=== PATIENT | female | born 1955 | race Caucasian/White ===

== ENCOUNTER 2017-06-24 13:54 | Observation (INO) ==
[2017-06-24] MEDS ORDERED: Ipratropium/Albuterol Neb 3 ML IH ONE (13:57)
[2017-06-24] MEDS ORDERED: methylPREDNISolone 125 MG/2 ML VIAL IVP ONE (13:57)
--- NOTE | 2017-06-24 13:57 | Emergency Department Note ---
Disposition Clinical Impression: Acute exacerbation of chronic obstructive airways disease Disposition: Admitted As Inpatient Referrals: Greg Lemos, PAC [Primary Care Provider] - Forms: ED Satisfaction Letter General Adult HPI - General Chief complaint: ED Shortness of Breath/Dyspnea Stated complaint: ELÍAS Time Seen by Provider: 06/24/17 13:56 - Related Data Allergies Allergy/AdvReac Type Severity Reaction Status Date / Time No Known Allergies Allergy Verified 09/12/16 16:07 Past Medical History - Past Medical History Medical history: Reports: COPD Psychiatric history: Reports: bipolar, depression - Social History Smoking Status: Current every day smoker Smokeless Tobacco Status: No Alcohol use: Reports: none Drug use: Reports: none Course Vital Signs Temperature 101.3 F H 06/24/17 13:56 Pulse Rate 112 06/24/17 13:56 Respiratory Rate 2 06/24/17 13:56 Blood Pressure 125/98 06/24/17 13:56 O2 Sat by Pulse Oximetry 91 06/24/17 13:56 Temperature 101.3 F H 06/24/17 13:56 Pulse Rate 108 06/24/17 14:02 Respiratory Rate 16 06/24/17 14:05 Blood Pressure 109/90 06/24/17 14:02 O2 Sat by Pulse Oximetry 93 06/24/17 14:05 Oxygen Delivery Oxygen Delivery Nasal Cannula Medical Decision Making - Lab Data Result diagrams: 06/24/17 14:05 06/24/17 14:05 Lab Results 06/24/17 06/24/17 06/24/17 Range/Units 14:05 14:05 14:05 WBC 5.7 (4.3-11.1) K/mcL RBC 5.68 H (3.82-4.97) M/mcL Hgb 16.7 H (11.5-15.4) g/dL Hct 50.6 H (35.3-44.9) % MCV 89.1 (83.0-100.0) fL MCH 29.4 (28.0-33.3) pg MCHC 33.0 (31.6-35.5) g/dL RDW 12.6 (11.5-14.5) % Plt Count 178 (140-400) K/mcL MPV 10.0 (9.4-12.4) fL Immature Gran % 0.2 (0-4) % Seg Neutrophils % 66.6 % Lymphocytes % 22.8 % Monocytes % 10.2 % Eosinophils % 0.0 % Basophils % 0.2 % Neutrophils # 3.8 (1.6-8.9) K/mcL Lymphocytes # 1.3 (0.6-4.6) K/mcL Monocytes # 0.6 (0.0-1.3) K/mcL Eosinophils # 0.0 (0.0-0.6) K/mcL Basophils # 0.0 (0.0-0.2) K/mcL Sodium 134 L (136-145) mEq/L Potassium 3.9 (3.5-5.1) mEq/L Chloride 97 L (98-107) mEq/L Carbon Dioxide 33 H (23-29) mEq/L BUN 11 (8-23) mg/dL Creatinine 0.77 (0.60-1.20) mg/dL Est GFR ( Amer) > 60 (> 60) Est GFR (Non-Af Amer) > 60 (> 60) BUN/Creatinine Ratio 14 (6-26) Glucose 134 H (70-105) mg/dL Calculated Osmolality 279 L (280-300) Lactic Acid 0.7 (0.5-2.2) mmol/L Calcium 8.8 (8.6-10.3) mg/dL Troponin I (< 0.04) ng/mL B-Natriuretic Peptide (Less than 100) pg/mL 06/24/17 06/24/17 Range/Units 14:05 14:05 WBC (4.3-11.1) K/mcL RBC (3.82-4.97) M/mcL Hgb (11.5-15.4) g/dL Hct (35.3-44.9) % MCV (83.0-100.0) fL MCH (28.0-33.3) pg MCHC (31.6-35.5) g/dL RDW (11.5-14.5) % Plt Count (140-400) K/mcL MPV (9.4-12.4) fL Immature Gran % (0-4) % Seg Neutrophils % % Lymphocytes % % Monocytes % % Eosinophils % % Basophils % % Neutrophils # (1.6-8.9) K/mcL Lymphocytes # (0.6-4.6) K/mcL Monocytes # (0.0-1.3) K/mcL Eosinophils # (0.0-0.6) K/mcL Basophils # (0.0-0.2) K/mcL Sodium (136-145) mEq/L Potassium (3.5-5.1) mEq/L Chloride (98-107) mEq/L Carbon Dioxide (23-29) mEq/L BUN (8-23) mg/dL Creatinine (0.60-1.20) mg/dL Est GFR ( Amer) (> 60) Est GFR (Non-Af Amer) (> 60) BUN/Creatinine Ratio (6-26) Glucose (70-105) mg/dL Calculated Osmolality (280-300) Lactic Acid (0.5-2.2) mmol/L Calcium (8.6-10.3) mg/dL Troponin I < 0.03 (< 0.04) ng/mL B-Natriuretic Peptide 16 (Less than 100) pg/mL Attestation Statement - Attestation Attestation: I examined this patient and my medical decision-making was reviewed with the Resident Physician. I agree with the documented findings, disposition and treatment plan as described except to the extent set forth below. Yfol-ke-[id number] time provided Patient arrives by EMS complaining of cough, wheezing, dyspnea. Known history of COPD. Increased work of breathing on exam with nonproductive cough. Patient seen in conjunction with the resident physician Dr. Hernandez 14:46: The patient is tachycardic and febrile meeting SIRS criteria but does not have radiographic pneumonia. She does not meet sepsis criteria.
--- NOTE | 2017-06-24 13:58 | Emergency Department Note ---
Disposition Clinical Impression: Acute exacerbation of chronic obstructive airways disease, Hypoxia, SIRS ( systemic inflammatory response syndrome) Disposition: Admitted As Inpatient Condition: Good Referrals: Greg Lemos, PAC [Primary Care Provider] - Forms: ED Satisfaction Letter Time of Disposition: 14:57 SOB HPI - General Chief Complaint: ED Shortness of Breath/Dyspnea Stated Complaint: ELÍAS Time Seen by Provider: 06/24/17 13:56 Source: patient, EMS Mode of arrival: EMS Limitations: no limitations Nursing Notes Reviewed: Yes Vital Signs Reviewed: Yes - History of Present Illness 62-year-old female history of COPD on 2 L home oxygen supplementation presents to the ED via EMS for difficulty breathing. She reports nonproductive cough with progressive worsening difficulty breathing over the last 8 days. Worse over the past 3 days as she is been out of her pro-air inhaler. She states every time she uses her inhaler it seems to improve. She continues to smoke but has stopped the last day or 2. She denies any chest pain. She denies any fever. No changes to sputum production. Reports history of hospitalization for pneumonia as well COPD exacerbation. Denies any recent antibiotic or steroid use. At this time it appears she is COPD exacerbation and percent. She has wheezing bilaterally with diminished breath sounds. DuoNeb treatment and steroids. She will likely require admission. She is febrile with tachycardia 113, septic workup initiated. Will reassess. He is not hypotensive to require aggressive fluid resuscitation at this time. No recent hospitalization. History of ectomy several years ago. Denies history of blood clot, malignancy, recent long-distance travel. Pt Subjective Complaint: shortness of breath, cough - Related Data Home Medications Medication Instructions Recorded Confirmed Albuterol Sulfate [Albuterol 2 puff IH Q4H PRN 06/24/17 06/24/17 Inhaler] Aspirin Enteric Coated [Aspirin EC] 81 mg PO DAILY 06/24/17 06/24/17 Fluticasone/Vilanterol [Breo 1 each IH DAILY 06/24/17 06/24/17 Ellipta 100-25 Mcg INH] Ipratropium/Albuterol Neb [Duoneb] 3 ml IH BID 06/24/17 06/24/17 LORazepam [Lorazepam] 2 mg PO TID PRN 06/24/17 06/24/17 Levothyroxine Sodium 100 mcg PO QAM 06/24/17 06/24/17 Nortriptyline HCl 75 mg PO HS 06/24/17 06/24/17 Trazodone HCl 200 mg PO HS 06/24/17 06/24/17 Allergies Allergy/AdvReac Type Severity Reaction Status Date / Time No Known Allergies Allergy Verified 09/12/16 16:07 All systems ED: reviewed and negative except as stated. Review of Systems: As Per HPI Constitutional: Denies: fever, chills ENT ED: Reports: congestion. Denies: dysphagia Cardiovascular: Reports: dyspnea on exertion. Denies: chest pain Respiratory: Reports: cough, dyspnea, wheezes. Denies: hemoptysis Gastrointestinal: Denies: abdominal pain, nausea, vomiting Genitourinary: Denies: urgency, dysuria Musculoskeletal: Denies: back pain, neck pain Integumentary: Denies: rash, abrasion, lesions Neurological: Denies: headache, weakness Past Medical History - Past Medical History Attestation: Yes The following information was validated with the patient. Source: patient Medical history: Reports: COPD Psychiatric history: Reports: bipolar, depression - Social History Smoking Status: Current every day smoker Smokeless Tobacco Status: No Alcohol use: Reports: none Drug use: Reports: none Physical Exam - General Limitations: no limitations General appearance: alert, in distress (Mild respiratory), other ( Conversational dyspnea) - Head Head exam: atraumatic, normocephalic, normal inspection - Eye Eye exam: Present: normal appearance, PERRL, EOMI - ENT ENT exam: normal exam, normal oropharynx, mucous membranes moist - Neck Neck exam: Present: normal inspection, full ROM, trachea midline - Chest Chest inspection: Present: normal inspection, symmetric chest wall rise - Respiratory Respiratory exam: Present: respiratory distress, wheezes - Cardiovascular Cardiovascular exam: Present: regular rate, normal rhythm, normal heart sounds - Abdominal Exam Abdominal exam: Present: soft, Non-Tender, normal bowel sounds. Absent: tenderness, distention, guarding, rebound, rigidity - Extremities Exam Extremities exam: Present: full ROM, normal capillary refill, other (Abrasion to lower extremity from recent fall). Absent: tenderness, pedal edema, calf tenderness - Back Exam Back exam: Present: normal inspection, full ROM. Absent: tenderness, CVA tenderness (R), CVA tenderness (L), vertebral tenderness - Neurological Exam Neurological exam: Present: alert, oriented X3 - Psychiatric Psychiatric exam: Present: normal affect, normal mood - Skin Skin exam: Present: warm, dry, intact, normal color Course - Reevaluation(s) Reevaluation #1: Breathing has improved after doing and steroids. She continues a half course breath sounds with scatter wheezing. Chest x-ray does not reveal acute pulmonary process. Review of labs reveal findings consistent with long- standing chronic hypoxia and hyper [place] with elevated hemoglobin 16 is at baseline as well as bicarb 33. Troponin unremarkable. BNP 19. EKG does not reveal any acute ischemic changes. This is likely COPD exacerbation. She will likely need admission. She is in agreement with this plan. She does meet 2 of 4 SIRS criteria with fever and tachycardia. CXR is unremarkable for infection. She denies any urinary complaints. Lactate 0.7. She does not meet sepsis criteria as there is no source. Will treat her with Levaquin for her COPD exacerbation. Patient has been accepted by Dr. Lopez hospitalist. She is currently requiring oxymask 10 L. No further questions at this time. Impression is hypoxia and COPD exacerbation. Time: 14:59 - Consultations Consultation #1: Spoke with on-call hospitalist naya Posey to admit for COPD exacerbation and hypoxia. No further orders at this time Time: 15:01 Vital Signs Temperature 101.3 F H 06/24/17 13:56 Pulse Rate 112 06/24/17 13:56 Respiratory Rate 2 06/24/17 13:56 Blood Pressure 125/98 06/24/17 13:56 O2 Sat by Pulse Oximetry 91 06/24/17 13:56 Temperature 101.3 F H 06/24/17 13:56 Pulse Rate 108 06/24/17 14:02 Respiratory Rate 16 06/24/17 14:05 Blood Pressure 109/90 06/24/17 14:02 O2 Sat by Pulse Oximetry 93 06/24/17 14:05 Oxygen Delivery Oxygen Delivery Nasal Cannula Shortness of Breath/Dyspnea - MDM Narrative Medical decision making narrative: Patient was discussed with my attending physician who agrees with ED management and final disposition. They independently evaluated the patient. Please refer to their attestation to this encounter for additional information. This note was generated by [employer] voice recognition software and as a result grammatical or spelling errors may occur using this program. - Differential Diagnosis Likely: acute exacerbation of chronic obstructive airways disease - Medical Records Medical records reviewed: Yes I reviewed the patient's medical records. - Lab Data Lab results reviewed: Yes I reviewed the patient's lab results. Result diagrams: 06/24/17 14:05 06/24/17 14:05 Lab Results 06/24/17 06/24/17 06/24/17 Range/Units 14:05 14:05 14:05 WBC 5.7 (4.3-11.1) K/mcL RBC 5.68 H (3.82-4.97) M/mcL Hgb 16.7 H (11.5-15.4) g/dL Hct 50.6 H (35.3-44.9) % MCV 89.1 (83.0-100.0) fL MCH 29.4 (28.0-33.3) pg MCHC 33.0 (31.6-35.5) g/dL RDW 12.6 (11.5-14.5) % Plt Count 178 (140-400) K/mcL MPV 10.0 (9.4-12.4) fL Immature Gran % 0.2 (0-4) % Seg Neutrophils % 66.6 % Lymphocytes % 22.8 % Monocytes % 10.2 % Eosinophils % 0.0 % Basophils % 0.2 % Neutrophils # 3.8 (1.6-8.9) K/mcL Lymphocytes # 1.3 (0.6-4.6) K/mcL Monocytes # 0.6 (0.0-1.3) K/mcL Eosinophils # 0.0 (0.0-0.6) K/mcL Basophils # 0.0 (0.0-0.2) K/mcL Sodium 134 L (136-145) mEq/L Potassium 3.9 (3.5-5.1) mEq/L Chloride 97 L (98-107) mEq/L Carbon Dioxide 33 H (23-29) mEq/L BUN 11 (8-23) mg/dL Creatinine 0.77 (0.60-1.20) mg/dL Est GFR ( Amer) > 60 (> 60) Est GFR (Non-Af Amer) > 60 (> 60) BUN/Creatinine Ratio 14 (6-26) Glucose 134 H (70-105) mg/dL Calculated Osmolality 279 L (280-300) Lactic Acid 0.7 (0.5-2.2) mmol/L Calcium 8.8 (8.6-10.3) mg/dL Troponin I (< 0.04) ng/mL B-Natriuretic Peptide (Less than 100) pg/mL 06/24/17 06/24/17 Range/Units 14:05 14:05 WBC (4.3-11.1) K/mcL RBC (3.82-4.97) M/mcL Hgb (11.5-15.4) g/dL Hct (35.3-44.9) % MCV (83.0-100.0) fL MCH (28.0-33.3) pg MCHC (31.6-35.5) g/dL RDW (11.5-14.5) % Plt Count (140-400) K/mcL MPV (9.4-12.4) fL Immature Gran % (0-4) % Seg Neutrophils % % Lymphocytes % % Monocytes % % Eosinophils % % Basophils % % Neutrophils # (1.6-8.9) K/mcL Lymphocytes # (0.6-4.6) K/mcL Monocytes # (0.0-1.3) K/mcL Eosinophils # (0.0-0.6) K/mcL Basophils # (0.0-0.2) K/mcL Sodium (136-145) mEq/L Potassium (3.5-5.1) mEq/L Chloride (98-107) mEq/L Carbon Dioxide (23-29) mEq/L BUN (8-23) mg/dL Creatinine (0.60-1.20) mg/dL Est GFR ( Amer) (> 60) Est GFR (Non-Af Amer) (> 60) BUN/Creatinine Ratio (6-26) Glucose (70-105) mg/dL Calculated Osmolality (280-300) Lactic Acid (0.5-2.2) mmol/L Calcium (8.6-10.3) mg/dL Troponin I < 0.03 (< 0.04) ng/mL B-Natriuretic Peptide 16 (Less than 100) pg/mL - Radiology Data Radiology results reviewed: Yes I reviewed the patient's radiology results. Chest X-Ray 06/24/17 13:57 IMPRESSION: No acute process. D/ / Ben Frank MD / Ben Frank MD Interpreting Provider: Ben Frank MD - EKG Data EKG attestation: Yes I reviewed and interpreted this EKG. EKG results narrative: EKG performed 1358 sinus tachycardia 1 11 bpm, normal axis, some baseline artifact, no ST elevation or depression, no T wave inversion, good R wave progression, intervals are within normal limits. There is no old EKG available for comparison. No acute ischemic changes.
[2017-06-24 14:18] LABS: Basophils % 0.2 %; Hematocrit 50.6 % (35.3-44.9); Hemoglobin 16.7 g/dL (11.5-15.4); Immature Granulocytes % 0.2 % (0-4); Lymphocytes # 1.3 K/mcL (0.6-4.6); Lymphocytes % 22.8 %; Mean Corpuscular Hemoglobin 29.4 pg (28.0-33.3); Mean Corpuscular Volume 89.1 fL (83.0-100.0); Monocytes # 0.6 K/mcL (0.0-1.3); Monocytes % 10.2 %; Neutrophils # 3.8 K/mcL (1.6-8.9); Platelet Count 178 K/mcL (140-400); Red Blood Count 5.68 M/mcL (3.82-4.97); Red Cell Distribution Width 12.6 % (11.5-14.5); Segmented Neutrophils % 66.6 %
[2017-06-24 14:27] LABS: BUN/Creatinine Ratio 14 (6-26); Blood Urea Nitrogen 11 mg/dL (8-23); Calcium 8.8 mg/dL (8.6-10.3); Carbon Dioxide 33 mEq/L (23-29); Chloride 97 mEq/L (98-107); Glucose 134 mg/dL (70-105); Osmolality,Calculated 279 (280-300); Potassium 3.9 mEq/L (3.5-5.1); Sodium 134 mEq/L (136-145); eGFR For African Americans > 60 (> 60); eGFR For Non-African Americans > 60 (> 60)
[2017-06-24] MEDS ORDERED: *HR* HYDROcodone/Acet 10/325 mg TABLET PO ONE (14:44)
[2017-06-24] MEDS ORDERED: Levofloxacin 500 MG/100 ML 500 MG/100 ML BAG IVPB ONE (14:45)
[2017-06-24] MEDS ORDERED: Ondansetron 4 MG/2 ML VIAL IVP PRN (16:59)
[2017-06-24] MEDS ORDERED: Naloxone 0.4 MG/ML INJ IVP PRN (16:59)
[2017-06-24] MEDS ORDERED: Acetaminophen 325 MG TABLET PO PRN (16:59)
[2017-06-24] MEDS ORDERED: Albuterol 2.5 MG/3 ML NEBULIZER IH PRN (17:56)
[2017-06-24] MEDS ORDERED: Levofloxacin 500 MG/100 ML 500 MG/100 ML BAG IVPB SCH (18:00)
[2017-06-24] MEDS ORDERED: *HR* LORazepam 1 MG TABLET PO PRN (18:01)
--- NOTE | 2017-06-24 18:09 | Internal Med History&Physical ---
<Lynda Resendez - Last Filed: 06/24/17 19:12> Date of Encounter: 06/24/17 Time of Encounter: 18:03 Assessment and Plan (1) Acute exacerbation of chronic obstructive airways disease Current visit: Yes Status: Acute Patient has been experiencing increasing shortness of breath unable to perform ADLs requiring increasing oxygen demand. Presented with wheezes temperature and tachycardia. We will continue with bronchodilators Oxygen titrated to maintain SPO2 greater than 90% Continue with steroid taper Continue Levaquin We will consult rn social services patient having difficulty obtaining bronchodilators as well as she may require home health assistance (2) Hypothyroid Current visit: No Status: Chronic Continue with Synthroid Qualifiers: Hypothyroidism type: unspecified Qualified Code(s): E03.9 - Hypothyroidism , unspecified (3) DVT prophylaxis Current visit: Yes Status: Acute Lovenox subcutaneous Internal Medicine - H&P: HPI Chief complaint: SOB Admitted From: Emergency Dept Plans for Post Hospital Care: Home History of present illness: Ms. Mccann is a 62 year old female past medical history of COPD oxygen dependent 2 L nasal cannula hypothyroid current smoker. According to the patient for the past 8 days she has been experiencing increase in shortness of breath. Over the past 3 days she has required an increase in oxygen 3 L. She is unable to complete ADLs due to dyspnea. She states that shortness of breath has improved with inhaler use and with rest. She has a current smoker however she has been unable to even smoke due to her shortness of breath. She denies any chest pain no change in cough or sputum production. She denies any chest pain fevers chills nausea vomiting diarrhea or abdominal pain. She presented to the ER with the above complaints laboratories obtained was unremarkable She did have a temperature of 101.3 and she was tachycardic on presentation. Chest x-ray with no acute process. She was given breathing treatments as well as steroids which did improve her respiratory state she has been admitted for further workup and evaluation of COPD exacerbation. Presently patient does not appear to be in respiratory distress she denies any chest pain. She is hemodynamically stable at this time. Past Med Surg Social Fam HX - Past Medical History Medical history: COPD, thyroid disease Psychiatric history: bipolar, depression - Past Surgical History Surgical History: cholecystectomy - Social History Smoking Status: Current every day smoker Packs per day: 1 Smokeless Tobacco Status: No Alcohol use: none Drug use: none - Family History Mother Living Status: Still Living Hx Family Cardiac Disorders: Yes Hx Family Endocrine Disorder: Yes Internal Medicine - H&P: Meds Albuterol Sulfate [Albuterol Inhaler] 2 puff IH Q4H PRN 06/24/17 [History] Ipratropium/Albuterol Neb [Duoneb] 3 ml IH BID 06/24/17 [History] LORazepam [Lorazepam] 2 mg PO TID PRN 06/24/17 [History] Levothyroxine Sodium 100 mcg PO QAM 06/24/17 [History] Nortriptyline HCl 75 mg PO HS 06/24/17 [History] Trazodone HCl 200 mg PO HS 06/24/17 [History] 3 Allergy/AdvReac Type Severity Reaction Status Date / Time No Known Allergies Allergy Verified 09/12/16 16:07 All Systems PM: A 10-system review of systems was performed and is negative for pertinent findings except as documented above in the HPI. - Constitutional Constitutional: anorexia, weakness - EENT Eyes: no change in vision, no discharge, no pain, no photophobia Nose, mouth and throat: no dysphagia, no nasal discharge, no neck pain, no sore throat - Cardiovascular Cardiovascular ROS IM: no chest pain, no diaphoresis, no dyspnea, no lightheadedness, no palpitations, no syncope - Respiratory Respiratory: cough, dyspnea, dyspnea on exertion, no wheezing, no excessive phlegm production - Gastrointestinal Gastrointestinal: no abdominal pain, no diarrhea, no hematemesis, no hematochezia, no melena, no nausea, no vomiting - Genitourinary Genitourinary: no change in urinary stream, no dysuria, no flank pain, no hematuria - Musculoskeletal Musculoskeletal ROS IM: no numbness, no tingling - Integumentary Integumentary IM: no rash, no unusual bruising - Neurological Neurological ROS: no confusion, no convulsions, no focal weakness, no numbness, no tingling, no tremor(s) - Hematologic/Lymphatic Hematologic/Lymphatic: no easy bruising - Constitutional Vitals: Temp Pulse Resp BP Pulse Ox 98.6 F 100 16 113/59 94 06/24/17 16:31 06/24/17 16:31 06/24/17 16:31 06/24/17 16:31 06/24/17 16:39 General appearance: Present: A&O X 3 - Head Head exam: Present: atraumatic, normocephalic - Eye Eye exam: Present: PERRL, conjuntiva pink, sclera anicteric Pupils: Present: PERRL - Neck Neck exam general surgery: Present: supple, trachea midline. Absent: lymphadenopathy - Respiratory Respiratory exam: Present: wheezes. Absent: accessory muscle use, rales, rhonchi - Cardiovascular Cardiovascular exam: Present: RRR, +S1, +S2. Absent: diastolic murmur, gallop, rubs, systolic murmur - GI/Abdominal GI/Abdominal exam: Present: normal bowel sounds, soft, no peritoneal signs. Absent: distended, tenderness - Extremities Exam Extremities exam: Present: warm, radial pulses palpable and symmetrical. Absent : calf tenderness, cyanotic, pedal edema - Neurological Exam Neurological exam: Present: CN II-XII intact, oriented X3, no focal deficits. Absent: pronater drift, facial droop, speech deficit Internal Med - H&P Results - Labs CBC & Chem 7: 06/24/17 14:05 06/24/17 14:05 - EKG Data EKG shows normal: sinus rhythm Rate: tachycardia - Diagnostic Studies Other Images Additional comments: Chest X-Ray 06/24/17 13:57 IMPRESSION: No acute process. D/ / Ben Frank MD / Ben Frank MD Interpreting Provider: Ben Frank MD <Jason Lopez P - Last Filed: 06/25/17 08:07> Date of Encounter: 06/25/17 Internal Medicine - H&P: HPI History of present illness: Ms. Mccann is a 62 year old female All Systems PM: A 10-system review of systems was performed and is negative for pertinent findings except as documented above in the HPI. - Constitutional Vitals: Temp Pulse Resp BP Pulse Ox 97.7 F 84 15 122/85 97 06/25/17 07:29 06/25/17 07:29 06/25/17 07:39 06/25/17 07:29 06/25/17 07:39 Internal Med - H&P Results - Labs CBC & Chem 7: 06/25/17 04:22 06/25/17 04:22 Labs: Short CBC 06/25/17 Range/Units 04:22 WBC 1.3 L D (4.3-11.1) K/mcL Hgb 15.0 D (11.5-15.4) g/dL Hct 44.4 (35.3-44.9) % Plt Count 160 (140-400) K/mcL Neutrophils # 0.7 L (1.6-8.9) K/mcL BMP 06/25/17 04:22 Sodium 132 L Potassium 4.5 Chloride 96 L Carbon Dioxide 34 H BUN 13 Creatinine 0.68 Glucose 250 H Calcium 8.7 - Attending Attestation I examined this patient and my medical decision-making was reviewed with the Resident Physician. I agree with the documented findings, disposition and treatment plan as described except to the extent set forth below. 62/female Admitted with COPD examination. Still actively smoking. Plan: Antibiotics/steroids/bronchodilators. Smoking cessation counseling done at length.
[2017-06-24] MEDS: MethylPREDNISolone 40 MG/ML VIAL IVP SCH (18:34)
--- NOTE | 2017-06-24 18:41 | Electrocardiograph Report ---
[place] [id number] Test Date: 2017-06-24 Pat Name: Georgiana Mccann Department: 104 Room: 3B Gender: F Poising Inspector: DORINA : 1955 Requested By: Hua Hernandez Order Number: [id number] Reading MD: Angel Meléndez DO Measurements Intervals [place] Rate: 111 P: 74 RI: 140 QRS: 93 QRSD: 91 T: 87 QT: 312 QTc: 378 Interpretive Statements SINUS TACHYCARDIA Electronically Signed On 06-24-2017 18:39:59 EST by Angel Meléndez DO
[2017-06-24] MEDS: Ipratropium/Albuterol Neb 3 ML IH SCH ×2 (19:44→23:06)
[2017-06-24] MEDS ORDERED: traZODone 50 MG TABLET PO SCH (21:00)
[2017-06-25] MEDS: MethylPREDNISolone 40 MG/ML VIAL IVP SCH ×2 (00:16→06:03)
[2017-06-25] MEDS: Ipratropium/Albuterol Neb 3 ML IH SCH ×2 (03:30→07:38)
[2017-06-25 05:38] LABS: BUN/Creatinine Ratio 19 (6-26); Blood Urea Nitrogen 13 mg/dL (8-23); Calcium 8.7 mg/dL (8.6-10.3); Carbon Dioxide 34 mEq/L (23-29); Chloride 96 mEq/L (98-107); Glucose 250 mg/dL (70-105); Magnesium 2.1 mg/dL (1.6-2.6); Osmolality,Calculated 283 (280-300); Potassium 4.5 mEq/L (3.5-5.1); Sodium 132 mEq/L (136-145); eGFR For African Americans > 60 (> 60); eGFR For Non-African Americans > 60 (> 60)
[2017-06-25 06:10] LABS: Hematocrit 44.4 % (35.3-44.9); Lymphocytes # 0.4 K/mcL (0.6-4.6); Lymphocytes % 33.8 %; Mean Corpuscular HGB Conc 33.8 g/dL (31.6-35.5); Mean Corpuscular Hemoglobin 30.1 pg (28.0-33.3); Mean Platelet Volume 10.3 fL (9.4-12.4); Monocytes # 0.1 K/mcL (0.0-1.3); Neutrophils # 0.7 K/mcL (1.6-8.9); Platelet Count 160 K/mcL (140-400); Red Blood Count 4.99 M/mcL (3.82-4.97); Red Cell Distribution Width 12.5 % (11.5-14.5); Segmented Neutrophils % 56.2 %
[2017-06-25] MEDS ORDERED: *HR* Enoxaparin 40 MG/0.4 ML SYRINGE SQ SCH (07:00)
[2017-06-25 07:02] LABS: Platelet Estimate Normal (Normal); Reactive Lymphocytes Present (Not Present)
[2017-06-25 07:32] VITALS: BP 122/85
--- NOTE | 2017-06-25 08:15 | Discharge Summary ---
Date of Encounter: 06/28/17 Time of Encounter: 08:07 - Discharge Diagnosis (1) Acute exacerbation of chronic obstructive airways disease Priority: Primary Status: Acute (2) SIRS (systemic inflammatory response syndrome) Priority: Primary Status: Acute (3) Hypothyroid Priority: Secondary Status: Chronic Qualifiers: Hypothyroidism type: unspecified Qualified Code(s): E03.9 - Hypothyroidism , unspecified (4) DVT prophylaxis Priority: Secondary Status: Acute - Discharge Medications Prescriptions: Albuterol Sulfate [Albuterol Inhaler] 2 puff IH Q4HR #1 hfa.aer.ad Levofloxacin [Levaquin] 500 mg PO DAILY #4 tablet PredniSONE [Deltasone] 40 mg PO DAILY #8 tablet Home Medications: Albuterol Sulfate [Albuterol Inhaler] 2 puff IH Q4H PRN 06/24/17 [History] Ipratropium/Albuterol Neb [Duoneb] 3 ml IH BID 06/24/17 [History] LORazepam [Lorazepam] 2 mg PO TID PRN 06/24/17 [History] Levothyroxine Sodium 100 mcg PO QAM 06/24/17 [History] Nortriptyline HCl 75 mg PO HS 06/24/17 [History] Trazodone HCl 200 mg PO HS 06/24/17 [History] Albuterol Neb [Proventil Neb] 2.5 mg IH Q2H PRN inhsol 06/25/17 [Rx] Albuterol Sulfate [Albuterol Inhaler] 2 puff IH Q4HR #1 hfa.aer.ad 06/25/17 [Rx] Levofloxacin [Levaquin] 500 mg PO DAILY #4 tablet 06/25/17 [Rx] PredniSONE [Deltasone] 40 mg PO DAILY #8 tablet 06/25/17 [Rx] Allergies/Adverse Reactions: 3 Allergy/AdvReac Type Severity Reaction Status Date / Time No Known Allergies Allergy Verified 09/12/16 16:07 Date of admission: 06/24/17 15:29 Primary care physician: Greg Lemos Consults: 06/24/17 18:00 Consult to Aquaculture Worker [CONS] Routine Reason for SW Consult: discharge planning- patient may need home health, having problems getting medications Discharging clinician: Jason Lopez - Patient Status Disposition: Home, Self-Care Condition: Good Functional capacity at discharge: independent ambulation Overall status at discharge: patient is progressing back to baseline - Discharge Instructions Instructions: Albuterol (By mouth), Prednisone (By mouth), Levofloxacin (By mouth) Follow Up With: Greg Lemos PAC [Primary Care Provider] - - Diet and Activity Activity: increase activity as tolerated Diet: low fat, low cholesterol Interval History: Ms. Mccann is a 62 year old female past medical history of COPD oxygen dependent 2 L nasal cannula hypothyroid current smoker. According to the patient for the past 8 days she has been experiencing increase in shortness of breath. Over the past 3 days she has required an increase in oxygen 3 L. She is unable to complete ADLs due to dyspnea. She states that shortness of breath has improved with inhaler use and with rest. She has a current smoker however she has been unable to even smoke due to her shortness of breath. She denies any chest pain no change in cough or sputum production. She denies any chest pain fevers chills nausea vomiting diarrhea or abdominal pain. She presented to the ER with the above complaints laboratories obtained was unremarkable She did have a temperature of 101.3 and she was tachycardic on presentation. Chest x-ray with no acute process. She was given breathing treatments as well as steroids which did improve her respiratory state she has been admitted for further workup and evaluation of COPD exacerbation. Presently patient does not appear to be in respiratory distress she denies any chest pain. She is hemodynamically stable at this time. Hospital course: Patient was evaluated this morning. Patient is comfortably lying in the bed. Even the patient was admitted last night for COPD exacerbation, patient insisting to go home. Clinically patient looks better. Labs reviewed. Patient is keen to go home because patient has a elderly mother and disabled sister to take care of. Patient is a still active smoker. Discussed with the patient at length for more than 10 minutes regarding smoking cessation. Patient said that she will talk to her primary care provider and will work on the smoking cessation. Along with me during the conversation with the patient WILLIE Martinez was present. Plan: Levofloxacin 500 mg once a day for 4 days. Prednisone 40 mg once a day for 4 days. Inhaled bronchodilators twice a day. Smoking cessation as per primary care provider. Different options discussed with the patient Patient verbalized understanding. At the time of discharge patient does not have any questions, concerns, update our recommendations. I discussed with the patient at she should be staying here for 1 more day to evaluate/observe closely. Patient refused to stay for 1 more day and preferred to go home. - Time Spent with Patient Total time spent providing and/or coordinating discharge services: - Constitutional Vitals: Temp Pulse Resp BP Pulse Ox 97.7 F 84 15 122/85 97 06/25/17 07:29 06/25/17 07:29 06/25/17 07:39 06/25/17 07:29 06/25/17 07:39 General appearance: Present: A&O X 3, pleasant, no acute distress, answers questions appropriately - Head Head exam: Present: atraumatic, normocephalic - Eye Eye exam: Present: PERRL, conjuntiva pink, sclera anicteric Pupils: Present: PERRL - Neck Neck exam general surgery: Present: supple, trachea midline. Absent: lymphadenopathy - Respiratory Respiratory exam: Present: CTAB. Absent: accessory muscle use, rales, rhonchi, wheezes - Cardiovascular Cardiovascular exam: Present: RRR, +S1, +S2. Absent: diastolic murmur, gallop, rubs, systolic murmur - GI/Abdominal GI/Abdominal exam: Present: normal bowel sounds, soft, no peritoneal signs. Absent: distended, tenderness - Extremities Exam Extremities exam: Present: warm, radial pulses palpable and symmetrical. Absent : calf tenderness, cyanotic, pedal edema - Neurological Exam Neurological exam: Present: CN II-XII intact, oriented X3, no focal deficits. Absent: pronater drift, facial droop, speech deficit - Skin Skin exam: Present: dry, intact
[2017-06-25] MEDS ORDERED: Levofloxacin 500 MG/100 ML 500 MG/100 ML BAG IVPB SCH (15:00)
== END 2017-06-25 11:15 | disposition home or self-care (01) ==
LOC: EMEROO 13:54 → 3BNU 13:54
PROVIDERS: ADMIT Internal Medicine; ATTEND Registered Nurse

== ENCOUNTER 2018-01-07 11:14 | Inpatient (IN) ==
[2018-01-07] MEDS ORDERED: Aspirin 81 MG TAB.CHEW PO ONE (11:23)
--- NOTE | 2018-01-07 11:27 | Emergency Department Note ---
Disposition Clinical Impression: NSTEMI (non-ST elevated myocardial infarction), Elevated troponin Chest pain Qualifiers: Chest pain type: unspecified Qualified Code(s): R07.9 - Chest pain, unspecified Disposition: Admitted As Inpatient Condition: Fair Time of Disposition: 13:48 General Adult HPI - General Chief complaint: ED Chest Pain Stated complaint: CHEST PAIN Time Seen by Provider: 01/07/18 11:23 Source: patient, EMS Mode of arrival: EMS Limitations: no limitations Nursing Notes Reviewed: Yes Vital Signs Reviewed: Yes - History of Present Illness HPI Narrative: Patient is a 62-year-old female that presents the emergency department for chest pain. She states that this started approximately 2-3 hours ago while she was sitting at home watching TV. She states that the pain is located in the center of her chest and both arms are hurting. Patient states that she has had some increase in shortness of breath, has felt nauseated but had no diaphoresis. Patient states that she has never had a heart attack or cardiac catheterization. Patient states that she does wear oxygen at home. States that she is been wearing about 2.5 L of oxygen. Patient states that she has also recently had a cough. Patient rates her pain as a 9 out of 10. Patient denies any radiation of the pain but just states that her arms hurt. Pain Scale: 9 - Related Data Home Medications Medication Instructions Recorded Confirmed Albuterol Sulfate [Albuterol 2 puff IH Q4H PRN 06/24/17 01/07/18 Inhaler] Ipratropium/Albuterol Neb [Duoneb] 3 ml IH BID 06/24/17 01/07/18 LORazepam [Lorazepam] 2 mg PO TID PRN 06/24/17 01/07/18 Levothyroxine Sodium 100 mcg PO QAM 06/24/17 01/07/18 Nortriptyline HCl 75 mg PO HS 06/24/17 01/07/18 Trazodone HCl 200 mg PO HS 06/24/17 01/07/18 Atorvastatin [Lipitor] 40 mg PO DAILY 01/07/18 01/07/18 Fluticasone/Vilanterol [Breo 1 puff IH DAILY 01/07/18 01/07/18 Ellipta 100-25 Mcg INH] Allergies Allergy/AdvReac Type Severity Reaction Status Date / Time No Known Allergies Allergy Verified 01/07/18 12:55 All systems ED: reviewed and negative except as stated. Cardiovascular: Reports: chest pain Respiratory: Reports: cough, dyspnea Past Medical History - Past Medical History Medical history: Reports: COPD, hypertension, thyroid disease Surgical history: Reports: cholecystectomy Psychiatric history: Reports: bipolar, depression - Social History Smoking Status: Current every day smoker Smokeless Tobacco Status: No Alcohol use: Reports: none Drug use: Reports: none Physical Exam - General Limitations: no limitations General appearance: alert, in no apparent distress - Head Head exam: atraumatic, normocephalic - Eye Eye exam: Present: normal appearance, EOMI - Neck Neck exam: Present: normal inspection, full ROM, trachea midline - Respiratory Respiratory exam: Present: other (Decreased breath sounds ). Absent: respiratory distress, wheezes - Cardiovascular Cardiovascular exam: Present: regular rate, normal rhythm, normal heart sounds, +S1, +S2 - Abdominal Exam Abdominal exam: Present: soft, Non-Tender, normal bowel sounds - Neurological Exam Neurological exam: Present: alert, oriented X3 - Psychiatric Psychiatric exam: Present: normal affect, normal mood - Skin Skin exam: Present: warm, dry, intact Course - Consultations Consultation #1: Called and spoke with Dr. Nichole the on-call inspector floor and he is aware the patient will be admitted to the hospital. States that they will see the patient in consult. A consult will be placed in [facility] at this time. Time: 13:59 Vital Signs Temperature 98.0 F 01/07/18 11:16 Pulse Rate 89 01/07/18 11:16 Respiratory Rate 26 01/07/18 11:16 Blood Pressure 136/84 01/07/18 11:16 O2 Sat by Pulse Oximetry 95 01/07/18 11:16 Temperature 98.0 F 01/07/18 11:16 Pulse Rate 85 01/07/18 12:24 Respiratory Rate 22 01/07/18 12:24 Blood Pressure 114/67 01/07/18 12:24 O2 Sat by Pulse Oximetry 94 01/07/18 12:24 Oxygen Delivery Oxygen Delivery Nasal Cannula Medical Decision Making - MDM Narrative Medical decision making narrative: Due to the patient presenting to the emergency Department with chest pain and increased shortness of breath there is concern for possible cardiac involvement. We will obtain a CBC, BMP, troponin chest x-ray and EKG. Patient will be given aspirin and nitroglycerin here in the emergency department. Chest x-ray does not show any acute cardiopulmonary process per radiology read. Patient's chest pain did improve with the sublingual nitroglycerin. Patient' s troponin was 0.21. Patient's EKG did show some depressions in V3 through V6. Patient was started on heparin and nitroglycerin. The patient will need to be admitted to the hospital for further evaluation and management. I called and spoke with the admitting hospitals negative except the patient to their service. They request that we contact cardiology. This will be done. - Medical Records Medical records reviewed: Yes I reviewed the patient's medical records. - Lab Data Lab results reviewed: Yes I reviewed the patient's lab results. Result diagrams: 01/07/18 11:34 01/07/18 11:34 Lab Results 01/07/18 01/07/18 01/07/18 Range/Units 11:24 11:34 11:34 WBC 10.6 (4.3-11.1) K/mcL RBC 5.46 H (3.82-4.97) M/mcL Hgb 16.6 H (11.5-15.4) g/dL Hct 49.4 H (35.3-44.9) % MCV 90.5 (83.0-100.0) fL MCH 30.4 (28.0-33.3) pg MCHC 33.6 (31.6-35.5) g/dL RDW 13.2 (11.5-14.5) % Plt Count 210 (140-400) K/mcL MPV 9.4 (9.4-12.4) fL Immature Gran % 0.3 (0-4) % Seg Neutrophils % 68.8 % Lymphocytes % 23.4 % Monocytes % 6.2 % Eosinophils % 1.1 % Basophils % 0.2 % Neutrophils # 7.3 (1.6-8.9) K/mcL Lymphocytes # 2.5 (0.6-4.6) K/mcL Monocytes # 0.7 (0.0-1.3) K/mcL Eosinophils # 0.1 (0.0-0.6) K/mcL Basophils # 0.0 (0.0-0.2) K/mcL PT 11.3 (9.4-12.1) Seconds INR 1.0 APTT 33.2 (26.0-36.0) Seconds Sodium 139 (136-145) mEq/L Potassium 3.8 (3.5-5.1) mEq/L Chloride 102 (98-107) mEq/L Carbon Dioxide 30 H (23-29) mEq/L BUN 6 L (8-23) mg/dL Creatinine 0.65 (0.60-1.20) mg/dL Est GFR ( Amer) > 60 (> 60) Est GFR (Non-Af Amer) > 60 (> 60) BUN/Creatinine Ratio 9 (6-26) Glucose 103 (70-105) mg/dL Calculated Osmolality 286 (280-300) Calcium 9.2 (8.6-10.3) mg/dL Troponin I 0.21 H* (< 0.04) ng/mL - Radiology Data Radiology results reviewed: Yes I reviewed the patient's radiology results. Chest X-Ray 01/07/18 11:24 IMPRESSION: No acute process. D/ / 01/07/2018 11:45:41 Bay Witt MD / [facility] Interpreting Provider: Bay Witt MD - EKG Data EKG #1 EKG attestation: Yes I reviewed and interpreted this EKG. EKG results narrative: EKG shows a sinus rhythm at a rate of 86 bpm, MS interval of 161, QRS duration of 94, QTc of 392 with a normal axis. There are ST depressions in V3, V4, V5 and V6 these are new in comparison to previous EKG on 06/24/17 which showed a sinus tachycardia.
[2018-01-07] MEDS: Nitroglycerin 0.4 MG TAB.SUBL SL ONE ×3 (11:31→11:42)
[2018-01-07 11:58] LABS: Basophils % 0.2 %; Eosinophils # 0.1 K/mcL (0.0-0.6); Eosinophils % 1.1 %; Hematocrit 49.4 % (35.3-44.9); Hemoglobin 16.6 g/dL (11.5-15.4); Immature Granulocytes % 0.3 % (0-4); Lymphocytes # 2.5 K/mcL (0.6-4.6); Lymphocytes % 23.4 %; Mean Corpuscular HGB Conc 33.6 g/dL (31.6-35.5); Mean Corpuscular Hemoglobin 30.4 pg (28.0-33.3); Mean Corpuscular Volume 90.5 fL (83.0-100.0); Mean Platelet Volume 9.4 fL (9.4-12.4); Monocytes # 0.7 K/mcL (0.0-1.3); Monocytes % 6.2 %; Neutrophils # 7.3 K/mcL (1.6-8.9); Platelet Count 210 K/mcL (140-400); Red Blood Count 5.46 M/mcL (3.82-4.97); Red Cell Distribution Width 13.2 % (11.5-14.5); Segmented Neutrophils % 68.8 %
[2018-01-07 12:07] LABS: Prothrombin Time 11.3 Seconds (9.4-12.1)
[2018-01-07 12:10] LABS: Activated Partial Thrombo Time 33.2 Seconds (26.0-36.0)
[2018-01-07 12:30] LABS: BUN/Creatinine Ratio 9 (6-26); Blood Urea Nitrogen 6 mg/dL (8-23); Calcium 9.2 mg/dL (8.6-10.3); Carbon Dioxide 30 mEq/L (23-29); Chloride 102 mEq/L (98-107); Glucose 103 mg/dL (70-105); Osmolality,Calculated 286 (280-300); Potassium 3.8 mEq/L (3.5-5.1); Sodium 139 mEq/L (136-145); eGFR For African Americans > 60 (> 60); eGFR For Non-African Americans > 60 (> 60)
--- NOTE | 2018-01-07 12:53 | Emergency Department Note ---
Disposition Clinical Impression: Chest pain Qualifiers: Chest pain type: unspecified Qualified Code(s): R07.9 - Chest pain, unspecified Disposition: Admitted As Inpatient Forms: ED Satisfaction Letter General Adult HPI - General Chief complaint: ED Chest Pain Stated complaint: CHEST PAIN Time Seen by Provider: 01/07/18 11:23 Source: patient, EMS Mode of arrival: EMS Limitations: no limitations - History of Present Illness Pain Scale: 3 - Related Data Home Medications Medication Instructions Recorded Confirmed Albuterol Sulfate [Albuterol 2 puff IH Q4H PRN 06/24/17 06/24/17 Inhaler] Ipratropium/Albuterol Neb [Duoneb] 3 ml IH BID 06/24/17 06/24/17 LORazepam [Lorazepam] 2 mg PO TID PRN 06/24/17 06/24/17 Levothyroxine Sodium 100 mcg PO QAM 06/24/17 06/24/17 Nortriptyline HCl 75 mg PO HS 06/24/17 06/24/17 Trazodone HCl 200 mg PO HS 06/24/17 06/24/17 Previous Rx's Medication Instructions Recorded Albuterol Neb [Proventil Neb] 2.5 mg IH Q2H PRN inhsol 06/25/17 Albuterol Sulfate [Albuterol 2 puff IH Q4HR #1 hfa.aer.ad 06/25/17 Inhaler] Levofloxacin [Levaquin] 500 mg PO DAILY #4 tablet 06/25/17 PredniSONE [Deltasone] 40 mg PO DAILY #8 tablet 06/25/17 Azithromycin [Zithromax] 250 - 500 mg PO DAILY #6 tablet 11/10/17 Promethazine/Dextromethorphan 5 ml PO Q4-6H PRN #120 ml 11/10/17 [Promethazine-Dm Solution] predniSONE [PredniSONE] 40 mg PO DAILY #10 tablet 11/10/17 Allergies Allergy/AdvReac Type Severity Reaction Status Date / Time No Known Allergies Allergy Verified 09/12/16 16:07 Cardiovascular: Reports: chest pain Respiratory: Reports: cough, dyspnea Past Medical History - Past Medical History Medical history: Reports: COPD, hypertension, thyroid disease Surgical history: Reports: cholecystectomy Psychiatric history: Reports: bipolar, depression - Social History Smoking Status: Current every day smoker Smokeless Tobacco Status: No Alcohol use: Reports: none Drug use: Reports: none Physical Exam - General Limitations: no limitations General appearance: alert, in no apparent distress Course Vital Signs Temperature 98.0 F 01/07/18 11:16 Pulse Rate 89 01/07/18 11:16 Respiratory Rate 26 01/07/18 11:16 Blood Pressure 136/84 01/07/18 11:16 O2 Sat by Pulse Oximetry 95 01/07/18 11:16 Temperature 98.0 F 01/07/18 11:16 Pulse Rate 85 01/07/18 12:24 Respiratory Rate 22 01/07/18 12:24 Blood Pressure 114/67 01/07/18 12:24 O2 Sat by Pulse Oximetry 94 01/07/18 12:24 Oxygen Delivery Oxygen Delivery Nasal Cannula Medical Decision Making - Lab Data Result diagrams: 01/07/18 11:34 01/07/18 11:34 Lab Results 01/07/18 01/07/18 01/07/18 Range/Units 11:24 11:34 11:34 WBC 10.6 (4.3-11.1) K/mcL RBC 5.46 H (3.82-4.97) M/mcL Hgb 16.6 H (11.5-15.4) g/dL Hct 49.4 H (35.3-44.9) % MCV 90.5 (83.0-100.0) fL MCH 30.4 (28.0-33.3) pg MCHC 33.6 (31.6-35.5) g/dL RDW 13.2 (11.5-14.5) % Plt Count 210 (140-400) K/mcL MPV 9.4 (9.4-12.4) fL Immature Gran % 0.3 (0-4) % Seg Neutrophils % 68.8 % Lymphocytes % 23.4 % Monocytes % 6.2 % Eosinophils % 1.1 % Basophils % 0.2 % Neutrophils # 7.3 (1.6-8.9) K/mcL Lymphocytes # 2.5 (0.6-4.6) K/mcL Monocytes # 0.7 (0.0-1.3) K/mcL Eosinophils # 0.1 (0.0-0.6) K/mcL Basophils # 0.0 (0.0-0.2) K/mcL PT 11.3 (9.4-12.1) Seconds INR 1.0 APTT 33.2 (26.0-36.0) Seconds Sodium 139 (136-145) mEq/L Potassium 3.8 (3.5-5.1) mEq/L Chloride 102 (98-107) mEq/L Carbon Dioxide 30 H (23-29) mEq/L BUN 6 L (8-23) mg/dL Creatinine 0.65 (0.60-1.20) mg/dL Est GFR ( Amer) > 60 (> 60) Est GFR (Non-Af Amer) > 60 (> 60) BUN/Creatinine Ratio 9 (6-26) Glucose 103 (70-105) mg/dL Calculated Osmolality 286 (280-300) Calcium 9.2 (8.6-10.3) mg/dL Attestation Statement - Attestation Attestation: I examined this patient and my medical decision-making was reviewed with the Resident Physician. I agree with the documented findings, disposition and treatment plan as described except to the extent set forth below. 62 year old female presntes to the ED with complaints of chest pain and is a longstanding smoker with numerous risk factors for ACS. Suma is currnetly having midsternal chest pain and appears uncomfortable. Suma states that nitro has helped her pain and she has poor followup. There are new St depressions located inthe pre cordial leads without reciporcal elevations. WE willl do ACS wrkup and admit to medicine with ASA and nitro therapy
[2018-01-07 13:42] LABS: Troponin I 0.21 ng/mL (< 0.04)
[2018-01-07] MEDS ORDERED: *HR* Heparin 5,000 UNIT/ML VIAL IVP ONE (13:43)
[2018-01-07] MEDS ORDERED: *HR* Heparin 5,000 UNIT/ML VIAL IVP PRN ×2 (13:43)
[2018-01-07] MEDS ORDERED: Heparin 25,000 UNIT/500 ML D5W 25,000 UNIT/500 ML BAG IVC SCH (13:45)
[2018-01-07] MEDS: Nitroglycerin 25 MG/250 ML INFUS..BTL IVC SCH (14:04)
--- NOTE | 2018-01-07 14:25 | Cardiology Consult Note ---
<Radha Hughes - Last Filed: 01/07/18 14:31> Date of Encounter: 01/07/18 Time of Encounter: 14:00 Assessment and Plan (1) NSTEMI (non-ST elevated myocardial infarction) Current Visit: Yes Status: Acute Patient presents with onset of chest pain this morning; initial troponin 0.21. Ischemic ECG changes noted. Currently pain free upon exam. Agree with IV heparin gtt, NTG gtt to keep pain free. Recommend asa, statin. No BB due to severe COPD. Recommend LHC with possible PCI, alternatives, risks, and benefits discussed, she is agreeable to proceed. Check Echocardiogram. Cardiac rehab. Further recommendations to follow. (2) Chest pain Current Visit: Yes Status: Acute Plan as above. Qualifiers: Chest pain type: chest pain due to myocardial ischemia Ischemic chest pain type: unstable angina pectoris Qualified Code(s): I20.0 - Unstable angina (3) COPD (chronic obstructive pulmonary disease) Current Visit: Yes Status: Acute Oxygen dependent, mgmt per primary service. Patient reports is prescribed continuous oxygen therapy however she is unable to carry portable tank. Recommend social work consult. Qualifiers: COPD type: unspecified COPD Qualified Code(s): J44.9 - Chronic obstructive pulmonary disease, unspecified Discussion w patient/family: The assessment and plan as outlined above was discussed with the patient and/or family members who expressed understanding and agreement. All questions were answered. Thank you for involving us in the care of your patient. Please call with any questions. The patient will be discussed and reviewed with Dr. Nichole; changes to be made accordingly. History of Present Illness Consult date: 01/07/18 Requesting physician: [place] Consult reason: NSTEMI Chief complaint: Chest pain History of present illness: Ms. Mccann is a 62 year old female with PMHx significant for HTN, HLD, tobacco dependence, COPD on continuous oxygen therapy, and DMII (diet controlled) who presented to the ED with complaints of chest pain. Reports symptom onset this morning, was constant for nearly 2-3 hours. Pain radiated down bilateral arms. Reports took an ASA without symptoms improvement which prompted ED evaluation. Associated symptoms include 1 week history of fatigue and worsening shortness of breath with minimal exertion. Reports "light" chest pain episodes over the past 2-3 days. Risk factors for CAD include: DMII, HTN, HLD, tobacco dependency, and positive family history--premature CAD mother--x2 CABG, first MT in 30's. Prior CV testing: TTE 2013: Normal left ventricular size and systolic function. LVEF 65% Normal right ventricular size and function.No significant valvular dysfunction.There is no pulmonary hypertension. All wall segments showed normal motion. Past Med Surg Social Fam HX - Past Medical History Attestation: Yes The following information was validated with the patient. Source: patient Medical history: COPD, diabetes, hyperlipidemia, hypertension, thyroid disease Psychiatric history: bipolar, depression - Past Surgical History Surgical History: appendectomy - Social History Smoking Status: Current every day smoker Packs per day: 1-2 ppd Smokeless Tobacco Status: No Alcohol use: none Drug use: none - Family History Mother Living Status: Still Living Hx Family Cardiac Disorders: Yes Hx Family Endocrine Disorder: Yes Medications and Allergies Albuterol Sulfate [Albuterol Inhaler] 2 puff IH Q4H PRN 06/24/17 [History] Ipratropium/Albuterol Neb [Duoneb] 3 ml IH BID 06/24/17 [History] LORazepam [Lorazepam] 2 mg PO TID PRN 06/24/17 [History] Levothyroxine Sodium 100 mcg PO QAM 06/24/17 [History] Nortriptyline HCl 75 mg PO HS 06/24/17 [History] Trazodone HCl 200 mg PO HS 06/24/17 [History] Atorvastatin [Lipitor] 40 mg PO DAILY 01/07/18 [History] Fluticasone/Vilanterol [Breo Ellipta 100-25 Mcg INH] 1 puff IH DAILY 01/07/18 [ History] 3 Allergy/AdvReac Type Severity Reaction Status Date / Time No Known Allergies Allergy Verified 01/07/18 12:55 All Systems Review: The remainder of the systems were reviewed and are negative - Cardiovascular Cardiovascular: as per HPI Physical Examination Vital Signs, Last 4 Hours Pulse Resp BP Pulse Ox 01/07/18 14:00 95 20 130/74 94 01/07/18 13:58 87 117/82 General: Conversant HEENT: Atraumatic, Normocephaly Cardiac: Reg Rate and Rhythm, Normal S1 and S2 Lungs: Other (expiratory wheezes) Neuro: Alert and responsive Abdomen: Soft Skin: No rashes noted on visualized skin Musculoskeletal: No Chest Wall Tenderness Extremities: No Edema, Normal Pulses Results 01/07/18 11:34 01/07/18 11:34 - Imaging and Cardiology Echo: report reviewed - EKG Interpretation EKG results cardiology: personally reviewed Consult Discharge Plan - Plan Referrals: Greg Lemos, PAC [Primary Care Provider] - <Chinedu Nichole - Last Filed: 01/08/18 23:06> Date of Encounter: 01/07/18 Time of Encounter: 14:20 - Attending Attestation I have personally performed a face to face evaluation on this patient. I have reviewed and agree with the care plan. History and Exam by me shows: CC: Chest pain HPI: PT complains of sudden onset mid sternal chest pain, approximately three hours before presentation, 8/10 at most severe, has waxed and waned since onset , improved with sublingual ntg in ER. Pain is now 3/10. She has had five day history of increased shortness of breath, fatigue and light chest pain, which she describes as 4/10, provoked by exercise and relieved by rest. PMH: reviewed ROS Reviewed PE: pt seen and examined, agree with findings as documented. IMP/Plan: 1. NSTEMI; ongoing chest pain, ischemic EKG changes, recommend emergent LHC/ possible, risks and benefits discussed, pt agrees to proceed. Assessment and Plan Discussion w patient/family: The assessment and plan as outlined above was discussed with the patient and/or family members who expressed understanding and agreement. All questions were answered. Thank you for involving us in the care of your patient. Please call with any questions. History of Present Illness History of present illness: Ms. Mccann is a 62 year old female All Systems Review: The remainder of the systems were reviewed and are negative Physical Examination Vital Signs, Last 4 Hours Temp Pulse Resp BP Pulse Ox 01/08/18 19:57 98.2 F 92 16 120/67 95 Results 01/08/18 03:02 01/08/18 03:02 Lab Results 01/07/18 01/08/18 01/08/18 22:09 03:02 03:02 WBC 9.8 Hgb 14.1 D Hct 41.8 Plt Count 186 Sodium 139 Potassium 3.9 Chloride 106 Carbon Dioxide 28 BUN 6 L Creatinine 0.47 L Glucose 102 Calcium 8.5 L Magnesium 1.7 Total Bilirubin 0.5 AST 18 ALT 12 Alkaline Phosphatase 70 Troponin I 5.94 H* 4.30 H*
[2018-01-07] MEDS ORDERED: 0.9 % Sodium Chloride 1,000 ML IVC ONE (14:33)
[2018-01-07] MEDS ORDERED: ISOVUE-370 200 ML INFUS..BTL IV ONE ×2 (15:22→17:03)
[2018-01-07] MEDS ORDERED: *HR* Heparin 10,000 UNIT/10 ML VIAL ONE (15:22)
[2018-01-07] MEDS ORDERED: 0.9 % Sodium Chloride 1,000 ML ONE ×2 (15:22→15:36)
[2018-01-07] MEDS ORDERED: Heparin 1,000 UNITS/500 mL 500 ML ONE (15:22)
[2018-01-07] MEDS ORDERED: Nitroglycerin 1,000 MCG/10 ML VIAL IV ONE (15:22)
[2018-01-07] MEDS ORDERED: *HR* FentaNYL (PF) 100 MCG/2 ML VIAL ONE (16:14)
[2018-01-07] MEDS ORDERED: *HR* Midazolam HCl 2 MG/2 ML VIAL ONE ×2 (16:14→16:29)
--- NOTE | 2018-01-07 16:38 | Internal Med History&Physical ---
Date of Encounter: 01/07/18 Time of Encounter: 02:20 Internal Medicine - H&P: HPI Chief complaint: CP History of present illness: Ms. Mccann is a 62 year old female presents the emergency department for 9/10 midsternal chest pain that started approximately 2-3 hours ago while she was sitting at home watching TV associated with some increase in shortness of breath and nausea and no diaphoresis. She was given aspirin and nitroglycerin here in the emergency department. Chest x-ray does not show any acute cardiopulmonary process per radiology read. Patient's chest pain did improve with the sublingual nitroglycerin. Patient's troponin was 0.21. EKG did show some depressions in V3 through V6. Patient was started on heparin and nitroglycerin and cardiology was consulted. Past Med Surg Social Fam HX - Past Medical History Medical history: COPD, diabetes, hyperlipidemia, hypertension, thyroid disease Psychiatric history: bipolar, depression - Past Surgical History Surgical History: appendectomy - Social History Smoking Status: Current every day smoker Packs per day: 1-2 ppd Smokeless Tobacco Status: No Alcohol use: none Drug use: none - Family History Mother Living Status: Still Living Hx Family Cardiac Disorders: Yes Hx Family Endocrine Disorder: Yes Internal Medicine - H&P: Meds Albuterol Sulfate [Albuterol Inhaler] 2 puff IH Q4H PRN 06/24/17 [History] Ipratropium/Albuterol Neb [Duoneb] 3 ml IH BID 06/24/17 [History] LORazepam [Lorazepam] 2 mg PO TID PRN 06/24/17 [History] Levothyroxine Sodium 100 mcg PO QAM 06/24/17 [History] Nortriptyline HCl 75 mg PO HS 06/24/17 [History] Trazodone HCl 200 mg PO HS 06/24/17 [History] Atorvastatin [Lipitor] 40 mg PO DAILY 01/07/18 [History] Fluticasone/Vilanterol [Breo Ellipta 100-25 Mcg INH] 1 puff IH DAILY 01/07/18 [ History] 3 Allergy/AdvReac Type Severity Reaction Status Date / Time No Known Allergies Allergy Verified 01/07/18 12:55 All Systems PM: A 10-system review of systems was performed and is negative for pertinent findings except as documented above in the HPI. - Constitutional Constitutional: no chills, no fever(s), no night sweats - Cardiovascular Cardiovascular ROS IM: chest pain, dyspnea, no diaphoresis, no lightheadedness, no palpitations, no syncope - Respiratory Respiratory: dyspnea, no cough, no wheezing, no excessive phlegm production - Gastrointestinal Gastrointestinal: no abdominal pain, no diarrhea, no hematemesis, no hematochezia, no melena, no nausea, no vomiting - Neurological Neurological ROS: no confusion, no convulsions, no focal weakness, no numbness, no tingling, no tremor(s) - Constitutional Vitals: Temp Pulse Resp BP Pulse Ox 98 F 84 16 104/69 93 01/07/18 15:40 01/07/18 15:40 01/07/18 15:40 01/07/18 15:40 01/07/18 15:40 General appearance: Present: A&O X 3 - Head Head exam: Present: atraumatic, normocephalic - Respiratory Respiratory exam: Present: CTAB. Absent: accessory muscle use, rales, rhonchi, wheezes - Cardiovascular Cardiovascular exam: Present: RRR, +S1, +S2. Absent: diastolic murmur, gallop, rubs, systolic murmur - GI/Abdominal GI/Abdominal exam: Present: normal bowel sounds, soft, no peritoneal signs. Absent: distended, tenderness - Extremities Exam Extremities exam: Present: warm, radial pulses palpable and symmetrical. Absent : calf tenderness, cyanotic, pedal edema Internal Med - H&P Results - Labs CBC & Chem 7: 01/08/18 03:02 01/08/18 03:02 - Assessment and plan (1) NSTEMI (non-ST elevated myocardial infarction) Current Visit: Yes Status: Acute Assessment and plan: Patient presents with onset of chest pain with initial troponin 0.21 and Ischemic ECG changes - cardiac enzymes x 2 q 8 hr - EKG now and in AM - ASA - O2 by NC to keep SpO2 greater than 92% - UA - CBCD, BMP in AM - Fasting lipids - Morphine 2 mg IV q 2-4 hr PRN chest pain - Tylenol 650 mg PO q 4-6 hr PRN headache - Home meds (check list) - 2D Echo - Cont. IV heparin gtt, NTG gtt,asa, statin. For LHC with possible PCI, (2) COPD (chronic obstructive pulmonary disease) Current Visit: Yes Status: Acute Qualifiers: COPD type: unspecified COPD Qualified Code(s): J44.9 - Chronic obstructive pulmonary disease, unspecified (3) Hypothyroid Current Visit: No Status: Chronic Qualifiers: Hypothyroidism type: unspecified Qualified Code(s): E03.9 - Hypothyroidism , unspecified (4) DVT prophylaxis Current Visit: No Status: Acute - Time Spent With Patient Total time spent is greater than 50% in coordination of care (as documented) at patient's floor/unit and/or counseling patient:
[2018-01-07] MEDS ORDERED: Tirofiban 12.5 MG/250ML 12.5 MG/250 ML BAG ONE (16:56)
--- NOTE | 2018-01-07 17:17 | Pre-Sedation Evaluation ---
Pre-sedation evaluation - Pre-sedation checklist Date of procedure: 01/07/18 Procedure: [facility] Recent Vitals: Last Vital Signs Temp 98 F 01/07/18 15:40 Pulse 84 01/07/18 15:40 Resp 16 01/07/18 15:40 BP 104/69 01/07/18 15:40 Pulse Ox 93 01/07/18 15:40 H&P (including ROS) documented in medical record: Yes Previous reaction to sedatives/anesthetics: No Dietary Status: No solid food in preceding 4 hrs and no liquid in preceding 2 hrs Airway Assessment: Patient can open mouth completely, TMJ function normal Dentition: No loose teeth or bridges ASA Classification *see protocol: CLASS II-Mild systemic disease Plan of Care: Pt appropriate candidate for procedure/moderate/conscious sedation , Risks/benefits of procedure/sedation discussed w/ patient/family Cardiac Registry (Cardio Only) - Functional Capacity Functional Capacity: < 4 METS - Clincal Frailty Scale Clinical Frailty Scale: Managing Well
[2018-01-07] MEDS ORDERED: Tirofiban 12.5 MG/250ML 12.5 MG/250 ML BAG IVC SCH (17:30)
[2018-01-07] MEDS ORDERED: Naloxone 0.4 MG/ML INJ IVP PRN (21:01)
[2018-01-07] MEDS ORDERED: *HR* Atropine Sulfate 1 MG/10 ML SYRINGE ONE (21:26)
[2018-01-07 22:37] LABS: INR 1.1; Prothrombin Time 12.2 Seconds (9.4-12.1)
[2018-01-07 22:39] LABS: Activated Partial Thrombo Time 34.2 Seconds (26.0-36.0)
[2018-01-07] MEDS ORDERED: SUMAtriptan succinate 25 MG TABLET PO ONE (23:02)
[2018-01-07] MEDS: *HR* LORazepam 1 MG TABLET PO PRN (23:23)
[2018-01-08 03:23] LABS: Basophils % 0.1 %; Eosinophils # 0.1 K/mcL (0.0-0.6); Eosinophils % 1.2 %; Hematocrit 41.8 % (35.3-44.9); Immature Granulocytes % 0.4 % (0-4); Lymphocytes % 20.6 %; Mean Corpuscular HGB Conc 33.7 g/dL (31.6-35.5); Mean Corpuscular Hemoglobin 30.5 pg (28.0-33.3); Mean Corpuscular Volume 90.5 fL (83.0-100.0); Mean Platelet Volume 9.3 fL (9.4-12.4); Monocytes # 0.7 K/mcL (0.0-1.3); Monocytes % 6.6 %; Platelet Count 186 K/mcL (140-400); Red Blood Count 4.62 M/mcL (3.82-4.97); Red Cell Distribution Width 13.2 % (11.5-14.5); Segmented Neutrophils % 71.1 %
[2018-01-08 03:26] LABS: Hemoglobin 14.1 g/dL (11.5-15.4)
[2018-01-08 03:42] LABS: Alanine Aminotransferase 12 Units/L (7-52); Albumin 3.2 g/dL (3.5-5.7); Albumin/Globulin Ratio 1.5 (1.1-2.2); Alkaline Phosphatase 70 Units/L (34-104); Aspartate Amino Transferase 18 Units/L (13-39); BUN/Creatinine Ratio 13 (6-26); Bilirubin,Total 0.5 mg/dL (0.3-1.0); Blood Urea Nitrogen 6 mg/dL (8-23); Calcium 8.5 mg/dL (8.6-10.3); Carbon Dioxide 28 mEq/L (23-29); Chloride 106 mEq/L (98-107); Chol/HDL Ratio 5.2 (0-4.9); Cholesterol 197 mg/dL (< 200); Globulin 2.1 g/dL (2.4-3.5); Glucose 102 mg/dL (70-105); HDL Cholesterol 38 mg/dL (40-59); LDL Cholesterol,Calculated 124 mg/dL (0-99); Magnesium 1.7 mg/dL (1.6-2.6); Osmolality,Calculated 286 (280-300); Potassium 3.9 mEq/L (3.5-5.1); Sodium 139 mEq/L (136-145); Total Protein 5.3 g/dL (6.4-8.9); Triglycerides 174 mg/dL (< 150); eGFR For African Americans > 60 (> 60); eGFR For Non-African Americans > 60 (> 60)
[2018-01-08] MEDS: Aspirin Enteric Coated 81 MG Tablet PO SCH (08:23)
[2018-01-08] MEDS: *HR* LORazepam 1 MG TABLET PO PRN ×2 (08:27→20:02)
--- NOTE | 2018-01-08 09:23 | Internal Med Progress Note ---
Date of Encounter: 01/08/18 Time of Encounter: 11:00 - Assessment and plan (1) NSTEMI (non-ST elevated myocardial infarction) Current Visit: Yes Status: Acute Assessment and plan: Status post left heart catheterization on 01/07/18 with LUIS placed to mid circumflex and RPDA Patient developed left thigh hematoma at entry site so will monitor overnight (2) COPD (chronic obstructive pulmonary disease) Current Visit: Yes Status: Acute Assessment and plan: Continue home medications Qualifiers: COPD type: unspecified COPD Qualified Code(s): J44.9 - Chronic obstructive pulmonary disease, unspecified (3) Hypothyroid Current Visit: No Status: Chronic Assessment and plan: Continue home medications Qualifiers: Hypothyroidism type: unspecified Qualified Code(s): E03.9 - Hypothyroidism , unspecified (4) DVT prophylaxis Current Visit: No Status: Acute Assessment and plan: Continue heparin drip - Time Spent With Patient Total time spent is greater than 50% in coordination of care (as documented) at patient's floor/unit and/or counseling patient: - Subjective Interval history: Patient status post left heart catheterization on 01/07/18 with LUIS placed to mid circumflex and RPDA. Patient however develop right thigh hematoma at entry site of C; will monitor overnight - Constitutional Vitals: Temp Pulse Resp BP Pulse Ox 99.6 F 87 18 110/78 96 01/08/18 08:25 01/08/18 08:25 01/08/18 08:25 01/08/18 08:25 01/08/18 08:25 General appearance: Present: A&O X 3 - Respiratory Respiratory exam: Present: CTAB. Absent: accessory muscle use, rales, rhonchi, wheezes - Cardiovascular Cardiovascular exam: Present: RRR, +S1, +S2. Absent: diastolic murmur, gallop, rubs, systolic murmur Internal Medicine: Result - Labs CBC & Chem 7: 01/08/18 03:02 01/08/18 03:02 Labs: Short CBC 01/08/18 Range/Units 03:02 WBC 9.8 (4.3-11.1) K/mcL Hgb 14.1 D (11.5-15.4) g/dL Hct 41.8 (35.3-44.9) % Plt Count 186 (140-400) K/mcL Neutrophils # 7.0 (1.6-8.9) K/mcL BMP 01/08/18 03:02 Sodium 139 Potassium 3.9 Chloride 106 Carbon Dioxide 28 BUN 6 L Creatinine 0.47 L Glucose 102 Calcium 8.5 L Cardiac Enzymes 01/07/18 01/08/18 Range/Units 22:09 03:02 Troponin I 5.94 H* 4.30 H* (< 0.04) ng/mL Liver Function 01/08/18 Range/Units 03:02 Total Bilirubin 0.5 (0.3-1.0) mg/dL AST 18 (13-39) Units/L ALT 12 (7-52) Units/L Alkaline Phosphatase 70 (34-104) Units/L Albumin 3.2 L (3.5-5.7) g/dL - ABG Interpretation ABG results: PT/INR, D-dimer PT 12.2 Seconds (9.4-12.1) H 01/07/18 22:09 Consult Discharge Plan - Plan Referrals: Greg Lemos, PAC [Primary Care Provider] -
--- NOTE | 2018-01-08 10:02 | Electrocardiograph Report ---
[place] [facility] Test Date: 2018-01-07 Pat Name: Georgiana Mccann Department: 104 Room: 2N10 Gender: F [employer]: : 1955 Requested By: Hector Adams Order Number: [id number] Reading MD: Tory Fuentes Measurements Intervals [place] Rate: 86 P: 78 HI: 161 QRS: 85 QRSD: 94 T: 78 QT: 348 QTc: 392 Interpretive Statements SINUS RHYTHM SEPTAL MYOCARDIAL INFARCTION, PROBABLY OLD Electronically Signed On 01-08-2018 10:01:12 EDT by Tory Fuentes
[2018-01-08] MEDS: Ipratropium/Albuterol Neb 3 ML IH SCH ×2 (10:18→22:44)
[2018-01-08] MEDS: (Breo Ellipta 100-25 Mcg Inh) IH SCH (10:18)
[2018-01-08] MEDS: Acetaminophen 325 MG TABLET PO PRN (10:28)
--- NOTE | 2018-01-08 14:07 | Cardiology Progress Note ---
Date of Encounter: 01/08/18 Time of Encounter: 09:15 Assessment and Plan (1) NSTEMI (non-ST elevated myocardial infarction) Current Visit: Yes Status: Acute Per cardiology: -S/p LHC yesterday with LUIS placed to mid circumflex and RPDA. Has remaining mild CAD. -Chest chest pain, however states has some achiness, different from yesterday. -TTE with LVEF preserved, no segmental wall motion abnormalities noted. -On asa, plavix, statin. -Of note, has large area of ecchymosis, small hematoma. -Will start BB. -Will add ranexa for achiness. Discussed and reviewed with , will start and will check ECG in am (on trazadone, possible QTc prolongation). -Right groin arterial duplex to rule out pseudoaneurysm. -Will continue to monitor. (2) Chest pain Current Visit: Yes Status: Acute Per cardiology: -See plan as above. -Starting ranexa. -Will continue to monitor. Qualifiers: Chest pain type: chest pain due to myocardial ischemia Ischemic chest pain type: unstable angina pectoris Qualified Code(s): I20.0 - Unstable angina Discussion w patient/family: The assessment and plan as outlined above was discussed with the patient who expressed understanding and agreement. All questions were answered. Thank you for involving us in the care of your patient. Please call with any questions. Discussed and reviewed with . Subjective Principal diagnosis: NSTEMI Interval history: Reports some chest achiness today, states different pain from yesterday. Reports right groin pain. Objective Vital Signs, Last 4 Hours Temp Pulse Resp BP Pulse Ox 01/08/18 11:40 98.5 F 98 18 111/72 94 01/08/18 11:32 98.5 F 98 18 111/72 94 01/08/18 10:23 18 97 General: Conversant, No Apparent Distress HEENT: Atraumatic, Normocephaly, Mucus Membranes Moist Neck: No JVD, Normal carotid pulses Cardiac: Reg Rate and Rhythm, Normal S1 and S2, No Murmur Lungs: Normal Breath Sounds, No Wheeze, Rales, Rhonchi Neuro: Alert and responsive, No focal deficits noted Abdomen: Soft, Non-Tender Skin: No rashes noted on visualized skin, Other (Right groin access site with large ecchymosis, small hematoma. ) Musculoskeletal: No Chest Wall Tenderness Extremities: No Clubbing, No Cyanosis, No Edema, Normal Pulses Results 01/08/18 03:02 01/08/18 03:02 Lab Results Impressions Echocardiogram 01/07/18 14:32 Impressions: LVEF 60%. Mild left ventricular diastolic dysfunction. Normal right ventricular structure and function. No significant valvular dysfunction. No pulmonary hypertension. Findings: Study Quality * Technically adequate exam. ECG Findings * Normal sinus rhythm. Left Ventricle * LVEF 60%. * Normal LV chamber size, wall thickness and function. * Mild left ventricular diastolic dysfunction. Right Ventricle * Normal right ventricular structure and function. Left Atrium * Normal left atrial size. Right Atrium * Normal right atrial size. Mitral Valve * No mitral stenosis. * Mitral valve not well visualized in all views. * Trace mitral regurgitation. Aortic Valve * No aortic regurgitation. * Aortic valve not well visualized. * No aortic stenosis. Tricuspid Valve * Trace tricuspid regurgitation. * Estimated RA pressure is 3 mmHg. * Normal tricuspid valve structure. Pulmonic Valve * Pulmonic valve is not well visualized. * No pulmonic stenosis. * No pulmonic regurgitation. Pulmonary Artery * Pulmonary artery not well visualized. Aorta * Normally sized aortic root. * Ascending aorta not well visualized. Pericardium * There is no pericardial effusion present. Interatrial Septum * No evidence of PFO by color Doppler. IVC * Normal IVC dimensions and inspiratory collapse. Active Medications Acetaminophen (Tylenol) 650 mg PO Q6HR PRN PRN Reason: Pain Stop: 07/10/18 10:11 Last Admin: 01/08/18 10:28 Dose: 650 mg Albuterol Sulfate (Albuterol Inhaler) 2 puff IH Q4H PRN PRN Reason: Shortness Of Breath Stop: 07/09/18 22:21 Albuterol/Ipratropium (Duoneb) 3 ml IH BIDR [facility] Stop: 07/10/18 10:01 Last Admin: 01/08/18 10:18 Dose: 3 ml Aspirin (Aspirin Ec) 81 mg PO DAILY [facility] Stop: 07/10/18 09:01 Last Admin: 01/08/18 08:23 Dose: 81 mg Atorvastatin Calcium (Lipitor) 40 mg PO HS [facility] Stop: 07/09/18 21:01 Last Admin: 01/07/18 22:09 Dose: 40 mg Clopidogrel Bisulfate (Plavix) 75 mg PO DAILY [facility] Stop: 07/10/18 09:01 Last Admin: 01/08/18 08:23 Dose: 75 mg Heparin Sodium (Porcine) (Heparin) 3,200 unit 60 unit/kg (3200 unit) IVP Q6HR PRN PRN Reason: SEE COMMENTS Stop: 07/09/18 13:44 Heparin Sodium (Porcine) (Heparin) 1,600 unit 30 unit/kg (1600 unit) IVP Q6H PRN PRN Reason: SEE COMMENTS Stop: 07/09/18 13:44 Nitroglycerin (Nitroglycerin Premix 25 Mg/250 Ml) 25 mg in 250 mls @ 3 mls/hr IVC .Q24H YAA; 5 MCG/MIN PRN Reason: Protocol Stop: 07/09/18 13:46 Last Titration: 01/07/18 19:00 Dose: Infused Levothyroxine Sodium (Synthroid) 100 mcg PO DAILY@0630 [facility] Stop: 07/10/18 06:31 Last Admin: 01/08/18 08:23 Dose: 100 mcg Lorazepam (Ativan) 2 mg PO TID PRN PRN Reason: Anxiety Last Admin: 01/08/18 08:27 Dose: 2 mg Naloxone HCl (Narcan) 0.4 mg IVP Q2MIN PRN PRN Reason: SEE COMMENTS Stop: 07/09/18 21:02 (Breo Ellipta 100-25 (Mcg Inh)) 1 puff IH DAILYR [facility] Stop: 07/10/18 10:01 Last Admin: 01/08/18 10:18 Dose: Not Given Nortriptyline HCl (Pamelor) 75 mg PO HS [facility] Stop: 07/10/18 21:01 Ranolazine (Ranexa) 500 mg PO BID [facility] Stop: 07/10/18 21:01 Trazodone HCl (Trazodone) 200 mg PO HS [facility] Stop: 07/10/18 21:01 Laboratory Tests 01/07/18 01/07/18 01/07/18 11:34 11:34 22:09 Hgb 16.6 H Creatinine Troponin I 0.21 H* 5.94 H* 01/08/18 01/08/18 03:02 03:02 Hgb 14.1 D Creatinine 0.47 L Troponin I 4.30 H* - Imaging and Cardiology Chest Xray: report reviewed Echo: report reviewed Cardiac cath: report reviewed - EKG Interpretation EKG results cardiology: other (Telemetry reviewed with average HR previous 12 hours noted to be 88, SR. PVCs and PACs noted.) Consult Discharge Plan - Plan Referrals: Greg Lemos, PAC [Primary Care Provider] -
[2018-01-08] MEDS: Nitroglycerin 25 MG/250 ML INFUS..BTL IVC SCH (14:15)
[2018-01-08] MEDS ORDERED: Ketorolac 30 MG/ML VIAL IVP ONE (14:23)
[2018-01-08] MEDS: Metoprolol XL (24 HR) Succ 25 MG TAB.ER.24H PO SCH (14:25)
[2018-01-08] MEDS: Ranolazine 500 MG TAB.ER.12H PO SCH (20:02)
[2018-01-08] MEDS: traZODone 50 MG TABLET PO SCH (20:02)
[2018-01-09] MEDS: Acetaminophen 325 MG TABLET PO PRN ×2 (03:42→20:14)
[2018-01-09 05:36] LABS: Basophils % 0.1 %; Eosinophils # 0.2 K/mcL (0.0-0.6); Eosinophils % 1.7 %; Hematocrit 39.6 % (35.3-44.9); Hemoglobin 13.5 g/dL (11.5-15.4); Immature Granulocytes % 0.5 % (0-4); Lymphocytes # 2.6 K/mcL (0.6-4.6); Lymphocytes % 29.8 %; Mean Corpuscular HGB Conc 34.1 g/dL (31.6-35.5); Mean Corpuscular Hemoglobin 30.8 pg (28.0-33.3); Mean Corpuscular Volume 90.2 fL (83.0-100.0); Mean Platelet Volume 9.2 fL (9.4-12.4); Monocytes # 0.7 K/mcL (0.0-1.3); Monocytes % 7.7 %; Neutrophils # 5.2 K/mcL (1.6-8.9); Platelet Count 178 K/mcL (140-400); Red Blood Count 4.39 M/mcL (3.82-4.97); Segmented Neutrophils % 60.2 %
[2018-01-09] MEDS: Metoprolol XL (24 HR) Succ 25 MG TAB.ER.24H PO SCH (07:33)
[2018-01-09] MEDS: Ranolazine 500 MG TAB.ER.12H PO SCH ×2 (07:33→20:14)
[2018-01-09] MEDS: Aspirin Enteric Coated 81 MG Tablet PO SCH (07:33)
[2018-01-09] MEDS: Nitroglycerin 25 MG/250 ML INFUS..BTL IVC SCH (08:09)
[2018-01-09] MEDS: Ipratropium/Albuterol Neb 3 ML IH SCH ×2 (09:29→21:53)
[2018-01-09] MEDS: (Breo Ellipta 100-25 Mcg Inh) IH SCH (09:32)
--- NOTE | 2018-01-09 14:12 | Cardiology Progress Note ---
Date of Encounter: 01/09/18 Time of Encounter: 10:30 Assessment and Plan (1) NSTEMI (non-ST elevated myocardial infarction) Current Visit: Yes Status: Acute Per cardiology: -S/p LHC yesterday with LUIS placed to mid circumflex and RPDA. Has remaining mild CAD. -Chest chest pain, however states has some achiness, different from yesterday. -TTE with LVEF preserved, no segmental wall motion abnormalities noted. -On asa, plavix, statin, BB. -Of note, has large area of ecchymosis, arterial US negative for pseudoaneurysm. Of note, hemoglobin 16.6 admission to 13.5 today. -Will add ranexa for achiness. Discussed and reviewed with , will start and will check ECG in am (on trazadone, possible QTc prolongation). ECG pending. -Discussed and reviewed with Dionisio Velez, recommend patient remain inpateint to evaluate hemoglobin and clinical status. Recommend patient ambulate. -Will continue to monitor. (2) Chest pain Current Visit: Yes Status: Acute Per cardiology: -See plan as above. -Starting ranexa. -Will continue to monitor. Qualifiers: Chest pain type: chest pain due to myocardial ischemia Ischemic chest pain type: unstable angina pectoris Qualified Code(s): I20.0 - Unstable angina Discussion w patient/family: The assessment and plan as outlined above was discussed with the patient who expressed understanding and agreement. All questions were answered. Thank you for involving us in the care of your patient. Please call with any questions. Discussed and reviewed with . Subjective Principal diagnosis: NSTEMI Interval history: Reports some chest achiness today, states different pain from yesterday. Reports right groin pain. Patient states she really wants to go home today. Objective Vital Signs Temperature 98.0 F 01/07/18 11:16 Pulse Rate 89 01/07/18 11:16 Respiratory Rate 26 01/07/18 11:16 Blood Pressure 136/84 01/07/18 11:16 O2 Sat by Pulse Oximetry 95 01/07/18 11:16 Temperature 99.2 F 01/09/18 03:36 Pulse Rate 88 01/09/18 07:40 Respiratory Rate 18 01/09/18 09:29 Blood Pressure 92/64 01/09/18 09:29 O2 Sat by Pulse Oximetry 96 07/08/18 09:29 Oxygen Delivery Oxygen Delivery Nasal Cannula General: Conversant, No Apparent Distress HEENT: Atraumatic, Normocephaly, Mucus Membranes Moist Neck: No JVD, Normal carotid pulses Cardiac: Reg Rate and Rhythm, Normal S1 and S2, No Murmur Lungs: Normal Breath Sounds, No Wheeze, Rales, Rhonchi Neuro: Alert and responsive, No focal deficits noted Abdomen: Soft, Non-Tender Skin: Other (Large area of ecchymosis noted to right groin access site, extending into thigh, hip. ) Musculoskeletal: No Chest Wall Tenderness Extremities: No Clubbing, No Cyanosis, No Edema, Normal Pulses Results 01/09/18 05:18 01/08/18 03:02 Lab Results Impressions Chest X-Ray 01/07/18 11:24 IMPRESSION: No acute process. D/ / 01/07/2018 11:45:41 Bay Witt MD / earnold Interpreting Provider: Bay Witt MD Active Medications Acetaminophen (Tylenol) 650 mg PO Q6HR PRN PRN Reason: Pain Stop: 07/10/18 10:11 Last Admin: 01/09/18 03:42 Dose: 650 mg Albuterol Sulfate (Albuterol Inhaler) 2 puff IH Q4H PRN PRN Reason: Shortness Of Breath Stop: 07/09/18 22:21 Albuterol/Ipratropium (Duoneb) 3 ml IH BIDR [facility] Stop: 07/10/18 10:01 Last Admin: 01/09/18 09:29 Dose: 3 ml Aspirin (Aspirin Ec) 81 mg PO DAILY [facility] Stop: 07/10/18 09:01 Last Admin: 01/09/18 07:33 Dose: 81 mg Atorvastatin Calcium (Lipitor) 40 mg PO HS [facility] Stop: 07/09/18 21:01 Last Admin: 01/08/18 20:03 Dose: 40 mg Clopidogrel Bisulfate (Plavix) 75 mg PO DAILY [facility] Stop: 07/10/18 09:01 Last Admin: 01/09/18 07:33 Dose: 75 mg Heparin Sodium (Porcine) (Heparin) 3,200 unit 60 unit/kg (3200 unit) IVP Q6HR PRN PRN Reason: SEE COMMENTS Stop: 07/09/18 13:44 Heparin Sodium (Porcine) (Heparin) 1,600 unit 30 unit/kg (1600 unit) IVP Q6H PRN PRN Reason: SEE COMMENTS Stop: 07/09/18 13:44 Nitroglycerin (Nitroglycerin Premix 25 Mg/250 Ml) 25 mg in 250 mls @ 3 mls/hr IVC .Q24H YAA; 5 MCG/MIN PRN Reason: Protocol Stop: 07/09/18 13:46 Last Admin: 01/09/18 08:09 Dose: Not Given Levothyroxine Sodium (Synthroid) 100 mcg PO DAILY@0630 [facility] Stop: 07/10/18 06:31 Last Admin: 01/09/18 05:45 Dose: 100 mcg Lorazepam (Ativan) 2 mg PO TID PRN PRN Reason: Anxiety Last Admin: 01/08/18 20:02 Dose: 2 mg Metoprolol Succinate (Toprol Xl) 12.5 mg PO DAILY [facility] Stop: 07/10/18 14:16 Last Admin: 01/09/18 07:33 Dose: Not Given Naloxone HCl (Narcan) 0.4 mg IVP Q2MIN PRN PRN Reason: SEE COMMENTS Stop: 07/09/18 21:02 (Breo Ellipta 100-25 (Mcg Inh)) 1 puff IH DAILYR [facility] Stop: 07/10/18 10:01 Last Admin: 01/09/18 09:32 Dose: Not Given Nortriptyline HCl (Pamelor) 75 mg PO HS [facility] Stop: 07/10/18 21:01 Last Admin: 01/08/18 20:02 Dose: 75 mg Ranolazine (Ranexa) 500 mg PO BID [facility] Stop: 07/10/18 21:01 Last Admin: 01/09/18 07:33 Dose: Not Given Trazodone HCl (Trazodone) 200 mg PO HS [facility] Stop: 07/10/18 21:01 Last Admin: 01/08/18 20:02 Dose: 200 mg Laboratory Tests 01/07/18 01/08/18 01/09/18 11:34 03:02 05:18 Hgb 16.6 H 14.1 D 13.5 - Imaging and Cardiology Chest Xray: report reviewed Echo: report reviewed Cardiac cath: report reviewed - EKG Interpretation EKG results cardiology: other (Telemetry reviewed with average HR previous 12 hours noted to be 83, SR. PVCs and PACs noted.) Consult Discharge Plan - Plan Referrals: Greg Lemos, PAC [Primary Care Provider] -
--- NOTE | 2018-01-09 17:54 | Internal Med Progress Note ---
Date of Encounter: 01/09/18 Time of Encounter: 11:00 - Assessment and plan (1) NSTEMI (non-ST elevated myocardial infarction) Current Visit: Yes Status: Acute Assessment and plan: Status post left heart catheterization on 01/07/18 with LUIS placed to mid circumflex and RPDA Patient developed left thigh hematoma at entry site so will monitor overnight Right lower extremity ultrasound did not show any pseudoaneurysm Patient's hemoglobin did drop from 16.6 on admission to 13.5 this morning so we will monitor overnight per cardiology recommendations (2) COPD (chronic obstructive pulmonary disease) Current Visit: Yes Status: Acute Assessment and plan: Continue home medications Qualifiers: COPD type: unspecified COPD Qualified Code(s): J44.9 - Chronic obstructive pulmonary disease, unspecified (3) Hypothyroid Current Visit: No Status: Chronic Assessment and plan: Continue home medications Qualifiers: Hypothyroidism type: unspecified Qualified Code(s): E03.9 - Hypothyroidism , unspecified (4) DVT prophylaxis Current Visit: No Status: Acute Assessment and plan: Continue heparin drip - Time Spent With Patient Total time spent is greater than 50% in coordination of care (as documented) at patient's floor/unit and/or counseling patient: - Subjective Interval history: Patient status post left heart catheterization on 01/07/18 with LUIS placed to mid circumflex and RPDA. Patient however develop right thigh hematoma at entry site of [facility]; will monitor overnight - Constitutional Vitals: Temp Pulse Resp BP Pulse Ox 99.2 F 89 18 104/74 95 01/09/18 15:51 01/09/18 15:51 01/09/18 15:51 01/09/18 15:51 01/09/18 15:51 General appearance: Present: A&O X 3 - Respiratory Respiratory exam: Present: CTAB. Absent: accessory muscle use, rales, rhonchi, wheezes - Cardiovascular Cardiovascular exam: Present: RRR, +S1, +S2. Absent: diastolic murmur, gallop, rubs, systolic murmur Internal Medicine: Result - Labs CBC & Chem 7: 01/09/18 05:18 01/08/18 03:02 Labs: Short CBC 01/09/18 Range/Units 05:18 WBC 8.6 (4.3-11.1) K/mcL Hgb 13.5 (11.5-15.4) g/dL Hct 39.6 (35.3-44.9) % Plt Count 178 (140-400) K/mcL Neutrophils # 5.2 (1.6-8.9) K/mcL - ABG Interpretation ABG results: PT/INR, D-dimer PT 12.2 Seconds (9.4-12.1) H 01/07/18 22:09 Consult Discharge Plan - Plan Referrals: Greg Lemos, PAC [Primary Care Provider] -
[2018-01-09] MEDS: traZODone 50 MG TABLET PO SCH (20:13)
[2018-01-09] MEDS: *HR* LORazepam 1 MG TABLET PO PRN (20:13)
[2018-01-09] MEDS: GuaiFENesin/Dextromethorphan TABLET PO PRN (20:14)
[2018-01-10] MEDS: Aspirin Enteric Coated 81 MG Tablet PO SCH (07:51)
[2018-01-10] MEDS: Metoprolol XL (24 HR) Succ 25 MG TAB.ER.24H PO SCH (07:51)
[2018-01-10] MEDS: Ranolazine 500 MG TAB.ER.12H PO SCH (07:51)
[2018-01-10] MEDS: GuaiFENesin/Dextromethorphan TABLET PO PRN (08:08)
[2018-01-10 09:53] LABS: Hematocrit 37.1 % (35.3-44.9); Hemoglobin 12.8 g/dL (11.5-15.4); Mean Corpuscular HGB Conc 34.5 g/dL (31.6-35.5); Mean Corpuscular Hemoglobin 30.9 pg (28.0-33.3); Mean Corpuscular Volume 89.6 fL (83.0-100.0); Mean Platelet Volume 9.4 fL (9.4-12.4); Platelet Count 197 K/mcL (140-400); Red Blood Count 4.14 M/mcL (3.82-4.97)
[2018-01-10 10:11] LABS: BUN/Creatinine Ratio 16 (6-26); Blood Urea Nitrogen 9 mg/dL (8-23); Calcium 8.9 mg/dL (8.6-10.3); Carbon Dioxide 31 mEq/L (23-29); Chloride 103 mEq/L (98-107); Glucose 161 mg/dL (70-105); Osmolality,Calculated 286 (280-300); Potassium 3.7 mEq/L (3.5-5.1); Sodium 137 mEq/L (136-145); eGFR For African Americans > 60 (> 60); eGFR For Non-African Americans > 60 (> 60)
[2018-01-10] MEDS: Ipratropium/Albuterol Neb 3 ML IH SCH (10:27)
[2018-01-10] MEDS: (Breo Ellipta 100-25 Mcg Inh) IH SCH (10:28)
--- NOTE | 2018-01-10 12:44 | Cardiology Progress Note ---
Date of Encounter: 01/10/18 Time of Encounter: 10:30 Assessment and Plan (1) NSTEMI (non-ST elevated myocardial infarction) Current Visit: Yes Status: Acute Per cardiology: -S/p [facility] Wednesday with LUIS placed to mid circumflex and RPDA. Has remaining mild CAD. -Denies chest pain. -TTE with LVEF preserved, no segmental wall motion abnormalities noted. -On asa, plavix, statin, BB, ranexa. Educated on importance of dual anti- platelet therapy uninterrupted for at least one year. States understanding. -Of note, has large area of ecchymosis, arterial US negative for pseudoaneurysm. Of note, hemoglobin 16.6 admission to 12.8 today. Of note, nurses reported that patient ambulated against advice too soon after sheath was pulled. -Discussed and reviewed with who states to have patient ambulate and to repeat Hemoglobin at 1500. If hemoglobin stable, cardiology will sign off. (2) Chest pain Current Visit: Yes Status: Acute Per cardiology: -See plan as above. -Denies chest pain. Qualifiers: Chest pain type: chest pain due to myocardial ischemia Ischemic chest pain type: unstable angina pectoris Qualified Code(s): I20.0 - Unstable angina (3) Tobacco abuse Current Visit: Yes Status: Chronic Per cardiology: -Known chronic tobacco abuse. -States she hasnt smoked in the 4 days that she has been here and states she is not going to smoke at discharge. -Smoking cessation education reviewed with patient. Discussion w patient/family: The assessment and plan as outlined above was discussed with the patient who expressed understanding and agreement. All questions were answered. Thank you for involving us in the care of your patient. Please call with any questions. Discussed and reviewed with . Subjective Principal diagnosis: NSTEMI Interval history: Reports denies chest pain. Denies issues walking. Reports some soreness at access site. Objective Vital Signs, Last 4 Hours Temp Pulse Resp BP Pulse Ox 01/10/18 11:35 87 01/10/18 11:21 97.9 F 81 19 120/85 95 01/10/18 10:28 18 99 General: Conversant, No Apparent Distress HEENT: Atraumatic, Normocephaly, Mucus Membranes Moist Neck: No JVD, Normal carotid pulses Cardiac: Reg Rate and Rhythm, Normal S1 and S2, No Murmur Lungs: Normal Breath Sounds, No Wheeze, Rales, Rhonchi Neuro: Alert and responsive, No focal deficits noted Abdomen: Soft, Non-Tender Skin: Other (Right groin access site with large area of ecchymosis. ) Musculoskeletal: No Chest Wall Tenderness Extremities: No Clubbing, No Cyanosis, No Edema, Normal Pulses Results 01/10/18 09:12 01/10/18 09:12 Lab Results Active Medications Acetaminophen (Tylenol) 650 mg PO Q6HR PRN PRN Reason: Pain Stop: 07/10/18 10:11 Last Admin: 01/09/18 20:14 Dose: 650 mg Albuterol Sulfate (Albuterol Inhaler) 2 puff IH Q4H PRN PRN Reason: Shortness Of Breath Stop: 07/09/18 22:21 Albuterol/Ipratropium (Duoneb) 3 ml IH BIDR YAA Stop: 07/10/18 10:01 Last Admin: 01/10/18 10:27 Dose: 3 ml Aspirin (Aspirin Ec) 81 mg PO DAILY YAA Stop: 07/10/18 09:01 Last Admin: 01/10/18 07:51 Dose: 81 mg Atorvastatin Calcium (Lipitor) 40 mg PO HS YAA Stop: 07/09/18 21:01 Last Admin: 01/09/18 20:14 Dose: 40 mg Clopidogrel Bisulfate (Plavix) 75 mg PO DAILY YAA Stop: 07/10/18 09:01 Last Admin: 01/10/18 07:51 Dose: 75 mg Guaifenesin (Mucinex Dm) 1 each PO BID PRN PRN Reason: Cough Stop: 07/11/18 19:24 Last Admin: 01/10/18 08:08 Dose: 1 each Heparin Sodium (Porcine) (Heparin) 3,200 unit 60 unit/kg (3200 unit) IVP Q6HR PRN PRN Reason: SEE COMMENTS Stop: 07/09/18 13:44 Heparin Sodium (Porcine) (Heparin) 1,600 unit 30 unit/kg (1600 unit) IVP Q6H PRN PRN Reason: SEE COMMENTS Stop: 07/09/18 13:44 Nitroglycerin (Nitroglycerin Premix 25 Mg/250 Ml) 25 mg in 250 mls @ 3 mls/hr IVC .Q24H YAA; 5 MCG/MIN PRN Reason: Protocol Stop: 07/09/18 13:46 Last Admin: 01/09/18 08:09 Dose: Not Given Levothyroxine Sodium (Synthroid) 100 mcg PO DAILY@0630 PENDING S[facility] TO [facility] Stop: 07/10/18 06:31 Last Admin: 01/10/18 06:31 Dose: 100 mcg Lorazepam (Ativan) 2 mg PO TID PRN PRN Reason: Anxiety Last Admin: 01/09/18 20:13 Dose: 2 mg Metoprolol Succinate (Toprol Xl) 12.5 mg PO DAILY [facility] Stop: 07/10/18 14:16 Last Admin: 01/10/18 07:51 Dose: 12.5 mg Naloxone HCl (Narcan) 0.4 mg IVP Q2MIN PRN PRN Reason: SEE COMMENTS Stop: 07/09/18 21:02 (Breo Ellipta 100-25 (Mcg Inh)) 1 puff IH DAILYR [facility] Stop: 07/10/18 10:01 Last Admin: 01/10/18 10:28 Dose: Not Given Nortriptyline HCl (Pamelor) 75 mg PO HS [facility] Stop: 07/10/18 21:01 Last Admin: 01/09/18 20:13 Dose: 75 mg Ranolazine (Ranexa) 500 mg PO BID [facility] Stop: 07/10/18 21:01 Last Admin: 01/10/18 07:51 Dose: 500 mg Trazodone HCl (Trazodone) 200 mg PO [facility] Stop: 07/10/18 21:01 Last Admin: 01/09/18 20:13 Dose: 200 mg Laboratory Tests 01/07/18 01/08/18 01/09/18 11:34 03:02 05:18 Hgb 16.6 H 14.1 D 13.5 Creatinine 01/10/18 01/10/18 09:12 09:12 Hgb 12.8 Creatinine 0.56 L - Imaging and Cardiology Chest Xray: report reviewed Echo: report reviewed Cardiac cath: report reviewed - EKG Interpretation EKG results cardiology: other (Telemetry reviewed with average HR previous 12 hours noted to be 83, SR. PVCs and PAcs noted.) Consult Discharge Plan - Plan Referrals: Madonna Quiroga, [employer] [Advanced Practice Nurse] - (office will call patient at home with follow up appointment) Greg Lemos, PAC [Primary Care Provider] - (left voice mail for office to call back with follow up appointment)
[2018-01-10 15:10] LABS: Hematocrit 38.2 % (35.3-44.9); Mean Corpuscular Hemoglobin 30.5 pg (28.0-33.3); Mean Corpuscular Volume 89.7 fL (83.0-100.0); Mean Platelet Volume 9.5 fL (9.4-12.4); Platelet Count 216 K/mcL (140-400); Red Blood Count 4.26 M/mcL (3.82-4.97); Red Cell Distribution Width 12.9 % (11.5-14.5)
[2018-01-10] MEDS: Nitroglycerin 25 MG/250 ML INFUS..BTL IVC SCH (15:37)
--- NOTE | 2018-01-10 15:47 | Event Note ---
Date of Encounter: 01/10/18 Time of Encounter: 15:46 - Cardiology Event Note Repeat hemoglobin 13. Vital signs stable. Discussed and reviewed with , who states patient is ok for discharge. Recommend repeat CBC in 2 days as outpatient. Cardiology will sign off and will follow in outpatient setting. Follow up set.
[2018-01-10 16:23] VITALS: BP 106/69
--- NOTE | 2018-01-10 16:35 | Discharge Summary ---
Orders not resulted at time of discharge: Pending orders 01/07/18 21:01 Urinalysis reflex Microscopic [URIN] Routine Date of Encounter: 01/10/18 Time of Encounter: 11:00 - Discharge Diagnosis (1) NSTEMI (non-ST elevated myocardial infarction) Priority: Primary Status: Acute (2) COPD (chronic obstructive pulmonary disease) Priority: Secondary Status: Acute Qualifiers: COPD type: unspecified COPD Qualified Code(s): J44.9 - Chronic obstructive pulmonary disease, unspecified (3) Hypothyroid Priority: Secondary Status: Chronic Qualifiers: Hypothyroidism type: unspecified Qualified Code(s): E03.9 - Hypothyroidism , unspecified Hospital course: Patient is a 62-year-old female with past medical history significant for COPD, diabetes, hyperlipidemia, hypertension and hypothyroid who presented to the ER on 01/07/18 due to chest pain. Patient reported of having substernal chest pain with a severity of 9 out of 10 while watching TV associated with shortness of breath and nausea but denies any diaphoresis. Patient was concerned so decided to come to the ER for evaluation. In the ER, patients troponin was 0.21 and EKG did show some depressions in V3 through V6. Patient was started on heparin and nitroglycerin and cardiology was consulted. During patients hospital stay cardiology with recommendations for left heart catheterization with LUIS placed to mid circumflex and RPDA. Patient did have a large area of ecchymosis at the entry site but ultrasound negative for pseudoaneurysm. Patients hemoglobin remained stable and will be discharged to follow up with cardiology as an outpatient. - Time Spent with Patient Total time spent providing and/or coordinating discharge services: Less than 30 minutes - Discharge Medications Home Medications: Albuterol Sulfate [Albuterol Inhaler] 2 puff IH Q4H PRN 06/24/17 [History] Ipratropium/Albuterol Neb [Duoneb] 3 ml IH BID 06/24/17 [History] LORazepam [Lorazepam] 2 mg PO TID PRN 06/24/17 [History] Levothyroxine Sodium 100 mcg PO QAM 06/24/17 [History] Nortriptyline HCl 75 mg PO HS 06/24/17 [History] Trazodone HCl 200 mg PO HS 06/24/17 [History] Atorvastatin [Lipitor] 40 mg PO DAILY 01/07/18 [History] Fluticasone/Vilanterol [Breo Ellipta 100-25 Mcg INH] 1 puff IH DAILY 01/07/18 [ History] Allergies/Adverse Reactions: 3 Allergy/AdvReac Type Severity Reaction Status Date / Time No Known Allergies Allergy Verified 01/07/18 12:55 Date of admission: 01/07/18 13:57 Primary care physician: Greg Lemos Consults: 01/07/18 13:59 Consult to Cardiology [CONS] Routine Comment: Consulting Provider: Cardiology Roxi Reason for Consult: NSTEMI Time Notified: 13:59 Call Completed: Yes 01/07/18 14:33 Consult to Cardiac Rehabilitation-Phase1 [CONS] Routine Comment: Reason for Consult: NSTEMI Call Completed: No - Constitutional Vitals: Temp Pulse Resp BP Pulse Ox 98.3 F 87 19 106/69 95 01/10/18 16:20 01/10/18 16:20 01/10/18 16:20 01/10/18 16:20 01/10/18 16:20 General appearance: Present: A&O X 3, no acute distress - Cardiovascular Cardiovascular exam: Present: RRR, +S1, +S2. Absent: diastolic murmur, gallop, rubs, systolic murmur - Patient Status Disposition: Home, Self-Care Condition: Fair - Discharge Instructions Instructions: Myocardial Infarction (DC), Left Heart Catheterization (DC), Coronary Intravascular Stent Placement (DC) Follow Up With: Magnolia Patricia [Advanced Practice Nurse] - 01/18/18 11:00 am (Please make sure you show up for this appointment otherwise it will be in February before you get in per the office. Thanks) Madonna Quiroga, MARIELLA [Advanced Practice Nurse] - (office will call patient at home with follow up appointment)
[2018-01-10] MEDS ORDERED: *HR* Heparin 5,000 UNIT/ML VIAL SQ SCH (18:00)
--- NOTE | 2018-01-10 18:54 | Electrocardiograph Report ---
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
--- NOTE | 2018-01-10 19:16 | Electrocardiograph Report ---
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
== END 2018-01-10 19:15 | disposition home or self-care (01) | DRG 247 ==
LOC: EMEROO 11:14 → 2ANU 13:57 → SUATTDRO 13:57 → 2ANU 14:28 → 2NNU 16:51
PROVIDERS: ADMIT Student in an Organized Health Care Education/Training Program; ATTEND Hospitalist

== ENCOUNTER 2019-02-15 07:53 | Inpatient (IN) ==
[2019-02-15] MEDS ORDERED: methylPREDNISolone 125 MG/2 ML VIAL IVP ONE (08:11)
[2019-02-15] MEDS ORDERED: Ipratropium/Albuterol Neb 3 ML IH ONE ×2 (08:11→09:33)
--- NOTE | 2019-02-15 08:15 | Emergency Department Note ---
Disposition Clinical Impression: COPD exacerbation, Acute respiratory failure with hypercapnia Disposition: Admitted As Inpatient Time of Disposition: 09:59 SOB HPI - General Chief Complaint: ED Shortness of Breath/Dyspnea Stated Complaint: SOB Time Seen by Provider: 02/15/19 08:02 Source: patient, EMS Limitations: no limitations - History of Present Illness Patient is 63-year-old female that presents to the emergency room complaints of shortness of breath. The patient states is an ongoing for the last 3 or 4 days. The patient does have a history of COPD, she is chronically on 3 L nasal cannula oxygen at home. Patient denies any high fevers or chills at home. The patient states that she does have a cough that is productive of white sputum. She has been using her inhalers, she is not using her nebulizer secondary to her medication has . Patient does complain of some chest discomfort, that is worse when she coughs. She complains of a worse headache. Headache is generalized, she rates the pain a level VIII discomfort. She denies any neck pain or stiffness. Patient states the headache as well as a chest pain is worse when she coughs. Patient has not taken anything else for her symptoms today. The patient denies any focal weakness or numbness. She denies any leg pain or swelling. She does have a history of coronary artery disease. Patient denies any other urinary complaints except for history of incontinence. The patient denies any diarrhea or constipation. Patient states that her headache is an aching discomfort. - Related Data Home Medications Medication Instructions Recorded Confirmed Albuterol Sulfate [Proventil 1 puff IH Q6H PRN 06/24/17 01/13/19 Inhaler] LORazepam [Lorazepam] 2 mg PO TID 06/24/17 01/13/19 Levothyroxine Sodium 100 mcg PO QAM 06/24/17 01/13/19 Atorvastatin [Lipitor] 40 mg PO QAM 01/07/18 01/13/19 Fluticasone/Vilanterol [Breo 1 puff IH QAM 01/07/18 01/13/19 Ellipta 100-25 Mcg INH] Aspirin [Adult Aspirin Regimen] 81 mg PO DAILY 01/13/19 01/13/19 Clopidogrel [Plavix] 75 mg PO QAM 01/13/19 01/13/19 Cyanocobalamin (B-12) [Vitamin B12] 1,000 mcg IM QMONTH 01/13/19 Ibuprofen [Advil] 400 mg PO DAILY PRN 01/13/19 01/13/19 Nortriptyline [Pamelor] 75 mg PO HS 01/13/19 01/13/19 Trazodone HCl 200 mg PO HS 01/13/19 01/13/19 Previous Rx's Medication Instructions Recorded Metoprolol XL (24 HR) Succ [Toprol 12.5 mg PO DAILY #30 tab.er.24h 01/10/18 Xl] Allergies Allergy/AdvReac Type Severity Reaction Status Date / Time No Known Allergies Allergy Verified 01/13/19 12:56 Review of Systems: As mentioned per history of present illness and as follows. Constitutional: Negative for chills or fever HENT: Negative for sore throat. Eyes: Negative for visual disturbance Respiratory: Positive for shortness of breath. Cardiovascular: Negative for palpitations. Gastrointestinal: Negative for abdominal pain Genitourinary: Negative for dysuria Musculoskeletal: Negative for back pain. Skin: Negative for rash. Neurological: Negative for focal weakness Psychiatric/Behavioral: Negative for depression Past Medical History - Past Medical History Medical history: Reports: COPD, hyperlipidemia, hypertension, myocardial infarction, thyroid disease Surgical history: Reports: appendectomy Psychiatric history: Reports: bipolar, depression - Social History Smoking Status: Current every day smoker Smokeless Tobacco Status: No Alcohol use: Reports: none Drug use: Reports: none Physical Exam PHYSICAL EXAM Constitutional: Well developed, well respiratory distress, Non-toxic appearance. HENT: Normocephalic, Atraumatic, Bilateral external ears normal, Oropharynx moist, No oral exudates, Nose normal. Neck- Normal range of motion, No tenderness, Supple. Eyes: PERRL, EOMI, Conjunctiva normal,. Cardiovascular: Tachycardic rate and regular rhythm without clicks, rubs, gallops or murmurs. Respiratory: Diminished breath sounds bilaterally, no respiratory distress noted, minimal extra wheezes noted, no rhonchi or crackles GI: Soft, nontender, no evidence of guarding or peritoneal signs. Bowel sounds are active. Musculoskeletal: Good range of motion in all major joints. No tenderness to palpation or major deformities noted. +5/5 strength noted to all extremities. Integument: Warm, Dry, No erythema, No rash. No edema. Neurologic: Alert & oriented x 3, Normal sensory function, No focal deficits noted. CN II-XII grossly intact. - General Limitations: no limitations General appearance: anxious Course Vital Signs Temperature 98.2 F 02/15/19 08:00 Pulse Rate 119 02/15/19 08:00 Respiratory Rate 18 02/15/19 08:00 Blood Pressure 140/103 02/15/19 08:00 O2 Sat by Pulse Oximetry 99 02/15/19 08:00 Temperature 98.2 F 02/15/19 08:00 Pulse Rate 119 02/15/19 08:00 Respiratory Rate 18 02/15/19 08:00 Blood Pressure 140/103 02/15/19 08:00 O2 Sat by Pulse Oximetry 99 02/15/19 08:00 Oxygen Delivery Oxygen Delivery Nasal Cannula Shortness of Breath/Dyspnea - MDM Narrative Medical decision making narrative: EKG performed shows sinus tachycardia 112 beats a minute, patient has no evidence of ST segment elevation, possible minimal depression seen laterally of the ST segments. FL and QT intervals within normal limits. Interpreted by myself. He should have this time was given multiple breathing treatments here in the emergency room. The patient was given IV steroids, magnesium, started on azithromycin. The patient at this time does show evidence of CO2 retention. The patient is on 4 L oxygen. The patient at this time is going to be admitted. The patient does not have any other mental status change. Patient will be admitted to the floor. Case was discussed in full detail with Dr. Buenrostro. Patient will be admitted in stable condition to the floor. I do not believe the patient has any evidence of PE. No evidence of cardiac ischemia. I do believe this is more of a COPD exacerbation. It was no evidence of CHF as well. CRITICAL CARE TIME OF 35 MINUTES PERFORMING THIS INDIVIDUAL OUTSIDE OF SEPARATELY BILLABLE PROCEDURES. THIS INCLUDES BEDSIDE EVALUATION, INTERPRETATION OF EKG AND LAB TESTS AND CONSULTATIONS. Final impression 1. COPD exacerbation 2. Acute on chronic respiratory failure with hypercarbia Critical Care Time Total Critical Care Time: 35 Attestation: Please see note
[2019-02-15 08:48] LABS: Basophils % 0.2 %; Eosinophils # 0.1 K/mcL (0.0-0.6); Hematocrit 43.7 % (35.3-44.9); Hemoglobin 14.3 g/dL (11.5-15.4); Immature Granulocytes % 0.6 % (0-4); Lymphocytes # 1.2 K/mcL (0.6-4.6); Lymphocytes % 11.6 %; Mean Corpuscular HGB Conc 32.7 g/dL (31.6-35.5); Mean Corpuscular Hemoglobin 29.4 pg (28.0-33.3); Mean Corpuscular Volume 89.9 fL (83.0-100.0); Mean Platelet Volume 9.4 fL (9.4-12.4); Monocytes # 0.5 K/mcL (0.0-1.3); Monocytes % 4.8 %; Neutrophils # 8.6 K/mcL (1.6-8.9); Platelet Count 224 K/mcL (140-400); Red Blood Count 4.86 M/mcL (3.82-4.97); Red Cell Distribution Width 12.1 % (11.5-14.5); Segmented Neutrophils % 81.8 %; White Blood Count 10.6 K/mcL (4.3-11.1)
[2019-02-15 09:10] LABS: BUN/Creatinine Ratio 9 (6-26); Blood Urea Nitrogen 6 mg/dL (8-23); Calcium 9.1 mg/dL (8.6-10.3); Carbon Dioxide 34 mEq/L (23-29); Chloride 98 mEq/L (98-107); Glucose 159 mg/dL (70-105); Osmolality,Calculated 291 (280-300); Potassium 4.1 mEq/L (3.5-5.1); Sodium 140 mEq/L (136-145); Troponin I < 0.03 ng/mL (< 0.04); eGFR For African Americans > 60 (> 60); eGFR For Non-African Americans > 60 (> 60)
[2019-02-15 09:15] LABS: VBG HCO3 33 mEq/L (21-27); VBG PCO2 70 mmHg (41-51); VBG PH 7.29 pH Units (7.32-7.42); VBG PO2 77 mmHg (25-50)
[2019-02-15] MEDS ORDERED: Ibuprofen 600 MG TABLET PO ONE (09:33)
[2019-02-15] MEDS ORDERED: Azithromycin 500 MG in D5% in Water 250 ML IVPB ONE (09:56)
[2019-02-15] MEDS ORDERED: Acetaminophen 325 MG TABLET PO PRN (11:09)
[2019-02-15] MEDS ORDERED: Ondansetron 4 MG/2 ML VIAL IVP PRN (11:09)
[2019-02-15] MEDS ORDERED: Naloxone 0.4 MG/ML INJ IVP PRN (11:09)
[2019-02-15] MEDS ORDERED: Albuterol 2.5 MG/3 ML NEBULIZER IH PRN (11:10)
--- NOTE | 2019-02-15 11:12 | Internal Med History&Physical ---
<Gwyn Sultana - Last Filed: 02/15/19 11:25> Date of Encounter: 02/15/19 Time of Encounter: 11:26 Internal Medicine - H&P: HPI Chief complaint: SOB Admitted From: Emergency Dept Plans for Post Hospital Care: Home History of present illness: Ms. Mccann is a 63 year old female with past medical history of COPD, hyperlipidemia, anxiety, hypertension, CAD presents emergency department with complaint of shortness of breath 3 days. Patient is home option dependent on 3 L continuously. Patient states that friends breath at present at baseline and is exacerbated with exertion. She is able to walk from one and the other before she becomes short of breath. She has had this multiple times in the past with frequent admissions proximally to 3 times per year for COPD exacerbation/pneumonia. She does admit to a productive cough with thick white sputum which is not consistent with her smoker's cough. She also admits to some pleuritic chest pain which is worse when she coughs. She denies any symptoms of fevers, chills, vomiting, urinary symptoms, changes in bowel movements. She does admit to PND and orthopnea which she attributes to her cough. She also admits to some nausea. She has been using in her inhalers as prescribed with frequent use of her rescue inhalers which she states originally did help her symptoms somewhat but have not been resolving her symptoms. In the emergency room, vital signs were significant for Afebrile, heart rate 119, respiratory rate 18, blood pressure 140/103 and she was tolerating 4 L of oxygen via nasal cannula 99%. Laboratory results show no evidence of leukocytosis, VBG shows a chronically compensated respiratory acidosis. Bicarbonate was elevated 34, venous pH of 7.29 with CO2 of 70. Troponin was within normal limits and BNP was 14. Lactic acid within normal limits at 1.0. She was given 2 doses of duo nebs, Solu-Medrol, magnesium 2 g. At time of my interview, patient states that her breathing has improved. She is still coughing but states this is better from when she presented. She is speaking in full sentences. Past medical history: As above Past surgical history: 2 stent, tubal ligation Social history: Currently smoking 5 cigarettes daily, denies alcohol or illicit drug use Family history: CHF and diabetes in mother; sister with Parkinson's disease Past Med Surg Social Fam HX - Past Medical History Medical history: COPD, hyperlipidemia, hypertension, myocardial infarction, thyroid disease Psychiatric history: bipolar, depression - Past Surgical History Surgical History: appendectomy - Social History Smoking Status: Current every day smoker Smokeless Tobacco Status: No Alcohol use: none Drug use: none - Family History Mother Living Status: Still Living Hx Family Cardiac Disorders: Yes Hx Family Endocrine Disorder: Yes Internal Medicine - H&P: Meds Albuterol Sulfate [Proventil Inhaler] 1 puff IH Q6H PRN 06/24/17 [History] LORazepam [Lorazepam] 2 mg PO TID 06/24/17 [History] Levothyroxine Sodium 100 mcg PO QAM 06/24/17 [History] Atorvastatin [Lipitor] 40 mg PO QAM 01/07/18 [History] Fluticasone/Vilanterol [Breo Ellipta 100-25 Mcg INH] 1 puff IH QAM 01/07/18 [History] Metoprolol XL (24 HR) Succ [Toprol Xl] 12.5 mg PO DAILY #30 tab.er.24h 01/10/18 [Rx] Aspirin [Adult Aspirin Regimen] 81 mg PO DAILY 01/13/19 [History] Clopidogrel [Plavix] 75 mg PO QAM 01/13/19 [History] Cyanocobalamin (B-12) [Vitamin B12] 1,000 mcg IM QMONTH 01/13/19 [History] Ibuprofen [Advil] 400 mg PO DAILY PRN 01/13/19 [History] Nortriptyline [Pamelor] 75 mg PO HS 01/13/19 [History] Trazodone HCl 200 mg PO HS 01/13/19 [History] Allergy/AdvReac Type Severity Reaction Status Date / Time No Known Allergies Allergy Verified 01/13/19 12:56 All Systems PM: A 10-system review of systems was performed and is negative for pertinent findings except as documented above in the HPI. Review of systems: - Constitutional: Denies fevers, chills, weight loss, generalized fatigue - EENT: Admits to sinus congestion. Denies vision changes/blurriness, sore throat, odynaphagia - CVS: Admits to PND, orthopnea. Denies chest pain, palpitations, edema, - Pulm: Admits to shortness of breath, cough, sputum Denies hematemesis - GI: Admits to nausea Denies abdominal pain, anorexia,vomiting, diarrhea, constipation, melena - : Denies dysuria, increased frequency, urgency, hematuria, - Heme: Denies ease of bleeding or bruising - MSK: Denies joint pain, limited ROM - Skin: Denies rashes, ulcers, color changes, - Neuro: Denies LINDER, paresthesias, focal deficits, ataxia, - Constitutional Vitals: Temp Pulse Resp BP Pulse Ox 98.2 F 108 18 120/65 97 02/15/19 08:00 02/15/19 10:23 02/15/19 10:23 02/15/19 10:23 02/15/19 10:23 Exam: Gen.: Vitals noted. No acute distress. AAOx3, resting comfortably in bed. HEENT: PERRL/EOMI, oropharynx clear, Normocephalic, atraumatic, MMM Cardiac: Mildly tachycardic, regular rhythm, no murmur, +S1/S2, No BLE edema. Reproducible substernal chest pain Pulmonary: Decreased breath sounds in bases, expiratory wheezes in apices, coarse rhonchi anteriorly. equal chest expansion, unlabored breathing, speaking in full sentences on 4 L Abdomen: soft, nontender, BS noted, no guarding, no palpable HSM Skin: warm and dry, no visible lesions. MSK: ROM intact, no joint swelling noted, gait no assessed while in bed. Non tender calf or clubbing Neuro: A&Ox3, moves all extremities, no focal deficits, sensation intact, Psych: Appropriate mood and behavior, AOx3 Internal Med - H&P Results - Labs CBC & Chem 7: 02/15/19 08:29 02/15/19 08:29 Labs: Short CBC 02/15/19 Range/Units 08:29 WBC 10.6 (4.3-11.1) K/mcL Hgb 14.3 (11.5-15.4) g/dL Hct 43.7 (35.3-44.9) % Plt Count 224 (140-400) K/mcL Neutrophils # 8.6 (1.6-8.9) K/mcL BMP 02/15/19 08:29 Sodium 140 Potassium 4.1 Chloride 98 Carbon Dioxide 34 H BUN 6 L Creatinine 0.66 Glucose 159 H Calcium 9.1 Cardiac Enzymes 08/14/19 Range/Units 08:29 Troponin I < 0.03 (< 0.04) ng/mL - ABG Interpretation ABG results: 02/15/19 08:52 VBG pH 7.29 L VBG pCO2 70 H* VBG pO2 77 H VBG HCO3 33 H - Impressions ITS Impressions Chest X-Ray 02/15/19 08:11 IMPRESSION: No acute cardiopulmonary disease. D/ / 02/15/2019 09:13:08 Abisai Enriquez MD / edu Interpreting Provider: Abisai Enriquez MD - Assessment and Plan (1) Acute and chronic respiratory failure Current Visit: Yes Status: Acute Assessment and plan: - Evidence of acute on chronic respiratory failure - Patient is home option dependent on 3 L continuously, currently requiring 4 L - VBG shows evidence of hypercapnia with venous PCO2 of 70 which appears to be chronically compensated - Suspected etiology of COPD exacerbation. Less likely CHF involvement versus viral illness versus low suspicion of pneumonia - Laboratory results show no evidence of leukocytosis, chest x-ray shows no acute process - Patient does admit to clinical symptoms of orthopnea and PND however she does attribute this to her cough - She has had multiple admissions for her COPD exacerbations - She does unfortunately continue to smoke - Given Solu-Medrol, duo nebs in emergency department with improvement of symptoms Plan - We will start azithromycin, 500 mg daily, day #1 - Solu-Medrol 40 mg every 6 hours scheduled - Scheduled DuoNeb's with when necessary albuterol breakthrough - Advised smoking cessation - Continue supplemental oxygen Qualifiers: Respiratory failure complication: hypoxia and hypercapnia Qualified Code(s): J96.21 - Acute and chronic respiratory failure with hypoxia; J96.22 - Acute and chronic respiratory failure with hypercapnia (2) Acute exacerbation of chronic obstructive airways disease Current Visit: Yes Status: Acute Assessment and plan: as above (3) CAD (coronary artery disease) Current Visit: Yes Status: Chronic Assessment and plan: - Patient reports a history of CAD with cardiac stent placement approximately 2 years ago - Patient does admit to chest pain however suspect that this is more likely related to costochondritis - Patient admits to pleuritic nature and it is reproducible on physical exam - Troponins in the emergency department within normal limits - EKG obtained emergency department shows sinus tachycardia with a rate of 112, possible minimal depression in the lateral ST segments, otherwise within normal limits. Plan - We will continue home aspirin, beta asher Qualifiers: Coronary Disease-Associated Artery/Lesion type: [place] artery [place] vs. transplanted heart: [place] heart Associated angina: without angina Qualified Code(s): I25.10 - Atherosclerotic heart disease of [place] coronary artery without angina pectoris (4) Diabetes Current Visit: Yes Status: Suspected Assessment and plan: Patient reports a history of previous medication controlled type 2 diabetes She reports that she was taken off her metformin in the past due to improvement of her blood sugars Blood sugar on presentation of 159 We will continue to monitor with administration of steroids and start sliding- scale insulin as needed Qualifiers: Diabetes mellitus type: type 2 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 Diabetes mellitus complication status: without complication Qualified Code(s): E11.9 - Type 2 diabetes mellitus without complications (5) Hypothyroid Current Visit: Yes Status: Chronic Assessment and plan: Chronic per history Patient denies any symptoms Continue home Synthroid Qualifiers: Hypothyroidism type: unspecified Qualified Code(s): E03.9 - Hypothyroidism, unspecified (6) Tobacco abuse Current Visit: Yes Status: Chronic Assessment and plan: patient reports attempt to quit in recent months down to 5 cigarettes daily Patient endorses a 45 year pack history She would like a nicotine patch while admitted Patient was congratulated on her progress and advised full cessation (7) SIRS (systemic inflammatory response syndrome) Current Visit: Yes Status: Acute Assessment and plan: Meets 2/4 with Tachycardia and tachpnea - No suspected source of infection, suspect more likely COPD - Will give azithromycin as above, will not give further antibiotics or fluids - Blood cultures obtained, lactate wnl (8) Depression Current Visit: Yes Status: Chronic Assessment and plan: - Continue home meds Qualifiers: Depression Type: unspecified Qualified Code(s): F32.9 - Major depressive disorder, single episode, unspecified (9) DVT prophylaxis Current Visit: Yes Status: Acute Assessment and plan: subcutaneous heparin - Time Spent With Patient Total time spent is greater than 50% in coordination of care (as documented) at patient's floor/unit and/or counseling patient: <Matt Buenrostro - Last Filed: 02/15/19 19:59> Date of Encounter: 02/15/19 Internal Medicine - H&P: HPI History of present illness: Ms. Mccann is a 63 year old female All Systems PM: A 10-system review of systems was performed and is negative for pertinent findings except as documented above in the HPI. - Constitutional Vitals: Temp Pulse Resp BP Pulse Ox 98.4 F 107 16 131/79 95 02/15/19 18:52 02/15/19 18:52 02/15/19 18:52 02/15/19 18:52 02/15/19 18:52 Internal Med - H&P Results - Labs CBC & Chem 7: 02/15/19 08:29 02/15/19 08:29 Labs: Short CBC 02/15/19 Range/Units 08:29 WBC 10.6 (4.3-11.1) K/mcL Hgb 14.3 (11.5-15.4) g/dL Hct 43.7 (35.3-44.9) % Plt Count 224 (140-400) K/mcL Neutrophils # 8.6 (1.6-8.9) K/mcL BMP 02/15/19 08:29 Sodium 140 Potassium 4.1 Chloride 98 Carbon Dioxide 34 H BUN 6 L Creatinine 0.66 Glucose 159 H Calcium 9.1 Cardiac Enzymes 02/15/19 Range/Units 08:29 Troponin I < 0.03 (< 0.04) ng/mL - ABG Interpretation ABG results: 02/15/19 08:52 VBG pH 7.29 L VBG pCO2 70 H* VBG pO2 77 H VBG HCO3 33 H - Impressions ITS Impressions Chest X-Ray 02/15/19 08:11 IMPRESSION: No acute cardiopulmonary disease. D/ / 02/15/2019 09:13:08 Abisai Enriquez MD / edu Interpreting Provider: Abisai Enriquez MD - Assessment and Plan (1) Acute and chronic respiratory failure Current Visit: Yes Status: Acute Qualifiers: Respiratory failure complication: hypoxia and hypercapnia Qualified Code(s): J96.21 - Acute and chronic respiratory failure with hypoxia; J96.22 - Acute and chronic respiratory failure with hypercapnia (2) Acute exacerbation of chronic obstructive airways disease Current Visit: Yes Status: Acute (3) CAD (coronary artery disease) Current Visit: Yes Status: Chronic Qualifiers: Coronary Disease-Associated Artery/Lesion type: [place] artery [place] vs. transplanted heart: [place] heart Associated angina: without angina Qualified Code(s): I25.10 - Atherosclerotic heart disease of [place] coronary artery without angina pectoris (4) Hypothyroid Current Visit: Yes Status: Chronic Qualifiers: Hypothyroidism type: acquired Qualified Code(s): E03.9 - Hypothyroidism, unspecified (5) Tobacco abuse Current Visit: Yes Status: Chronic - Time Spent With Patient Total time spent is greater than 50% in coordination of care (as documented) at patient's floor/unit and/or counseling patient: - Attending Attestation I examined this patient and my medical decision-making was reviewed with the Resident Physician on 02/15/19. I agree with the documented findings, disposition and treatment plan as described except to the extent set forth below. Ms Mccann is 63 y/o female with hx COPD on oxygen presented to ED with worsening dyspnea. She was evaluated and found to have acute exac and admitted. Currently she is beginning to feel better "I can breathe." Exam: NC. Alert and oriented. Comfortable. Mucus membranes dry. Neck supple. Heart reg and distant. Not tachy. Diffuse end exp wheeze noted. Abd soft. No edema. Moves all extremities. Pulses palpable. No rash. Plan: Admit. Oxygen. IV steroids. Abx. Supportive care.
[2019-02-15] MEDS: Nicotine 21 MG PATCH.TD24 TD SCH (12:50)
[2019-02-15] MEDS: MethylPREDNISolone 40 MG/ML VIAL IVP SCH ×3 (12:50→23:26)
[2019-02-15] MEDS: *HR* LORazepam 1 MG TABLET PO SCH ×2 (14:31→21:58)
[2019-02-15] MEDS: Ipratropium/Albuterol Neb 3 ML IH SCH ×4 (16:07→23:20)
[2019-02-15] MEDS: *HR* Heparin 5,000 UNIT/ML VIAL SQ SCH (18:15)
[2019-02-15] MEDS: Benzonatate 100 MG CAPSULE PO PRN ×2 (18:15→21:51)
[2019-02-15] MEDS: Budesonide/Formoterol 160/4.5 1 PUFF INH IH SCH (19:58)
[2019-02-15] MEDS: traZODone 50 MG TABLET PO SCH (22:42)
[2019-02-15] MEDS ORDERED: traZODone 50 MG TABLET PO ONE (22:45)
[2019-02-16] MEDS: Ipratropium/Albuterol Neb 3 ML IH SCH ×6 (03:31→23:46)
[2019-02-16 03:50] LABS: Basophils % 0.1 %; Hematocrit 40.1 % (35.3-44.9); Hemoglobin 13.1 g/dL (11.5-15.4); Immature Granulocytes % 0.5 % (0-4); Lymphocytes # 0.5 K/mcL (0.6-4.6); Lymphocytes % 5.4 %; Mean Corpuscular HGB Conc 32.7 g/dL (31.6-35.5); Mean Corpuscular Hemoglobin 29.1 pg (28.0-33.3); Mean Corpuscular Volume 89.1 fL (83.0-100.0); Mean Platelet Volume 9.4 fL (9.4-12.4); Monocytes # 0.2 K/mcL (0.0-1.3); Monocytes % 1.9 %; Neutrophils # 8.9 K/mcL (1.6-8.9); Platelet Count 226 K/mcL (140-400); Red Cell Distribution Width 12.1 % (11.5-14.5); Segmented Neutrophils % 92.1 %; White Blood Count 9.6 K/mcL (4.3-11.1)
[2019-02-16 04:08] LABS: BUN/Creatinine Ratio 15 (6-26); Blood Urea Nitrogen 10 mg/dL (8-23); Calcium 9.1 mg/dL (8.6-10.3); Carbon Dioxide 32 mEq/L (23-29); Chloride 97 mEq/L (98-107); Glucose 272 mg/dL (70-105); Magnesium 2.3 mg/dL (1.6-2.6); Osmolality,Calculated 295 (280-300); Potassium 3.9 mEq/L (3.5-5.1); Sodium 138 mEq/L (136-145); eGFR For African Americans > 60 (> 60); eGFR For Non-African Americans > 60 (> 60)
[2019-02-16] MEDS: MethylPREDNISolone 40 MG/ML VIAL IVP SCH ×4 (05:32→23:02)
[2019-02-16] MEDS: *HR* Heparin 5,000 UNIT/ML VIAL SQ SCH ×2 (05:32→17:20)
[2019-02-16] MEDS: Metoprolol XL (24 HR) Succ 25 MG TAB.ER.24H PO SCH (08:59)
[2019-02-16] MEDS: *HR* LORazepam 1 MG TABLET PO SCH ×3 (08:59→21:42)
[2019-02-16] MEDS: Aspirin Enteric Coated 81 MG Tablet PO SCH (08:59)
[2019-02-16] MEDS: Nicotine 21 MG PATCH.TD24 TD SCH (08:59)
[2019-02-16] MEDS ORDERED: NON-FORMULARY MEDICATION 1 EACH EACH (Fluticasone/Vilanterol [Breo Ellipta 100-25 Mcg Inh] IH SCH (09:00)
[2019-02-16] MEDS: Azithromycin 500 MG in D5% in Water 250 ML IVPB SCH (09:05)
[2019-02-16] MEDS: Benzonatate 100 MG CAPSULE PO PRN ×3 (09:05→21:52)
[2019-02-16] MEDS: Ibuprofen 600 MG TABLET PO PRN ×2 (09:22→21:52)
[2019-02-16] MEDS: Budesonide/Formoterol 160/4.5 1 PUFF INH IH SCH ×2 (11:06→20:35)
--- NOTE | 2019-02-16 12:42 | Internal Med Progress Note ---
Hospitalist Progress Note - Encounter Date of Encounter: 02/16/19 Time of Encounter: 10:00 - Subjective Interval History: Ms. Mccann is a 63 year old female with past medical history of COPD, chronic hypoxic respiratory failure, uses 2 lit O2, chronic tobacco dependence, hyperlipidemia, anxiety, hypertension and CAD pt presented to ER with progressively worsening SOB, BEACH and Cough with expectoration. She also admitted to some pleuritic chest pain which is worse when she coughs. She was admitted in the hospital and started her on high dose IV steroids and empirical abx. pt stated she is feeling little better today. Denied any CP. Still has moderate SOB and BEACH. - Exam Vitals: Temp Pulse Resp BP Pulse Ox 98.1 F 115 17 120/76 94 02/16/19 11:16 02/16/19 11:16 02/16/19 11:16 02/16/19 06:44 02/16/19 11:16 Exam: Gen: Alert, awake, Oriented to time,place and person Chest: Diminished breath sounds B/L, Severe and diffuse wheezing, No crackles, No rales Heart: S1S2+ RRR No murmurs Abd: Soft, NT, BS +, No organomegaly Ext: No edema, pulses are palpable, No calf tenderness Neuro : No acute focal neuro deficits noticed Skin: No rash. - Assessment and Plan (1) Acute exacerbation of chronic obstructive airways disease Current Visit: Yes Status: Acute Assessment and Plan: Still has severe wheezing, SOB and EBACH cont IV steroids Cont frequent bronchodilator therapy cont empirical abx Azithromycin (2) Acute and chronic respiratory failure Current Visit: Yes Status: Acute Assessment and Plan: She does use 2-3 lit o2 at home Currently on 4 lit O2 try to wean her off to baseline cont above care (3) Hypothyroid Current Visit: Yes Status: Chronic Assessment and Plan: resumed home meds (4) CAD (coronary artery disease) Current Visit: Yes Status: Chronic Assessment and Plan: resumed all home meds (5) Tobacco abuse Current Visit: Yes Status: Chronic Assessment and Plan: Counseled to quit smoking placed on nicotine patch (6) Protein-calorie malnutrition, moderate Current Visit: Yes Status: Acute Assessment and Plan: Will check prealbumin Nutrition consulted - Time Spent with Patient Total time spent is greater than 50% in coordination of care (as documented) at patient's floor/unit and/or counseling patient: Internal Medicine: Result - Labs CBC & Chem 7: 02/16/19 03:30 02/16/19 03:30 Labs: Short CBC 02/16/19 Range/Units 03:30 WBC 9.6 (4.3-11.1) K/mcL Hgb 13.1 (11.5-15.4) g/dL Hct 40.1 (35.3-44.9) % Plt Count 226 (140-400) K/mcL Neutrophils # 8.9 (1.6-8.9) K/mcL BMP 02/16/19 03:30 Sodium 138 Potassium 3.9 Chloride 97 L Carbon Dioxide 32 H BUN 10 Creatinine 0.67 Glucose 272 H Calcium 9.1 Consult Discharge Plan - Plan Referrals: Magn[facility] Patricia [Primary Care Provider] - (2) Acute and chronic respiratory failure Qualifiers: Respiratory failure complication: hypoxia and hypercapnia Qualified Code(s): J96.21 - Acute and chronic respiratory failure with hypoxia; J96.22 - Acute and chronic respiratory failure with hypercapnia (3) Hypothyroid Qualifiers: Hypothyroidism type: acquired Qualified Code(s): E03.9 - Hypothyroidism, unspecified (4) CAD (coronary artery disease) Qualifiers: Coronary Disease-Associated Artery/Lesion type: [place] artery [place] vs. transplanted heart: [place] heart Associated angina: without angina Qualified Code(s): I25.10 - Atherosclerotic heart disease of [place] coronary artery w [facility] angina pectoris
--- NOTE | 2019-02-16 15:17 | Electrocardiograph Report ---
[facility] Test Date: 2019-02-15 Pat Name: Georgiana Mccann Department: [id number] Room: 3B33 Gender: F Spiritual Advisor: : [id number] Requested By: [id number] Order Number: [id number] Reading MD: Rubio Newberry Measurements Intervals [place] Rate: 112 P: 86 VT: 141 QRS: 88 QRSD: 88 T: 72 QT: 338 QTc: 462 Interpretive Statements Sinus tachycardia Consider right atrial enlargement Borderline right axis deviation Minimal ST depression, anterolateral leads Electronically Signed On 02-16-2019 15:15:39 EDT by Rubio Newberry
[2019-02-17] MEDS: Ipratropium/Albuterol Neb 3 ML IH SCH ×5 (03:38→19:38)
[2019-02-17] MEDS: *HR* Heparin 5,000 UNIT/ML VIAL SQ SCH ×2 (05:44→17:37)
[2019-02-17] MEDS: Budesonide/Formoterol 160/4.5 1 PUFF INH IH SCH ×2 (07:34→19:38)
[2019-02-17] MEDS: Aspirin Enteric Coated 81 MG Tablet PO SCH (09:18)
[2019-02-17] MEDS: MethylPREDNISolone 40 MG/ML VIAL IVP SCH ×2 (09:18→17:37)
[2019-02-17] MEDS: *HR* LORazepam 1 MG TABLET PO SCH ×3 (09:18→20:50)
[2019-02-17] MEDS: Nicotine 21 MG PATCH.TD24 TD SCH (09:18)
[2019-02-17] MEDS: Metoprolol XL (24 HR) Succ 25 MG TAB.ER.24H PO SCH (09:18)
[2019-02-17] MEDS: Azithromycin 500 MG in D5% in Water 250 ML IVPB SCH (09:19)
[2019-02-17] MEDS: *HR* HYDROcodone/Acet 5/325 mg TABLET PO PRN (10:43)
--- NOTE | 2019-02-17 13:50 | Internal Med Progress Note ---
Hospitalist Progress Note - Encounter Date of Encounter: 02/17/19 Time of Encounter: 13:00 - Subjective Interval History: Ms. Mccann is a 63 year old female with past medical history of COPD, chronic hypoxic respiratory failure, uses 2 lit O2, chronic tobacco dependence, hyperlipidemia, anxiety, hypertension and CAD pt presented to ER with progressively worsening SOB, BE[place] and Cough with expectoration. She also admitted to some pleuritic chest pain which is worse when she coughs. She was admitted in the hospital and started her on high dose IV steroids and empirical abx. pt stated she is feeling little better today. Denied any CP. Still has moderate to severe SOB and BECAH. She is still taking 2-3 pauses to finish full sentence. Denied any CP. She does have cough with clear expectoration now. - Exam Vitals: Temp Pulse Resp BP Pulse Ox 97.6 F 97 16 137/73 98 02/17/19 10:55 02/17/19 10:55 02/17/19 11:06 02/17/19 10:55 02/17/19 11:06 Exam: Gen: Alert, awake, Oriented to time,place and person looks anxious and in moderate resp distress. Chest: Diminished breath sounds B/L, moderate to severe wheezing, No crackles, No rales Heart: S1S2+ RRR No murmurs Abd: Soft, NT, BS +, No organomegaly Ext: No edema, pulses are palpable, No calf tenderness Neuro : No acute focal neuro deficits noticed Skin: No rash. - Assessment and Plan (1) Acute exacerbation of chronic obstructive airways disease Current Visit: Yes Status: Acute Assessment and Plan: Still has severe wheezing, SOB and BE[place] cont IV steroids Cont frequent bronchodilator therapy cont empirical abx Azithromycin She does need duoneb to use at home.. (2) Acute and chronic respiratory failure Current Visit: Yes Status: Acute Assessment and Plan: She does use 2-3 lit o2 at home Currently on 4 lit O2 try to wean her off to baseline cont above care (3) Hypothyroid Current Visit: Yes Status: Chronic Assessment and Plan: resumed home meds (4) CAD (coronary artery disease) Current Visit: Yes Status: Chronic Assessment and Plan: cont all home meds (5) Tobacco abuse Current Visit: Yes Status: Chronic Assessment and Plan: Counseled to quit smoking placed on nicotine patch (6) Protein-calorie malnutrition, moderate Current Visit: Yes Status: Acute Assessment and Plan: Will check prealbumin Nutrition consulted - Time Spent with Patient Total time spent is greater than 50% in coordination of care (as documented) at patient's floor/unit and/or counseling patient: Internal Medicine: Result - Labs CBC & Chem 7: 02/16/19 03:30 02/16/19 03:30 Consult Discharge Plan - Plan Referrals: [facility] Patricia [Primary Care Provider] - Prescriptions: Ipratropium/Albuterol Neb [Duoneb] 3 ml IH Q6HR PRN #120 vial.neb PRN Reason: shortness of breath (2) Acute and chronic respiratory failure Qualifiers: Respiratory failure complication: hypoxia and hypercapnia Qualified Code(s): J96.21 - Acute and chronic respiratory failure with hypoxia; J96.22 - Acute and chronic respiratory failure with hypercapnia (3) Hypothyroid Qualifiers: Hypothyroidism type: acquired Qualified Code(s): E03.9 - Hypothyroidism, unspecified (4) CAD (coronary artery disease) Qualifiers: Coronary Disease-Associated Artery/Lesion type: [place] artery [place] vs. transplanted heart: [place] heart Associated angina: without angina Qualified Code(s): I25.10 - Atherosclerotic heart disease of [place] coronary artery without angina pectoris
[2019-02-17] MEDS: traZODone 50 MG TABLET PO SCH (20:49)
[2019-02-18] MEDS: Ipratropium/Albuterol Neb 3 ML IH SCH ×7 (00:06→23:00)
[2019-02-18] MEDS: MethylPREDNISolone 40 MG/ML VIAL IVP SCH ×2 (05:41→17:22)
[2019-02-18] MEDS: *HR* Heparin 5,000 UNIT/ML VIAL SQ SCH ×2 (05:41→17:22)
[2019-02-18] MEDS: Budesonide/Formoterol 160/4.5 1 PUFF INH IH SCH ×2 (07:38→20:12)
[2019-02-18] MEDS: *HR* HYDROcodone/Acet 5/325 mg TABLET PO PRN (07:58)
[2019-02-18] MEDS: Nicotine 21 MG PATCH.TD24 TD SCH (07:58)
[2019-02-18] MEDS: Metoprolol XL (24 HR) Succ 25 MG TAB.ER.24H PO SCH (07:58)
[2019-02-18] MEDS: *HR* LORazepam 1 MG TABLET PO SCH ×3 (07:59→20:34)
[2019-02-18] MEDS: Benzonatate 100 MG CAPSULE PO PRN ×2 (07:59→16:15)
[2019-02-18] MEDS: Azithromycin 500 MG in D5% in Water 250 ML IVPB SCH (07:59)
[2019-02-18] MEDS: Aspirin Enteric Coated 81 MG Tablet PO SCH (07:59)
[2019-02-18 10:24] LABS: BUN/Creatinine Ratio 24 (6-26); Blood Urea Nitrogen 15 mg/dL (8-23); Carbon Dioxide 36 mEq/L (23-29); Chloride 95 mEq/L (98-107); Glucose 274 mg/dL (70-105); Magnesium 1.9 mg/dL (1.6-2.6); Osmolality,Calculated 291 (280-300); Potassium 4.3 mEq/L (3.5-5.1); Sodium 135 mEq/L (136-145); eGFR For African Americans > 60 (> 60); eGFR For Non-African Americans > 60 (> 60)
--- NOTE | 2019-02-18 15:49 | Internal Med Progress Note ---
Hospitalist Progress Note - Encounter Date of Encounter: 02/18/19 Time of Encounter: 15:44 - Subjective Interval History: Patient was seen and examined at bedside patient states she does not feel well today that she cannot catch her breath-does not appear to be in respiratory distress - Exam Vitals: Temp Pulse Resp BP Pulse Ox 98.3 F 104 16 115/73 94 02/18/19 15:30 02/18/19 15:30 02/18/19 15:30 02/18/19 15:30 02/18/19 15:30 Exam: Gen: Alert, awake, Oriented to time,place and person looks anxious and in moderate resp distress. Chest: Diminished breath sounds B/L, moderate wheezing, No crackles, No rales Heart: S1S2+ RRR No murmurs Abd: Soft, NT, BS +, No organomegaly Ext: No edema, pulses are palpable, No calf tenderness Neuro : No acute focal neuro deficits noticed Skin: No rash. - Assessment and Plan (1) Acute exacerbation of chronic obstructive airways disease Current Visit: Yes Status: Acute Assessment and Plan: Still has severe wheezing, SOB and BEACH cont IV steroids Cont frequent bronchodilator therapy cont empirical abx Azithromycin She does need duoneb to use at home.. (2) Hypothyroid Current Visit: Yes Status: Chronic Assessment and Plan: resumed home meds (3) Tobacco abuse Current Visit: Yes Status: Chronic Assessment and Plan: Counseled to quit smoking placed on nicotine patch (4) CAD (coronary artery disease) Current Visit: Yes Status: Chronic Assessment and Plan: cont all home meds (5) Acute and chronic respiratory failure Current Visit: Yes Status: Acute Assessment and Plan: She does use 2-3 lit o2 at home Currently on 4 lit O2 try to wean her off to baseline cont above care (6) Protein-calorie malnutrition, moderate Current Visit: Yes Status: Acute Assessment and Plan: Will check prealbumin Nutrition consulted - Time Spent with Patient Total time spent is greater than 50% in coordination of care (as documented) at patient's floor/unit and/or counseling patient: Internal Medicine: Result - Labs CBC & Chem 7: 02/16/19 03:30 02/18/19 09:13 Labs: BMP 02/18/19 09:13 Sodium 135 L Potassium 4.3 Chloride 95 L Carbon Dioxide 36 H BUN 15 Creatinine 0.63 Glucose 274 H Calcium 9.0 Consult Discharge Plan - Plan Referrals: Magnolia Patricia [Primary Care Provider] - (2) Hypothyroid Qualifiers: Hypothyroidism type: acquired Qualified Code(s): E03.9 - Hypothyroidism, unspecified (4) CAD (coronary artery disease) Qualifiers: Coronary Disease-Associated Artery/Lesion type: [place] artery [place] vs. transplanted heart: [place] heart Associated angina: without angina Qualified Code(s): I25.10 - Atherosclerotic heart disease of [place] coronary artery without angina pectoris (5) Acute and chronic respiratory failure Qualifiers: Respiratory failure complication: hypoxia and hypercapnia Qualified Code(s): J96.21 - Acute and chronic respiratory failure with hypoxia; J96.22 - Acute and chronic respiratory failure with hypercapnia
[2019-02-18] MEDS: traZODone 50 MG TABLET PO SCH (22:14)
[2019-02-19] MEDS: Ipratropium/Albuterol Neb 3 ML IH SCH ×6 (03:55→23:53)
[2019-02-19] MEDS: MethylPREDNISolone 40 MG/ML VIAL IVP SCH ×2 (05:25→17:52)
[2019-02-19] MEDS: *HR* Heparin 5,000 UNIT/ML VIAL SQ SCH ×2 (05:25→17:49)
[2019-02-19] MEDS: Budesonide/Formoterol 160/4.5 1 PUFF INH IH SCH ×2 (07:51→20:31)
[2019-02-19] MEDS: Aspirin Enteric Coated 81 MG Tablet PO SCH (08:17)
[2019-02-19] MEDS: Nicotine 21 MG PATCH.TD24 TD SCH (08:17)
[2019-02-19] MEDS: *HR* LORazepam 1 MG TABLET PO SCH ×3 (08:17→20:25)
[2019-02-19] MEDS: Benzonatate 100 MG CAPSULE PO PRN ×2 (08:17→22:41)
[2019-02-19] MEDS: Metoprolol XL (24 HR) Succ 25 MG TAB.ER.24H PO SCH (08:17)
[2019-02-19] MEDS: *HR* HYDROcodone/Acet 5/325 mg TABLET PO PRN (08:17)
[2019-02-19] MEDS: Azithromycin 500 MG in D5% in Water 250 ML IVPB SCH (08:18)
--- NOTE | 2019-02-19 15:03 | Internal Med Progress Note ---
Hospitalist Progress Note - Encounter Date of Encounter: 02/19/19 Time of Encounter: 15:00 - Subjective Interval History: Patient has been seen and evaluated at bedside she is just returned from the bathroom and appears to be in some respiratory distress tripoding and pursed breath breathing. Continue with oxygen respiratory with breathing treatments - Exam Vitals: Temp Pulse Resp BP Pulse Ox 98.1 F 103 16 128/81 94 02/19/19 14:47 02/19/19 14:47 02/19/19 14:47 02/19/19 14:47 02/19/19 14:47 Exam: Gen: Alert, awake, Oriented to time,place and person looks anxious and in moderate resp distress. Chest: Diminished breath sounds B/L, moderate wheezing, No crackles, No rales Heart: S1S2+ RRR No murmurs Abd: Soft, NT, BS +, No organomegaly Ext: No edema, pulses are palpable, No calf tenderness Neuro : No acute focal neuro deficits noticed Skin: No rash. - Assessment and Plan (1) Acute exacerbation of chronic obstructive airways disease Current Visit: Yes Status: Acute Assessment and Plan: Still has severe wheezing, SOB and BEACH-tripod breathing cont IV steroids Cont frequent bronchodilator therapy cont empirical abx Azithromycin She does need duoneb to use at home.. (2) Hypothyroid Current Visit: Yes Status: Chronic Assessment and Plan: resumed home meds (3) Tobacco abuse Current Visit: Yes Status: Chronic Assessment and Plan: Counseled to quit smoking placed on nicotine patch (4) CAD (coronary artery disease) Current Visit: Yes Status: Chronic Assessment and Plan: cont all home meds (5) Acute and chronic respiratory failure Current Visit: Yes Status: Acute Assessment and Plan: She does use 2-3 lit o2 at home Currently on 4 lit O2 try to wean her off to baseline cont above care (6) Protein-calorie malnutrition, moderate Current Visit: Yes Status: Acute Assessment and Plan: Will check prealbumin Nutrition consulted - Time Spent with Patient Total time spent is greater than 50% in coordination of care (as documented) at patient's floor/unit and/or counseling patient: Internal Medicine: Result - Labs CBC & Chem 7: 02/16/19 03:30 02/18/19 09:13 Consult Discharge Plan - Plan Referrals: Magnolia Patricia [Primary Care Provider] - _ (2) Hypothyroid Qualifiers: Hypothyroidism type: acquired Qualified Code(s): E03.9 - Hypothyroidism, unspecified (4) CAD (coronary artery disease) Qualifiers: Coronary Disease-Associated Artery/Lesion type: [place] artery [place] vs. transplanted heart: [place] heart Associated angina: without angina Qualified Code(s): I25.10 - Atherosclerotic heart disease of [place] coronary artery without angina pectoris (5) Acute and chronic respiratory failure Qualifiers: Respiratory failure complication: hypoxia and hypercapnia Qualified Code(s): J96.21 - Acute and chronic respiratory failure with hypoxia; J96.22 - Acute and chronic respiratory failure with hypercapnia
[2019-02-19] MEDS: traZODone 50 MG TABLET PO SCH (22:41)
[2019-02-20] MEDS: Ipratropium/Albuterol Neb 3 ML IH SCH ×3 (04:30→11:21)
[2019-02-20] MEDS: MethylPREDNISolone 40 MG/ML VIAL IVP SCH (05:21)
[2019-02-20] MEDS: *HR* Heparin 5,000 UNIT/ML VIAL SQ SCH (05:21)
[2019-02-20] MEDS: Budesonide/Formoterol 160/4.5 1 PUFF INH IH SCH (07:49)
[2019-02-20] MEDS: Azithromycin 500 MG in D5% in Water 250 ML IVPB SCH (07:51)
[2019-02-20] MEDS: Nicotine 21 MG PATCH.TD24 TD SCH (07:51)
[2019-02-20] MEDS: *HR* LORazepam 1 MG TABLET PO SCH (07:51)
[2019-02-20] MEDS: Metoprolol XL (24 HR) Succ 25 MG TAB.ER.24H PO SCH (07:51)
[2019-02-20] MEDS: Aspirin Enteric Coated 81 MG Tablet PO SCH (07:51)
--- NOTE | 2019-02-20 11:02 | Discharge Summary ---
- NOTES TO OUTPATIENT PROVIDER Notes to Outpatient Provider: f/u with PCP in one week. please quit smoking. f/u with Pulmonary in 1-2 weeks. Date of Encounter: 02/20/19 Time of Encounter: 11:02 - Discharge Diagnosis (1) Acute exacerbation of chronic obstructive airways disease Priority: Primary Status: Acute (2) Acute and chronic respiratory failure Priority: Primary Status: Acute Qualifiers: Respiratory failure complication: hypoxia and hypercapnia Qualified Code(s): J96.21 - Acute and chronic respiratory failure with hypoxia; J96.22 - Acute and chronic respiratory failure with hypercapnia (3) Hypothyroid Priority: Secondary Status: Chronic Qualifiers: Hypothyroidism type: acquired Qualified Code(s): E03.9 - Hypothyroidism, unspecified (4) Tobacco abuse Priority: Secondary Status: Chronic (5) CAD (coronary artery disease) Priority: Secondary Status: Chronic Qualifiers: Coronary Disease-Associated Artery/Lesion type: [place] artery [place] vs. transplanted heart: [place] heart Associated angina: without angina Qualified Code(s): I25.10 - Atherosclerotic heart disease of [place] coronary artery without angina pectoris (6) Protein-calorie malnutrition, moderate Priority: Secondary Status: Acute Hospital course: Ms. Mccann is a 63 year old female with past medical history of COPD, chronic hypoxic respiratory failure, uses 2 lit O2, chronic tobacco dependence, hyperlipidemia, anxiety, hypertension and CAD pt presented to ER with progressively worsening SOB, BEACH and Cough with expectoration. She also admitted to some pleuritic chest pain which is worse when she coughs. She was admitted in the hospital and started her on high dose IV steroids and empirical abx. She was improving slowly and requiring high dose IV steroids for few days. Currently she is on on 4 lit O2, with Spo2 @ 95. Pt stated she is feeling better and back to baseline. So will discharge him home in a stable condition today. I did college admissions counselor her to quit smoking. Also recommended to follow up with the strip deburrer as an outpatient since patient is developing advanced / end stage COPD. - Time Spent with Patient Total time spent providing and/or coordinating discharge services: - Discharge Medications Prescriptions: New Ipratropium/Albuterol Neb [Duoneb] 3 ml IH Q6HR PRN #120 vial.neb PRN Reason: shortness of breath Nicotine Patch [Nicoderm] 21 mg TD DAILY #30 patch.td24 predniSONE [PredniSONE] 40 mg PO DAILY #10 tablet Continued Levothyroxine Sodium 100 mcg PO QAM LORazepam [Lorazepam] 2 mg PO TID Atorvastatin [Lipitor] 40 mg PO QAM Aspirin [Adult Aspirin Regimen] 81 mg PO DAILY Clopidogrel [Plavix] 75 mg PO QAM Ibuprofen [Advil] 400 mg PO DAILY PRN PRN Reason: Pain Nortriptyline [Pamelor] 75 mg PO HS Trazodone HCl 200 mg PO HS Cyanocobalamin (B-12) [Vitamin B12] 1,000 mcg IM QMONTH Albuterol Sulfate [Ventolin Hfa] 1 puff IH Q6H PRN PRN Reason: Shortness Of Breath Fluticasone/Vilanterol [Breo Ellipta 200-25 Mcg INH] 1 puff IH QAM Guaifenesin [Mucinex] 600 mg PO Q12H Changed Metoprolol XL (24 HR) Succ [Toprol Xl] 25 mg PO DAILY #30 tab.er.24h Home Medications: LORazepam [Lorazepam] 2 mg PO TID 06/24/17 [History] Levothyroxine Sodium 100 mcg PO QAM 06/24/17 [History] Atorvastatin [Lipitor] 40 mg PO QAM 01/07/18 [History] Aspirin [Adult Aspirin Regimen] 81 mg PO DAILY 01/13/19 [History] Clopidogrel [Plavix] 75 mg PO QAM 01/13/19 [History] Cyanocobalamin (B-12) [Vitamin B12] 1,000 mcg IM QMONTH 01/13/19 [History] Ibuprofen [Advil] 400 mg PO DAILY PRN 01/13/19 [History] Nortriptyline [Pamelor] 75 mg PO HS 01/13/19 [History] Trazodone HCl 200 mg PO HS 01/13/19 [History] Albuterol Sulfate [Ventolin Hfa] 1 puff IH Q6H PRN 02/15/19 [History] Fluticasone/Vilanterol [Breo Ellipta 200-25 Mcg INH] 1 puff IH QAM 02/15/19 [History] Guaifenesin [Mucinex] 600 mg PO Q12H 02/15/19 [History] Ipratropium/Albuterol Neb [Duoneb] 3 ml IH Q6HR PRN #120 vial.neb 02/17/19 [Rx] Metoprolol XL (24 HR) Succ [Toprol Xl] 25 mg PO DAILY #30 tab.er.24h 02/20/19 [Rx] Nicotine Patch [Nicoderm] 21 mg TD DAILY #30 patch.td24 02/20/19 [Rx] predniSONE [PredniSONE] 40 mg PO DAILY #10 tablet 02/20/19 [Rx] Allergies/Adverse Reactions: Allergy/AdvReac Type Severity Reaction Status Date / Time No Known Allergies Allergy Verified 02/15/19 20:52 Date of admission: 02/17/19 14:23 Primary care physician: Magnolia Patricia Consults: 02/16/19 08:17 Consult to Nurse Navigator [CONS] Routine Comment: COPD 02/17/19 00:17 Consult to Respiratory Therapy [CONS] Routine Reason for Consult: ADD FLUTTER VALVE TO PATIENT'S BREATHING TXS Call Completed: Yes 02/17/19 14:01 Consult to Nutrition [CONS] Routine Comment: Consulting Provider: NUTRITION Reason for Dietary Consult: PO Supplementation - Constitutional Vitals: Temp Pulse Resp BP Pulse Ox 97.4 F L 97 16 137/85 96 02/20/19 06:53 02/20/19 06:53 02/20/19 07:50 02/20/19 06:53 02/20/19 07:50 General appearance: Present: cooperative, A&O X 3, no acute distress, answers questions appropriately Exam: Gen: Alert, awake, Oriented to time,place and person looks anxious and in moderate resp distress. Chest: Diminished breath sounds B/L, moderate wheezing, No crackles, No rales Heart: S1S2+ RRR No murmurs Abd: Soft, NT, BS +, No organomegaly Ext: No edema, pulses are palpable, No calf tenderness Neuro : No acute focal neuro deficits noticed Skin: No rash. - Patient Status Disposition: Home Health Service Condition: Good Overall status at discharge: patient is back to baseline - Discharge Instructions Follow Up With: Magnolia Patricia [Primary Care Provider] - Edgar Pederson MD [Partnered Physician] - - Diet and Activity Activity: increase activity as tolerated, wear oxygen at all times Diet: low salt diet
--- NOTE | 2019-02-20 11:12 | Physician Discharge Referral ---
Home Health/Hosp Referral Info Transfer to: Home Health Provider in Charge Post Discharge: PCP - Diagnosis (1) Acute exacerbation of chronic obstructive airways disease Status: Acute (2) Acute and chronic respiratory failure Status: Acute (3) Hypothyroid Status: Chronic (4) Tobacco abuse Status: Chronic (5) CAD (coronary artery disease) Status: Chronic (6) Protein-calorie malnutrition, moderate Status: Acute - Respiratory Orders Smoking Cessation: Smoking cessation has been advised. For more information, call the [place] Tobacco Quit Line at 8-536-WGPF-NOW. - Services Needed Following services are medically necessary services: Nursing - Transfer Medications Prescriptions: Nicotine Patch [Nicoderm] 21 mg TD DAILY #30 patch.td24 predniSONE [PredniSONE] 40 mg PO DAILY #10 tablet Metoprolol XL (24 HR) Succ [Toprol Xl] 25 mg PO DAILY #30 tab.er.24h Home Medications: LORazepam [Lorazepam] 2 mg PO TID 06/24/17 [History] Levothyroxine Sodium 100 mcg PO QAM 06/24/17 [History] Atorvastatin [Lipitor] 40 mg PO QAM 01/07/18 [History] Aspirin [Adult Aspirin Regimen] 81 mg PO DAILY 01/13/19 [History] Clopidogrel [Plavix] 75 mg PO QAM 01/13/19 [History] Cyanocobalamin (B-12) [Vitamin B12] 1,000 mcg IM QMONTH 01/13/19 [History] Ibuprofen [Advil] 400 mg PO DAILY PRN 01/13/19 [History] Nortriptyline [Pamelor] 75 mg PO HS 01/13/19 [History] Trazodone HCl 200 mg PO HS 01/13/19 [History] Albuterol Sulfate [Ventolin Hfa] 1 puff IH Q6H PRN 02/15/19 [History] Fluticasone/Vilanterol [Breo Ellipta 200-25 Mcg INH] 1 puff IH QAM 02/15/19 [History] Guaifenesin [Mucinex] 600 mg PO Q12H 02/15/19 [History] Ipratropium/Albuterol Neb [Duoneb] 3 ml IH Q6HR PRN #120 vial.neb 02/17/19 [Rx] Metoprolol XL (24 HR) Succ [Toprol Xl] 25 mg PO DAILY #30 tab.er.24h 02/20/19 [Rx] Nicotine Patch [Nicoderm] 21 mg TD DAILY #30 patch.td24 02/20/19 [Rx] predniSONE [PredniSONE] 40 mg PO DAILY #10 tablet 02/20/19 [Rx] Allergies/Adverse Reactions: Allergy/AdvReac Type Severity Reaction Status Date / Time No Known Allergies Allergy Verified 02/15/19 20:52 Certification: Further, I certify that my clinical findings support that this patient is homebound (i.e. absences from home require considerable and taxing effort and are for medical reasons or anabaptism services or infrequently or short duration when for other reasons) because: Homebound Reason: Patient requires assistance of a person or device to safely leave home Attestation: My signature below is to certify that this patient is under my care and that I, or nurse practitioner, or a physician's assistant manager retail working with me, has a [id number] encounter with this patient.
[2019-02-20 12:00] VITALS: BP 125/75
== END 2019-02-20 12:46 | disposition home health service (06) | DRG 190 ==
LOC: 3BNU 07:53 → EMEROOARM 07:53 → SUATTDRO 10:07 → 3BNU 11:05
PROVIDERS: ADMIT Internal Medicine; ATTEND Family Medicine

== ENCOUNTER 2019-04-17 10:32 | Inpatient (IN) ==
[2019-04-17] MEDS ORDERED: methylPREDNISolone 125 MG/2 ML VIAL IVP ONE (10:42)
[2019-04-17] MEDS ORDERED: Ipratropium/Albuterol Neb 3 ML IH ONE ×2 (10:42→14:39)
[2019-04-17] MEDS ORDERED: *HR* FentaNYL (PF) 100 MCG/2 ML VIAL IVP ONE (11:29)
[2019-04-17] MEDS ORDERED: Piperacillin/Tazobactam 3.375 GM in Water for inj. (sterile) 20 ML IVP ONE (12:16)
[2019-04-17] MEDS ORDERED: levoFLOXacin 750 MG/150 ML 750 MG/150 ML BAG IVPB ONE (12:16)
[2019-04-17] MEDS ORDERED: 0.9 % Sodium Chloride 1,000 ML IVC ONE (12:18)
[2019-04-17 13:21] LABS: Hematocrit 40.4 % (35.3-44.9); Hemoglobin 12.8 g/dL (11.5-15.4); Mean Corpuscular HGB Conc 31.7 g/dL (31.6-35.5); Mean Corpuscular Hemoglobin 28.8 pg (28.0-33.3); Mean Platelet Volume 8.8 fL (9.4-12.4); Platelet Count 297 K/mcL (140-400); Red Blood Count 4.44 M/mcL (3.82-4.97); Red Cell Distribution Width 12.7 % (11.5-14.5)
[2019-04-17 13:33] LABS: Alanine Aminotransferase 7 Units/L (7-52); Albumin 3.5 g/dL (3.5-5.7); Albumin/Globulin Ratio 1.3 (1.1-2.2); Alkaline Phosphatase 100 Units/L (34-104); Aspartate Amino Transferase 7 Units/L (13-39); BUN/Creatinine Ratio 21 (6-26); Bilirubin,Indirect 0.2 mg/dL (0.0-1.2); Bilirubin,Total 0.2 mg/dL (0.3-1.0); Blood Urea Nitrogen 12 mg/dL (8-23); Calcium 9.1 mg/dL (8.6-10.3); Carbon Dioxide 36 mEq/L (23-29); Chloride 96 mEq/L (98-107); Globulin 2.6 g/dL (2.4-3.5); Glucose 147 mg/dL (70-105); Magnesium 1.5 mg/dL (1.6-2.6); Osmolality,Calculated 292 (280-300); Phosphorous 3.1 mg/dL (2.7-4.5); Potassium 3.9 mEq/L (3.5-5.1); Sodium 140 mEq/L (136-145); Total Protein 6.1 g/dL (6.4-8.9); Troponin I < 0.03 ng/mL (< 0.04); eGFR For African Americans > 60 (> 60); eGFR For Non-African Americans > 60 (> 60)
[2019-04-17] MEDS ORDERED: Isovue-370 500 ML BOTTLE IVP ONE (13:49)
[2019-04-17] MEDS ORDERED: *HR* HYDROmorphone (PF) 1 MG/ML SYRINGE IVP ONE (17:57)
[2019-04-17] MEDS ORDERED: Ondansetron ODT 4 MG TAB.RAPDIS SL PRN (18:12)
[2019-04-17] MEDS ORDERED: MOM Conc 10 ML UD.LIQ PO PRN (18:12)
[2019-04-17] MEDS ORDERED: Naloxone 0.4 MG/ML INJ IVP PRN (18:12)
[2019-04-17] MEDS ORDERED: Albuterol 2.5 MG/3 ML NEBULIZER IH PRN (18:18)
[2019-04-17] MEDS: Ipratropium/Albuterol Neb 3 ML IH SCH ×2 (20:31→23:34)
[2019-04-17] MEDS: *HR* OxyCODONE/APAP 10/325 TABLET PO PRN (20:43)
[2019-04-17] MEDS: *HR* LORazepam 1 MG TABLET PO SCH (20:43)
[2019-04-17] MEDS: traZODone 50 MG TABLET PO SCH (20:44)
[2019-04-18] MEDS: Ipratropium/Albuterol Neb 3 ML IH SCH ×5 (03:20→19:45)
[2019-04-18] MEDS: *HR* OxyCODONE/APAP 10/325 TABLET PO PRN ×2 (03:59→10:25)
[2019-04-18] MEDS: *HR* Heparin 5,000 UNIT/ML VIAL SQ SCH ×2 (05:31→18:21)
[2019-04-18 05:44] LABS: Hematocrit 37.2 % (35.3-44.9); Hemoglobin 11.9 g/dL (11.5-15.4); Lymphocytes # 0.7 K/mcL (0.6-4.6); Lymphocytes % 13.1 %; Mean Corpuscular Hemoglobin 28.3 pg (28.0-33.3); Mean Corpuscular Volume 88.6 fL (83.0-100.0); Mean Platelet Volume 8.9 fL (9.4-12.4); Monocytes # 0.2 K/mcL (0.0-1.3); Monocytes % 4.6 %; Neutrophils # 4.2 K/mcL (1.6-8.9); Platelet Count 266 K/mcL (140-400); Red Cell Distribution Width 12.8 % (11.5-14.5); Segmented Neutrophils % 81.3 %; White Blood Count 5.2 K/mcL (4.3-11.1)
[2019-04-18 06:02] LABS: BUN/Creatinine Ratio 16 (6-26); Blood Urea Nitrogen 10 mg/dL (8-23); Calcium 8.8 mg/dL (8.6-10.3); Carbon Dioxide 33 mEq/L (23-29); Chloride 97 mEq/L (98-107); Glucose 191 mg/dL (70-105); Osmolality,Calculated 290 (280-300); Potassium 4.4 mEq/L (3.5-5.1); Sodium 138 mEq/L (136-145); eGFR For African Americans > 60 (> 60); eGFR For Non-African Americans > 60 (> 60)
[2019-04-18] MEDS: Budesonide/Formoterol 160/4.5 1 PUFF INH IH SCH ×2 (07:48→19:47)
[2019-04-18] MEDS: Metoprolol XL (24 HR) Succ 25 MG TAB.ER.24H PO SCH (09:00)
[2019-04-18] MEDS ORDERED: Aspirin Enteric Coated 81 MG Tablet PO SCH (09:00)
[2019-04-18] MEDS: predniSONE 20 MG TABLET PO SCH (09:01)
[2019-04-18] MEDS: *HR* LORazepam 1 MG TABLET PO SCH ×3 (09:01→21:13)
[2019-04-18] MEDS ORDERED: Nicotine 21 MG PATCH.TD24 TD STA ×2 (10:22→18:27)
[2019-04-18] MEDS: *HR* OxyCODONE/APAP 5/325 TABLET PO PRN ×2 (14:26→19:12)
[2019-04-18] MEDS: traZODone 50 MG TABLET PO SCH (21:12)
[2019-04-19] MEDS: Ipratropium/Albuterol Neb 3 ML IH SCH ×6 (00:02→19:56)
[2019-04-19] MEDS: *HR* OxyCODONE/APAP 5/325 TABLET PO PRN ×2 (03:21→09:10)
[2019-04-19] MEDS: *HR* Heparin 5,000 UNIT/ML VIAL SQ SCH ×2 (05:34→18:52)
[2019-04-19] MEDS: Budesonide/Formoterol 160/4.5 1 PUFF INH IH SCH ×2 (08:09→22:26)
[2019-04-19] MEDS: predniSONE 20 MG TABLET PO SCH (09:10)
[2019-04-19] MEDS: *HR* LORazepam 1 MG TABLET PO SCH ×3 (09:10→21:02)
[2019-04-19] MEDS: Metoprolol XL (24 HR) Succ 25 MG TAB.ER.24H PO SCH (09:11)
[2019-04-19] MEDS: *HR* OxyCODONE/APAP 7.5/325 TABLET PO PRN ×2 (15:01→21:04)
[2019-04-19] MEDS: Nicotine 21 MG PATCH.TD24 TD SCH (21:02)
[2019-04-19] MEDS: traZODone 50 MG TABLET PO SCH (21:02)
[2019-04-19 22:49] LABS: ABG Base Excess 9 mEq/L (-2 to 3); ABG HCO3 35 mEq/L (21-27); ABG Oxygen Saturation 97 % (95-98); ABG PCO2 55 mmHg (35-45); ABG PH 7.42 pH Units (7.32-7.45); ABG PO2 92 mmHg (85-104); ABG TCO2 37 mEq/L (20-26)
[2019-04-20] MEDS: Ipratropium/Albuterol Neb 3 ML IH SCH ×6 (00:04→20:24)
[2019-04-20 04:44] LABS: Basophils % 0.1 %; Eosinophils % 0.1 %; Hematocrit 34.4 % (35.3-44.9); Immature Granulocytes % 0.9 % (0-4); Lymphocytes # 2.2 K/mcL (0.6-4.6); Lymphocytes % 28.4 %; Mean Corpuscular Hemoglobin 29.6 pg (28.0-33.3); Mean Corpuscular Volume 92.5 fL (83.0-100.0); Mean Platelet Volume 9.1 fL (9.4-12.4); Monocytes # 0.4 K/mcL (0.0-1.3); Monocytes % 5.4 %; Platelet Count 226 K/mcL (140-400); Red Blood Count 3.72 M/mcL (3.82-4.97); Red Cell Distribution Width 13.2 % (11.5-14.5); Segmented Neutrophils % 65.1 %; White Blood Count 7.7 K/mcL (4.3-11.1)
[2019-04-20 05:03] LABS: BUN/Creatinine Ratio 25 (6-26); Blood Urea Nitrogen 16 mg/dL (8-23); Calcium 8.3 mg/dL (8.6-10.3); Carbon Dioxide 32 mEq/L (23-29); Chloride 102 mEq/L (98-107); Glucose 108 mg/dL (70-105); Osmolality,Calculated 286 (280-300); Sodium 137 mEq/L (136-145); eGFR For African Americans > 60 (> 60); eGFR For Non-African Americans > 60 (> 60)
[2019-04-20] MEDS: *HR* Heparin 5,000 UNIT/ML VIAL SQ SCH ×2 (05:48→18:27)
[2019-04-20] MEDS: Budesonide/Formoterol 160/4.5 1 PUFF INH IH SCH ×2 (08:07→20:24)
[2019-04-20] MEDS: predniSONE 20 MG TABLET PO SCH (08:16)
[2019-04-20] MEDS: *HR* OxyCODONE/APAP 7.5/325 TABLET PO PRN ×4 (08:17→23:15)
[2019-04-20] MEDS: *HR* LORazepam 1 MG TABLET PO SCH ×3 (08:18→19:59)
[2019-04-20] MEDS: Metoprolol XL (24 HR) Succ 25 MG TAB.ER.24H PO SCH (08:18)
[2019-04-20] MEDS: traZODone 50 MG TABLET PO SCH (19:59)
[2019-04-20] MEDS: Nicotine 21 MG PATCH.TD24 TD SCH (20:00)
[2019-04-21] MEDS: Ipratropium/Albuterol Neb 3 ML IH SCH ×4 (00:49→11:39)
[2019-04-21 05:08] LABS: Basophils % 0.3 %; Eosinophils # 0.1 K/mcL (0.0-0.6); Eosinophils % 0.6 %; Hematocrit 36.1 % (35.3-44.9); Hemoglobin 11.5 g/dL (11.5-15.4); Immature Granulocytes % 1.4 % (0-4); Lymphocytes # 2.8 K/mcL (0.6-4.6); Lymphocytes % 34.4 %; Mean Corpuscular HGB Conc 31.9 g/dL (31.6-35.5); Mean Corpuscular Hemoglobin 29.3 pg (28.0-33.3); Mean Corpuscular Volume 91.9 fL (83.0-100.0); Monocytes # 0.4 K/mcL (0.0-1.3); Monocytes % 5.3 %; Neutrophils # 4.7 K/mcL (1.6-8.9); Platelet Count 217 K/mcL (140-400); Red Blood Count 3.93 M/mcL (3.82-4.97); Red Cell Distribution Width 13.3 % (11.5-14.5)
[2019-04-21 05:28] LABS: BUN/Creatinine Ratio 25 (6-26); Blood Urea Nitrogen 15 mg/dL (8-23); Calcium 8.5 mg/dL (8.6-10.3); Carbon Dioxide 36 mEq/L (23-29); Chloride 99 mEq/L (98-107); Glucose 125 mg/dL (70-105); Osmolality,Calculated 294 (280-300); Potassium 3.5 mEq/L (3.5-5.1); Sodium 141 mEq/L (136-145); eGFR For African Americans > 60 (> 60); eGFR For Non-African Americans > 60 (> 60)
[2019-04-21] MEDS: *HR* Heparin 5,000 UNIT/ML VIAL SQ SCH (06:05)
[2019-04-21] MEDS: *HR* OxyCODONE/APAP 7.5/325 TABLET PO PRN ×2 (06:55→11:26)
[2019-04-21] MEDS: Budesonide/Formoterol 160/4.5 1 PUFF INH IH SCH (07:30)
[2019-04-21] MEDS ORDERED: Aspirin Enteric Coated 81 MG Tablet PO SCH (09:00)
[2019-04-21] MEDS: *HR* LORazepam 1 MG TABLET PO SCH (09:25)
[2019-04-21] MEDS: Metoprolol XL (24 HR) Succ 25 MG TAB.ER.24H PO SCH (09:25)
[2019-04-21] MEDS: predniSONE 20 MG TABLET PO SCH (09:25)
[2019-04-21 12:00] VITALS: BP 115/75
== END 2019-04-21 12:49 | DRG 552 ==
LOC: 3NENU 10:32 → EMEROOARM 10:32 → SUATTDRO 17:08 → 3NENU 18:12 → SUATTDRO 04-18 14:23
PROVIDERS: ADMIT Internal Medicine; ATTEND Internal Medicine

== ENCOUNTER 2019-05-01 12:59 | Inpatient (IN) ==
[2019-05-01] MEDS ORDERED: Ipratropium/Albuterol Neb 3 ML IH ONE (13:33)
[2019-05-01] MEDS ORDERED: methylPREDNISolone 125 MG/2 ML VIAL IVP ONE (13:33)
[2019-05-01 14:11] LABS: Basophils % 0.1 %; Eosinophils # 0.2 K/mcL (0.0-0.6); Eosinophils % 1.7 %; Hemoglobin 12.7 g/dL (11.5-15.4); Lymphocytes # 0.5 K/mcL (0.6-4.6); Lymphocytes % 3.7 %; Mean Corpuscular HGB Conc 31.8 g/dL (31.6-35.5); Mean Corpuscular Hemoglobin 29.7 pg (28.0-33.3); Mean Corpuscular Volume 93.5 fL (83.0-100.0); Mean Platelet Volume 9.6 fL (9.4-12.4); Monocytes # 0.8 K/mcL (0.0-1.3); Monocytes % 5.5 %; Neutrophils # 12.6 K/mcL (1.6-8.9); Platelet Count 210 K/mcL (140-400); Red Blood Count 4.28 M/mcL (3.82-4.97); Red Cell Distribution Width 14.4 % (11.5-14.5); White Blood Count 14.3 K/mcL (4.3-11.1)
[2019-05-01 14:40] LABS: BUN/Creatinine Ratio 14 (6-26); Blood Urea Nitrogen 10 mg/dL (8-23); Calcium 8.6 mg/dL (8.6-10.3); Carbon Dioxide 29 mEq/L (23-29); Chloride 94 mEq/L (98-107); Glucose 90 mg/dL (70-105); Osmolality,Calculated 273 (280-300); Sodium 132 mEq/L (136-145); Troponin I < 0.03 ng/mL (< 0.04); eGFR For African Americans > 60 (> 60); eGFR For Non-African Americans > 60 (> 60)
[2019-05-01] MEDS ORDERED: Piperacillin/Tazobactam 3.375 GM in Water for inj. (sterile) 20 ML IVP ONE (15:28)
[2019-05-01] MEDS ORDERED: levoFLOXacin 750 MG/150 ML 750 MG/150 ML BAG IVPB ONE (15:29)
[2019-05-01] MEDS ORDERED: Acetaminophen 325 MG TABLET PO PRN (16:33)
[2019-05-01] MEDS ORDERED: Naloxone 0.4 MG/ML INJ IVP PRN (16:33)
[2019-05-01] MEDS ORDERED: Ipratropium/Albuterol Neb 3 ML IH PRN (16:37)
[2019-05-01] MEDS: *HR* HYDROcodone/Acet 5/325 mg TABLET PO PRN (18:18)
[2019-05-01] MEDS: Ipratropium/Albuterol Neb 3 ML IH SCH (20:25)
[2019-05-01] MEDS: traZODone 50 MG TABLET PO SCH (21:31)
[2019-05-01] MEDS: *HR* LORazepam 1 MG TABLET PO SCH (22:31)
[2019-05-02] MEDS: Piperacillin/Tazobactam 3.375 GM in 0.9 % Sodium Chloride Mini Bag 100 ML IVPB SCH ×3 (00:22→16:04)
[2019-05-02] MEDS: Ipratropium/Albuterol Neb 3 ML IH SCH ×6 (00:28→20:10)
[2019-05-02] MEDS: *HR* OxyCODONE Immed Rel 5 MG TABLET PO PRN ×3 (00:30→16:03)
[2019-05-02] MEDS: *HR* HYDROcodone/Acet 5/325 mg TABLET PO PRN ×3 (04:36→21:21)
[2019-05-02] MEDS ORDERED: *HR* Enoxaparin 30 MG/0.3 ML SYRINGE SQ SCH (06:00)
[2019-05-02 06:45] LABS: Basophils % 0.2 %; Hemoglobin 11.9 g/dL (11.5-15.4); Lymphocytes # 0.4 K/mcL (0.6-4.6); Lymphocytes % 3.2 %; Mean Corpuscular HGB Conc 32.2 g/dL (31.6-35.5); Mean Corpuscular Hemoglobin 29.5 pg (28.0-33.3); Mean Corpuscular Volume 91.6 fL (83.0-100.0); Mean Platelet Volume 9.8 fL (9.4-12.4); Monocytes # 0.5 K/mcL (0.0-1.3); Monocytes % 4.1 %; Neutrophils # 10.4 K/mcL (1.6-8.9); Platelet Count 209 K/mcL (140-400); Red Blood Count 4.04 M/mcL (3.82-4.97); Red Cell Distribution Width 14.1 % (11.5-14.5); Segmented Neutrophils % 91.5 %; White Blood Count 11.3 K/mcL (4.3-11.1)
[2019-05-02 07:52] LABS: BUN/Creatinine Ratio 19 (6-26); Blood Urea Nitrogen 12 mg/dL (8-23); Calcium 8.9 mg/dL (8.6-10.3); Carbon Dioxide 27 mEq/L (23-29); Chloride 96 mEq/L (98-107); Glucose 208 mg/dL (70-105); Magnesium 1.9 mg/dL (1.6-2.6); Osmolality,Calculated 284 (280-300); Potassium 3.8 mEq/L (3.5-5.1); Sodium 134 mEq/L (136-145); eGFR For African Americans > 60 (> 60); eGFR For Non-African Americans > 60 (> 60)
[2019-05-02] MEDS: Metoprolol XL (24 HR) Succ 25 MG TAB.ER.24H PO SCH (09:16)
[2019-05-02] MEDS: Aspirin Enteric Coated 81 MG Tablet PO SCH (09:16)
[2019-05-02] MEDS: *HR* LORazepam 1 MG TABLET PO SCH ×3 (09:16→21:22)
[2019-05-02] MEDS: MethylPREDNISolone 40 MG/ML VIAL IVP SCH ×2 (09:30→17:48)
[2019-05-02 19:35] LABS: Sodium, Urine 31.2 mEq/L
[2019-05-02] MEDS: traZODone 50 MG TABLET PO SCH (21:21)
[2019-05-03] MEDS: Ipratropium/Albuterol Neb 3 ML IH SCH ×6 (00:06→20:05)
[2019-05-03] MEDS: Piperacillin/Tazobactam 3.375 GM in 0.9 % Sodium Chloride Mini Bag 100 ML IVPB SCH ×3 (00:15→15:34)
[2019-05-03 05:12] LABS: Basophils % 0.3 %; Hematocrit 33.8 % (35.3-44.9); Hemoglobin 11.2 g/dL (11.5-15.4); Immature Granulocytes % 1.3 % (0-4); Lymphocytes # 0.9 K/mcL (0.6-4.6); Lymphocytes % 7.5 %; Mean Corpuscular HGB Conc 33.1 g/dL (31.6-35.5); Mean Corpuscular Hemoglobin 29.4 pg (28.0-33.3); Mean Corpuscular Volume 88.7 fL (83.0-100.0); Mean Platelet Volume 9.7 fL (9.4-12.4); Monocytes # 0.7 K/mcL (0.0-1.3); Monocytes % 5.6 %; Platelet Count 259 K/mcL (140-400); Red Blood Count 3.81 M/mcL (3.82-4.97); Red Cell Distribution Width 13.9 % (11.5-14.5); Segmented Neutrophils % 85.3 %; White Blood Count 11.7 K/mcL (4.3-11.1)
[2019-05-03 05:32] LABS: BUN/Creatinine Ratio 28 (6-26); Blood Urea Nitrogen 16 mg/dL (8-23); Calcium 8.8 mg/dL (8.6-10.3); Carbon Dioxide 33 mEq/L (23-29); Chloride 96 mEq/L (98-107); Glucose 177 mg/dL (70-105); Osmolality,Calculated 290 (280-300); Potassium 3.8 mEq/L (3.5-5.1); Sodium 137 mEq/L (136-145); eGFR For African Americans > 60 (> 60); eGFR For Non-African Americans > 60 (> 60)
[2019-05-03] MEDS: MethylPREDNISolone 40 MG/ML VIAL IVP SCH ×2 (05:58→17:49)
[2019-05-03] MEDS: *HR* Enoxaparin 40 MG/0.4 ML SYRINGE SQ SCH (05:58)
[2019-05-03] MEDS: Aspirin Enteric Coated 81 MG Tablet PO SCH (08:21)
[2019-05-03] MEDS: *HR* LORazepam 1 MG TABLET PO SCH ×3 (08:21→19:57)
[2019-05-03] MEDS: Metoprolol XL (24 HR) Succ 25 MG TAB.ER.24H PO SCH (08:21)
[2019-05-03] MEDS: *HR* HYDROcodone/Acet 5/325 mg TABLET PO PRN ×2 (08:26→17:49)
[2019-05-03] MEDS: *HR* OxyCODONE Immed Rel 5 MG TABLET PO PRN ×2 (13:50→19:57)
[2019-05-03] MEDS: traZODone 50 MG TABLET PO SCH (19:57)
[2019-05-04] MEDS: Ipratropium/Albuterol Neb 3 ML IH SCH ×5 (00:03→16:01)
[2019-05-04] MEDS: Piperacillin/Tazobactam 3.375 GM in 0.9 % Sodium Chloride Mini Bag 100 ML IVPB SCH ×3 (00:41→16:57)
[2019-05-04 05:05] LABS: Basophils % 0.1 %; Hematocrit 33.6 % (35.3-44.9); Hemoglobin 10.9 g/dL (11.5-15.4); Immature Granulocytes % 1.6 % (0-4); Lymphocytes # 0.9 K/mcL (0.6-4.6); Lymphocytes % 12.1 %; Mean Corpuscular HGB Conc 32.4 g/dL (31.6-35.5); Mean Corpuscular Hemoglobin 29.5 pg (28.0-33.3); Mean Corpuscular Volume 90.8 fL (83.0-100.0); Mean Platelet Volume 9.3 fL (9.4-12.4); Monocytes # 0.4 K/mcL (0.0-1.3); Monocytes % 5.9 %; Platelet Count 270 K/mcL (140-400); Red Cell Distribution Width 14.1 % (11.5-14.5); Segmented Neutrophils % 80.3 %; White Blood Count 7.5 K/mcL (4.3-11.1)
[2019-05-04 05:16] LABS: BUN/Creatinine Ratio 34 (6-26); Blood Urea Nitrogen 21 mg/dL (8-23); Calcium 8.4 mg/dL (8.6-10.3); Carbon Dioxide 35 mEq/L (23-29); Chloride 97 mEq/L (98-107); Glucose 175 mg/dL (70-105); Osmolality,Calculated 293 (280-300); Potassium 3.9 mEq/L (3.5-5.1); Sodium 138 mEq/L (136-145); eGFR For African Americans > 60 (> 60); eGFR For Non-African Americans > 60 (> 60)
[2019-05-04] MEDS: MethylPREDNISolone 40 MG/ML VIAL IVP SCH (05:53)
[2019-05-04] MEDS: *HR* Enoxaparin 40 MG/0.4 ML SYRINGE SQ SCH (05:53)
[2019-05-04] MEDS: *HR* LORazepam 1 MG TABLET PO SCH ×2 (08:47→15:31)
[2019-05-04] MEDS: *HR* OxyCODONE Immed Rel 5 MG TABLET PO PRN (08:48)
[2019-05-04] MEDS: Aspirin Enteric Coated 81 MG Tablet PO SCH (08:48)
[2019-05-04] MEDS: Metoprolol XL (24 HR) Succ 25 MG TAB.ER.24H PO SCH (08:49)
[2019-05-04 15:31] VITALS: BP 112/73
[2019-05-04] MEDS: *HR* HYDROcodone/Acet 5/325 mg TABLET PO PRN (15:31)
== END 2019-05-04 18:20 | disposition home health service (06) | DRG 190 ==
LOC: EMEROOARM 12:59 → SUATTDRO 18:24 → 2ANU 18:24
PROVIDERS: ADMIT Student in an Organized Health Care Education/Training Program; ATTEND Internal Medicine

== ENCOUNTER 2019-05-24 12:51 | Inpatient (IN) ==
[2019-05-24] MEDS ORDERED: Ipratropium/Albuterol Neb 3 ML IH ONE (13:38)
[2019-05-24] MEDS ORDERED: methylPREDNISolone 125 MG/2 ML VIAL IVP ONE (13:38)
[2019-05-24 13:40] LABS: Basophils % 0.2 %; Eosinophils # 0.1 K/mcL (0.0-0.6); Eosinophils % 1.2 %; Hematocrit 41.7 % (35.3-44.9); Hemoglobin 13.1 g/dL (11.5-15.4); Immature Granulocytes % 0.5 % (0-4); Lymphocytes # 1.6 K/mcL (0.6-4.6); Lymphocytes % 15.5 %; Mean Corpuscular HGB Conc 31.4 g/dL (31.6-35.5); Mean Corpuscular Hemoglobin 29.5 pg (28.0-33.3); Mean Corpuscular Volume 93.9 fL (83.0-100.0); Mean Platelet Volume 9.2 fL (9.4-12.4); Monocytes # 0.6 K/mcL (0.0-1.3); Monocytes % 5.4 %; Neutrophils # 8.1 K/mcL (1.6-8.9); Platelet Count 400 K/mcL (140-400); Red Blood Count 4.44 M/mcL (3.82-4.97); Red Cell Distribution Width 13.3 % (11.5-14.5); Segmented Neutrophils % 77.2 %; White Blood Count 10.5 K/mcL (4.3-11.1)
[2019-05-24 14:07] LABS: BUN/Creatinine Ratio 15 (6-26); Blood Urea Nitrogen 9 mg/dL (8-23); Calcium 9.5 mg/dL (8.6-10.3); Carbon Dioxide 33 mEq/L (23-29); Chloride 97 mEq/L (98-107); Glucose 123 mg/dL (70-105); Osmolality,Calculated 288 (280-300); Potassium 4.1 mEq/L (3.5-5.1); Sodium 139 mEq/L (136-145); Troponin I < 0.03 ng/mL (< 0.04); eGFR For African Americans > 60 (> 60); eGFR For Non-African Americans > 60 (> 60)
[2019-05-24] MEDS ORDERED: Azithromycin 500 MG in 0.9 % Sodium Chloride 250 ML IVPB ONE (15:56)
[2019-05-24] MEDS ORDERED: *HR* OxyCODONE/APAP 7.5/325 TABLET PO ONE (17:18)
[2019-05-24] MEDS ORDERED: Ondansetron ODT 4 MG TAB.RAPDIS SL PRN (17:38)
[2019-05-24] MEDS ORDERED: Naloxone 0.4 MG/ML INJ IVP PRN (17:38)
[2019-05-24] MEDS ORDERED: Albuterol 2.5 MG/3 ML NEBULIZER IH PRN (17:41)
[2019-05-24] MEDS: Ipratropium/Albuterol Neb 3 ML IH SCH ×2 (19:04→22:01)
[2019-05-24] MEDS: Nicotine 21 MG PATCH.TD24 TD SCH (21:48)
[2019-05-24] MEDS: traZODone 50 MG TABLET PO SCH (21:49)
[2019-05-24] MEDS ORDERED: *HR* LORazepam 2 MG/ML VIAL IVP ONE (22:09)
[2019-05-24] MEDS: *HR* HYDROcodone/Acet 5/325 mg TABLET PO PRN (22:54)
[2019-05-24] MEDS: Levalbuterol Neb 1.25 MG/3 ML IH SCH (23:46)
[2019-05-25 01:00] LABS: Hematocrit 37.5 % (35.3-44.9); Hemoglobin 11.7 g/dL (11.5-15.4); Mean Corpuscular HGB Conc 31.2 g/dL (31.6-35.5); Mean Corpuscular Hemoglobin 29.1 pg (28.0-33.3); Mean Corpuscular Volume 93.3 fL (83.0-100.0); Platelet Count 341 K/mcL (140-400); Red Blood Count 4.02 M/mcL (3.82-4.97); Red Cell Distribution Width 13.3 % (11.5-14.5); White Blood Count 6.1 K/mcL (4.3-11.1)
[2019-05-25 01:19] LABS: BUN/Creatinine Ratio 19 (6-26); Blood Urea Nitrogen 11 mg/dL (8-23); Calcium 8.8 mg/dL (8.6-10.3); Carbon Dioxide 35 mEq/L (23-29); Chloride 99 mEq/L (98-107); Glucose 272 mg/dL (70-105); Osmolality,Calculated 295 (280-300); Potassium 3.8 mEq/L (3.5-5.1); Sodium 138 mEq/L (136-145); eGFR For African Americans > 60 (> 60); eGFR For Non-African Americans > 60 (> 60)
[2019-05-25] MEDS: Levalbuterol Neb 1.25 MG/3 ML IH SCH ×5 (03:16→19:53)
[2019-05-25] MEDS: *HR* OxyCODONE/APAP 7.5/325 TABLET PO PRN ×4 (03:24→21:00)
[2019-05-25] MEDS: *HR* HYDROcodone/Acet 5/325 mg TABLET PO PRN (06:25)
[2019-05-25] MEDS: Budesonide/Formoterol 80/4.5 1 PUFF INH IH SCH (07:24)
[2019-05-25] MEDS: Azithromycin 250 MG TABLET PO SCH (09:11)
[2019-05-25] MEDS: predniSONE 20 MG TABLET PO SCH (09:11)
[2019-05-25] MEDS: Nicotine 21 MG PATCH.TD24 TD SCH (09:11)
[2019-05-25] MEDS: Aspirin Enteric Coated 81 MG Tablet PO SCH (09:11)
[2019-05-25] MEDS: Metoprolol XL (24 HR) Succ 25 MG TAB.ER.24H PO SCH (09:11)
[2019-05-25] MEDS: *HR* LORazepam 1 MG TABLET PO PRN ×2 (10:34→17:42)
[2019-05-25] MEDS: traZODone 50 MG TABLET PO SCH (20:59)
[2019-05-26] MEDS: Levalbuterol Neb 1.25 MG/3 ML IH SCH ×7 (00:10→23:22)
[2019-05-26] MEDS: *HR* LORazepam 1 MG TABLET PO PRN ×3 (06:33→21:13)
[2019-05-26] MEDS: *HR* OxyCODONE/APAP 7.5/325 TABLET PO PRN ×4 (06:33→22:54)
[2019-05-26 06:43] LABS: Hematocrit 34.3 % (35.3-44.9); Mean Corpuscular HGB Conc 32.1 g/dL (31.6-35.5); Mean Corpuscular Hemoglobin 29.3 pg (28.0-33.3); Mean Corpuscular Volume 91.5 fL (83.0-100.0); Mean Platelet Volume 9.4 fL (9.4-12.4); Platelet Count 408 K/mcL (140-400); Red Blood Count 3.75 M/mcL (3.82-4.97); Red Cell Distribution Width 13.9 % (11.5-14.5)
[2019-05-26 06:44] LABS: White Blood Count 13.9 K/mcL (4.3-11.1)
[2019-05-26 07:02] LABS: BUN/Creatinine Ratio 39 (6-26); Blood Urea Nitrogen 22 mg/dL (8-23); Calcium 8.6 mg/dL (8.6-10.3); Carbon Dioxide 35 mEq/L (23-29); Chloride 102 mEq/L (98-107); Glucose 108 mg/dL (70-105); Osmolality,Calculated 296 (280-300); Potassium 4.5 mEq/L (3.5-5.1); Sodium 141 mEq/L (136-145); eGFR For African Americans > 60 (> 60); eGFR For Non-African Americans > 60 (> 60)
[2019-05-26] MEDS: Budesonide/Formoterol 80/4.5 1 PUFF INH IH SCH (07:13)
[2019-05-26] MEDS: predniSONE 20 MG TABLET PO SCH (10:56)
[2019-05-26] MEDS: Metoprolol XL (24 HR) Succ 25 MG TAB.ER.24H PO SCH (10:56)
[2019-05-26] MEDS: Aspirin Enteric Coated 81 MG Tablet PO SCH (10:56)
[2019-05-26] MEDS: Azithromycin 250 MG TABLET PO SCH (10:56)
[2019-05-26] MEDS: Nicotine 21 MG PATCH.TD24 TD SCH (10:56)
[2019-05-26] MEDS ORDERED: Nitroglycerin 0.4 MG TAB.SUBL SL PRN (12:57)
[2019-05-26] MEDS ORDERED: Aspirin 325 MG TABLET PO ONE (12:58)
[2019-05-26] MEDS: traZODone 50 MG TABLET PO SCH (21:12)
[2019-05-27] MEDS: Levalbuterol Neb 1.25 MG/3 ML IH SCH ×7 (03:41→20:52)
[2019-05-27] MEDS ORDERED: Regadenoson 0.4 MG/5 ML SYRINGE IVP ONE (06:17)
[2019-05-27] MEDS: Budesonide/Formoterol 80/4.5 1 PUFF INH IH SCH (08:04)
[2019-05-27] MEDS: *HR* LORazepam 1 MG TABLET PO PRN ×2 (09:42→15:37)
[2019-05-27] MEDS: Metoprolol XL (24 HR) Succ 25 MG TAB.ER.24H PO SCH (09:42)
[2019-05-27] MEDS: Aspirin Enteric Coated 81 MG Tablet PO SCH (09:43)
[2019-05-27] MEDS: predniSONE 20 MG TABLET PO SCH (09:43)
[2019-05-27] MEDS: Azithromycin 250 MG TABLET PO SCH (09:43)
[2019-05-27] MEDS: Nicotine 21 MG PATCH.TD24 TD SCH (09:44)
[2019-05-27] MEDS: *HR* OxyCODONE/APAP 7.5/325 TABLET PO PRN ×3 (10:56→20:33)
[2019-05-27 12:29] LABS: BUN/Creatinine Ratio 31 (6-26); Blood Urea Nitrogen 14 mg/dL (8-23); Calcium 8.7 mg/dL (8.6-10.3); Carbon Dioxide 31 mEq/L (23-29); Chloride 104 mEq/L (98-107); Glucose 100 mg/dL (70-105); Osmolality,Calculated 291 (280-300); Potassium 3.9 mEq/L (3.5-5.1); Sodium 140 mEq/L (136-145); eGFR For African Americans > 60 (> 60); eGFR For Non-African Americans > 60 (> 60)
[2019-05-27 13:03] LABS: Hematocrit 35.5 % (35.3-44.9); Hemoglobin 11.3 g/dL (11.5-15.4); Mean Corpuscular HGB Conc 31.8 g/dL (31.6-35.5); Mean Corpuscular Hemoglobin 29.5 pg (28.0-33.3); Mean Corpuscular Volume 92.7 fL (83.0-100.0); Mean Platelet Volume 9.2 fL (9.4-12.4); Platelet Count 431 K/mcL (140-400); Red Blood Count 3.83 M/mcL (3.82-4.97); White Blood Count 12.6 K/mcL (4.3-11.1)
[2019-05-27] MEDS: traZODone 50 MG TABLET PO SCH (20:34)
[2019-05-28] MEDS: Levalbuterol Neb 1.25 MG/3 ML IH SCH ×4 (00:19→10:56)
[2019-05-28] MEDS: *HR* OxyCODONE/APAP 7.5/325 TABLET PO PRN ×2 (05:27→09:43)
[2019-05-28] MEDS: *HR* LORazepam 1 MG TABLET PO PRN (05:30)
[2019-05-28 07:35] LABS: Hematocrit 34.5 % (35.3-44.9); Hemoglobin 10.8 g/dL (11.5-15.4); Mean Corpuscular HGB Conc 31.3 g/dL (31.6-35.5); Mean Corpuscular Volume 92.5 fL (83.0-100.0); Platelet Count 399 K/mcL (140-400); Red Blood Count 3.73 M/mcL (3.82-4.97); Red Cell Distribution Width 13.8 % (11.5-14.5); White Blood Count 10.8 K/mcL (4.3-11.1)
[2019-05-28] MEDS: Budesonide/Formoterol 80/4.5 1 PUFF INH IH SCH (07:54)
[2019-05-28 07:56] LABS: BUN/Creatinine Ratio 36 (6-26); Blood Urea Nitrogen 18 mg/dL (8-23); Calcium 8.4 mg/dL (8.6-10.3); Carbon Dioxide 32 mEq/L (23-29); Chloride 102 mEq/L (98-107); Glucose 91 mg/dL (70-105); Osmolality,Calculated 293 (280-300); Potassium 3.6 mEq/L (3.5-5.1); Sodium 141 mEq/L (136-145); eGFR For African Americans > 60 (> 60); eGFR For Non-African Americans > 60 (> 60)
[2019-05-28] MEDS: Metoprolol XL (24 HR) Succ 25 MG TAB.ER.24H PO SCH (08:21)
[2019-05-28] MEDS: Azithromycin 250 MG TABLET PO SCH (08:21)
[2019-05-28] MEDS: Aspirin Enteric Coated 81 MG Tablet PO SCH (08:22)
[2019-05-28] MEDS: predniSONE 20 MG TABLET PO SCH (08:22)
[2019-05-28] MEDS: Nicotine 21 MG PATCH.TD24 TD SCH (08:22)
[2019-05-28 08:36] VITALS: BP 104/71
== END 2019-05-28 12:15 | disposition home or self-care (01) | DRG 191 ==
LOC: 3ANU 12:51 → EMEROOARM 12:51 → SUATTDRO 17:16 → 3ANU 20:08
PROVIDERS: ADMIT Family Medicine; ATTEND Family Medicine

== ENCOUNTER 2019-07-19 20:28 | Inpatient (IN) ==
[2019-07-19] MEDS ORDERED: Ipratropium/Albuterol Neb 3 ML IH ONE (20:55)
[2019-07-19] MEDS ORDERED: 0.9 % Sodium Chloride 1,000 ML IVC ONE (20:55)
[2019-07-19] MEDS ORDERED: methylPREDNISolone 125 MG/2 ML VIAL IVP ONE (20:55)
[2019-07-19 21:16] LABS: Basophils % 0.3 %; Hematocrit 37.1 % (35.3-44.9); Hemoglobin 12.5 g/dL (11.5-15.4); Immature Granulocytes % 0.3 % (0-4); Lymphocytes # 1.1 K/mcL (0.6-4.6); Lymphocytes % 27.9 %; Mean Corpuscular HGB Conc 33.7 g/dL (31.6-35.5); Mean Corpuscular Hemoglobin 28.8 pg (28.0-33.3); Mean Corpuscular Volume 85.5 fL (83.0-100.0); Mean Platelet Volume 9.2 fL (9.4-12.4); Monocytes # 0.3 K/mcL (0.0-1.3); Monocytes % 8.1 %; Neutrophils # 2.5 K/mcL (1.6-8.9); Platelet Count 229 K/mcL (140-400); Red Blood Count 4.34 M/mcL (3.82-4.97); Red Cell Distribution Width 12.5 % (11.5-14.5); Segmented Neutrophils % 62.4 %; White Blood Count 3.9 K/mcL (4.3-11.1)
[2019-07-19 21:31] LABS: BUN/Creatinine Ratio 12 (6-26); Blood Urea Nitrogen 7 mg/dL (8-23); Calcium 9.1 mg/dL (8.6-10.3); Carbon Dioxide 27 mEq/L (23-29); Chloride 103 mEq/L (98-107); Glucose 117 mg/dL (70-105); Osmolality,Calculated 287 (280-300); Potassium 3.5 mEq/L (3.5-5.1); Sodium 139 mEq/L (136-145); Troponin I < 0.03 ng/mL (< 0.04); eGFR For African Americans > 60 (> 60); eGFR For Non-African Americans > 60 (> 60)
[2019-07-19] MEDS ORDERED: cefTRIAXone 1,000 MG in Water for inj. (sterile) 10 ML IVP ONE (22:10)
[2019-07-19] MEDS ORDERED: Azithromycin 250 MG TABLET PO ONE (22:10)
[2019-07-19] MEDS ORDERED: Naloxone 0.4 MG/ML INJ IVP PRN (23:39)
[2019-07-20] MEDS: *HR* LORazepam 1 MG TABLET PO PRN ×3 (00:07→15:35)
[2019-07-20] MEDS: *HR* OxyCODONE/APAP 7.5/325 TABLET PO PRN ×5 (00:07→20:27)
[2019-07-20] MEDS: Ipratropium/Albuterol Neb 3 ML IH PRN ×2 (06:23→16:24)
[2019-07-20] MEDS ORDERED: Metoprolol XL (24 HR) Succ 25 MG TAB.ER.24H PO SCH (09:00)
[2019-07-20] MEDS: Cholecalciferol (D-3) 1,000 UNIT (25MCG) TABLET PO SCH (09:27)
[2019-07-20] MEDS: Aspirin Enteric Coated 81 MG Tablet PO SCH (09:27)
[2019-07-20] MEDS: *HR* Heparin 5,000 UNIT/ML VIAL SQ SCH ×2 (15:35→21:28)
[2019-07-20] MEDS ORDERED: Metoprolol XL (24 HR) Succ 25 MG TAB.ER.24H PO ONE (18:07)
[2019-07-20] MEDS ORDERED: *HR* LORazepam 1 MG TABLET PO STA (20:55)
[2019-07-20] MEDS: traZODone 50 MG TABLET PO SCH (21:28)
[2019-07-21] MEDS: *HR* OxyCODONE/APAP 7.5/325 TABLET PO PRN ×6 (00:31→22:51)
[2019-07-21 04:09] LABS: ABG Base Excess 6 mEq/L (-2 to 3); ABG HCO3 33 mEq/L (21-27); ABG Oxygen Saturation 96 % (95-98); ABG PCO2 62 mmHg (35-45); ABG PH 7.34 pH Units (7.32-7.45); ABG PO2 91 mmHg (85-104); ABG TCO2 35 mEq/L (20-26)
[2019-07-21] MEDS ORDERED: MethylPREDNISolone 40 MG/ML VIAL IVP SCH (04:29)
[2019-07-21] MEDS: *HR* LORazepam 0.5 MG TABLET PO PRN ×5 (04:40→22:51)
[2019-07-21] MEDS: Ipratropium/Albuterol Neb 3 ML IH PRN ×2 (04:56→10:40)
[2019-07-21] MEDS: *HR* Heparin 5,000 UNIT/ML VIAL SQ SCH ×3 (06:25→20:24)
[2019-07-21 07:34] LABS: Basophils % 0.1 %; Eosinophils % 0.1 %; Hematocrit 35.2 % (35.3-44.9); Hemoglobin 11.2 g/dL (11.5-15.4); Immature Granulocytes % 0.1 % (0-4); Lymphocytes # 0.7 K/mcL (0.6-4.6); Lymphocytes % 10.4 %; Mean Corpuscular HGB Conc 31.8 g/dL (31.6-35.5); Mean Corpuscular Hemoglobin 29.1 pg (28.0-33.3); Mean Corpuscular Volume 91.4 fL (83.0-100.0); Mean Platelet Volume 9.9 fL (9.4-12.4); Monocytes # 0.3 K/mcL (0.0-1.3); Monocytes % 3.8 %; Neutrophils # 5.9 K/mcL (1.6-8.9); Platelet Count 229 K/mcL (140-400); Red Blood Count 3.85 M/mcL (3.82-4.97); Segmented Neutrophils % 85.5 %
[2019-07-21 07:42] LABS: White Blood Count 6.9 K/mcL (4.3-11.1)
[2019-07-21] MEDS: Metoprolol XL (24 HR) Succ 50 MG TAB.ER.24H PO SCH (09:24)
[2019-07-21] MEDS: Aspirin Enteric Coated 81 MG Tablet PO SCH (09:24)
[2019-07-21] MEDS: Cholecalciferol (D-3) 1,000 UNIT (25MCG) TABLET PO SCH (09:24)
[2019-07-21 09:38] LABS: BUN/Creatinine Ratio 20 (6-26); Blood Urea Nitrogen 12 mg/dL (8-23); Calcium 8.4 mg/dL (8.6-10.3); Carbon Dioxide 27 mEq/L (23-29); Chloride 101 mEq/L (98-107); Glucose 139 mg/dL (70-105); Magnesium 1.8 mg/dL (1.6-2.6); Osmolality,Calculated 292 (280-300); Potassium 4.2 mEq/L (3.5-5.1); Sodium 140 mEq/L (136-145); Thyroid Stimulating Hormone 0.036 mcIU/mL (0.340-5.600); eGFR For African Americans > 60 (> 60); eGFR For Non-African Americans > 60 (> 60)
[2019-07-21] MEDS: traZODone 50 MG TABLET PO SCH (20:23)
[2019-07-22] MEDS: *HR* LORazepam 0.5 MG TABLET PO PRN ×5 (04:34→21:22)
[2019-07-22] MEDS: *HR* OxyCODONE/APAP 7.5/325 TABLET PO PRN ×5 (04:34→21:22)
[2019-07-22] MEDS: *HR* Heparin 5,000 UNIT/ML VIAL SQ SCH ×3 (05:46→20:44)
[2019-07-22 06:04] LABS: Hematocrit 35.4 % (35.3-44.9); Hemoglobin 11.3 g/dL (11.5-15.4); Mean Corpuscular HGB Conc 31.9 g/dL (31.6-35.5); Mean Corpuscular Hemoglobin 29.4 pg (28.0-33.3); Mean Corpuscular Volume 91.9 fL (83.0-100.0); Mean Platelet Volume 9.8 fL (9.4-12.4); Platelet Count 241 K/mcL (140-400); Red Blood Count 3.85 M/mcL (3.82-4.97); Red Cell Distribution Width 12.7 % (11.5-14.5); White Blood Count 5.3 K/mcL (4.3-11.1)
[2019-07-22 06:21] LABS: BUN/Creatinine Ratio 23 (6-26); Blood Urea Nitrogen 14 mg/dL (8-23); Calcium 8.8 mg/dL (8.6-10.3); Carbon Dioxide 34 mEq/L (23-29); Chloride 101 mEq/L (98-107); Glucose 105 mg/dL (70-105); Magnesium 1.9 mg/dL (1.6-2.6); Osmolality,Calculated 299 (280-300); Potassium 3.8 mEq/L (3.5-5.1); Sodium 144 mEq/L (136-145); eGFR For African Americans > 60 (> 60); eGFR For Non-African Americans > 60 (> 60)
[2019-07-22 07:25] LABS: Lymphocytes # 2.7 K/mcL (0.6-4.6); Monocytes # 0.2 K/mcL (0.0-1.3); Neutrophils # 2.4 K/mcL (1.6-8.9)
[2019-07-22 07:26] LABS: Platelet Estimate Normal (Normal); Reactive Lymphocytes Present (Not Present)
[2019-07-22] MEDS: Cholecalciferol (D-3) 1,000 UNIT (25MCG) TABLET PO SCH (08:37)
[2019-07-22] MEDS: Aspirin Enteric Coated 81 MG Tablet PO SCH (08:37)
[2019-07-22] MEDS: predniSONE 20 MG TABLET PO SCH (08:37)
[2019-07-22] MEDS: Metoprolol XL (24 HR) Succ 50 MG TAB.ER.24H PO SCH (08:37)
[2019-07-22] MEDS: Budesonide Neb 0.5 MG/2 ML IH SCH ×2 (10:51→20:13)
[2019-07-22] MEDS: traZODone 50 MG TABLET PO SCH (20:44)
[2019-07-22] MEDS: Simethicone 80 MG TAB.CHEW PO PRN (20:44)
[2019-07-22 21:46] LABS: Adenovirus Not Detected (Not Detect); Coronavirus 229E Not Detected (Not Detect); Coronavirus HKU1 Not Detected (Not Detect); Coronavirus NL63 Not Detected (Not Detect); Coronavirus OC43 Not Detected (Not Detect)
[2019-07-22 21:47] LABS: Bordetella Pertussis Not Detected (Not Detect); Chlamydophila pneumoniae Not Detected (Not Detect); Human Metapneumovirus DETECTED (Not Detect); Human Rhinovirus/Enterovirus Not Detected (Not Detect); Influenza A Subtype 2009 H1 Not Detected (Not Detect); Influenza B Not Detected (Not Detect); Mycoplasma pneumoniae Not Detected (Not Detect); Parainfluenza Virus 1 Not Detected (Not Detect); Parainfluenza Virus 2 Not Detected (Not Detect); Parainfluenza Virus 3 Not Detected (Not Detect); Parainfluenza Virus 4 Not Detected (Not Detect); Respiratory Syncytial Virus Not Detected (Not Detect)
[2019-07-23] MEDS: *HR* OxyCODONE/APAP 7.5/325 TABLET PO PRN ×5 (02:19→20:20)
[2019-07-23] MEDS: *HR* LORazepam 0.5 MG TABLET PO PRN ×5 (02:19→20:20)
[2019-07-23 04:12] LABS: Hematocrit 34.7 % (35.3-44.9); Hemoglobin 11.4 g/dL (11.5-15.4); Immature Granulocytes % 0.4 % (0-4); Lymphocytes % 46.2 %; Mean Corpuscular HGB Conc 32.9 g/dL (31.6-35.5); Mean Corpuscular Hemoglobin 29.2 pg (28.0-33.3); Mean Platelet Volume 9.6 fL (9.4-12.4); Monocytes % 10.1 %; Platelet Count 235 K/mcL (140-400); Red Cell Distribution Width 12.4 % (11.5-14.5); Segmented Neutrophils % 43.1 %; White Blood Count 5.5 K/mcL (4.3-11.1)
[2019-07-23 04:13] LABS: Eosinophils % 0.2 %; Lymphocytes # 2.5 K/mcL (0.6-4.6); Monocytes # 0.6 K/mcL (0.0-1.3); Neutrophils # 2.4 K/mcL (1.6-8.9)
[2019-07-23 04:28] LABS: BUN/Creatinine Ratio 30 (6-26); Blood Urea Nitrogen 17 mg/dL (8-23); Calcium 8.6 mg/dL (8.6-10.3); Carbon Dioxide 33 mEq/L (23-29); Chloride 103 mEq/L (98-107); Glucose 117 mg/dL (70-105); Magnesium 1.8 mg/dL (1.6-2.6); Osmolality,Calculated 293 (280-300); Phosphorous 3.7 mg/dL (2.7-4.5); Potassium 3.8 mEq/L (3.5-5.1); Sodium 140 mEq/L (136-145); eGFR For African Americans > 60 (> 60); eGFR For Non-African Americans > 60 (> 60)
[2019-07-23 04:29] LABS: Platelet Estimate Normal (Normal); Reactive Lymphocytes Present (Not Present)
[2019-07-23] MEDS: *HR* Heparin 5,000 UNIT/ML VIAL SQ SCH ×3 (06:39→20:19)
[2019-07-23] MEDS: Metoprolol XL (24 HR) Succ 50 MG TAB.ER.24H PO SCH (08:43)
[2019-07-23] MEDS: Cholecalciferol (D-3) 1,000 UNIT (25MCG) TABLET PO SCH (08:43)
[2019-07-23] MEDS: predniSONE 20 MG TABLET PO SCH (08:43)
[2019-07-23] MEDS: Aspirin Enteric Coated 81 MG Tablet PO SCH (08:43)
[2019-07-23] MEDS: Budesonide Neb 0.5 MG/2 ML IH SCH ×2 (10:39→20:10)
[2019-07-23] MEDS: Ipratropium/Albuterol Neb 3 ML IH PRN (10:39)
[2019-07-23] MEDS: Simethicone 80 MG TAB.CHEW PO PRN ×2 (12:18→20:29)
[2019-07-23] MEDS: Furosemide 40 MG/4 ML VIAL IVP SCH (12:19)
[2019-07-23] MEDS: levoFLOXacin 500 MG/100 ML 500 MG/100 ML BAG IVPB SCH (16:36)
[2019-07-23] MEDS: traZODone 50 MG TABLET PO SCH (20:20)
[2019-07-24] MEDS: *HR* OxyCODONE/APAP 7.5/325 TABLET PO PRN ×5 (00:26→19:33)
[2019-07-24] MEDS: *HR* LORazepam 0.5 MG TABLET PO PRN ×4 (00:26→13:03)
[2019-07-24] MEDS: *HR* Heparin 5,000 UNIT/ML VIAL SQ SCH ×3 (04:44→21:03)
[2019-07-24 04:53] LABS: Basophils % 0.1 %; Eosinophils % 0.1 %; Hematocrit 36.8 % (35.3-44.9); Hemoglobin 11.9 g/dL (11.5-15.4); Immature Granulocytes % 0.6 % (0-4); Lymphocytes # 2.8 K/mcL (0.6-4.6); Lymphocytes % 41.6 %; Mean Corpuscular HGB Conc 32.3 g/dL (31.6-35.5); Mean Corpuscular Hemoglobin 29.4 pg (28.0-33.3); Mean Corpuscular Volume 90.9 fL (83.0-100.0); Mean Platelet Volume 9.8 fL (9.4-12.4); Monocytes # 0.5 K/mcL (0.0-1.3); Monocytes % 7.6 %; Platelet Count 281 K/mcL (140-400); Red Blood Count 4.05 M/mcL (3.82-4.97); Red Cell Distribution Width 12.3 % (11.5-14.5); White Blood Count 6.7 K/mcL (4.3-11.1)
[2019-07-24 04:55] LABS: Neutrophils # 3.4 K/mcL (1.6-8.9)
[2019-07-24 05:16] LABS: BUN/Creatinine Ratio 35 (6-26); Blood Urea Nitrogen 23 mg/dL (8-23); Carbon Dioxide 37 mEq/L (23-29); Chloride 100 mEq/L (98-107); Glucose 117 mg/dL (70-105); Magnesium 1.9 mg/dL (1.6-2.6); Osmolality,Calculated 299 (280-300); Sodium 142 mEq/L (136-145); eGFR For African Americans > 60 (> 60); eGFR For Non-African Americans > 60 (> 60)
[2019-07-24 05:24] LABS: Platelet Estimate Normal (Normal); Reactive Lymphocytes Present (Not Present)
[2019-07-24] MEDS: Ipratropium/Albuterol Neb 3 ML IH PRN (07:41)
[2019-07-24] MEDS: Budesonide Neb 0.5 MG/2 ML IH SCH ×2 (07:41→20:03)
[2019-07-24] MEDS: Furosemide 40 MG/4 ML VIAL IVP SCH (09:05)
[2019-07-24] MEDS: Aspirin Enteric Coated 81 MG Tablet PO SCH (09:05)
[2019-07-24] MEDS: Cholecalciferol (D-3) 1,000 UNIT (25MCG) TABLET PO SCH (09:05)
[2019-07-24] MEDS: Metoprolol XL (24 HR) Succ 50 MG TAB.ER.24H PO SCH (09:06)
[2019-07-24] MEDS: predniSONE 20 MG TABLET PO SCH (09:06)
[2019-07-24] MEDS: Simethicone 80 MG TAB.CHEW PO PRN (13:09)
[2019-07-24] MEDS: levoFLOXacin 500 MG/100 ML 500 MG/100 ML BAG IVPB SCH (15:29)
[2019-07-24] MEDS: *HR* LORazepam 0.5 MG TABLET PO SCH (19:33)
[2019-07-24] MEDS: traZODone 50 MG TABLET PO SCH (21:02)
[2019-07-25] MEDS: *HR* LORazepam 0.5 MG TABLET PO SCH ×6 (00:07→21:28)
[2019-07-25] MEDS: *HR* OxyCODONE/APAP 7.5/325 TABLET PO PRN ×6 (00:08→21:28)
[2019-07-25] MEDS: *HR* Heparin 5,000 UNIT/ML VIAL SQ SCH ×3 (04:59→21:29)
[2019-07-25 05:04] LABS: Basophils % 0.2 %; Eosinophils % 0.4 %; Hematocrit 38.3 % (35.3-44.9); Hemoglobin 12.6 g/dL (11.5-15.4); Lymphocytes # 3.3 K/mcL (0.6-4.6); Mean Corpuscular HGB Conc 32.9 g/dL (31.6-35.5); Mean Corpuscular Hemoglobin 29.5 pg (28.0-33.3); Mean Corpuscular Volume 89.7 fL (83.0-100.0); Mean Platelet Volume 9.3 fL (9.4-12.4); Monocytes # 0.7 K/mcL (0.0-1.3); Monocytes % 8.1 %; Platelet Count 279 K/mcL (140-400); Red Blood Count 4.27 M/mcL (3.82-4.97); Red Cell Distribution Width 12.4 % (11.5-14.5); Segmented Neutrophils % 49.3 %
[2019-07-25] MEDS: Simethicone 80 MG TAB.CHEW PO PRN ×2 (05:10→21:27)
[2019-07-25 05:19] LABS: BUN/Creatinine Ratio 34 (6-26); Blood Urea Nitrogen 21 mg/dL (8-23); Calcium 9.1 mg/dL (8.6-10.3); Carbon Dioxide 36 mEq/L (23-29); Chloride 100 mEq/L (98-107); Glucose 98 mg/dL (70-105); Magnesium 1.8 mg/dL (1.6-2.6); Osmolality,Calculated 291 (280-300); Sodium 139 mEq/L (136-145); eGFR For African Americans > 60 (> 60); eGFR For Non-African Americans > 60 (> 60)
[2019-07-25] MEDS: Ipratropium/Albuterol Neb 3 ML IH PRN ×2 (07:38→21:31)
[2019-07-25] MEDS: Budesonide Neb 0.5 MG/2 ML IH SCH ×2 (07:38→21:31)
[2019-07-25] MEDS: Aspirin Enteric Coated 81 MG Tablet PO SCH (08:29)
[2019-07-25] MEDS: Cholecalciferol (D-3) 1,000 UNIT (25MCG) TABLET PO SCH (08:30)
[2019-07-25] MEDS: predniSONE 20 MG TABLET PO SCH (08:31)
[2019-07-25] MEDS: Metoprolol XL (24 HR) Succ 50 MG TAB.ER.24H PO SCH (08:31)
[2019-07-25] MEDS: levoFLOXacin 500 MG TABLET PO SCH (15:25)
[2019-07-25] MEDS: traZODone 50 MG TABLET PO SCH (21:27)
[2019-07-26] MEDS: *HR* OxyCODONE/APAP 7.5/325 TABLET PO PRN ×6 (01:18→23:10)
[2019-07-26] MEDS: *HR* LORazepam 0.5 MG TABLET PO SCH ×6 (01:19→23:10)
[2019-07-26 05:24] LABS: Basophils % 0.4 %; Eosinophils % 0.3 %; Immature Granulocytes % 1.4 % (0-4); Lymphocytes # 3.4 K/mcL (0.6-4.6); Lymphocytes % 36.2 %; Mean Corpuscular HGB Conc 32.4 g/dL (31.6-35.5); Mean Corpuscular Hemoglobin 29.2 pg (28.0-33.3); Mean Platelet Volume 9.6 fL (9.4-12.4); Monocytes # 0.9 K/mcL (0.0-1.3); Monocytes % 9.1 %; Neutrophils # 4.9 K/mcL (1.6-8.9); Platelet Count 293 K/mcL (140-400); Red Blood Count 4.11 M/mcL (3.82-4.97); Red Cell Distribution Width 12.3 % (11.5-14.5); Segmented Neutrophils % 52.6 %; White Blood Count 9.3 K/mcL (4.3-11.1)
[2019-07-26 05:44] LABS: BUN/Creatinine Ratio 37 (6-26); Blood Urea Nitrogen 25 mg/dL (8-23); Carbon Dioxide 32 mEq/L (23-29); Chloride 100 mEq/L (98-107); Glucose 98 mg/dL (70-105); Magnesium 1.9 mg/dL (1.6-2.6); Osmolality,Calculated 292 (280-300); Potassium 3.7 mEq/L (3.5-5.1); Sodium 139 mEq/L (136-145); eGFR For African Americans > 60 (> 60); eGFR For Non-African Americans > 60 (> 60)
[2019-07-26] MEDS: *HR* Heparin 5,000 UNIT/ML VIAL SQ SCH ×3 (06:08→21:28)
[2019-07-26] MEDS: Ipratropium/Albuterol Neb 3 ML IH PRN (07:58)
[2019-07-26] MEDS: Budesonide Neb 0.5 MG/2 ML IH SCH ×2 (07:58→22:18)
[2019-07-26] MEDS ORDERED: Ipratropium Neb 0.5 MG NEBULIZER IH PRN (08:14)
[2019-07-26] MEDS: levoFLOXacin 500 MG TABLET PO SCH (08:34)
[2019-07-26] MEDS: Aspirin Enteric Coated 81 MG Tablet PO SCH (08:34)
[2019-07-26] MEDS: Metoprolol XL (24 HR) Succ 50 MG TAB.ER.24H PO SCH (08:34)
[2019-07-26] MEDS: predniSONE 20 MG TABLET PO SCH (08:34)
[2019-07-26] MEDS: Cholecalciferol (D-3) 1,000 UNIT (25MCG) TABLET PO SCH (08:35)
[2019-07-26] MEDS: Levalbuterol Neb 0.63 MG/3 ML IH SCH ×3 (11:07→22:18)
[2019-07-26] MEDS: Simethicone 80 MG TAB.CHEW PO PRN (14:28)
[2019-07-26] MEDS ORDERED: Sennosides 8.6 MG TABLET PO ONE (17:04)
[2019-07-26] MEDS: traZODone 50 MG TABLET PO SCH (21:28)
[2019-07-27] MEDS: Levalbuterol Neb 0.63 MG/3 ML IH SCH ×2 (03:59→10:11)
[2019-07-27] MEDS: *HR* LORazepam 0.5 MG TABLET PO SCH ×4 (04:16→11:48)
[2019-07-27] MEDS: *HR* OxyCODONE/APAP 7.5/325 TABLET PO PRN ×2 (04:19→08:18)
[2019-07-27] MEDS: *HR* Heparin 5,000 UNIT/ML VIAL SQ SCH ×2 (05:45→13:16)
[2019-07-27] MEDS: Aspirin Enteric Coated 81 MG Tablet PO SCH (08:18)
[2019-07-27] MEDS: Metoprolol XL (24 HR) Succ 50 MG TAB.ER.24H PO SCH (08:18)
[2019-07-27] MEDS: Cholecalciferol (D-3) 1,000 UNIT (25MCG) TABLET PO SCH (08:18)
[2019-07-27] MEDS: levoFLOXacin 500 MG TABLET PO SCH (08:18)
[2019-07-27] MEDS: Simethicone 80 MG TAB.CHEW PO PRN (08:34)
[2019-07-27 08:38] VITALS: BP 127/85
[2019-07-27] MEDS ORDERED: predniSONE 20 MG TABLET PO SCH (09:00)
[2019-07-27] MEDS ORDERED: Bisacodyl 10 MG RECTAL SUPPOSITORY RC ONE (09:33)
[2019-07-27] MEDS: Budesonide Neb 0.5 MG/2 ML IH SCH (10:11)
[2019-07-27] MEDS ORDERED: Sennosides 8.6 MG TABLET PO ONE (17:01)
[2019-07-28] MEDS ORDERED: Bisacodyl 10 MG RECTAL SUPPOSITORY RC ONE (09:33)
== END 2019-07-27 14:48 | disposition home or self-care (01) | DRG 190 ==
LOC: EMEROOARM 20:28 → 2NENU 20:28 → SUATTDRO 23:03 → 2NENU 23:23 → SUATTDRO 07-20 15:51
PROVIDERS: ADMIT Internal Medicine; ATTEND Internal Medicine

== ENCOUNTER 2019-09-08 16:08 | Inpatient (IN) ==
[2019-09-08] MEDS ORDERED: methylPREDNISolone 125 MG/2 ML VIAL IVP ONE (16:12)
[2019-09-08] MEDS ORDERED: Ipratropium/Albuterol Neb 3 ML IH ONE (16:12)
[2019-09-08 16:52] LABS: Basophils % 0.3 %; Eosinophils # 0.1 K/mcL (0.0-0.6); Eosinophils % 1.8 %; Hematocrit 42.3 % (35.3-44.9); Hemoglobin 13.5 g/dL (11.5-15.4); Immature Granulocytes % 0.3 % (0-4); Lymphocytes # 1.5 K/mcL (0.6-4.6); Lymphocytes % 23.7 %; Mean Corpuscular HGB Conc 31.9 g/dL (31.6-35.5); Mean Corpuscular Hemoglobin 28.7 pg (28.0-33.3); Mean Platelet Volume 9.6 fL (9.4-12.4); Monocytes # 0.4 K/mcL (0.0-1.3); Monocytes % 6.4 %; Neutrophils # 4.2 K/mcL (1.6-8.9); Platelet Count 250 K/mcL (140-400); Red Cell Distribution Width 12.2 % (11.5-14.5); Segmented Neutrophils % 67.5 %; White Blood Count 6.3 K/mcL (4.3-11.1)
[2019-09-08 17:11] LABS: BUN/Creatinine Ratio 13 (6-26); Blood Urea Nitrogen 8 mg/dL (8-23); Calcium 9.2 mg/dL (8.6-10.3); Carbon Dioxide 29 mEq/L (23-29); Chloride 105 mEq/L (98-107); Glucose 90 mg/dL (70-105); Osmolality,Calculated 290 (280-300); Potassium 3.6 mEq/L (3.5-5.1); Sodium 141 mEq/L (136-145); eGFR For African Americans > 60 (> 60); eGFR For Non-African Americans > 60 (> 60)
[2019-09-08 17:12] LABS: Troponin I < 0.03 ng/mL (< 0.04)
[2019-09-08] MEDS ORDERED: Doxycycline 100 MG in 0.9 % Sodium Chloride Mini Bag 100 ML IVPB ONE (17:17)
[2019-09-08] MEDS ORDERED: Naloxone 0.4 MG/ML INJ IVP PRN (18:44)
[2019-09-08] MEDS: Ipratropium/Albuterol Neb 3 ML IH SCH ×2 (19:59→23:43)
[2019-09-08] MEDS: *HR* LORazepam 1 MG TABLET PO PRN (20:19)
[2019-09-08] MEDS: *HR* OxyCODONE/APAP 7.5/325 TABLET PO PRN (20:20)
[2019-09-08] MEDS: traZODone 50 MG TABLET PO SCH (20:21)
[2019-09-08 21:18] LABS: Adenovirus Not Detected (Not Detect); Coronavirus 229E Not Detected (Not Detect); Coronavirus HKU1 Not Detected (Not Detect); Coronavirus NL63 Not Detected (Not Detect); Coronavirus OC43 Not Detected (Not Detect); Human Metapneumovirus Not Detected (Not Detect); Human Rhinovirus/Enterovirus DETECTED (Not Detect)
[2019-09-08 21:19] LABS: Bordetella Pertussis Not Detected (Not Detect); Chlamydophila pneumoniae Not Detected (Not Detect); Influenza A Subtype 2009 H1 Not Detected (Not Detect); Influenza B Not Detected (Not Detect); Mycoplasma pneumoniae Not Detected (Not Detect); Parainfluenza Virus 1 Not Detected (Not Detect); Parainfluenza Virus 2 Not Detected (Not Detect); Parainfluenza Virus 3 Not Detected (Not Detect); Parainfluenza Virus 4 Not Detected (Not Detect); Respiratory Syncytial Virus Not Detected (Not Detect)
[2019-09-09] MEDS: Ipratropium/Albuterol Neb 3 ML IH SCH ×6 (03:45→23:40)
[2019-09-09] MEDS: *HR* OxyCODONE/APAP 7.5/325 TABLET PO PRN ×5 (03:51→20:54)
[2019-09-09] MEDS: MethylPREDNISolone 40 MG/ML VIAL IVP SCH ×3 (03:52→15:58)
[2019-09-09 05:27] LABS: Hemoglobin 12.3 g/dL (11.5-15.4); Immature Granulocytes % 0.2 % (0-4); Lymphocytes # 0.5 K/mcL (0.6-4.6); Lymphocytes % 11.4 %; Mean Corpuscular HGB Conc 32.4 g/dL (31.6-35.5); Mean Corpuscular Hemoglobin 29.1 pg (28.0-33.3); Mean Platelet Volume 9.7 fL (9.4-12.4); Monocytes # 0.1 K/mcL (0.0-1.3); Monocytes % 1.4 %; Neutrophils # 3.7 K/mcL (1.6-8.9); Platelet Count 243 K/mcL (140-400); Red Blood Count 4.22 M/mcL (3.82-4.97); Red Cell Distribution Width 12.4 % (11.5-14.5); White Blood Count 4.3 K/mcL (4.3-11.1)
[2019-09-09 05:49] LABS: BUN/Creatinine Ratio 17 (6-26); Blood Urea Nitrogen 11 mg/dL (8-23); Calcium 8.9 mg/dL (8.6-10.3); Carbon Dioxide 28 mEq/L (23-29); Chloride 104 mEq/L (98-107); Glucose 243 mg/dL (70-105); Osmolality,Calculated 299 (280-300); Sodium 141 mEq/L (136-145); eGFR For African Americans > 60 (> 60); eGFR For Non-African Americans > 60 (> 60)
[2019-09-09] MEDS: *HR* Heparin 5,000 UNIT/ML VIAL SQ SCH ×2 (05:50→16:18)
[2019-09-09] MEDS ORDERED: Doxycycline 100 MG in 0.9 % Sodium Chloride Mini Bag 100 ML IVPB SCH (06:00)
[2019-09-09] MEDS: Budesonide/Formoterol 160/4.5 1 PUFF INH IH SCH ×2 (07:36→19:40)
[2019-09-09] MEDS: Cholecalciferol (D-3) 1,000 UNIT (25MCG) TABLET PO SCH (08:23)
[2019-09-09] MEDS: Aspirin Enteric Coated 81 MG Tablet PO SCH (08:23)
[2019-09-09] MEDS: Metoprolol XL (24 HR) Succ 25 MG TAB.ER.24H PO SCH (08:23)
[2019-09-09] MEDS: *HR* LORazepam 1 MG TABLET PO PRN ×3 (08:23→23:13)
[2019-09-09 11:30] LABS: Estimated Average Glucose 120 mg/dl
[2019-09-09] MEDS ORDERED: Ibuprofen 400 MG TABLET PO ONE (15:38)
[2019-09-09] MEDS: traZODone 50 MG TABLET PO SCH (20:55)
[2019-09-10] MEDS: MethylPREDNISolone 40 MG/ML VIAL IVP SCH ×2 (00:46→08:29)
[2019-09-10] MEDS: Ipratropium/Albuterol Neb 3 ML IH SCH ×3 (03:44→10:47)
[2019-09-10] MEDS: *HR* OxyCODONE/APAP 7.5/325 TABLET PO PRN ×2 (04:03→08:29)
[2019-09-10] MEDS: *HR* Heparin 5,000 UNIT/ML VIAL SQ SCH (06:27)
[2019-09-10] MEDS: Budesonide/Formoterol 160/4.5 1 PUFF INH IH SCH (07:30)
[2019-09-10 07:49] VITALS: BP 117/77
[2019-09-10] MEDS: Aspirin Enteric Coated 81 MG Tablet PO SCH (08:28)
[2019-09-10] MEDS: *HR* LORazepam 1 MG TABLET PO PRN (08:28)
[2019-09-10] MEDS: Cholecalciferol (D-3) 1,000 UNIT (25MCG) TABLET PO SCH (08:29)
[2019-09-10] MEDS: Metoprolol XL (24 HR) Succ 25 MG TAB.ER.24H PO SCH (08:29)
[2019-09-10] MEDS ORDERED: Azithromycin 250 MG TABLET PO SCH (09:00)
== END 2019-09-10 11:26 | disposition home or self-care (01) | DRG 191 ==
LOC: EMEROOARM 16:08 → 3BNU 16:08 → SUATTDRO 18:24 → 3BNU 19:48
PROVIDERS: ADMIT Internal Medicine; ATTEND Internal Medicine

== ENCOUNTER 2019-10-19 15:25 | Inpatient (IN) ==
[2019-10-19] MEDS ORDERED: Ipratropium/Albuterol Neb 3 ML IH ONE (15:35)
[2019-10-19] MEDS ORDERED: Azithromycin 500 MG in 0.9 % Sodium Chloride 250 ML IVPB ONE (15:39)
[2019-10-19] MEDS ORDERED: methylPREDNISolone 125 MG/2 ML VIAL IVP ONE (15:39)
[2019-10-19 17:04] LABS: Basophils % 0.2 %; Eosinophils # 0.5 K/mcL (0.0-0.6); Eosinophils % 5.2 %; Hematocrit 40.9 % (35.3-44.9); Hemoglobin 12.6 g/dL (11.5-15.4); Immature Granulocytes % 0.5 % (0-4); Lymphocytes # 1.5 K/mcL (0.6-4.6); Mean Corpuscular HGB Conc 30.8 g/dL (31.6-35.5); Mean Corpuscular Hemoglobin 28.8 pg (28.0-33.3); Mean Corpuscular Volume 93.6 fL (83.0-100.0); Mean Platelet Volume 9.8 fL (9.4-12.4); Monocytes # 0.7 K/mcL (0.0-1.3); Monocytes % 6.4 %; Neutrophils # 7.4 K/mcL (1.6-8.9); Platelet Count 188 K/mcL (140-400); Red Blood Count 4.37 M/mcL (3.82-4.97); Red Cell Distribution Width 12.7 % (11.5-14.5); Segmented Neutrophils % 72.7 %; White Blood Count 10.2 K/mcL (4.3-11.1)
[2019-10-19 17:28] LABS: Alanine Aminotransferase 8 Units/L (7-52); Albumin 3.9 g/dL (3.5-5.7); Albumin/Globulin Ratio 1.8 (1.1-2.2); Alkaline Phosphatase 74 Units/L (34-104); Aspartate Amino Transferase 10 Units/L (13-39); BUN/Creatinine Ratio 14 (6-26); Bilirubin,Total 0.4 mg/dL (0.3-1.0); Blood Urea Nitrogen 10 mg/dL (8-23); Carbon Dioxide 41 mEq/L (23-29); Chloride 98 mEq/L (98-107); Globulin 2.2 g/dL (2.4-3.5); Glucose 107 mg/dL (70-105); Osmolality,Calculated 292 (280-300); Potassium 3.8 mEq/L (3.5-5.1); Sodium 141 mEq/L (136-145); Total Protein 6.1 g/dL (6.4-8.9); Troponin I < 0.03 ng/mL (< 0.04); eGFR For African Americans > 60 (> 60); eGFR For Non-African Americans > 60 (> 60)
[2019-10-19] MEDS ORDERED: *HR* LORazepam 0.5 MG TABLET PO ONE (18:29)
[2019-10-19] MEDS ORDERED: *HR* OxyCODONE/APAP 5/325 TABLET PO ONE (18:29)
[2019-10-19] MEDS ORDERED: Dextrose Gel 15 GM/37.5 ML TUBE PO PRN ×2 (20:17)
[2019-10-19] MEDS ORDERED: D5% in Water 1,000 ML IVC PRN (20:17)
[2019-10-19] MEDS ORDERED: *HR* Dextrose 50 % in Water (Syg) 50 ML SYRINGE IVP PRN (20:17)
[2019-10-19] MEDS ORDERED: Naloxone 0.4 MG/ML INJ IVP PRN ×2 (20:17→20:27)
[2019-10-19] MEDS ORDERED: *HR* OxyCODONE/APAP 7.5/325 TABLET PO PRN (20:24)
[2019-10-19] MEDS ORDERED: *HR* LORazepam 0.5 MG TABLET PO PRN (20:24)
[2019-10-19] MEDS: Ipratropium 1 PUFF INHALER IH SCH (21:34)
[2019-10-19] MEDS: Insulin LISPRO 300 UNITS/3 ML VIAL SQ SCH (22:09)
[2019-10-19] MEDS: Benzonatate 100 MG CAPSULE PO SCH (22:11)
[2019-10-19] MEDS: Nicotine 7 MG PATCH.TD24 TD SCH (22:11)
[2019-10-19 22:12] LABS: Mixed Venous Blood pCO2 78 mmHg (44-46); Mixed Venous Blood pH 7.32 pH Units (7.34-7.36); Mixed Venous Blood pO2 45 mmHg (35-45)
[2019-10-20] MEDS: Ipratropium 1 PUFF INHALER IH SCH ×7 (00:06→23:57)
[2019-10-20 03:08] LABS: Basophils % 0.1 %; Hematocrit 37.3 % (35.3-44.9); Hemoglobin 11.6 g/dL (11.5-15.4); Immature Granulocytes % 0.6 % (0-4); Lymphocytes # 0.5 K/mcL (0.6-4.6); Lymphocytes % 6.7 %; Mean Corpuscular HGB Conc 31.1 g/dL (31.6-35.5); Mean Corpuscular Hemoglobin 28.7 pg (28.0-33.3); Mean Corpuscular Volume 92.3 fL (83.0-100.0); Monocytes % 0.4 %; Neutrophils # 7.1 K/mcL (1.6-8.9); Platelet Count 180 K/mcL (140-400); Red Blood Count 4.04 M/mcL (3.82-4.97); Red Cell Distribution Width 12.5 % (11.5-14.5); Segmented Neutrophils % 92.2 %; White Blood Count 7.7 K/mcL (4.3-11.1)
[2019-10-20 03:10] LABS: INR 1.1; Prothrombin Time 12.7 Seconds (9.4-12.1)
[2019-10-20 03:24] LABS: BUN/Creatinine Ratio 18 (6-26); Blood Urea Nitrogen 14 mg/dL (8-23); Calcium 8.2 mg/dL (8.6-10.3); Carbon Dioxide 38 mEq/L (23-29); Chloride 99 mEq/L (98-107); Glucose 231 mg/dL (70-105); Magnesium 1.5 mg/dL (1.6-2.6); Osmolality,Calculated 294 (280-300); Phosphorous 3.4 mg/dL (2.7-4.5); Potassium 3.6 mEq/L (3.5-5.1); Sodium 138 mEq/L (136-145); eGFR For African Americans > 60 (> 60); eGFR For Non-African Americans > 60 (> 60)
[2019-10-20 05:50] LABS: Bilirubin,Urine Negative (Negative); Blood,Urine Negative (Negative); Clarity,Urine Cloudy (Clear); Color,Urine Yellow (Yellow); Glucose,Urine (UA) Normal (Normal); Ketones,Urine Negative (Negative); Leukocyte Esterase,Urine Negative (Negative); Nitrite,Urine Negative (Negative); Protein,Urine Trace mg/dL (Neg-Trace); Specific Gravity,Urine 1.027 (1.010-1.025); Urobilinogen,Urine Normal (Normal)
[2019-10-20 05:51] LABS: Bacteria,Urine None Seen per hpf (None-Few); Hyaline Casts,Urine None Seen per lpf (None-Few); Squamous Epithelial Cell,Urine Many per lpf (None-Few); WBC,Urine 0-3 per hpf (0-3)
[2019-10-20] MEDS ORDERED: cefTRIAXone 1,000 MG in Water for inj. (sterile) 10 ML IVP SCH (09:00)
[2019-10-20] MEDS: Benzonatate 100 MG CAPSULE PO SCH ×3 (09:29→21:52)
[2019-10-20] MEDS: Aspirin Enteric Coated 81 MG Tablet PO SCH (09:29)
[2019-10-20] MEDS: Metoprolol XL (24 HR) Succ 25 MG TAB.ER.24H PO SCH (09:29)
[2019-10-20] MEDS: Nicotine 7 MG PATCH.TD24 TD SCH (09:29)
[2019-10-20] MEDS: predniSONE 20 MG TABLET PO SCH (09:29)
[2019-10-20] MEDS: Insulin LISPRO 300 UNITS/3 ML VIAL SQ SCH ×3 (09:38→16:23)
[2019-10-20] MEDS ORDERED: *HR* LORazepam 0.5 MG TABLET PO PRN (12:53)
[2019-10-20] MEDS: *HR* LORazepam 1 MG TABLET PO PRN ×2 (13:27→21:52)
[2019-10-20] MEDS: Piperacillin/Tazobactam 3.375 GM in 0.9 % Sodium Chloride Mini Bag 100 ML IVPB SCH ×2 (16:23→23:31)
[2019-10-20] MEDS ORDERED: Azithromycin 500 MG in 0.9 % Sodium Chloride 250 ML IVPB SCH (17:00)
[2019-10-20] MEDS: Azithromycin 250 MG TABLET PO SCH (17:36)
[2019-10-20] MEDS: *HR* Heparin 5,000 UNIT/ML VIAL SQ SCH (17:37)
[2019-10-21] MEDS: Ipratropium 1 PUFF INHALER IH SCH ×5 (03:54→19:55)
[2019-10-21 04:10] LABS: Basophils % 0.1 %; Eosinophils % 0.1 %; Hematocrit 31.1 % (35.3-44.9); Immature Granulocytes % 0.6 % (0-4); Lymphocytes # 1.3 K/mcL (0.6-4.6); Lymphocytes % 9.9 %; Mean Corpuscular HGB Conc 32.2 g/dL (31.6-35.5); Mean Corpuscular Hemoglobin 29.3 pg (28.0-33.3); Mean Corpuscular Volume 91.2 fL (83.0-100.0); Mean Platelet Volume 10.2 fL (9.4-12.4); Monocytes # 0.9 K/mcL (0.0-1.3); Monocytes % 6.4 %; Platelet Count 170 K/mcL (140-400); Red Blood Count 3.41 M/mcL (3.82-4.97); Red Cell Distribution Width 12.3 % (11.5-14.5); Segmented Neutrophils % 82.9 %
[2019-10-21 04:11] LABS: White Blood Count 13.3 K/mcL (4.3-11.1)
[2019-10-21 04:31] LABS: BUN/Creatinine Ratio 32 (6-26); Blood Urea Nitrogen 19 mg/dL (8-23); Calcium 7.9 mg/dL (8.6-10.3); Carbon Dioxide 37 mEq/L (23-29); Chloride 101 mEq/L (98-107); Glucose 120 mg/dL (70-105); Osmolality,Calculated 293 (280-300); Potassium 3.7 mEq/L (3.5-5.1); Sodium 140 mEq/L (136-145); eGFR For African Americans > 60 (> 60); eGFR For Non-African Americans > 60 (> 60)
[2019-10-21] MEDS: *HR* Heparin 5,000 UNIT/ML VIAL SQ SCH ×2 (05:32→18:19)
[2019-10-21] MEDS: Benzonatate 100 MG CAPSULE PO SCH ×3 (08:14→20:53)
[2019-10-21] MEDS: Aspirin Enteric Coated 81 MG Tablet PO SCH (08:14)
[2019-10-21] MEDS: predniSONE 20 MG TABLET PO SCH (08:14)
[2019-10-21] MEDS: Metoprolol XL (24 HR) Succ 25 MG TAB.ER.24H PO SCH (08:15)
[2019-10-21] MEDS: *HR* LORazepam 1 MG TABLET PO PRN ×2 (08:15→18:05)
[2019-10-21] MEDS: Piperacillin/Tazobactam 3.375 GM in 0.9 % Sodium Chloride Mini Bag 100 ML IVPB SCH ×3 (08:17→23:56)
[2019-10-21] MEDS: Nicotine 7 MG PATCH.TD24 TD SCH (08:20)
[2019-10-21] MEDS: Insulin LISPRO 300 UNITS/3 ML VIAL SQ SCH ×3 (08:25→16:03)
[2019-10-21] MEDS ORDERED: 0.9 % Sodium Chloride 250 ML ONE (10:09)
[2019-10-21] MEDS: *HR* OxyCODONE/APAP 7.5/325 TABLET PO PRN (18:05)
[2019-10-21] MEDS: Azithromycin 250 MG TABLET PO SCH (18:19)
[2019-10-22] MEDS: *HR* OxyCODONE/APAP 7.5/325 TABLET PO PRN ×4 (03:23→22:27)
[2019-10-22] MEDS: *HR* LORazepam 1 MG TABLET PO PRN ×3 (03:23→20:02)
[2019-10-22] MEDS: Ipratropium 1 PUFF INHALER IH SCH ×7 (05:38→23:40)
[2019-10-22] MEDS: *HR* Heparin 5,000 UNIT/ML VIAL SQ SCH ×2 (05:41→16:58)
[2019-10-22 07:59] LABS: Basophils % 0.1 %; Eosinophils # 0.1 K/mcL (0.0-0.6); Eosinophils % 0.6 %; Hematocrit 33.2 % (35.3-44.9); Hemoglobin 10.5 g/dL (11.5-15.4); Immature Granulocytes % 0.5 % (0-4); Lymphocytes # 2.8 K/mcL (0.6-4.6); Lymphocytes % 32.6 %; Mean Corpuscular HGB Conc 31.6 g/dL (31.6-35.5); Mean Corpuscular Volume 91.7 fL (83.0-100.0); Mean Platelet Volume 10.3 fL (9.4-12.4); Monocytes # 0.6 K/mcL (0.0-1.3); Monocytes % 7.3 %; Neutrophils # 5.1 K/mcL (1.6-8.9); Platelet Count 181 K/mcL (140-400); Red Blood Count 3.62 M/mcL (3.82-4.97); Red Cell Distribution Width 12.7 % (11.5-14.5); Segmented Neutrophils % 58.9 %; White Blood Count 8.6 K/mcL (4.3-11.1)
[2019-10-22] MEDS: Insulin LISPRO 300 UNITS/3 ML VIAL SQ SCH ×3 (08:08→16:53)
[2019-10-22 08:12] LABS: BUN/Creatinine Ratio 38 (6-26); Blood Urea Nitrogen 24 mg/dL (8-23); Calcium 8.3 mg/dL (8.6-10.3); Carbon Dioxide 38 mEq/L (23-29); Chloride 102 mEq/L (98-107); Glucose 97 mg/dL (70-105); Osmolality,Calculated 300 (280-300); Potassium 3.3 mEq/L (3.5-5.1); Sodium 143 mEq/L (136-145); eGFR For African Americans > 60 (> 60); eGFR For Non-African Americans > 60 (> 60)
[2019-10-22] MEDS: Piperacillin/Tazobactam 3.375 GM in 0.9 % Sodium Chloride Mini Bag 100 ML IVPB SCH ×3 (08:13→23:43)
[2019-10-22] MEDS: predniSONE 20 MG TABLET PO SCH (08:14)
[2019-10-22] MEDS: Metoprolol XL (24 HR) Succ 25 MG TAB.ER.24H PO SCH (08:14)
[2019-10-22] MEDS: Benzonatate 100 MG CAPSULE PO SCH ×3 (08:14→20:01)
[2019-10-22] MEDS: Nicotine 7 MG PATCH.TD24 TD SCH (08:14)
[2019-10-22] MEDS: Aspirin Enteric Coated 81 MG Tablet PO SCH (08:14)
[2019-10-22] MEDS: Azithromycin 250 MG TABLET PO SCH (16:55)
[2019-10-22] MEDS ORDERED: Simethicone 80 MG TAB.CHEW PO PRN (17:07)
[2019-10-23] MEDS: Ipratropium 1 PUFF INHALER IH SCH ×6 (03:33→23:12)
[2019-10-23] MEDS: *HR* LORazepam 1 MG TABLET PO PRN ×3 (04:37→20:15)
[2019-10-23] MEDS: *HR* OxyCODONE/APAP 7.5/325 TABLET PO PRN ×4 (04:37→22:54)
[2019-10-23] MEDS: *HR* Heparin 5,000 UNIT/ML VIAL SQ SCH ×2 (04:37→16:49)
[2019-10-23 07:46] LABS: Basophils % 0.1 %; Eosinophils # 0.1 K/mcL (0.0-0.6); Eosinophils % 0.7 %; Hematocrit 34.5 % (35.3-44.9); Immature Granulocytes % 0.8 % (0-4); Lymphocytes # 3.3 K/mcL (0.6-4.6); Lymphocytes % 37.1 %; Mean Corpuscular HGB Conc 31.9 g/dL (31.6-35.5); Mean Corpuscular Hemoglobin 28.8 pg (28.0-33.3); Mean Corpuscular Volume 90.3 fL (83.0-100.0); Mean Platelet Volume 9.9 fL (9.4-12.4); Monocytes # 0.6 K/mcL (0.0-1.3); Monocytes % 7.3 %; Neutrophils # 4.7 K/mcL (1.6-8.9); Platelet Count 185 K/mcL (140-400); Red Blood Count 3.82 M/mcL (3.82-4.97); Red Cell Distribution Width 12.6 % (11.5-14.5); White Blood Count 8.8 K/mcL (4.3-11.1)
[2019-10-23] MEDS: Benzonatate 100 MG CAPSULE PO SCH ×3 (08:05→20:14)
[2019-10-23] MEDS: Piperacillin/Tazobactam 3.375 GM in 0.9 % Sodium Chloride Mini Bag 100 ML IVPB SCH ×3 (08:06→22:54)
[2019-10-23] MEDS: Insulin LISPRO 300 UNITS/3 ML VIAL SQ SCH ×3 (08:07→16:49)
[2019-10-23] MEDS: predniSONE 20 MG TABLET PO SCH (08:07)
[2019-10-23] MEDS: Aspirin Enteric Coated 81 MG Tablet PO SCH (08:07)
[2019-10-23] MEDS: Nicotine 7 MG PATCH.TD24 TD SCH (08:07)
[2019-10-23] MEDS: Metoprolol XL (24 HR) Succ 25 MG TAB.ER.24H PO SCH (08:07)
[2019-10-23 08:14] LABS: BUN/Creatinine Ratio 24 (6-26); Blood Urea Nitrogen 14 mg/dL (8-23); Calcium 8.6 mg/dL (8.6-10.3); Carbon Dioxide 34 mEq/L (23-29); Chloride 104 mEq/L (98-107); Glucose 90 mg/dL (70-105); Osmolality,Calculated 294 (280-300); Potassium 3.8 mEq/L (3.5-5.1); Sodium 142 mEq/L (136-145); eGFR For African Americans > 60 (> 60); eGFR For Non-African Americans > 60 (> 60)
[2019-10-23 09:11] LABS: Acinetobacter baumannii by PCR Not Detected (Not Detect); Candida albicans by PCR Not Detected (Not Detect); Candida glabrata by PCR Not Detected (Not Detect); Candida krusei by PCR Not Detected (Not Detect); Candida parapsilosis by PCR Not Detected (Not Detect); Candida tropicalis by PCR Not Detected (Not Detect); Enterobacter cloacae Cmplx PCR Not Detected (Not Detect); Enterobacteriaceae by PCR Not Detected (Not Detect); Enterococcus by PCR Not Detected (Not Detect); Escherichia coli by PCR Not Detected (Not Detect); Klebsiella oxytoca by PCR Not Detected (Not Detect); Klebsiella pneumoniae by PCR Not Detected (Not Detect); Proteus by PCR Not Detected (Not Detect); Pseudomonas aeruginosa by PCR Not Detected (Not Detect); Serratia marcescens by PCR Not Detected (Not Detect); Staphylococcus aureus by PCR Not Detected (Not Detect); Staphylococcus by PCR Not Detected (Not Detect); Streptococcus agalactiae(B)PCR Not Detected (Not Detect); Streptococcus by PCR Not Detected (Not Detect); Streptococcus pneumoniae PCR Not Detected (Not Detect); Streptococcus pyogenes (A) PCR Not Detected (Not Detect)
[2019-10-23 12:09] LABS: Basophils % 0.1 %; Eosinophils % 0.1 %; Hematocrit 37.8 % (35.3-44.9); Hemoglobin 12.4 g/dL (11.5-15.4); Immature Granulocytes % 1.1 % (0-4); Lymphocytes # 0.9 K/mcL (0.6-4.6); Lymphocytes % 10.3 %; Mean Corpuscular HGB Conc 32.8 g/dL (31.6-35.5); Mean Corpuscular Hemoglobin 29.7 pg (28.0-33.3); Mean Corpuscular Volume 90.6 fL (83.0-100.0); Mean Platelet Volume 9.8 fL (9.4-12.4); Monocytes # 0.3 K/mcL (0.0-1.3); Monocytes % 3.5 %; Neutrophils # 7.3 K/mcL (1.6-8.9); Platelet Count 206 K/mcL (140-400); Red Blood Count 4.17 M/mcL (3.82-4.97); Red Cell Distribution Width 12.6 % (11.5-14.5); Segmented Neutrophils % 84.9 %; White Blood Count 8.5 K/mcL (4.3-11.1)
[2019-10-23 12:54] LABS: BUN/Creatinine Ratio 21 (6-26); Blood Urea Nitrogen 12 mg/dL (8-23); Calcium 9.4 mg/dL (8.6-10.3); Carbon Dioxide 29 mEq/L (23-29); Chloride 107 mEq/L (98-107); Glucose 151 mg/dL (70-105); Osmolality,Calculated 299 (280-300); Potassium 4.7 mEq/L (3.5-5.1); Sodium 143 mEq/L (136-145); eGFR For African Americans > 60 (> 60); eGFR For Non-African Americans > 60 (> 60)
[2019-10-23] MEDS: Azithromycin 250 MG TABLET PO SCH (16:48)
[2019-10-23 17:30] LABS: Bilirubin,Urine Negative (Negative); Blood,Urine Negative (Negative); Clarity,Urine Clear (Clear); Color,Urine Yellow (Yellow); Glucose,Urine (UA) Normal (Normal); Ketones,Urine Negative (Negative); Leukocyte Esterase,Urine Negative (Negative); Nitrite,Urine Negative (Negative); Protein,Urine Negative (Neg-Trace); Specific Gravity,Urine 1.012 (1.010-1.025); Urobilinogen,Urine Normal (Normal)
[2019-10-24] MEDS: Ipratropium 1 PUFF INHALER IH SCH ×2 (03:55→07:24)
[2019-10-24] MEDS: *HR* OxyCODONE/APAP 7.5/325 TABLET PO PRN (04:55)
[2019-10-24] MEDS: *HR* Heparin 5,000 UNIT/ML VIAL SQ SCH ×2 (04:55→16:20)
[2019-10-24 05:01] LABS: Hematocrit 34.5 % (35.3-44.9); Hemoglobin 11.4 g/dL (11.5-15.4); Mean Corpuscular Hemoglobin 29.5 pg (28.0-33.3); Mean Corpuscular Volume 89.4 fL (83.0-100.0); Mean Platelet Volume 9.8 fL (9.4-12.4); Platelet Count 200 K/mcL (140-400); Red Blood Count 3.86 M/mcL (3.82-4.97); Red Cell Distribution Width 12.7 % (11.5-14.5); White Blood Count 9.7 K/mcL (4.3-11.1)
[2019-10-24 05:17] LABS: BUN/Creatinine Ratio 26 (6-26); Blood Urea Nitrogen 17 mg/dL (8-23); Calcium 8.9 mg/dL (8.6-10.3); Carbon Dioxide 35 mEq/L (23-29); Chloride 102 mEq/L (98-107); Glucose 89 mg/dL (70-105); Osmolality,Calculated 293 (280-300); Sodium 141 mEq/L (136-145); eGFR For African Americans > 60 (> 60); eGFR For Non-African Americans > 60 (> 60)
[2019-10-24] MEDS: *HR* LORazepam 1 MG TABLET PO PRN (06:48)
[2019-10-24] MEDS: Benzonatate 100 MG CAPSULE PO SCH ×3 (08:00→19:49)
[2019-10-24] MEDS: Aspirin Enteric Coated 81 MG Tablet PO SCH (08:00)
[2019-10-24] MEDS: predniSONE 20 MG TABLET PO SCH (08:00)
[2019-10-24] MEDS: Metoprolol XL (24 HR) Succ 25 MG TAB.ER.24H PO SCH (08:01)
[2019-10-24] MEDS: Piperacillin/Tazobactam 3.375 GM in 0.9 % Sodium Chloride Mini Bag 100 ML IVPB SCH ×2 (08:01→15:35)
[2019-10-24] MEDS: Nicotine 7 MG PATCH.TD24 TD SCH (08:01)
[2019-10-24] MEDS ORDERED: *HR* LORazepam 2 MG/ML VIAL IVP STA (08:31)
[2019-10-24] MEDS ORDERED: Ipratropium/Albuterol Neb 3 ML IH PRN ×2 (08:34→14:11)
[2019-10-24] MEDS: *HR* OxyCODONE/APAP 7.5/325 TABLET PO STA ×2 (08:38→08:41)
[2019-10-24] MEDS ORDERED: Morphine Sulfate 2 MG/ML SYRINGE IVP STA (08:39)
[2019-10-24] MEDS: Ipratropium/Albuterol Neb 3 ML IH SCH ×4 (08:44→22:54)
[2019-10-24] MEDS: Insulin LISPRO 300 UNITS/3 ML VIAL SQ SCH (09:31)
[2019-10-24] MEDS ORDERED: hydrOXYzine pamoate 25 MG CAPSULE PO ONE (11:30)
[2019-10-24] MEDS ORDERED: *HR* OxyCODONE/APAP 7.5/325 TABLET PO SCH ×2 (12:00→16:00)
[2019-10-24] MEDS ORDERED: Dexmedetomidine HCl 400 MCG/100 ML MLS IVC SCH (12:15)
[2019-10-24] MEDS ORDERED: Simethicone 80 MG TAB.CHEW PO PRN (14:11)
[2019-10-24] MEDS ORDERED: Naloxone 0.4 MG/ML INJ IVP PRN (14:11)
[2019-10-24] MEDS ORDERED: D5% in Water 1,000 ML IVC PRN (14:11)
[2019-10-24] MEDS ORDERED: *HR* Dextrose 50 % in Water (Syg) 50 ML SYRINGE IVP PRN (14:11)
[2019-10-24] MEDS ORDERED: Dextrose Gel 15 GM/37.5 ML TUBE PO PRN ×2 (14:11)
[2019-10-24] MEDS: Dexmedetomidine HCl 400 MCG/100 ML MLS IVC SCH (14:36)
[2019-10-24] MEDS: *HR* OxyCODONE/APAP 7.5/325 TABLET PO SCH ×2 (14:37→21:40)
[2019-10-24] MEDS: *HR* LORazepam 1 MG TABLET PO SCH (14:37)
[2019-10-24] MEDS ORDERED: *HR* LORazepam 1 MG TABLET PO SCH (15:00)
[2019-10-24] MEDS: traZODone 50 MG TABLET PO SCH (19:49)
[2019-10-24] MEDS ORDERED: traZODone 50 MG TABLET PO SCH (21:00)
[2019-10-25] MEDS ORDERED: 0.9 % Sodium Chloride 1,000 ML IVC ONE (00:25)
[2019-10-25] MEDS: Piperacillin/Tazobactam 3.375 GM in 0.9 % Sodium Chloride Mini Bag 100 ML IVPB SCH ×3 (00:34→16:18)
[2019-10-25] MEDS: *HR* OxyCODONE/APAP 7.5/325 TABLET PO SCH ×4 (00:45→08:00)
[2019-10-25] MEDS: *HR* LORazepam 1 MG TABLET PO SCH ×2 (00:55→08:07)
[2019-10-25] MEDS: Ipratropium/Albuterol Neb 3 ML IH SCH ×4 (04:15→21:04)
[2019-10-25] MEDS: *HR* Heparin 5,000 UNIT/ML VIAL SQ SCH ×2 (05:30→16:17)
[2019-10-25] MEDS: Dexmedetomidine HCl 400 MCG/100 ML MLS IVC SCH (05:52)
[2019-10-25] MEDS ORDERED: 0.9 % Sodium Chloride 1,000 ML IVC SCH (06:00)
[2019-10-25] MEDS: Aspirin Enteric Coated 81 MG Tablet PO SCH (07:30)
[2019-10-25] MEDS: Benzonatate 100 MG CAPSULE PO SCH ×3 (07:31→20:12)
[2019-10-25] MEDS: predniSONE 20 MG TABLET PO SCH (07:31)
[2019-10-25] MEDS: Nicotine 7 MG PATCH.TD24 TD SCH (07:31)
[2019-10-25 08:47] LABS: Hematocrit 31.7 % (35.3-44.9); Hemoglobin 10.3 g/dL (11.5-15.4); Mean Corpuscular HGB Conc 32.5 g/dL (31.6-35.5); Mean Corpuscular Hemoglobin 29.5 pg (28.0-33.3); Mean Corpuscular Volume 90.8 fL (83.0-100.0); Mean Platelet Volume 9.8 fL (9.4-12.4); Platelet Count 172 K/mcL (140-400); Red Blood Count 3.49 M/mcL (3.82-4.97); White Blood Count 8.6 K/mcL (4.3-11.1)
[2019-10-25 09:07] LABS: BUN/Creatinine Ratio 24 (6-26); Blood Urea Nitrogen 17 mg/dL (8-23); Calcium 8.4 mg/dL (8.6-10.3); Carbon Dioxide 29 mEq/L (23-29); Chloride 105 mEq/L (98-107); Glucose 137 mg/dL (70-105); Osmolality,Calculated 292 (280-300); Potassium 3.9 mEq/L (3.5-5.1); Sodium 139 mEq/L (136-145); eGFR For African Americans > 60 (> 60); eGFR For Non-African Americans > 60 (> 60)
[2019-10-25] MEDS: Metoprolol XL (24 HR) Succ 25 MG TAB.ER.24H PO SCH (09:21)
[2019-10-25] MEDS: *HR* OxyCODONE/APAP 7.5/325 TABLET PO PRN ×3 (10:24→20:10)
[2019-10-25] MEDS: Insulin LISPRO 300 UNITS/3 ML VIAL SQ SCH ×2 (11:58→16:18)
[2019-10-25] MEDS: *HR* LORazepam 1 MG TABLET PO PRN (16:17)
[2019-10-25] MEDS: traZODone 50 MG TABLET PO SCH (20:11)
[2019-10-26] MEDS: *HR* OxyCODONE/APAP 7.5/325 TABLET PO PRN ×2 (00:19→08:26)
[2019-10-26] MEDS: Piperacillin/Tazobactam 3.375 GM in 0.9 % Sodium Chloride Mini Bag 100 ML IVPB SCH ×2 (00:19→08:26)
[2019-10-26] MEDS: Ipratropium/Albuterol Neb 3 ML IH SCH ×2 (03:17→10:59)
[2019-10-26] MEDS: *HR* Heparin 5,000 UNIT/ML VIAL SQ SCH (06:13)
[2019-10-26 07:17] VITALS: BP 99/66
[2019-10-26] MEDS: Benzonatate 100 MG CAPSULE PO SCH (08:25)
[2019-10-26] MEDS: predniSONE 20 MG TABLET PO SCH (08:25)
[2019-10-26] MEDS: Nicotine 7 MG PATCH.TD24 TD SCH (08:25)
[2019-10-26] MEDS: Aspirin Enteric Coated 81 MG Tablet PO SCH (08:26)
[2019-10-26] MEDS: Metoprolol XL (24 HR) Succ 25 MG TAB.ER.24H PO SCH (08:26)
[2019-10-26] MEDS: *HR* LORazepam 1 MG TABLET PO PRN (08:26)
[2019-10-26] MEDS: Insulin LISPRO 300 UNITS/3 ML VIAL SQ SCH (08:27)
== END 2019-10-26 11:43 | disposition home or self-care (01) | DRG 871 ==
LOC: 2NENU 15:25 → EMEROOARM 15:25 → 2NENU 21:00 → SUATTDRO 10-20 15:32 → 3ANU 10-21 21:45 → 3NENU 10-24 13:36 → 2ANU 10-25 14:35
PROVIDERS: ADMIT Internal Medicine; ATTEND Internal Medicine

== ENCOUNTER 2019-11-30 20:26 | Inpatient (IN) ==
[2019-11-30] MEDS ORDERED: Piperacillin/Tazobactam 3.375 GM in Water for inj. (sterile) 20 ML IVP ONE (20:47)
[2019-11-30] MEDS ORDERED: Ipratropium/Albuterol Neb 3 ML IH ONE (20:47)
[2019-11-30] MEDS ORDERED: methylPREDNISolone 125 MG/2 ML VIAL IVP ONE (20:47)
[2019-11-30 21:08] LABS: Basophils % 0.3 %; Eosinophils # 1.4 K/mcL (0.0-0.6); Eosinophils % 13.9 %; Hematocrit 40.6 % (35.3-44.9); Hemoglobin 12.6 g/dL (11.5-15.4); Lymphocytes # 2.7 K/mcL (0.6-4.6); Lymphocytes % 26.1 %; Mean Corpuscular Hemoglobin 29.1 pg (28.0-33.3); Mean Corpuscular Volume 93.8 fL (83.0-100.0); Mean Platelet Volume 9.4 fL (9.4-12.4); Monocytes # 0.6 K/mcL (0.0-1.3); Monocytes % 5.6 %; Neutrophils # 5.5 K/mcL (1.6-8.9); Platelet Count 299 K/mcL (140-400); Red Blood Count 4.33 M/mcL (3.82-4.97); Red Cell Distribution Width 12.7 % (11.5-14.5); Segmented Neutrophils % 53.1 %; White Blood Count 10.3 K/mcL (4.3-11.1)
[2019-11-30 21:32] LABS: BUN/Creatinine Ratio 19 (6-26); Blood Urea Nitrogen 10 mg/dL (8-23); Calcium 9.1 mg/dL (8.6-10.3); Carbon Dioxide 43 mEq/L (23-29); Chloride 100 mEq/L (98-107); Glucose 128 mg/dL (70-105); Osmolality,Calculated 303 (280-300); Potassium 3.3 mEq/L (3.5-5.1); Sodium 146 mEq/L (136-145); Troponin I < 0.03 ng/mL (< 0.04); eGFR For African Americans > 60 (> 60); eGFR For Non-African Americans > 60 (> 60)
[2019-11-30] MEDS ORDERED: *HR* LORazepam 1 MG TABLET PO ONE (21:44)
[2019-11-30] MEDS ORDERED: *HR* OxyCODONE/APAP 7.5/325 TABLET PO STA (21:44)
[2019-11-30] MEDS ORDERED: Furosemide 40 MG/4 ML VIAL IVP ONE (21:46)
[2019-11-30] MEDS ORDERED: Nitroglycerin 1 INCH/GM PACKET TP ONE (21:46)
[2019-12-01] MEDS ORDERED: Naloxone 0.4 MG/ML INJ IVP PRN (01:53)
[2019-12-01] MEDS ORDERED: Albuterol 2.5 MG/3 ML NEBULIZER IH PRN (01:58)
[2019-12-01] MEDS: *HR* OxyCODONE/APAP 7.5/325 TABLET PO PRN ×5 (02:50→20:21)
[2019-12-01] MEDS: Nicotine 21 MG PATCH.TD24 TD SCH ×2 (02:51→08:04)
[2019-12-01 03:20] LABS: Hemoglobin 12.9 g/dL (11.5-15.4); Mean Corpuscular HGB Conc 31.5 g/dL (31.6-35.5); Mean Corpuscular Hemoglobin 29.6 pg (28.0-33.3); Mean Platelet Volume 9.5 fL (9.4-12.4); Platelet Count 292 K/mcL (140-400); Red Blood Count 4.36 M/mcL (3.82-4.97); Red Cell Distribution Width 12.8 % (11.5-14.5)
[2019-12-01 03:41] LABS: BUN/Creatinine Ratio 19 (6-26); Blood Urea Nitrogen 10 mg/dL (8-23); Calcium 8.8 mg/dL (8.6-10.3); Carbon Dioxide 43 mEq/L (23-29); Chloride 95 mEq/L (98-107); Glucose 192 mg/dL (70-105); Magnesium 1.2 mg/dL (1.6-2.6); Osmolality,Calculated 302 (280-300); Phosphorous 4.4 mg/dL (2.7-4.5); Potassium 3.4 mEq/L (3.5-5.1); Sodium 144 mEq/L (136-145); eGFR For African Americans > 60 (> 60); eGFR For Non-African Americans > 60 (> 60)
[2019-12-01] MEDS ORDERED: Magnesium Sulfate 1 GM/102 ML PIGGYBACK IVPB ONE (03:46)
[2019-12-01] MEDS: Ipratropium/Albuterol Neb 3 ML IH SCH ×4 (04:01→21:41)
[2019-12-01] MEDS: *HR* Heparin 5,000 UNIT/ML VIAL SQ SCH ×2 (05:09→18:34)
[2019-12-01 06:20] LABS: ABG Base Excess 14 mEq/L (-2 to 3); ABG HCO3 45 mEq/L (21-27); ABG Oxygen Saturation 96 % (95-98); ABG PCO2 91 mmHg (35-45); ABG PH 7.31 pH Units (7.32-7.45); ABG PO2 99 mmHg (85-104); ABG TCO2 48 mEq/L (20-26)
[2019-12-01] MEDS: *HR* LORazepam 1 MG TABLET PO PRN ×3 (06:29→22:17)
[2019-12-01] MEDS: Azithromycin 500 MG in D5% in Water 250 ML IVPB SCH (06:34)
[2019-12-01] MEDS: predniSONE 20 MG TABLET PO SCH (08:03)
[2019-12-01] MEDS: Aspirin Enteric Coated 81 MG Tablet PO SCH (08:03)
[2019-12-01] MEDS: Budesonide/Formoterol 160/4.5 1 PUFF INH IH SCH (10:25)
[2019-12-01] MEDS ORDERED: *HR* OxyCODONE/APAP 7.5/325 TABLET PO PRN (10:25)
[2019-12-01] MEDS: Metoprolol XL (24 HR) Succ 25 MG TAB.ER.24H PO SCH (11:37)
[2019-12-01] MEDS: Simethicone 80 MG TAB.CHEW PO PRN (16:15)
[2019-12-01] MEDS: traZODone 50 MG TABLET PO SCH (20:21)
[2019-12-01] MEDS ORDERED: Saline Nasal Spray 44 ML BOTTLE NS PRN (22:23)
[2019-12-02] MEDS: *HR* OxyCODONE/APAP 7.5/325 TABLET PO PRN ×6 (00:27→21:02)
[2019-12-02 02:23] LABS: Basophils % 0.1 %; Eosinophils % 0.1 %; Hematocrit 34.3 % (35.3-44.9); Immature Granulocytes % 0.5 % (0-4); Lymphocytes # 1.8 K/mcL (0.6-4.6); Lymphocytes % 13.3 %; Mean Corpuscular HGB Conc 32.7 g/dL (31.6-35.5); Mean Corpuscular Hemoglobin 29.9 pg (28.0-33.3); Mean Corpuscular Volume 91.7 fL (83.0-100.0); Mean Platelet Volume 9.8 fL (9.4-12.4); Monocytes % 7.3 %; Neutrophils # 10.9 K/mcL (1.6-8.9); Platelet Count 242 K/mcL (140-400); Red Blood Count 3.74 M/mcL (3.82-4.97); Red Cell Distribution Width 12.6 % (11.5-14.5); Segmented Neutrophils % 78.7 %
[2019-12-02 02:27] LABS: Hemoglobin 11.2 g/dL (11.5-15.4); White Blood Count 13.8 K/mcL (4.3-11.1)
[2019-12-02 02:49] LABS: BUN/Creatinine Ratio 31 (6-26); Blood Urea Nitrogen 16 mg/dL (8-23); Calcium 8.2 mg/dL (8.6-10.3); Carbon Dioxide 42 mEq/L (23-29); Chloride 97 mEq/L (98-107); Glucose 160 mg/dL (70-105); Osmolality,Calculated 297 (280-300); Potassium 3.7 mEq/L (3.5-5.1); Sodium 141 mEq/L (136-145); eGFR For African Americans > 60 (> 60); eGFR For Non-African Americans > 60 (> 60)
[2019-12-02 03:00] LABS: VBG HCO3 41 mEq/L (21-27); VBG PCO2 51 mmHg (41-51); VBG PH 7.52 pH Units (7.32-7.42); VBG PO2 226 mmHg (25-50)
[2019-12-02] MEDS: Ipratropium/Albuterol Neb 3 ML IH SCH ×4 (04:13→23:05)
[2019-12-02] MEDS: Azithromycin 500 MG in D5% in Water 250 ML IVPB SCH (05:52)
[2019-12-02] MEDS: *HR* Heparin 5,000 UNIT/ML VIAL SQ SCH ×2 (06:47→17:05)
[2019-12-02] MEDS: Metoprolol XL (24 HR) Succ 25 MG TAB.ER.24H PO SCH (08:48)
[2019-12-02] MEDS: *HR* LORazepam 1 MG TABLET PO PRN ×3 (08:48→21:02)
[2019-12-02] MEDS: Aspirin Enteric Coated 81 MG Tablet PO SCH (08:48)
[2019-12-02] MEDS: predniSONE 20 MG TABLET PO SCH (08:48)
[2019-12-02] MEDS: Nicotine 21 MG PATCH.TD24 TD SCH (08:48)
[2019-12-02] MEDS: Budesonide/Formoterol 160/4.5 1 PUFF INH IH SCH (10:10)
[2019-12-02] MEDS: traZODone 50 MG TABLET PO SCH (21:02)
[2019-12-02] MEDS: Benzonatate 100 MG CAPSULE PO PRN (21:03)
[2019-12-03] MEDS: Ipratropium/Albuterol Neb 3 ML IH SCH ×4 (04:11→22:00)
[2019-12-03] MEDS: Azithromycin 500 MG in D5% in Water 250 ML IVPB SCH (05:57)
[2019-12-03] MEDS: *HR* Heparin 5,000 UNIT/ML VIAL SQ SCH ×2 (05:57→18:10)
[2019-12-03] MEDS: *HR* OxyCODONE/APAP 7.5/325 TABLET PO PRN ×5 (05:58→22:07)
[2019-12-03] MEDS: predniSONE 20 MG TABLET PO SCH (08:28)
[2019-12-03] MEDS: Nicotine 21 MG PATCH.TD24 TD SCH (08:28)
[2019-12-03] MEDS: *HR* LORazepam 1 MG TABLET PO PRN ×3 (08:28→21:05)
[2019-12-03] MEDS: Metoprolol XL (24 HR) Succ 25 MG TAB.ER.24H PO SCH (08:28)
[2019-12-03] MEDS: Benzonatate 100 MG CAPSULE PO PRN ×3 (08:28→21:05)
[2019-12-03] MEDS: Aspirin Enteric Coated 81 MG Tablet PO SCH (08:28)
[2019-12-03] MEDS: Budesonide/Formoterol 160/4.5 1 PUFF INH IH SCH (10:34)
[2019-12-03] MEDS: MethylPREDNISolone 40 MG/ML VIAL IVP SCH (18:10)
[2019-12-03] MEDS: traZODone 50 MG TABLET PO SCH (21:05)
[2019-12-04] MEDS: *HR* OxyCODONE/APAP 7.5/325 TABLET PO PRN ×3 (04:01→12:54)
[2019-12-04] MEDS: Ipratropium/Albuterol Neb 3 ML IH SCH ×2 (04:09→11:06)
[2019-12-04] MEDS: MethylPREDNISolone 40 MG/ML VIAL IVP SCH (05:54)
[2019-12-04] MEDS: *HR* Heparin 5,000 UNIT/ML VIAL SQ SCH (05:54)
[2019-12-04] MEDS: Nicotine 21 MG PATCH.TD24 TD SCH (08:24)
[2019-12-04] MEDS: Aspirin Enteric Coated 81 MG Tablet PO SCH (08:25)
[2019-12-04] MEDS: *HR* LORazepam 1 MG TABLET PO PRN (08:25)
[2019-12-04] MEDS: Metoprolol XL (24 HR) Succ 25 MG TAB.ER.24H PO SCH (08:25)
[2019-12-04] MEDS: Simethicone 80 MG TAB.CHEW PO PRN (08:36)
[2019-12-04 08:51] LABS: Basophils % 0.1 %; Hematocrit 34.8 % (35.3-44.9); Immature Granulocytes % 0.7 % (0-4); Lymphocytes # 0.8 K/mcL (0.6-4.6); Lymphocytes % 11.3 %; Mean Corpuscular HGB Conc 31.6 g/dL (31.6-35.5); Mean Corpuscular Hemoglobin 29.5 pg (28.0-33.3); Mean Corpuscular Volume 93.3 fL (83.0-100.0); Mean Platelet Volume 10.1 fL (9.4-12.4); Monocytes # 0.2 K/mcL (0.0-1.3); Monocytes % 3.5 %; Platelet Count 238 K/mcL (140-400); Red Blood Count 3.73 M/mcL (3.82-4.97); Red Cell Distribution Width 12.9 % (11.5-14.5); Segmented Neutrophils % 84.4 %
[2019-12-04 08:54] LABS: Neutrophils # 5.7 K/mcL (1.6-8.9); White Blood Count 6.8 K/mcL (4.3-11.1)
[2019-12-04] MEDS ORDERED: Azithromycin 250 MG TABLET PO SCH (09:00)
[2019-12-04 09:10] LABS: BUN/Creatinine Ratio 37 (6-26); Blood Urea Nitrogen 17 mg/dL (8-23); Calcium 8.9 mg/dL (8.6-10.3); Carbon Dioxide 34 mEq/L (23-29); Chloride 100 mEq/L (98-107); Glucose 185 mg/dL (70-105); Magnesium 1.9 mg/dL (1.6-2.6); Osmolality,Calculated 294 (280-300); Phosphorous 2.4 mg/dL (2.7-4.5); Potassium 3.7 mEq/L (3.5-5.1); Sodium 139 mEq/L (136-145); eGFR For African Americans > 60 (> 60); eGFR For Non-African Americans > 60 (> 60)
[2019-12-04] MEDS: Budesonide/Formoterol 160/4.5 1 PUFF INH IH SCH (11:06)
[2019-12-04 11:20] VITALS: BP 114/72
== END 2019-12-04 12:59 | disposition home or self-care (01) | DRG 189 ==
LOC: 2ANU 20:26 → EMEROOARM 20:26 → SUATTDRO 23:31 → 2ANU 23:49 → SUATTDRO 12-01 11:48
PROVIDERS: ADMIT Family Medicine; ATTEND Internal Medicine

== ENCOUNTER 2019-12-21 13:58 | Inpatient (IN) ==
[2019-12-21] MEDS ORDERED: Ipratropium/Albuterol Neb 3 ML IH ONE (14:04)
[2019-12-21] MEDS ORDERED: methylPREDNISolone 125 MG/2 ML VIAL IVP ONE (14:04)
[2019-12-21 14:32] LABS: ABG Base Excess 12 mEq/L (-2 to 3); ABG HCO3 43 mEq/L (21-27); ABG Oxygen Saturation 97 % (95-98); ABG PCO2 91 mmHg (35-45); ABG PH 7.28 pH Units (7.32-7.45); ABG PO2 110 mmHg (85-104); ABG TCO2 46 mEq/L (20-26)
[2019-12-21 14:35] LABS: Basophils % 0.3 %; Eosinophils # 0.4 K/mcL (0.0-0.6); Eosinophils % 6.5 %; Hematocrit 42.8 % (35.3-44.9); Hemoglobin 13.1 g/dL (11.5-15.4); Immature Granulocytes % 0.3 % (0-4); Lymphocytes # 2.3 K/mcL (0.6-4.6); Lymphocytes % 34.8 %; Mean Corpuscular HGB Conc 30.6 g/dL (31.6-35.5); Mean Corpuscular Volume 94.7 fL (83.0-100.0); Mean Platelet Volume 10.3 fL (9.4-12.4); Monocytes # 0.4 K/mcL (0.0-1.3); Monocytes % 6.1 %; Neutrophils # 3.4 K/mcL (1.6-8.9); Platelet Count 209 K/mcL (140-400); Red Blood Count 4.52 M/mcL (3.82-4.97); Red Cell Distribution Width 12.8 % (11.5-14.5); White Blood Count 6.6 K/mcL (4.3-11.1)
[2019-12-21] MEDS ORDERED: *HR* OxyCODONE/APAP 5/325 TABLET PO ONE (15:06)
[2019-12-21 15:38] LABS: Bilirubin,Urine Negative (Negative); Blood,Urine Negative (Negative); Clarity,Urine Turbid (Clear); Color,Urine Yellow (Yellow); Glucose,Urine (UA) Normal (Normal); Ketones,Urine 10 mg/dL (Negative); Leukocyte Esterase,Urine Large (Negative); Mucus,Urine Few per lpf (None-Few); Nitrite,Urine Negative (Negative); PH,Urine 6.5 pH Units (5.0-8.0); Protein,Urine Trace mg/dL (Neg-Trace); RBC,Urine 0-3 per hpf (0-3); Specific Gravity,Urine 1.024 (1.010-1.025); Squamous Epithelial Cell,Urine Many per hpf (None-Few); Urobilinogen,Urine Normal (Normal)
[2019-12-21 16:06] LABS: BUN/Creatinine Ratio 22 (6-26); Blood Urea Nitrogen 11 mg/dL (8-23); Calcium 9.3 mg/dL (8.6-10.3); Carbon Dioxide 40 mEq/L (23-29); Chloride 98 mEq/L (98-107); Glucose 123 mg/dL (70-105); Osmolality,Calculated 299 (280-300); Potassium 3.8 mEq/L (3.5-5.1); Sodium 144 mEq/L (136-145); Troponin I < 0.03 ng/mL (< 0.04); eGFR For African Americans > 60 (> 60); eGFR For Non-African Americans > 60 (> 60)
[2019-12-21] MEDS ORDERED: Naloxone 0.4 MG/ML INJ IVP PRN (16:10)
[2019-12-21] MEDS ORDERED: Albuterol 2.5 MG/3 ML NEBULIZER IH PRN (16:11)
[2019-12-21] MEDS: *HR* Heparin 5,000 UNIT/ML VIAL SQ SCH (17:19)
[2019-12-21] MEDS ORDERED: Ipratropium/Albuterol Neb 3 ML IH PRN (17:20)
[2019-12-21] MEDS: traZODone 50 MG TABLET PO SCH (19:28)
[2019-12-21] MEDS: *HR* OxyCODONE/APAP 7.5/325 TABLET PO PRN (19:28)
[2019-12-21] MEDS: Ipratropium/Albuterol Neb 3 ML IH SCH ×2 (19:42→23:50)
[2019-12-22] MEDS: methylPREDNISolone 125 MG/2 ML VIAL IVP SCH ×2 (00:56→08:56)
[2019-12-22 02:03] LABS: Hematocrit 37.3 % (35.3-44.9); Hemoglobin 11.9 g/dL (11.5-15.4); Lymphocytes # 0.6 K/mcL (0.6-4.6); Lymphocytes % 22.7 %; Mean Corpuscular HGB Conc 31.9 g/dL (31.6-35.5); Mean Corpuscular Hemoglobin 30.1 pg (28.0-33.3); Mean Corpuscular Volume 94.2 fL (83.0-100.0); Mean Platelet Volume 10.4 fL (9.4-12.4); Monocytes % 1.6 %; Platelet Count 169 K/mcL (140-400); Red Blood Count 3.96 M/mcL (3.82-4.97); Red Cell Distribution Width 12.5 % (11.5-14.5); Segmented Neutrophils % 75.7 %
[2019-12-22 02:04] LABS: White Blood Count 2.6 K/mcL (4.3-11.1)
[2019-12-22 02:22] LABS: BUN/Creatinine Ratio 35 (6-26); Blood Urea Nitrogen 16 mg/dL (8-23); Calcium 8.8 mg/dL (8.6-10.3); Carbon Dioxide 37 mEq/L (23-29); Chloride 98 mEq/L (98-107); Glucose 151 mg/dL (70-105); Osmolality,Calculated 298 (280-300); Sodium 142 mEq/L (136-145); eGFR For African Americans > 60 (> 60); eGFR For Non-African Americans > 60 (> 60)
[2019-12-22] MEDS: Ipratropium/Albuterol Neb 3 ML IH SCH ×6 (03:48→23:34)
[2019-12-22] MEDS: *HR* OxyCODONE/APAP 7.5/325 TABLET PO PRN ×5 (04:55→21:35)
[2019-12-22] MEDS: *HR* Heparin 5,000 UNIT/ML VIAL SQ SCH ×2 (04:56→17:14)
[2019-12-22] MEDS: Budesonide/Formoterol 160/4.5 1 PUFF INH IH SCH (07:25)
[2019-12-22] MEDS: *HR* LORazepam 1 MG TABLET PO PRN ×3 (08:56→21:38)
[2019-12-22] MEDS: Aspirin Enteric Coated 81 MG Tablet PO SCH (08:56)
[2019-12-22] MEDS: Metoprolol XL (24 HR) Succ 25 MG TAB.ER.24H PO SCH (08:56)
[2019-12-22] MEDS: Cholecalciferol (D-3) 1,000 UNIT (25MCG) TABLET PO SCH (08:56)
[2019-12-22] MEDS: Simethicone 80 MG TAB.CHEW PO PRN (12:00)
[2019-12-22] MEDS: Nicotine 21 MG PATCH.TD24 TD SCH (14:10)
[2019-12-22] MEDS ORDERED: Saline Nasal Spray 44 ML BOTTLE NS PRN (15:32)
[2019-12-22] MEDS: MethylPREDNISolone 40 MG/ML VIAL IVP SCH (17:14)
[2019-12-22] MEDS: traZODone 50 MG TABLET PO SCH (21:34)
[2019-12-23] MEDS: *HR* OxyCODONE/APAP 7.5/325 TABLET PO PRN ×5 (03:10→21:17)
[2019-12-23] MEDS: Ipratropium/Albuterol Neb 3 ML IH SCH ×6 (03:41→23:19)
[2019-12-23] MEDS: MethylPREDNISolone 40 MG/ML VIAL IVP SCH ×2 (05:13→17:05)
[2019-12-23] MEDS: *HR* Heparin 5,000 UNIT/ML VIAL SQ SCH ×2 (05:13→17:05)
[2019-12-23] MEDS: Budesonide/Formoterol 160/4.5 1 PUFF INH IH SCH (07:34)
[2019-12-23] MEDS: Aspirin Enteric Coated 81 MG Tablet PO SCH (08:43)
[2019-12-23] MEDS: Metoprolol XL (24 HR) Succ 25 MG TAB.ER.24H PO SCH (08:43)
[2019-12-23] MEDS: Nicotine 21 MG PATCH.TD24 TD SCH (08:43)
[2019-12-23] MEDS: Cholecalciferol (D-3) 1,000 UNIT (25MCG) TABLET PO SCH (08:44)
[2019-12-23] MEDS: Simethicone 80 MG TAB.CHEW PO PRN (08:44)
[2019-12-23] MEDS: *HR* LORazepam 1 MG TABLET PO PRN ×3 (08:44→20:51)
[2019-12-23 08:53] LABS: Basophils % 0.1 %; Hematocrit 32.9 % (35.3-44.9); Hemoglobin 10.8 g/dL (11.5-15.4); Immature Granulocytes % 0.6 % (0-4); Lymphocytes # 0.8 K/mcL (0.6-4.6); Lymphocytes % 8.2 %; Mean Corpuscular HGB Conc 32.8 g/dL (31.6-35.5); Mean Corpuscular Hemoglobin 30.3 pg (28.0-33.3); Mean Corpuscular Volume 92.4 fL (83.0-100.0); Mean Platelet Volume 10.5 fL (9.4-12.4); Monocytes # 0.3 K/mcL (0.0-1.3); Monocytes % 3.3 %; Neutrophils # 8.2 K/mcL (1.6-8.9); Platelet Count 166 K/mcL (140-400); Red Blood Count 3.56 M/mcL (3.82-4.97); Red Cell Distribution Width 12.8 % (11.5-14.5); Segmented Neutrophils % 87.8 %; White Blood Count 9.3 K/mcL (4.3-11.1)
[2019-12-23 09:11] LABS: BUN/Creatinine Ratio 42 (6-26); Blood Urea Nitrogen 21 mg/dL (8-23); Calcium 8.5 mg/dL (8.6-10.3); Carbon Dioxide 38 mEq/L (23-29); Chloride 97 mEq/L (98-107); Glucose 153 mg/dL (70-105); Osmolality,Calculated 296 (280-300); Potassium 3.6 mEq/L (3.5-5.1); Sodium 140 mEq/L (136-145); eGFR For African Americans > 60 (> 60); eGFR For Non-African Americans > 60 (> 60)
[2019-12-23] MEDS: traZODone 50 MG TABLET PO SCH (20:51)
[2019-12-24 01:42] LABS: Hematocrit 32.7 % (35.3-44.9); Hemoglobin 10.3 g/dL (11.5-15.4); Immature Granulocytes % 0.4 % (0-4); Lymphocytes # 0.5 K/mcL (0.6-4.6); Lymphocytes % 6.1 %; Mean Corpuscular HGB Conc 31.5 g/dL (31.6-35.5); Mean Corpuscular Hemoglobin 29.3 pg (28.0-33.3); Mean Corpuscular Volume 92.9 fL (83.0-100.0); Mean Platelet Volume 10.8 fL (9.4-12.4); Monocytes # 0.4 K/mcL (0.0-1.3); Monocytes % 5.2 %; Neutrophils # 7.1 K/mcL (1.6-8.9); Platelet Count 177 K/mcL (140-400); Red Blood Count 3.52 M/mcL (3.82-4.97); Segmented Neutrophils % 88.3 %
[2019-12-24 01:53] LABS: BUN/Creatinine Ratio 40 (6-26); Blood Urea Nitrogen 21 mg/dL (8-23); Calcium 8.1 mg/dL (8.6-10.3); Carbon Dioxide 37 mEq/L (23-29); Chloride 99 mEq/L (98-107); Glucose 151 mg/dL (70-105); Osmolality,Calculated 294 (280-300); Potassium 3.9 mEq/L (3.5-5.1); Sodium 139 mEq/L (136-145); eGFR For African Americans > 60 (> 60); eGFR For Non-African Americans > 60 (> 60)
[2019-12-24] MEDS: Ipratropium/Albuterol Neb 3 ML IH SCH ×2 (03:29→07:35)
[2019-12-24] MEDS: MethylPREDNISolone 40 MG/ML VIAL IVP SCH ×2 (04:58→17:18)
[2019-12-24] MEDS: *HR* OxyCODONE/APAP 7.5/325 TABLET PO PRN ×5 (04:58→21:23)
[2019-12-24] MEDS: *HR* Heparin 5,000 UNIT/ML VIAL SQ SCH ×2 (04:59→17:17)
[2019-12-24] MEDS: Budesonide/Formoterol 160/4.5 1 PUFF INH IH SCH ×2 (07:36→19:51)
[2019-12-24] MEDS: Metoprolol XL (24 HR) Succ 25 MG TAB.ER.24H PO SCH (09:15)
[2019-12-24] MEDS: Cholecalciferol (D-3) 1,000 UNIT (25MCG) TABLET PO SCH (09:15)
[2019-12-24] MEDS: Azithromycin 250 MG TABLET PO SCH (09:15)
[2019-12-24] MEDS: *HR* LORazepam 1 MG TABLET PO PRN ×3 (09:15→21:23)
[2019-12-24] MEDS: Aspirin Enteric Coated 81 MG Tablet PO SCH (09:15)
[2019-12-24] MEDS: Simethicone 80 MG TAB.CHEW PO PRN (09:15)
[2019-12-24] MEDS: Nicotine 21 MG PATCH.TD24 TD SCH (09:16)
[2019-12-24] MEDS: Acetylcysteine 10% 2 ML INHSOL IH SCH ×3 (09:57→23:09)
[2019-12-24] MEDS: Albuterol 2.5 MG/3 ML NEBULIZER IH SCH ×5 (09:58→23:08)
[2019-12-24] MEDS: Benzonatate 100 MG CAPSULE PO PRN ×3 (13:17→21:23)
[2019-12-24] MEDS: traZODone 50 MG TABLET PO SCH (21:23)
[2019-12-25] MEDS: *HR* OxyCODONE/APAP 7.5/325 TABLET PO PRN ×3 (01:55→10:35)
[2019-12-25 02:52] LABS: Basophils % 0.2 %; Hematocrit 33.6 % (35.3-44.9); Hemoglobin 10.5 g/dL (11.5-15.4); Immature Granulocytes % 0.7 % (0-4); Lymphocytes # 0.6 K/mcL (0.6-4.6); Lymphocytes % 10.6 %; Mean Corpuscular HGB Conc 31.3 g/dL (31.6-35.5); Mean Corpuscular Hemoglobin 29.7 pg (28.0-33.3); Mean Corpuscular Volume 95.2 fL (83.0-100.0); Mean Platelet Volume 10.8 fL (9.4-12.4); Monocytes # 0.4 K/mcL (0.0-1.3); Neutrophils # 4.6 K/mcL (1.6-8.9); Platelet Count 179 K/mcL (140-400); Red Blood Count 3.53 M/mcL (3.82-4.97); Red Cell Distribution Width 12.9 % (11.5-14.5); Segmented Neutrophils % 81.5 %; White Blood Count 5.6 K/mcL (4.3-11.1)
[2019-12-25 03:12] LABS: BUN/Creatinine Ratio 41 (6-26); Blood Urea Nitrogen 25 mg/dL (8-23); Calcium 8.4 mg/dL (8.6-10.3); Carbon Dioxide 33 mEq/L (23-29); Chloride 100 mEq/L (98-107); Glucose 214 mg/dL (70-105); Osmolality,Calculated 295 (280-300); Potassium 3.7 mEq/L (3.5-5.1); Sodium 137 mEq/L (136-145); eGFR For African Americans > 60 (> 60); eGFR For Non-African Americans > 60 (> 60)
[2019-12-25] MEDS: Albuterol 2.5 MG/3 ML NEBULIZER IH SCH (04:04)
[2019-12-25] MEDS: MethylPREDNISolone 40 MG/ML VIAL IVP SCH (05:55)
[2019-12-25] MEDS: *HR* Heparin 5,000 UNIT/ML VIAL SQ SCH (05:55)
[2019-12-25 07:04] VITALS: BP 117/77
[2019-12-25] MEDS: Budesonide/Formoterol 160/4.5 1 PUFF INH IH SCH (07:33)
[2019-12-25] MEDS: Ipratropium/Albuterol Neb 3 ML IH SCH ×2 (07:50→11:12)
[2019-12-25] MEDS: Acetylcysteine 10% 2 ML INHSOL IH SCH (07:50)
[2019-12-25] MEDS: Cholecalciferol (D-3) 1,000 UNIT (25MCG) TABLET PO SCH (07:59)
[2019-12-25] MEDS: Aspirin Enteric Coated 81 MG Tablet PO SCH (07:59)
[2019-12-25] MEDS: Azithromycin 250 MG TABLET PO SCH (08:00)
[2019-12-25] MEDS: Nicotine 21 MG PATCH.TD24 TD SCH (08:00)
[2019-12-25] MEDS: Metoprolol XL (24 HR) Succ 25 MG TAB.ER.24H PO SCH (08:00)
[2019-12-25] MEDS: *HR* LORazepam 1 MG TABLET PO PRN (11:00)
[2019-12-26] MEDS ORDERED: predniSONE 20 MG TABLET PO SCH (09:00)
== END 2019-12-25 13:58 | disposition home or self-care (01) | DRG 189 ==
LOC: EMEROOARM 13:58 → 2ANU 13:58
PROVIDERS: ADMIT Pharmacist; ATTEND Pharmacist

== ENCOUNTER 2020-01-17 03:18 | Inpatient (IN) ==
[2020-01-17] MEDS ORDERED: methylPREDNISolone 125 MG/2 ML VIAL IVP ONE (04:08)
[2020-01-17] MEDS ORDERED: Ipratropium/Albuterol Neb 3 ML IH ONE (04:08)
[2020-01-17 05:00] LABS: Eosinophils # 0.2 K/mcL (0.0-0.6); Eosinophils % 4.4 %; Hematocrit 40.1 % (35.3-44.9); Hemoglobin 12.8 g/dL (11.5-15.4); Immature Granulocytes % 0.2 % (0-4); Lymphocytes # 1.2 K/mcL (0.6-4.6); Lymphocytes % 25.9 %; Mean Corpuscular HGB Conc 31.9 g/dL (31.6-35.5); Mean Corpuscular Hemoglobin 30.4 pg (28.0-33.3); Mean Corpuscular Volume 95.2 fL (83.0-100.0); Mean Platelet Volume 9.6 fL (9.4-12.4); Monocytes # 0.4 K/mcL (0.0-1.3); Monocytes % 7.7 %; Platelet Count 228 K/mcL (140-400); Red Blood Count 4.21 M/mcL (3.82-4.97); Red Cell Distribution Width 12.5 % (11.5-14.5); Segmented Neutrophils % 61.8 %; White Blood Count 4.8 K/mcL (4.3-11.1)
[2020-01-17 05:06] LABS: Prothrombin Time 11.9 Seconds (9.4-12.1)
[2020-01-17 05:08] LABS: Activated Partial Thrombo Time 40.2 Seconds (26.0-36.0)
[2020-01-17 05:24] LABS: Troponin I < 0.03 ng/mL (< 0.04)
[2020-01-17 05:37] LABS: Alanine Aminotransferase 9 Units/L (7-52); Albumin 3.8 g/dL (3.5-5.7); Albumin/Globulin Ratio 1.7 (1.1-2.2); Alkaline Phosphatase 50 Units/L (34-104); Aspartate Amino Transferase 10 Units/L (13-39); BUN/Creatinine Ratio 34 (6-26); Bilirubin,Direct 0.1 mg/dL (0.0-0.2); Bilirubin,Indirect 0.2 mg/dL (0.0-1.0); Bilirubin,Total 0.3 mg/dL (0.3-1.0); Blood Urea Nitrogen 12 mg/dL (8-23); Calcium 9.1 mg/dL (8.6-10.3); Carbon Dioxide 41 mEq/L (23-29); Chloride 97 mEq/L (98-107); Globulin 2.2 g/dL (2.4-3.5); Glucose 136 mg/dL (70-105); Osmolality,Calculated 298 (280-300); Potassium 3.9 mEq/L (3.5-5.1); Sodium 143 mEq/L (136-145); eGFR For African Americans > 60 (> 60); eGFR For Non-African Americans > 60 (> 60)
[2020-01-17 06:16] LABS: Adenovirus Not Detected (Not Detect); Bordetella Pertussis Not Detected (Not Detect); Coronavirus 229E Not Detected (Not Detect); Coronavirus HKU1 Not Detected (Not Detect); Coronavirus NL63 Not Detected (Not Detect); Coronavirus OC43 Not Detected (Not Detect); Human Metapneumovirus Not Detected (Not Detect); Human Rhinovirus/Enterovirus Not Detected (Not Detect); Influenza A Subtype 2009 H1 Not Detected (Not Detect); Influenza B Not Detected (Not Detect); Parainfluenza Virus 1 Not Detected (Not Detect); Parainfluenza Virus 2 Not Detected (Not Detect); Parainfluenza Virus 3 Not Detected (Not Detect); Parainfluenza Virus 4 Not Detected (Not Detect); Respiratory Syncytial Virus Not Detected (Not Detect); SARS-CoV-2 Not Detected (Not Detect)
[2020-01-17 06:17] LABS: Chlamydophila pneumoniae Not Detected (Not Detect); Mycoplasma pneumoniae Not Detected (Not Detect)
[2020-01-17] MEDS ORDERED: Azithromycin 500 MG in 0.9 % Sodium Chloride 250 ML IVPB ONE (06:44)
[2020-01-17] MEDS ORDERED: Ondansetron 4 MG/2 ML VIAL IVP PRN (08:19)
[2020-01-17] MEDS ORDERED: Naloxone 0.4 MG/ML INJ IVP PRN (08:19)
[2020-01-17] MEDS: *HR* LORazepam 1 MG TABLET PO SCH ×3 (08:42→20:38)
[2020-01-17] MEDS: *HR* OxyCODONE/APAP 7.5/325 TABLET PO PRN ×4 (08:42→20:38)
[2020-01-17] MEDS: Aspirin Enteric Coated 81 MG Tablet PO SCH (08:44)
[2020-01-17] MEDS: Metoprolol XL (24 HR) Succ 25 MG TAB.ER.24H PO SCH (08:44)
[2020-01-17] MEDS ORDERED: Isovue-370 500 ML BOTTLE IVP ONE (11:10)
[2020-01-17] MEDS: Ipratropium/Albuterol Neb 3 ML IH SCH ×3 (11:16→19:59)
[2020-01-17] MEDS: Budesonide/Formoterol 160/4.5 1 PUFF INH IH SCH ×2 (11:16→19:59)
[2020-01-17] MEDS: MethylPREDNISolone 40 MG/ML VIAL IVP SCH (17:09)
[2020-01-17] MEDS: *HR* Heparin 5,000 UNIT/ML VIAL SQ SCH (17:09)
[2020-01-17] MEDS: Simethicone 80 MG TAB.CHEW PO PRN (20:09)
[2020-01-17] MEDS: traZODone 50 MG TABLET PO SCH (20:38)
[2020-01-18] MEDS: Ipratropium/Albuterol Neb 3 ML IH SCH ×7 (00:26→23:35)
[2020-01-18] MEDS: *HR* OxyCODONE/APAP 7.5/325 TABLET PO PRN ×5 (03:43→21:49)
[2020-01-18 05:40] LABS: VBG HCO3 41 mEq/L (21-27); VBG PCO2 55 mmHg (41-51); VBG PH 7.49 pH Units (7.32-7.42); VBG PO2 120 mmHg (25-50)
[2020-01-18 05:41] LABS: Hematocrit 33.1 % (35.3-44.9); Immature Granulocytes % 0.2 % (0-4); Lymphocytes # 0.6 K/mcL (0.6-4.6); Lymphocytes % 11.4 %; Mean Corpuscular Hemoglobin 30.5 pg (28.0-33.3); Mean Corpuscular Volume 95.4 fL (83.0-100.0); Mean Platelet Volume 9.5 fL (9.4-12.4); Monocytes # 0.4 K/mcL (0.0-1.3); Monocytes % 6.8 %; Neutrophils # 4.2 K/mcL (1.6-8.9); Platelet Count 216 K/mcL (140-400); Red Blood Count 3.47 M/mcL (3.82-4.97); Red Cell Distribution Width 12.5 % (11.5-14.5); Segmented Neutrophils % 81.6 %; White Blood Count 5.2 K/mcL (4.3-11.1)
[2020-01-18 05:47] LABS: Hemoglobin 10.6 g/dL (11.5-15.4)
[2020-01-18 06:18] LABS: BUN/Creatinine Ratio 44 (6-26); Blood Urea Nitrogen 17 mg/dL (8-23); Calcium 8.4 mg/dL (8.6-10.3); Carbon Dioxide 40 mEq/L (23-29); Chloride 99 mEq/L (98-107); Glucose 158 mg/dL (70-105); Magnesium 1.6 mg/dL (1.6-2.6); Osmolality,Calculated 297 (280-300); Potassium 3.8 mEq/L (3.5-5.1); Sodium 141 mEq/L (136-145); eGFR For African Americans > 60 (> 60); eGFR For Non-African Americans > 60 (> 60)
[2020-01-18] MEDS: MethylPREDNISolone 40 MG/ML VIAL IVP SCH ×2 (06:35→17:39)
[2020-01-18] MEDS: *HR* Heparin 5,000 UNIT/ML VIAL SQ SCH ×2 (06:36→17:39)
[2020-01-18 07:08] LABS: ABG Base Excess 13 mEq/L (-2 to 3); ABG HCO3 39 mEq/L (21-27); ABG Oxygen Saturation 83 % (95-98); ABG PCO2 57 mmHg (35-45); ABG PH 7.44 pH Units (7.32-7.45); ABG PO2 47 mmHg (85-104); ABG TCO2 41 mEq/L (20-26); Blood Gas Modality 3LPM
[2020-01-18] MEDS: Budesonide/Formoterol 160/4.5 1 PUFF INH IH SCH ×2 (07:36→20:00)
[2020-01-18] MEDS: Metoprolol XL (24 HR) Succ 25 MG TAB.ER.24H PO SCH (09:29)
[2020-01-18] MEDS: *HR* LORazepam 1 MG TABLET PO SCH ×3 (09:29→21:07)
[2020-01-18] MEDS: Aspirin Enteric Coated 81 MG Tablet PO SCH (09:29)
[2020-01-18] MEDS: Azithromycin 250 MG TABLET PO SCH (09:29)
[2020-01-18] MEDS: Simethicone 80 MG TAB.CHEW PO PRN (13:50)
[2020-01-18] MEDS: Nicotine 21 MG PATCH.TD24 TD SCH (14:31)
[2020-01-18] MEDS: traZODone 50 MG TABLET PO SCH (21:06)
[2020-01-19 03:05] LABS: Basophils % 0.1 %; Hematocrit 31.8 % (35.3-44.9); Hemoglobin 9.9 g/dL (11.5-15.4); Immature Granulocytes % 0.3 % (0-4); Lymphocytes % 13.1 %; Mean Corpuscular HGB Conc 31.1 g/dL (31.6-35.5); Mean Corpuscular Hemoglobin 29.3 pg (28.0-33.3); Mean Corpuscular Volume 94.1 fL (83.0-100.0); Mean Platelet Volume 9.7 fL (9.4-12.4); Monocytes # 0.5 K/mcL (0.0-1.3); Monocytes % 7.2 %; Neutrophils # 5.9 K/mcL (1.6-8.9); Platelet Count 230 K/mcL (140-400); Red Blood Count 3.38 M/mcL (3.82-4.97); Segmented Neutrophils % 79.3 %; White Blood Count 7.5 K/mcL (4.3-11.1)
[2020-01-19 03:21] LABS: BUN/Creatinine Ratio 51 (6-26); Blood Urea Nitrogen 21 mg/dL (8-23); Calcium 8.6 mg/dL (8.6-10.3); Carbon Dioxide 39 mEq/L (23-29); Chloride 101 mEq/L (98-107); Glucose 146 mg/dL (70-105); Osmolality,Calculated 300 (280-300); Potassium 3.6 mEq/L (3.5-5.1); Sodium 142 mEq/L (136-145); eGFR For African Americans > 60 (> 60); eGFR For Non-African Americans > 60 (> 60)
[2020-01-19] MEDS: Ipratropium/Albuterol Neb 3 ML IH SCH ×6 (03:41→23:00)
[2020-01-19] MEDS: MethylPREDNISolone 40 MG/ML VIAL IVP SCH ×2 (05:25→16:30)
[2020-01-19] MEDS: *HR* OxyCODONE/APAP 7.5/325 TABLET PO PRN ×4 (05:26→19:50)
[2020-01-19] MEDS: *HR* Heparin 5,000 UNIT/ML VIAL SQ SCH ×2 (05:26→16:30)
[2020-01-19] MEDS: Budesonide/Formoterol 160/4.5 1 PUFF INH IH SCH ×2 (07:21→20:28)
[2020-01-19] MEDS: Nicotine 21 MG PATCH.TD24 TD SCH (08:25)
[2020-01-19] MEDS: Aspirin Enteric Coated 81 MG Tablet PO SCH (08:25)
[2020-01-19] MEDS: *HR* LORazepam 1 MG TABLET PO SCH ×3 (08:25→21:03)
[2020-01-19] MEDS: Azithromycin 250 MG TABLET PO SCH (08:25)
[2020-01-19] MEDS: Metoprolol XL (24 HR) Succ 25 MG TAB.ER.24H PO SCH (08:25)
[2020-01-19 13:03] LABS: Hematocrit 33.4 % (35.3-44.9); Hemoglobin 10.6 g/dL (11.5-15.4)
[2020-01-19] MEDS: traZODone 50 MG TABLET PO SCH (21:03)
[2020-01-20] MEDS: Ipratropium/Albuterol Neb 3 ML IH SCH ×2 (04:01→07:28)
[2020-01-20] MEDS: *HR* Heparin 5,000 UNIT/ML VIAL SQ SCH (06:01)
[2020-01-20] MEDS: *HR* OxyCODONE/APAP 7.5/325 TABLET PO PRN ×2 (06:01→10:10)
[2020-01-20] MEDS: MethylPREDNISolone 40 MG/ML VIAL IVP SCH (06:01)
[2020-01-20 07:01] LABS: Basophils % 0.1 %; Hematocrit 32.3 % (35.3-44.9); Hemoglobin 10.4 g/dL (11.5-15.4); Immature Granulocytes % 0.4 % (0-4); Lymphocytes # 1.3 K/mcL (0.6-4.6); Lymphocytes % 19.3 %; Mean Corpuscular HGB Conc 32.2 g/dL (31.6-35.5); Mean Corpuscular Hemoglobin 30.9 pg (28.0-33.3); Mean Corpuscular Volume 95.8 fL (83.0-100.0); Mean Platelet Volume 10.3 fL (9.4-12.4); Monocytes # 0.4 K/mcL (0.0-1.3); Monocytes % 6.4 %; Platelet Count 235 K/mcL (140-400); Red Blood Count 3.37 M/mcL (3.82-4.97); Red Cell Distribution Width 12.9 % (11.5-14.5); Segmented Neutrophils % 73.8 %; White Blood Count 6.7 K/mcL (4.3-11.1)
[2020-01-20 07:20] LABS: % Iron Saturation 33 % (15-50); Iron 103 mcg/dL (50-170); Transferrin 223 mg/dL (203-362)
[2020-01-20 07:21] LABS: BUN/Creatinine Ratio 43 (6-26); Blood Urea Nitrogen 19 mg/dL (8-23); Calcium 8.1 mg/dL (8.6-10.3); Carbon Dioxide 35 mEq/L (23-29); Chloride 102 mEq/L (98-107); Glucose 127 mg/dL (70-105); Osmolality,Calculated 296 (280-300); Potassium 3.6 mEq/L (3.5-5.1); Sodium 141 mEq/L (136-145); eGFR For African Americans > 60 (> 60); eGFR For Non-African Americans > 60 (> 60)
[2020-01-20 07:29] VITALS: BP 117/68
[2020-01-20] MEDS: Budesonide/Formoterol 160/4.5 1 PUFF INH IH SCH (07:29)
[2020-01-20 07:43] LABS: Folate 3.3 ng/mL (3.0-16.0)
[2020-01-20] MEDS: Nicotine 21 MG PATCH.TD24 TD SCH (09:07)
[2020-01-20] MEDS: Metoprolol XL (24 HR) Succ 25 MG TAB.ER.24H PO SCH (09:07)
[2020-01-20] MEDS: Azithromycin 250 MG TABLET PO SCH (09:07)
[2020-01-20] MEDS: *HR* LORazepam 1 MG TABLET PO SCH (09:07)
[2020-01-20] MEDS: Aspirin Enteric Coated 81 MG Tablet PO SCH (09:07)
== END 2020-01-20 11:40 | disposition home or self-care (01) | DRG 191 ==
LOC: 3ANU 03:18 → EMEROOARM 03:18 → SUATTDRO 07:40 → 3ANU 08:20
PROVIDERS: ADMIT Internal Medicine; ATTEND Internal Medicine

== ENCOUNTER 2020-08-17 04:54 | Inpatient (IN) ==
[2020-08-17] MEDS ORDERED: cefTRIAXone 1,000 MG in Water for inj. (sterile) 10 ML IVP ONE (05:23)
[2020-08-17] MEDS ORDERED: Azithromycin 500 MG in 0.9 % Sodium Chloride 250 ML IVPB ONE (05:23)
[2020-08-17] MEDS ORDERED: Ipratropium/Albuterol Neb 3 ML IH ONE (05:23)
[2020-08-17 05:29] LABS: Basophils % 0.4 %; Eosinophils # 0.6 K/mcL (0.0-0.6); Hematocrit 39.8 % (35.3-44.9); Hemoglobin 12.6 g/dL (11.5-15.4); Immature Granulocytes % 0.7 % (0-4); Lymphocytes # 2.8 K/mcL (0.6-4.6); Lymphocytes % 24.7 %; Mean Corpuscular HGB Conc 31.7 g/dL (31.6-35.5); Mean Corpuscular Volume 94.8 fL (83.0-100.0); Mean Platelet Volume 9.3 fL (9.4-12.4); Monocytes % 8.9 %; Neutrophils # 6.8 K/mcL (1.6-8.9); Platelet Count 254 K/mcL (140-400); Red Cell Distribution Width 12.2 % (11.5-14.5); Segmented Neutrophils % 60.3 %; White Blood Count 11.3 K/mcL (4.3-11.1)
[2020-08-17] MEDS ORDERED: Isovue-370 500 ML BOTTLE IVP ONE (05:53)
[2020-08-17] MEDS ORDERED: *HR* OxyCODONE/APAP 10/325 TABLET PO STA (05:54)
[2020-08-17 05:56] LABS: Alanine Aminotransferase 18 Units/L (7-52); Albumin 4.3 g/dL (3.5-5.7); Albumin/Globulin Ratio 1.5 (1.1-2.2); Alkaline Phosphatase 73 Units/L (34-104); Aspartate Amino Transferase 20 Units/L (13-39); BUN/Creatinine Ratio 19 (6-26); Bilirubin,Direct 0.1 mg/dL (0.0-0.2); Bilirubin,Indirect 0.2 mg/dL (0.0-1.0); Bilirubin,Total 0.3 mg/dL (0.3-1.0); Blood Urea Nitrogen 13 mg/dL (8-23); Calcium 8.9 mg/dL (8.6-10.3); Carbon Dioxide 35 mEq/L (23-29); Chloride 100 mEq/L (98-107); Globulin 2.8 g/dL (2.4-3.5); Glucose 136 mg/dL (70-105); Osmolality,Calculated 290 (280-300); Potassium 4.7 mEq/L (3.5-5.1); Sodium 139 mEq/L (136-145); Total Protein 7.1 g/dL (6.4-8.9); Troponin I < 0.03 ng/mL (< 0.04); eGFR For African Americans > 60 (> 60); eGFR For Non-African Americans > 60 (> 60)
[2020-08-17] MEDS ORDERED: methylPREDNISolone 125 MG/2 ML VIAL IVP ONE (07:33)
[2020-08-17] MEDS ORDERED: Naloxone 0.4 MG/ML INJ IVP PRN (07:50)
[2020-08-17] MEDS: Aspirin Enteric Coated 81 MG Tablet PO SCH (09:45)
[2020-08-17] MEDS: Metoprolol XL (24 HR) Succ 25 MG TAB.ER.24H PO SCH (09:46)
[2020-08-17] MEDS: Cholecalciferol (D-3) 1,000 UNIT (25MCG) TABLET PO SCH (09:46)
[2020-08-17] MEDS: *HR* LORazepam 1 MG TABLET PO SCH ×3 (09:48→20:55)
[2020-08-17] MEDS: Budesonide/Formoterol 160/4.5 1 PUFF INH IH SCH ×2 (12:19→20:04)
[2020-08-17] MEDS: *HR* Heparin 5,000 UNIT/ML VIAL SQ SCH ×2 (13:25→20:55)
[2020-08-17] MEDS: *HR* OxyCODONE/APAP 10/325 TABLET PO PRN ×2 (16:15→21:02)
[2020-08-17] MEDS: Ipratropium/Albuterol Neb 3 ML IH PRN (20:05)
[2020-08-17] MEDS: traZODone 50 MG TABLET PO SCH (20:55)
[2020-08-18] MEDS: Ipratropium/Albuterol Neb 3 ML IH PRN ×2 (00:07→04:14)
[2020-08-18 02:30] LABS: Basophils % 0.1 %; Hematocrit 35.2 % (35.3-44.9); Hemoglobin 11.3 g/dL (11.5-15.4); Immature Granulocytes % 1.2 % (0-4); Lymphocytes # 0.6 K/mcL (0.6-4.6); Lymphocytes % 6.1 %; Mean Corpuscular HGB Conc 32.1 g/dL (31.6-35.5); Mean Corpuscular Hemoglobin 30.1 pg (28.0-33.3); Mean Corpuscular Volume 93.6 fL (83.0-100.0); Mean Platelet Volume 9.8 fL (9.4-12.4); Monocytes # 0.4 K/mcL (0.0-1.3); Monocytes % 4.8 %; Platelet Count 227 K/mcL (140-400); Red Blood Count 3.76 M/mcL (3.82-4.97); Red Cell Distribution Width 12.2 % (11.5-14.5); Segmented Neutrophils % 87.8 %; White Blood Count 9.1 K/mcL (4.3-11.1)
[2020-08-18 02:52] LABS: BUN/Creatinine Ratio 25 (6-26); Blood Urea Nitrogen 15 mg/dL (8-23); Carbon Dioxide 30 mEq/L (23-29); Chloride 101 mEq/L (98-107); Glucose 220 mg/dL (70-105); Osmolality,Calculated 296 (280-300); Potassium 4.1 mEq/L (3.5-5.1); Sodium 139 mEq/L (136-145); eGFR For African Americans > 60 (> 60); eGFR For Non-African Americans > 60 (> 60)
[2020-08-18] MEDS: *HR* OxyCODONE/APAP 10/325 TABLET PO PRN ×5 (03:15→21:37)
[2020-08-18] MEDS: *HR* Heparin 5,000 UNIT/ML VIAL SQ SCH ×3 (05:25→21:37)
[2020-08-18] MEDS: *HR* LORazepam 1 MG TABLET PO SCH ×3 (05:31→21:37)
[2020-08-18] MEDS ORDERED: Doxycycline 100 MG in 0.9 % Sodium Chloride Mini Bag 100 ML IVPB SCH (07:44)
[2020-08-18] MEDS: Ipratropium/Albuterol Neb 3 ML IH SCH ×5 (08:27→21:08)
[2020-08-18] MEDS: Budesonide/Formoterol 160/4.5 1 PUFF INH IH SCH ×2 (08:28→21:08)
[2020-08-18] MEDS: Cholecalciferol (D-3) 1,000 UNIT (25MCG) TABLET PO SCH (08:45)
[2020-08-18] MEDS: Metoprolol XL (24 HR) Succ 25 MG TAB.ER.24H PO SCH (08:45)
[2020-08-18] MEDS: Aspirin Enteric Coated 81 MG Tablet PO SCH (08:56)
[2020-08-18] MEDS: methylPREDNISolone 125 MG/2 ML VIAL IVP SCH ×2 (09:17→17:34)
[2020-08-18] MEDS: Doxycycline 100 MG CAPSULE PO SCH ×2 (09:18→21:37)
[2020-08-18] MEDS: traZODone 50 MG TABLET PO SCH (21:37)
[2020-08-19] MEDS: methylPREDNISolone 125 MG/2 ML VIAL IVP SCH ×3 (00:12→16:09)
[2020-08-19] MEDS: Ipratropium/Albuterol Neb 3 ML IH SCH ×7 (00:55→23:12)
[2020-08-19] MEDS: *HR* OxyCODONE/APAP 10/325 TABLET PO PRN ×5 (01:37→20:36)
[2020-08-19] MEDS: *HR* Heparin 5,000 UNIT/ML VIAL SQ SCH ×3 (05:39→20:36)
[2020-08-19 07:17] LABS: Basophils % 0.1 %; Hematocrit 34.3 % (35.3-44.9); Hemoglobin 10.9 g/dL (11.5-15.4); Lymphocytes # 0.8 K/mcL (0.6-4.6); Lymphocytes % 5.3 %; Mean Corpuscular HGB Conc 31.8 g/dL (31.6-35.5); Mean Corpuscular Hemoglobin 29.9 pg (28.0-33.3); Mean Corpuscular Volume 94.2 fL (83.0-100.0); Mean Platelet Volume 9.9 fL (9.4-12.4); Monocytes # 0.5 K/mcL (0.0-1.3); Monocytes % 3.3 %; Neutrophils # 13.4 K/mcL (1.6-8.9); Platelet Count 254 K/mcL (140-400); Red Blood Count 3.64 M/mcL (3.82-4.97); Red Cell Distribution Width 12.3 % (11.5-14.5); Segmented Neutrophils % 90.3 %; White Blood Count 14.8 K/mcL (4.3-11.1)
[2020-08-19 07:38] LABS: BUN/Creatinine Ratio 41 (6-26); Blood Urea Nitrogen 25 mg/dL (8-23); Calcium 8.9 mg/dL (8.6-10.3); Carbon Dioxide 28 mEq/L (23-29); Chloride 101 mEq/L (98-107); Glucose 284 mg/dL (70-105); Osmolality,Calculated 303 (280-300); Sodium 139 mEq/L (136-145); eGFR For African Americans > 60 (> 60); eGFR For Non-African Americans > 60 (> 60)
[2020-08-19] MEDS: Budesonide/Formoterol 160/4.5 1 PUFF INH IH SCH ×2 (08:17→20:14)
[2020-08-19] MEDS: Aspirin Enteric Coated 81 MG Tablet PO SCH (09:23)
[2020-08-19] MEDS: Doxycycline 100 MG CAPSULE PO SCH ×2 (09:23→20:36)
[2020-08-19] MEDS: *HR* LORazepam 1 MG TABLET PO SCH ×3 (09:23→20:36)
[2020-08-19] MEDS: Cholecalciferol (D-3) 1,000 UNIT (25MCG) TABLET PO SCH (09:23)
[2020-08-19] MEDS: Metoprolol XL (24 HR) Succ 25 MG TAB.ER.24H PO SCH (09:23)
[2020-08-19] MEDS: Nitroglycerin 0.4 MG TAB.SUBL SL SCH ×3 (11:45→12:31)
[2020-08-19] MEDS ORDERED: D5% in Water 1,000 ML IVC PRN (14:01)
[2020-08-19] MEDS ORDERED: *HR* Dextrose 50 % in Water (Vial) 50 ML VIAL IVP PRN (14:01)
[2020-08-19] MEDS ORDERED: Dextrose Gel 15 GM/37.5 ML TUBE PO PRN ×2 (14:01)
[2020-08-19] MEDS: Insulin LISPRO 300 UNITS/3 ML VIAL SUBQ SCH (17:47)
[2020-08-19] MEDS: traZODone 50 MG TABLET PO SCH (20:36)
[2020-08-19] MEDS ORDERED: Insulin LISPRO 300 UNITS/3 ML VIAL SUBQ SCH (21:00)
[2020-08-19] MEDS ORDERED: Simethicone 80 MG TAB.CHEW PO PRN (21:02)
[2020-08-19] MEDS: MethylPREDNISolone 40 MG/ML VIAL IVP SCH (23:24)
[2020-08-20] MEDS: *HR* OxyCODONE/APAP 10/325 TABLET PO PRN ×3 (00:33→10:30)
[2020-08-20] MEDS: Ipratropium/Albuterol Neb 3 ML IH SCH ×3 (03:51→11:32)
[2020-08-20] MEDS: *HR* Heparin 5,000 UNIT/ML VIAL SQ SCH (05:22)
[2020-08-20 06:08] LABS: Basophils % 0.2 %; Hematocrit 35.3 % (35.3-44.9); Hemoglobin 11.1 g/dL (11.5-15.4); Immature Granulocytes % 1.3 % (0-4); Lymphocytes # 0.7 K/mcL (0.6-4.6); Lymphocytes % 5.5 %; Mean Corpuscular HGB Conc 31.4 g/dL (31.6-35.5); Mean Corpuscular Volume 95.4 fL (83.0-100.0); Mean Platelet Volume 9.8 fL (9.4-12.4); Monocytes # 0.4 K/mcL (0.0-1.3); Monocytes % 3.2 %; Neutrophils # 11.1 K/mcL (1.6-8.9); Platelet Count 267 K/mcL (140-400); Red Cell Distribution Width 12.4 % (11.5-14.5); Segmented Neutrophils % 89.8 %; White Blood Count 12.3 K/mcL (4.3-11.1)
[2020-08-20 06:25] LABS: Estimated Average Glucose 143 mg/dl; Hemoglobin A1C 6.6 %
[2020-08-20 06:36] LABS: BUN/Creatinine Ratio 34 (6-26); Blood Urea Nitrogen 22 mg/dL (8-23); Calcium 8.9 mg/dL (8.6-10.3); Carbon Dioxide 29 mEq/L (23-29); Chloride 101 mEq/L (98-107); Glucose 329 mg/dL (70-105); Osmolality,Calculated 304 (280-300); Sodium 139 mEq/L (136-145); eGFR For African Americans > 60 (> 60); eGFR For Non-African Americans > 60 (> 60)
[2020-08-20 07:02] VITALS: BP 152/85
[2020-08-20] MEDS: Aspirin Enteric Coated 81 MG Tablet PO SCH (10:23)
[2020-08-20] MEDS: Metoprolol XL (24 HR) Succ 25 MG TAB.ER.24H PO SCH (10:24)
[2020-08-20] MEDS: Cholecalciferol (D-3) 1,000 UNIT (25MCG) TABLET PO SCH (10:24)
[2020-08-20] MEDS: *HR* LORazepam 1 MG TABLET PO SCH (10:24)
[2020-08-20] MEDS: MethylPREDNISolone 40 MG/ML VIAL IVP SCH (10:25)
[2020-08-20] MEDS: Doxycycline 100 MG CAPSULE PO SCH (10:25)
[2020-08-20] MEDS: Insulin LISPRO 300 UNITS/3 ML VIAL SUBQ SCH (10:36)
[2020-08-20] MEDS: Budesonide/Formoterol 160/4.5 1 PUFF INH IH SCH (11:32)
== END 2020-08-20 12:40 | disposition home or self-care (01) | DRG 189 ==
LOC: 2NENU 04:54 → EMEROOARM 04:54 → SUATTDRO 07:54 → 2NENU 09:14
PROVIDERS: ADMIT Internal Medicine; ATTEND Family Medicine

== ENCOUNTER 2020-08-31 05:17 | Inpatient (IN) ==
[2020-08-31] MEDS ORDERED: Isovue-370 500 ML BOTTLE IVP ONE (05:37)
[2020-08-31] MEDS ORDERED: *HR* FentaNYL (PF) 100 MCG/2 ML VIAL IVP ONE (05:38)
[2020-08-31 06:20] LABS: Basophils # 0.1 K/mcL (0.0-0.2); Basophils % 0.4 %; Eosinophils # 0.3 K/mcL (0.0-0.6); Eosinophils % 2.1 %; Hematocrit 39.7 % (35.3-44.9); Hemoglobin 12.4 g/dL (11.5-15.4); Immature Granulocytes % 1.8 % (0-4); Lymphocytes # 2.4 K/mcL (0.6-4.6); Lymphocytes % 17.9 %; Mean Corpuscular HGB Conc 31.2 g/dL (31.6-35.5); Mean Corpuscular Hemoglobin 30.5 pg (28.0-33.3); Mean Corpuscular Volume 97.5 fL (83.0-100.0); Mean Platelet Volume 9.1 fL (9.4-12.4); Monocytes # 0.7 K/mcL (0.0-1.3); Monocytes % 5.3 %; Neutrophils # 9.8 K/mcL (1.6-8.9); Platelet Count 193 K/mcL (140-400); Red Blood Count 4.07 M/mcL (3.82-4.97); Red Cell Distribution Width 12.3 % (11.5-14.5); Segmented Neutrophils % 72.5 %; White Blood Count 13.6 K/mcL (4.3-11.1)
[2020-08-31 06:42] LABS: BUN/Creatinine Ratio 38 (6-26); Blood Urea Nitrogen 22 mg/dL (8-23); Carbon Dioxide 38 mEq/L (23-29); Chloride 96 mEq/L (98-107); Glucose 149 mg/dL (70-105); Osmolality,Calculated 296 (280-300); Potassium 4.3 mEq/L (3.5-5.1); Sodium 140 mEq/L (136-145); eGFR For African Americans > 60 (> 60); eGFR For Non-African Americans > 60 (> 60)
[2020-08-31 06:43] LABS: Troponin I < 0.03 ng/mL (< 0.04)
[2020-08-31] MEDS ORDERED: Ipratropium/Albuterol Neb 3 ML IH ONE (08:52)
[2020-08-31] MEDS ORDERED: Aspirin 81 MG TAB.CHEW PO ONE (09:40)
[2020-08-31] MEDS ORDERED: Naloxone 0.4 MG/ML INJ IVP PRN (10:08)
[2020-08-31] MEDS ORDERED: Acetaminophen 325 MG TABLET PO PRN (10:22)
[2020-08-31] MEDS ORDERED: Ondansetron 4 MG/2 ML VIAL IVP PRN (10:22)
[2020-08-31] MEDS: *HR* LORazepam 1 MG TABLET PO PRN (16:43)
[2020-08-31] MEDS: *HR* OxyCODONE/APAP 10/325 TABLET PO PRN ×2 (16:43→21:23)
[2020-09-01] MEDS: *HR* LORazepam 1 MG TABLET PO PRN ×2 (01:01→08:04)
[2020-09-01] MEDS: *HR* OxyCODONE/APAP 10/325 TABLET PO PRN ×5 (02:07→22:02)
[2020-09-01 03:51] LABS: Hematocrit 40.5 % (35.3-44.9); Hemoglobin 12.5 g/dL (11.5-15.4); Mean Corpuscular HGB Conc 30.9 g/dL (31.6-35.5); Mean Corpuscular Volume 97.4 fL (83.0-100.0); Mean Platelet Volume 9.2 fL (9.4-12.4); Platelet Count 210 K/mcL (140-400); Red Blood Count 4.16 M/mcL (3.82-4.97); Red Cell Distribution Width 12.4 % (11.5-14.5)
[2020-09-01 04:10] LABS: BUN/Creatinine Ratio 24 (6-26); Blood Urea Nitrogen 12 mg/dL (8-23); Calcium 9.2 mg/dL (8.6-10.3); Carbon Dioxide 37 mEq/L (23-29); Chloride 98 mEq/L (98-107); Glucose 122 mg/dL (70-105); Magnesium 1.7 mg/dL (1.6-2.6); Osmolality,Calculated 289 (280-300); Potassium 4.4 mEq/L (3.5-5.1); Sodium 139 mEq/L (136-145); eGFR For African Americans > 60 (> 60); eGFR For Non-African Americans > 60 (> 60)
[2020-09-01] MEDS: *HR* LORazepam 1 MG TABLET PO SCH ×3 (10:51→21:53)
[2020-09-01] MEDS: Aspirin Enteric Coated 81 MG Tablet PO SCH ×2 (11:30→12:28)
[2020-09-01] MEDS: Cholecalciferol (D-3) 1,000 UNIT (25MCG) TABLET PO SCH ×3 (11:31→23:51)
[2020-09-01] MEDS: Metoprolol XL (24 HR) Succ 25 MG TAB.ER.24H PO SCH ×2 (11:31→12:28)
[2020-09-01] MEDS: *HR* Heparin 5,000 UNIT/ML VIAL SQ SCH (17:07)
[2020-09-01] MEDS: Ipratropium/Albuterol Neb 3 ML IH PRN ×2 (19:54→23:29)
[2020-09-01] MEDS: traZODone 50 MG TABLET PO SCH (21:53)
[2020-09-02] MEDS: Ipratropium/Albuterol Neb 3 ML IH PRN (04:04)
[2020-09-02 04:07] LABS: Basophils % 0.2 %; Eosinophils # 0.2 K/mcL (0.0-0.6); Hematocrit 39.6 % (35.3-44.9); Hemoglobin 12.6 g/dL (11.5-15.4); Immature Granulocytes % 1.1 % (0-4); Lymphocytes # 1.7 K/mcL (0.6-4.6); Lymphocytes % 17.5 %; Mean Corpuscular HGB Conc 31.8 g/dL (31.6-35.5); Mean Corpuscular Hemoglobin 30.9 pg (28.0-33.3); Mean Corpuscular Volume 97.1 fL (83.0-100.0); Mean Platelet Volume 9.1 fL (9.4-12.4); Monocytes # 0.7 K/mcL (0.0-1.3); Monocytes % 7.5 %; Neutrophils # 6.8 K/mcL (1.6-8.9); Platelet Count 211 K/mcL (140-400); Red Blood Count 4.08 M/mcL (3.82-4.97); Red Cell Distribution Width 12.3 % (11.5-14.5); Segmented Neutrophils % 71.7 %; White Blood Count 9.5 K/mcL (4.3-11.1)
[2020-09-02 04:26] LABS: BUN/Creatinine Ratio 27 (6-26); Blood Urea Nitrogen 19 mg/dL (8-23); Calcium 9.5 mg/dL (8.6-10.3); Carbon Dioxide 38 mEq/L (23-29); Chloride 94 mEq/L (98-107); Glucose 200 mg/dL (70-105); Magnesium 1.8 mg/dL (1.6-2.6); Osmolality,Calculated 292 (280-300); Phosphorous 3.7 mg/dL (2.7-4.5); Potassium 4.1 mEq/L (3.5-5.1); Sodium 137 mEq/L (136-145); eGFR For African Americans > 60 (> 60); eGFR For Non-African Americans > 60 (> 60)
[2020-09-02] MEDS: *HR* OxyCODONE/APAP 10/325 TABLET PO PRN ×4 (06:23→20:07)
[2020-09-02] MEDS: *HR* Heparin 5,000 UNIT/ML VIAL SQ SCH ×2 (06:23→17:08)
[2020-09-02] MEDS: Metoprolol XL (24 HR) Succ 25 MG TAB.ER.24H PO SCH (08:42)
[2020-09-02] MEDS: *HR* LORazepam 1 MG TABLET PO SCH ×3 (08:42→20:00)
[2020-09-02] MEDS: Aspirin Enteric Coated 81 MG Tablet PO SCH (08:42)
[2020-09-02] MEDS: Simethicone 80 MG TAB.CHEW PO PRN (09:00)
[2020-09-02] MEDS: Morphine Sulfate 2 MG/ML SYRINGE IVP ONE ×2 (13:57→14:13)
[2020-09-02] MEDS: *HR* LORazepam 2 MG/ML VIAL IVP ONE ×2 (13:57→14:13)
[2020-09-02] MEDS ORDERED: Perflutren Lipid Microsphere 1.3 ML in 0.9 % Sodium Chloride 8.7 ML IVP PRN (16:47)
[2020-09-02] MEDS: traZODone 50 MG TABLET PO SCH (20:00)
[2020-09-03 01:25] LABS: Basophils % 0.2 %; Eosinophils # 0.2 K/mcL (0.0-0.6); Hematocrit 37.1 % (35.3-44.9); Hemoglobin 11.9 g/dL (11.5-15.4); Immature Granulocytes % 0.9 % (0-4); Lymphocytes # 1.7 K/mcL (0.6-4.6); Mean Corpuscular HGB Conc 32.1 g/dL (31.6-35.5); Mean Corpuscular Hemoglobin 30.6 pg (28.0-33.3); Mean Corpuscular Volume 95.4 fL (83.0-100.0); Mean Platelet Volume 9.5 fL (9.4-12.4); Monocytes # 0.9 K/mcL (0.0-1.3); Monocytes % 8.7 %; Neutrophils # 7.4 K/mcL (1.6-8.9); Platelet Count 209 K/mcL (140-400); Red Blood Count 3.89 M/mcL (3.82-4.97); Red Cell Distribution Width 12.4 % (11.5-14.5); Segmented Neutrophils % 72.2 %; White Blood Count 10.3 K/mcL (4.3-11.1)
[2020-09-03 02:16] LABS: BUN/Creatinine Ratio 28 (6-26); Blood Urea Nitrogen 17 mg/dL (8-23); Calcium 8.7 mg/dL (8.6-10.3); Carbon Dioxide 31 mEq/L (23-29); Chloride 96 mEq/L (98-107); Glucose 137 mg/dL (70-105); Magnesium 1.8 mg/dL (1.6-2.6); Osmolality,Calculated 286 (280-300); Phosphorous 3.5 mg/dL (2.7-4.5); Potassium 4.1 mEq/L (3.5-5.1); Sodium 136 mEq/L (136-145); eGFR For African Americans > 60 (> 60); eGFR For Non-African Americans > 60 (> 60)
[2020-09-03] MEDS: *HR* OxyCODONE/APAP 10/325 TABLET PO PRN ×5 (02:36→21:15)
[2020-09-03] MEDS: *HR* Heparin 5,000 UNIT/ML VIAL SQ SCH (05:56)
[2020-09-03] MEDS: *HR* LORazepam 1 MG TABLET PO SCH ×3 (10:53→21:15)
[2020-09-03] MEDS: Aspirin Enteric Coated 81 MG Tablet PO SCH (10:59)
[2020-09-03] MEDS: Cholecalciferol (D-3) 1,000 UNIT (25MCG) TABLET PO SCH (10:59)
[2020-09-03] MEDS: Metoprolol XL (24 HR) Succ 25 MG TAB.ER.24H PO SCH (10:59)
[2020-09-03] MEDS: traZODone 50 MG TABLET PO SCH (21:14)
[2020-09-04 01:35] LABS: Basophils % 0.3 %; Eosinophils # 0.2 K/mcL (0.0-0.6); Eosinophils % 3.8 %; Hematocrit 36.7 % (35.3-44.9); Hemoglobin 11.6 g/dL (11.5-15.4); Immature Granulocytes % 1.2 % (0-4); Lymphocytes # 1.7 K/mcL (0.6-4.6); Mean Corpuscular HGB Conc 31.6 g/dL (31.6-35.5); Mean Corpuscular Hemoglobin 30.3 pg (28.0-33.3); Mean Corpuscular Volume 95.8 fL (83.0-100.0); Mean Platelet Volume 9.5 fL (9.4-12.4); Monocytes # 0.6 K/mcL (0.0-1.3); Monocytes % 10.9 %; Neutrophils # 3.2 K/mcL (1.6-8.9); Platelet Count 214 K/mcL (140-400); Red Blood Count 3.83 M/mcL (3.82-4.97); Red Cell Distribution Width 12.3 % (11.5-14.5); Segmented Neutrophils % 54.8 %; White Blood Count 5.8 K/mcL (4.3-11.1)
[2020-09-04 02:19] LABS: BUN/Creatinine Ratio 27 (6-26); Blood Urea Nitrogen 19 mg/dL (8-23); Calcium 9.1 mg/dL (8.6-10.3); Carbon Dioxide 35 mEq/L (23-29); Chloride 96 mEq/L (98-107); Glucose 146 mg/dL (70-105); Magnesium 1.9 mg/dL (1.6-2.6); Osmolality,Calculated 293 (280-300); Potassium 3.9 mEq/L (3.5-5.1); Sodium 139 mEq/L (136-145); eGFR For African Americans > 60 (> 60); eGFR For Non-African Americans > 60 (> 60)
[2020-09-04] MEDS: *HR* OxyCODONE/APAP 10/325 TABLET PO PRN ×5 (04:02→20:22)
[2020-09-04] MEDS: Aspirin Enteric Coated 81 MG Tablet PO SCH (08:21)
[2020-09-04] MEDS: Metoprolol XL (24 HR) Succ 25 MG TAB.ER.24H PO SCH (08:21)
[2020-09-04] MEDS: Cholecalciferol (D-3) 1,000 UNIT (25MCG) TABLET PO SCH (08:21)
[2020-09-04] MEDS: *HR* LORazepam 1 MG TABLET PO SCH ×3 (08:21→20:17)
[2020-09-04] MEDS: Simethicone 80 MG TAB.CHEW PO PRN (08:38)
[2020-09-04] MEDS ORDERED: GuaiFENesin/Dextromethorphan TABLET PO PRN (09:11)
[2020-09-04] MEDS: predniSONE 20 MG TABLET PO SCH (12:33)
[2020-09-04] MEDS: Ipratropium/Albuterol Neb 3 ML IH PRN ×2 (13:34→23:25)
[2020-09-04] MEDS: traZODone 50 MG TABLET PO SCH (20:17)
[2020-09-05] MEDS: *HR* OxyCODONE/APAP 10/325 TABLET PO PRN ×3 (00:55→09:34)
[2020-09-05] MEDS: Ipratropium/Albuterol Neb 3 ML IH PRN ×3 (03:47→11:32)
[2020-09-05 07:23] VITALS: BP 124/77
[2020-09-05] MEDS: Aspirin Enteric Coated 81 MG Tablet PO SCH (07:52)
[2020-09-05] MEDS: *HR* LORazepam 1 MG TABLET PO SCH (07:53)
[2020-09-05] MEDS: predniSONE 20 MG TABLET PO SCH (07:53)
[2020-09-05] MEDS: Cholecalciferol (D-3) 1,000 UNIT (25MCG) TABLET PO SCH (07:53)
[2020-09-05] MEDS: Metoprolol XL (24 HR) Succ 25 MG TAB.ER.24H PO SCH (07:53)
== END 2020-09-05 12:09 | disposition home or self-care (01) | DRG 552 ==
LOC: EMEROOARM 05:17 → 2ANU 05:17 → SUATTDRO 09-01 16:32
PROVIDERS: ADMIT Internal Medicine; ATTEND Internal Medicine

== ENCOUNTER 2020-09-23 17:30 | Observation (INO) ==
[2020-09-23 18:26] LABS: Basophils % 0.3 %; Eosinophils # 0.3 K/mcL (0.0-0.6); Eosinophils % 3.4 %; Hematocrit 38.6 % (35.3-44.9); Hemoglobin 11.9 g/dL (11.5-15.4); Immature Granulocytes % 1.1 % (0-4); Lymphocytes # 1.7 K/mcL (0.6-4.6); Lymphocytes % 16.8 %; Mean Corpuscular HGB Conc 30.8 g/dL (31.6-35.5); Mean Corpuscular Hemoglobin 29.9 pg (28.0-33.3); Monocytes # 0.6 K/mcL (0.0-1.3); Monocytes % 6.3 %; Neutrophils # 7.2 K/mcL (1.6-8.9); Platelet Count 290 K/mcL (140-400); Red Blood Count 3.98 M/mcL (3.82-4.97); Red Cell Distribution Width 12.7 % (11.5-14.5); Segmented Neutrophils % 72.1 %
[2020-09-23] MEDS ORDERED: Ipratropium 1 PUFF INHALER IH ONE (18:30)
[2020-09-23] MEDS ORDERED: MethylPREDNISolone 40 MG/ML VIAL IVP ONE (18:31)
[2020-09-23 18:42] LABS: BUN/Creatinine Ratio 27 (6-26); Blood Urea Nitrogen 14 mg/dL (8-23); Calcium 8.9 mg/dL (8.6-10.3); Carbon Dioxide 42 mEq/L (23-29); Chloride 98 mEq/L (98-107); Glucose 168 mg/dL (70-105); Osmolality,Calculated 304 (280-300); Potassium 3.3 mEq/L (3.5-5.1); Sodium 145 mEq/L (136-145); Troponin I < 0.03 ng/mL (< 0.04); eGFR For African Americans > 60 (> 60); eGFR For Non-African Americans > 60 (> 60)
[2020-09-23] MEDS ORDERED: Ipratropium/Albuterol Neb 3 ML IH ONE (19:19)
[2020-09-23 19:30] LABS: VBG HCO3 42 mEq/L (21-27); VBG PCO2 79 mmHg (41-51); VBG PH 7.33 pH Units (7.32-7.42); VBG PO2 100 mmHg (25-50)
[2020-09-23] MEDS ORDERED: *HR* OxyCODONE Immed Rel 5 MG TABLET PO ONE (20:15)
[2020-09-23] MEDS ORDERED: Naloxone 0.4 MG/ML INJ IVP PRN (21:34)
[2020-09-23] MEDS ORDERED: Ondansetron 4 MG/2 ML VIAL IVP PRN (21:34)
[2020-09-23] MEDS ORDERED: Melatonin 3 MG TABLET PO PRN (21:34)
[2020-09-23] MEDS ORDERED: Albuterol 2.5 MG/3 ML NEBULIZER IH PRN (22:43)
[2020-09-23] MEDS ORDERED: Ipratropium/Albuterol Neb 3 ML IH SCH (23:00)
[2020-09-23] MEDS ORDERED: Azithromycin 500 MG in 0.9 % Sodium Chloride 250 ML IVPB SCH (23:00)
[2020-09-23] MEDS: Nystatin POWDER 30 GM BOTTLE TP SCH (23:20)
[2020-09-24] MEDS: *HR* LORazepam 1 MG TABLET PO SCH ×2 (00:05→09:27)
[2020-09-24] MEDS: Ipratropium/Albuterol Neb 3 ML IH SCH ×4 (02:02→11:00)
[2020-09-24 02:45] LABS: Basophils % 0.1 %; Hemoglobin 11.1 g/dL (11.5-15.4); Immature Granulocytes % 1.2 % (0-4); Lymphocytes # 0.5 K/mcL (0.6-4.6); Lymphocytes % 7.3 %; Mean Corpuscular HGB Conc 31.7 g/dL (31.6-35.5); Mean Corpuscular Volume 94.6 fL (83.0-100.0); Mean Platelet Volume 9.3 fL (9.4-12.4); Monocytes # 0.1 K/mcL (0.0-1.3); Monocytes % 1.2 %; Neutrophils # 6.2 K/mcL (1.6-8.9); Platelet Count 268 K/mcL (140-400); Red Cell Distribution Width 12.5 % (11.5-14.5); Segmented Neutrophils % 90.2 %; White Blood Count 6.9 K/mcL (4.3-11.1)
[2020-09-24 03:17] LABS: Alanine Aminotransferase 22 Units/L (7-52); Albumin 3.5 g/dL (3.5-5.7); Albumin/Globulin Ratio 1.7 (1.1-2.2); Alkaline Phosphatase 62 Units/L (34-104); Aspartate Amino Transferase 11 Units/L (13-39); BUN/Creatinine Ratio 27 (6-26); Bilirubin,Total 0.3 mg/dL (0.3-1.0); Blood Urea Nitrogen 13 mg/dL (8-23); Calcium 8.5 mg/dL (8.6-10.3); Carbon Dioxide 40 mEq/L (23-29); Chloride 97 mEq/L (98-107); Globulin 2.1 g/dL (2.4-3.5); Glucose 240 mg/dL (70-105); Magnesium 1.5 mg/dL (1.6-2.6); Osmolality,Calculated 302 (280-300); Phosphorous 2.9 mg/dL (2.7-4.5); Potassium 3.9 mEq/L (3.5-5.1); Sodium 142 mEq/L (136-145); Total Protein 5.6 g/dL (6.4-8.9); Troponin I < 0.03 ng/mL (< 0.04); eGFR For African Americans > 60 (> 60); eGFR For Non-African Americans > 60 (> 60)
[2020-09-24] MEDS ORDERED: Magnesium Sulfate 1 GM/102 ML PIGGYBACK IVPB ONE (03:44)
[2020-09-24] MEDS ORDERED: *HR* Heparin 5,000 UNIT/ML VIAL SQ SCH (06:00)
[2020-09-24] MEDS: *HR* OxyCODONE Immed Rel 15 MG TABLET PO PRN ×2 (06:08→12:01)
[2020-09-24] MEDS ORDERED: Furosemide 20 MG TABLET PO SCH (08:00)
[2020-09-24] MEDS ORDERED: Metoprolol XL (24 HR) Succ 25 MG TAB.ER.24H PO SCH (09:00)
[2020-09-24] MEDS ORDERED: Aspirin Enteric Coated 81 MG Tablet PO SCH (09:00)
[2020-09-24] MEDS ORDERED: Budesonide/Formoterol 160/4.5 1 PUFF INH IH SCH ×2 (09:00→10:00)
[2020-09-24] MEDS ORDERED: predniSONE 20 MG TABLET PO SCH (09:00)
[2020-09-24] MEDS ORDERED: Cholecalciferol (D-3) 1,000 UNIT (25MCG) TABLET PO SCH (09:00)
[2020-09-24] MEDS: Nystatin POWDER 30 GM BOTTLE TP SCH (09:31)
[2020-09-24] MEDS ORDERED: Simethicone 80 MG TAB.CHEW PO PRN (09:37)
[2020-09-24 11:00] VITALS: BP 147/92
== END 2020-09-24 12:29 | disposition home health service (06) ==
LOC: 2ANU 17:30 → EMEROOARM 17:30 → 2ANU 21:03
PROVIDERS: ADMIT Internal Medicine; ATTEND Internal Medicine

== ENCOUNTER 2020-10-14 11:53 | Inpatient (IN) ==
[2020-10-14] MEDS ORDERED: Ipratropium/Albuterol Neb 3 ML IH ONE (13:14)
[2020-10-14] MEDS ORDERED: predniSONE 20 MG TABLET PO ONE (13:15)
[2020-10-14] MEDS ORDERED: Aspirin 81 MG TAB.CHEW PO ONE (13:39)
[2020-10-14 14:18] LABS: Basophils % 0.3 %; Eosinophils # 0.4 K/mcL (0.0-0.6); Eosinophils % 6.2 %; Hematocrit 38.4 % (35.3-44.9); Hemoglobin 12.3 g/dL (11.5-15.4); Immature Granulocytes % 0.3 % (0-4); Lymphocytes # 1.2 K/mcL (0.6-4.6); Mean Corpuscular Hemoglobin 29.8 pg (28.0-33.3); Mean Platelet Volume 9.6 fL (9.4-12.4); Monocytes # 0.5 K/mcL (0.0-1.3); Monocytes % 7.6 %; Neutrophils # 4.6 K/mcL (1.6-8.9); Platelet Count 272 K/mcL (140-400); Red Blood Count 4.13 M/mcL (3.82-4.97); Red Cell Distribution Width 12.3 % (11.5-14.5); Segmented Neutrophils % 67.6 %; White Blood Count 6.7 K/mcL (4.3-11.1)
[2020-10-14 14:58] LABS: BUN/Creatinine Ratio 16 (6-26); Blood Urea Nitrogen 8 mg/dL (8-23); Calcium 9.4 mg/dL (8.6-10.3); Carbon Dioxide 39 mEq/L (23-29); Chloride 94 mEq/L (98-107); Glucose 156 mg/dL (70-105); Osmolality,Calculated 294 (280-300); Potassium 3.6 mEq/L (3.5-5.1); Sodium 141 mEq/L (136-145); Troponin I < 0.03 ng/mL (< 0.04); eGFR For African Americans > 60 (> 60); eGFR For Non-African Americans > 60 (> 60)
[2020-10-14] MEDS ORDERED: Clindamycin 600 MG/50 ML 600 MG/50 ML IV.SOLN IVPB ONE (15:49)
[2020-10-14] MEDS ORDERED: Ondansetron 4 MG/2 ML VIAL IVP PRN (16:57)
[2020-10-14] MEDS ORDERED: Naloxone 0.4 MG/ML INJ IVP PRN (16:57)
[2020-10-14] MEDS ORDERED: Dextrose Gel 15 GM/37.5 ML TUBE PO PRN ×2 (18:20)
[2020-10-14] MEDS ORDERED: *HR* Dextrose 50 % in Water (Vial) 50 ML VIAL IVP PRN (18:20)
[2020-10-14] MEDS ORDERED: D5% in Water 1,000 ML IVC PRN (18:20)
[2020-10-14] MEDS: Ipratropium Neb 0.5 MG NEBULIZER IH SCH ×2 (18:52→21:29)
[2020-10-14] MEDS: Levalbuterol Neb 1.25 MG/3 ML IH SCH ×2 (18:53→21:29)
[2020-10-14] MEDS: *HR* OxyCODONE Immed Rel 15 MG TABLET PO PRN (19:45)
[2020-10-14] MEDS: *HR* LORazepam 1 MG TABLET PO PRN (19:45)
[2020-10-14] MEDS: cefTRIAXone 1,000 MG in Water for inj. (sterile) 10 ML IVP SCH (19:45)
[2020-10-14] MEDS: Insulin LISPRO 300 UNITS/3 ML VIAL SUBQ SCH (20:00)
[2020-10-14 20:30] LABS: Estimated Average Glucose 134 mg/dl; Hemoglobin A1C 6.3 %
[2020-10-14 20:41] LABS: INR 1.2; Prothrombin Time 13.4 Seconds (9.4-12.1)
[2020-10-14] MEDS ORDERED: Nitroglycerin 0.4 MG TAB.SUBL SL PRN (21:04)
[2020-10-14 21:20] LABS: Alanine Aminotransferase 45 Units/L (7-52); Albumin 3.8 g/dL (3.5-5.7); Albumin/Globulin Ratio 1.5 (1.1-2.2); Alkaline Phosphatase 60 Units/L (34-104); Aspartate Amino Transferase 35 Units/L (13-39); Bilirubin,Direct 0.1 mg/dL (0.0-0.2); Bilirubin,Indirect 0.3 mg/dL (0.0-1.0); Bilirubin,Total 0.4 mg/dL (0.3-1.0); C-Reactive Protein 6 mg/L (Less than 10); Globulin 2.5 g/dL (2.4-3.5); Magnesium 1.4 mg/dL (1.6-2.6); Phosphorous 3.3 mg/dL (2.7-4.5); Total Protein 6.3 g/dL (6.4-8.9); Troponin I < 0.03 ng/mL (< 0.04)
[2020-10-14 21:23] LABS: Adenovirus Not Detected (Not Detect); Bordetella Pertussis Not Detected (Not Detect); Chlamydophila pneumoniae Not Detected (Not Detect); Coronavirus 229E Not Detected (Not Detect); Coronavirus HKU1 Not Detected (Not Detect); Coronavirus NL63 Not Detected (Not Detect); Coronavirus OC43 Not Detected (Not Detect); Human Metapneumovirus Not Detected (Not Detect); Human Rhinovirus/Enterovirus Not Detected (Not Detect); Influenza A Subtype 2009 H1 Not Detected (Not Detect); Influenza B Not Detected (Not Detect); Mycoplasma pneumoniae Not Detected (Not Detect); Parainfluenza Virus 1 Not Detected (Not Detect); Parainfluenza Virus 2 Not Detected (Not Detect); Parainfluenza Virus 3 Not Detected (Not Detect); Parainfluenza Virus 4 Not Detected (Not Detect); Respiratory Syncytial Virus Not Detected (Not Detect); SARS-CoV-2 Not Detected (Not Detect)
[2020-10-15] MEDS: Ipratropium Neb 0.5 MG NEBULIZER IH SCH ×4 (03:42→23:04)
[2020-10-15] MEDS: Levalbuterol Neb 1.25 MG/3 ML IH SCH ×4 (03:42→23:04)
[2020-10-15] MEDS: *HR* Heparin 5,000 UNIT/ML VIAL SQ SCH ×2 (05:35→16:47)
[2020-10-15] MEDS: *HR* OxyCODONE Immed Rel 15 MG TABLET PO PRN ×4 (05:35→20:41)
[2020-10-15 06:03] LABS: Basophils % 0.2 %; Hematocrit 34.4 % (35.3-44.9); Immature Granulocytes % 0.4 % (0-4); Lymphocytes # 0.8 K/mcL (0.6-4.6); Lymphocytes % 16.9 %; Mean Corpuscular Volume 93.7 fL (83.0-100.0); Mean Platelet Volume 9.7 fL (9.4-12.4); Monocytes # 0.4 K/mcL (0.0-1.3); Neutrophils # 3.3 K/mcL (1.6-8.9); Platelet Count 252 K/mcL (140-400); Red Blood Count 3.67 M/mcL (3.82-4.97); Red Cell Distribution Width 12.2 % (11.5-14.5); Segmented Neutrophils % 73.5 %; White Blood Count 4.5 K/mcL (4.3-11.1)
[2020-10-15 06:20] LABS: BUN/Creatinine Ratio 25 (6-26); Blood Urea Nitrogen 13 mg/dL (8-23); Calcium 8.7 mg/dL (8.6-10.3); Carbon Dioxide 40 mEq/L (23-29); Chloride 96 mEq/L (98-107); Glucose 166 mg/dL (70-105); Osmolality,Calculated 294 (280-300); Potassium 3.7 mEq/L (3.5-5.1); Sodium 140 mEq/L (136-145); eGFR For African Americans > 60 (> 60); eGFR For Non-African Americans > 60 (> 60)
[2020-10-15 07:38] LABS: C-Reactive Protein < 5 mg/L (Less than 10)
[2020-10-15] MEDS: predniSONE 20 MG TABLET PO SCH (08:03)
[2020-10-15] MEDS: Metoprolol XL (24 HR) Succ 25 MG TAB.ER.24H PO SCH (08:03)
[2020-10-15] MEDS: Insulin LISPRO 300 UNITS/3 ML VIAL SUBQ SCH ×4 (08:04→20:40)
[2020-10-15] MEDS: cefTRIAXone 1,000 MG in Water for inj. (sterile) 10 ML IVP SCH (08:04)
[2020-10-15] MEDS: Aspirin 81 MG TAB.CHEW PO SCH (08:47)
[2020-10-15] MEDS: *HR* LORazepam 1 MG TABLET PO PRN ×3 (08:49→23:55)
[2020-10-15] MEDS ORDERED: Furosemide 20 MG/2 ML VIAL IVP ONE (11:06)
[2020-10-15 11:21] LABS: Bilirubin,Urine Negative (Negative); Blood,Urine Negative (Negative); Clarity,Urine Clear (Clear); Color,Urine Yellow (Yellow); Glucose,Urine (UA) Normal (Normal); Hyaline Casts,Urine Few per lpf (None Seen); Ketones,Urine Negative (Negative); Leukocyte Esterase,Urine Small (Negative); Mucus,Urine Few per lpf (None-Few); Nitrite,Urine Negative (Negative); PH,Urine 6.5 pH Units (5.0-8.0); Protein,Urine Trace mg/dL (Neg-Trace); RBC,Urine 0-3 per hpf (0-3); Specific Gravity,Urine 1.021 (1.010-1.025); Squamous Epithelial Cell,Urine Few per hpf (None-Few); Transitional Epi Cells,Urine Few per hpf (None-Few); Urobilinogen,Urine Normal (Normal)
[2020-10-15] MEDS: Piperacillin/Tazobactam 3.375 GM in 0.9 % Sodium Chloride Mini Bag 100 ML IVPB SCH ×2 (15:31→23:56)
[2020-10-15] MEDS: traZODone 50 MG TABLET PO SCH (20:40)
[2020-10-16] MEDS: Ipratropium Neb 0.5 MG NEBULIZER IH SCH ×4 (04:03→22:23)
[2020-10-16] MEDS: Levalbuterol Neb 1.25 MG/3 ML IH SCH ×4 (04:03→22:23)
[2020-10-16] MEDS: *HR* OxyCODONE Immed Rel 15 MG TABLET PO PRN ×4 (05:49→20:27)
[2020-10-16] MEDS: *HR* Heparin 5,000 UNIT/ML VIAL SQ SCH ×2 (05:50→16:59)
[2020-10-16 06:49] LABS: Basophils % 0.1 %; Eosinophils # 0.1 K/mcL (0.0-0.6); Eosinophils % 1.6 %; Hematocrit 31.5 % (35.3-44.9); Immature Granulocytes % 0.4 % (0-4); Lymphocytes # 2.2 K/mcL (0.6-4.6); Lymphocytes % 29.4 %; Mean Corpuscular HGB Conc 31.7 g/dL (31.6-35.5); Mean Corpuscular Hemoglobin 29.6 pg (28.0-33.3); Mean Corpuscular Volume 93.2 fL (83.0-100.0); Mean Platelet Volume 9.7 fL (9.4-12.4); Monocytes # 0.6 K/mcL (0.0-1.3); Monocytes % 7.3 %; Neutrophils # 4.7 K/mcL (1.6-8.9); Platelet Count 266 K/mcL (140-400); Red Blood Count 3.38 M/mcL (3.82-4.97); Red Cell Distribution Width 12.3 % (11.5-14.5); Segmented Neutrophils % 61.2 %
[2020-10-16 06:55] LABS: White Blood Count 7.6 K/mcL (4.3-11.1)
[2020-10-16 07:29] LABS: BUN/Creatinine Ratio 26 (6-26); Blood Urea Nitrogen 16 mg/dL (8-23); Calcium 8.5 mg/dL (8.6-10.3); Carbon Dioxide 42 mEq/L (23-29); Chloride 97 mEq/L (98-107); Glucose 130 mg/dL (70-105); Osmolality,Calculated 299 (280-300); Potassium 3.1 mEq/L (3.5-5.1); Sodium 143 mEq/L (136-145); eGFR For African Americans > 60 (> 60); eGFR For Non-African Americans > 60 (> 60)
[2020-10-16] MEDS: Insulin LISPRO 300 UNITS/3 ML VIAL SUBQ SCH ×4 (07:53→20:26)
[2020-10-16] MEDS: Aspirin 81 MG TAB.CHEW PO SCH (07:58)
[2020-10-16] MEDS: Metoprolol XL (24 HR) Succ 25 MG TAB.ER.24H PO SCH (07:58)
[2020-10-16] MEDS: predniSONE 20 MG TABLET PO SCH (07:58)
[2020-10-16] MEDS: Piperacillin/Tazobactam 3.375 GM in 0.9 % Sodium Chloride Mini Bag 100 ML IVPB SCH (07:59)
[2020-10-16] MEDS ORDERED: Furosemide 20 MG TABLET PO PRN (08:56)
[2020-10-16] MEDS: Budesonide/Formoterol 160/4.5 1 PUFF INH IH SCH ×2 (10:12→22:23)
[2020-10-16 10:18] LABS: ABG Base Excess 16 mEq/L (-2 to 3); ABG HCO3 45 mEq/L (21-27); ABG Oxygen Saturation 96 % (95-98); ABG PCO2 79 mmHg (35-45); ABG PH 7.36 pH Units (7.32-7.45); ABG PO2 88 mmHg (85-104); ABG TCO2 47 mEq/L (20-26)
[2020-10-16] MEDS: *HR* LORazepam 1 MG TABLET PO PRN (16:59)
[2020-10-16] MEDS: traZODone 50 MG TABLET PO SCH (20:26)
[2020-10-17] MEDS: *HR* LORazepam 1 MG TABLET PO PRN ×2 (00:55→11:02)
[2020-10-17] MEDS: Levalbuterol Neb 1.25 MG/3 ML IH SCH ×2 (03:53→11:18)
[2020-10-17] MEDS: Ipratropium Neb 0.5 MG NEBULIZER IH SCH ×2 (03:53→11:18)
[2020-10-17 04:59] LABS: Basophils % 0.2 %; Eosinophils % 0.5 %; Hematocrit 32.8 % (35.3-44.9); Hemoglobin 10.4 g/dL (11.5-15.4); Immature Granulocytes % 1.1 % (0-4); Lymphocytes # 2.2 K/mcL (0.6-4.6); Lymphocytes % 25.9 %; Mean Corpuscular HGB Conc 31.7 g/dL (31.6-35.5); Mean Corpuscular Volume 94.5 fL (83.0-100.0); Mean Platelet Volume 9.7 fL (9.4-12.4); Monocytes # 0.6 K/mcL (0.0-1.3); Neutrophils # 5.5 K/mcL (1.6-8.9); Platelet Count 287 K/mcL (140-400); Red Blood Count 3.47 M/mcL (3.82-4.97); Red Cell Distribution Width 12.5 % (11.5-14.5); Segmented Neutrophils % 65.3 %; White Blood Count 8.5 K/mcL (4.3-11.1)
[2020-10-17 05:16] LABS: BUN/Creatinine Ratio 31 (6-26); Blood Urea Nitrogen 18 mg/dL (8-23); Calcium 8.7 mg/dL (8.6-10.3); Carbon Dioxide 37 mEq/L (23-29); Chloride 100 mEq/L (98-107); Glucose 118 mg/dL (70-105); Magnesium 1.9 mg/dL (1.6-2.6); Osmolality,Calculated 295 (280-300); Phosphorous 2.7 mg/dL (2.7-4.5); Potassium 3.8 mEq/L (3.5-5.1); Sodium 141 mEq/L (136-145); eGFR For African Americans > 60 (> 60); eGFR For Non-African Americans > 60 (> 60)
[2020-10-17 05:19] LABS: % Iron Saturation 18 % (15-50); Iron 55 mcg/dL (50-170); Transferrin 221 mg/dL (203-362)
[2020-10-17 05:35] LABS: Ferritin 43 ng/mL (10-120)
[2020-10-17 05:41] LABS: Folate 8.7 ng/mL (3.0-16.0)
[2020-10-17] MEDS: *HR* Heparin 5,000 UNIT/ML VIAL SQ SCH (05:43)
[2020-10-17 06:33] VITALS: BP 120/79
[2020-10-17] MEDS: Insulin LISPRO 300 UNITS/3 ML VIAL SUBQ SCH (08:11)
[2020-10-17] MEDS: Aspirin 81 MG TAB.CHEW PO SCH (08:15)
[2020-10-17] MEDS: Metoprolol XL (24 HR) Succ 25 MG TAB.ER.24H PO SCH (08:15)
[2020-10-17] MEDS: *HR* OxyCODONE Immed Rel 15 MG TABLET PO PRN (08:15)
[2020-10-17] MEDS: predniSONE 20 MG TABLET PO SCH (08:16)
[2020-10-17] MEDS: Budesonide/Formoterol 160/4.5 1 PUFF INH IH SCH (11:18)
== END 2020-10-17 11:48 | disposition home health service (06) | DRG 191 ==
LOC: 3BNU 11:53 → EMEROOARM 11:53 → SUATTDRO 16:27 → 3BNU 17:00 → SUATTDRO 10-15 18:13
PROVIDERS: ADMIT General Practice; ATTEND Internal Medicine

== ENCOUNTER 2021-03-09 11:45 | Inpatient (IN) ==
[2021-03-09] MEDS ORDERED: methylPREDNISolone 125 MG/2 ML VIAL IVP ONE (11:54)
[2021-03-09 12:15] LABS: Basophils % 0.2 %; Eosinophils # 0.1 K/mcL (0.0-0.6); Eosinophils % 0.5 %; Hematocrit 40.5 % (35.3-44.9); Hemoglobin 12.8 g/dL (11.5-15.4); Immature Granulocytes % 0.2 % (0-4); Lymphocytes % 10.7 %; Mean Corpuscular HGB Conc 31.6 g/dL (31.6-35.5); Mean Corpuscular Hemoglobin 28.3 pg (28.0-33.3); Mean Corpuscular Volume 89.6 fL (83.0-100.0); Mean Platelet Volume 9.7 fL (9.4-12.4); Monocytes # 0.4 K/mcL (0.0-1.3); Monocytes % 4.2 %; Neutrophils # 7.9 K/mcL (1.6-8.9); Platelet Count 192 K/mcL (140-400); Red Blood Count 4.52 M/mcL (3.82-4.97); Segmented Neutrophils % 84.2 %; White Blood Count 9.4 K/mcL (4.3-11.1)
[2021-03-09] MEDS ORDERED: *HR* LORazepam 1 MG TABLET PO ONE (12:16)
[2021-03-09 12:24] LABS: ABG Base Excess 9 mEq/L (-2 to 3); ABG HCO3 39 mEq/L (21-27); ABG Oxygen Saturation 87 % (95-98); ABG PCO2 85 mmHg (35-45); ABG PH 7.28 pH Units (7.32-7.45); ABG PO2 63 mmHg (85-104); ABG TCO2 42 mEq/L (20-26)
[2021-03-09 12:33] LABS: INR 1.2; Prothrombin Time 13.8 Seconds (9.4-12.1)
[2021-03-09 12:36] LABS: Activated Partial Thrombo Time 39.8 Seconds (26.0-36.0)
[2021-03-09 12:40] LABS: Alanine Aminotransferase 8 Units/L (7-52); Albumin 4.1 g/dL (3.5-5.7); Albumin/Globulin Ratio 1.4 (1.1-2.2); Alkaline Phosphatase 75 Units/L (34-104); Aspartate Amino Transferase 11 Units/L (13-39); BUN/Creatinine Ratio 15 (6-26); Bilirubin,Direct 0.1 mg/dL (0.0-0.2); Bilirubin,Indirect 0.2 mg/dL (0.0-1.0); Bilirubin,Total 0.3 mg/dL (0.3-1.0); Blood Urea Nitrogen 8 mg/dL (8-23); Calcium 9.1 mg/dL (8.6-10.3); Carbon Dioxide 37 mEq/L (23-29); Chloride 95 mEq/L (98-107); Globulin 2.9 g/dL (2.4-3.5); Glucose 170 mg/dL (70-105); Osmolality,Calculated 290 (280-300); Potassium 4.1 mEq/L (3.5-5.1); Sodium 139 mEq/L (136-145); eGFR For African Americans > 60 (> 60); eGFR For Non-African Americans > 60 (> 60)
[2021-03-09 12:48] LABS: Troponin I < 0.03 ng/mL (< 0.04)
[2021-03-09] MEDS ORDERED: Acetaminophen 325 MG TABLET PO PRN (14:18)
[2021-03-09] MEDS ORDERED: Naloxone 0.4 MG/ML INJ IVP PRN (14:18)
[2021-03-09] MEDS ORDERED: *HR* HYDROcodone/Acet 5/325 mg TABLET PO PRN (14:18)
[2021-03-09] MEDS ORDERED: Ondansetron 4 MG/2 ML VIAL IVP PRN (14:18)
[2021-03-09] MEDS ORDERED: Melatonin 3 MG TABLET PO PRN (14:18)
[2021-03-09] MEDS ORDERED: *HR* LORazepam 0.5 MG TABLET PO PRN (14:57)
[2021-03-09 15:00] LABS: Magnesium 1.3 mg/dL (1.6-2.6); Phosphorous 3.4 mg/dL (2.7-4.5)
[2021-03-09 15:30] LABS: Thyroid Stimulating Hormone 0.099 mcIU/mL (0.340-5.600)
[2021-03-09] MEDS: Saline Nasal Spray 44 ML BOTTLE NS SCH ×3 (16:05→22:00)
[2021-03-09] MEDS: levoFLOXacin 500 MG TABLET PO SCH (16:05)
[2021-03-09 16:51] LABS: ABG Base Excess 12 mEq/L (-2 to 3); ABG HCO3 42 mEq/L (21-27); ABG Oxygen Saturation 93 % (95-98); ABG PCO2 87 mmHg (35-45); ABG PH 7.29 pH Units (7.32-7.45); ABG PO2 79 mmHg (85-104); ABG TCO2 45 mEq/L (20-26)
[2021-03-09] MEDS: MethylPREDNISolone 40 MG/ML VIAL IVP SCH ×2 (17:12→23:10)
[2021-03-09] MEDS: Ipratropium/Albuterol Neb 3 ML IH SCH ×3 (17:19→23:50)
[2021-03-09] MEDS: Budesonide/Formoterol 160/4.5 1 PUFF INH IH SCH (19:49)
[2021-03-09] MEDS: Lactobacillus 1 EACH CAP.SPRINK PO SCH (20:13)
[2021-03-09] MEDS: Artificial Tears SOLN 15 ML BOTTLE BOTH EYES SCH (20:14)
[2021-03-09] MEDS: Chlorhexidine Rinse 15 ML MOUTHWASH MM SCH (20:16)
[2021-03-10] MEDS: *HR* OxyCODONE Immed Rel 5 MG TABLET PO PRN ×2 (00:05→05:23)
[2021-03-10 02:28] LABS: Adenovirus Not Detected (Not Detect); Bordetella Pertussis Not Detected (Not Detect); Chlamydophila pneumoniae Not Detected (Not Detect); Coronavirus 229E Not Detected (Not Detect); Coronavirus HKU1 Not Detected (Not Detect); Coronavirus NL63 Not Detected (Not Detect); Coronavirus OC43 Not Detected (Not Detect); Human Metapneumovirus Not Detected (Not Detect); Human Rhinovirus/Enterovirus DETECTED (Not Detect); Influenza A Subtype 2009 H1 Not Detected (Not Detect); Influenza B Not Detected (Not Detect); Mycoplasma pneumoniae Not Detected (Not Detect); Parainfluenza Virus 1 Not Detected (Not Detect); Parainfluenza Virus 2 Not Detected (Not Detect); Parainfluenza Virus 3 Not Detected (Not Detect); Parainfluenza Virus 4 Not Detected (Not Detect); Respiratory Syncytial Virus Not Detected (Not Detect); SARS-CoV-2 Not Detected (Not Detect)
[2021-03-10] MEDS: Saline Nasal Spray 44 ML BOTTLE NS SCH ×6 (03:16→23:05)
[2021-03-10] MEDS: Ipratropium/Albuterol Neb 3 ML IH SCH ×6 (03:20→23:30)
[2021-03-10] MEDS: *HR* Enoxaparin 40 MG/0.4 ML SYRINGE SQ SCH (05:23)
[2021-03-10] MEDS: MethylPREDNISolone 40 MG/ML VIAL IVP SCH ×2 (05:23→18:17)
[2021-03-10 06:40] LABS: Hemoglobin 11.9 g/dL (11.5-15.4); Immature Granulocytes % 0.2 % (0-4); Lymphocytes # 0.6 K/mcL (0.6-4.6); Lymphocytes % 13.1 %; Mean Corpuscular HGB Conc 32.2 g/dL (31.6-35.5); Mean Corpuscular Hemoglobin 28.3 pg (28.0-33.3); Mean Corpuscular Volume 88.1 fL (83.0-100.0); Mean Platelet Volume 9.8 fL (9.4-12.4); Monocytes # 0.1 K/mcL (0.0-1.3); Monocytes % 2.7 %; Neutrophils # 3.8 K/mcL (1.6-8.9); Platelet Count 213 K/mcL (140-400); Red Cell Distribution Width 11.9 % (11.5-14.5); White Blood Count 4.5 K/mcL (4.3-11.1)
[2021-03-10 06:56] LABS: Alanine Aminotransferase 7 Units/L (7-52); Albumin/Globulin Ratio 1.7 (1.1-2.2); Alkaline Phosphatase 67 Units/L (34-104); Aspartate Amino Transferase 9 Units/L (13-39); BUN/Creatinine Ratio 22 (6-26); Bilirubin,Total 0.3 mg/dL (0.3-1.0); Blood Urea Nitrogen 11 mg/dL (8-23); Calcium 9.2 mg/dL (8.6-10.3); Carbon Dioxide 36 mEq/L (23-29); Chloride 96 mEq/L (98-107); Globulin 2.3 g/dL (2.4-3.5); Glucose 204 mg/dL (70-105); Magnesium 2.1 mg/dL (1.6-2.6); Osmolality,Calculated 295 (280-300); Phosphorous 3.4 mg/dL (2.7-4.5); Potassium 3.2 mEq/L (3.5-5.1); Sodium 140 mEq/L (136-145); Total Protein 6.3 g/dL (6.4-8.9); eGFR For African Americans > 60 (> 60); eGFR For Non-African Americans > 60 (> 60)
[2021-03-10] MEDS: Budesonide/Formoterol 160/4.5 1 PUFF INH IH SCH ×2 (07:23→20:17)
[2021-03-10] MEDS: Chlorhexidine Rinse 15 ML MOUTHWASH MM SCH ×2 (08:38→19:45)
[2021-03-10] MEDS: levoFLOXacin 500 MG TABLET PO SCH (08:39)
[2021-03-10] MEDS: Multivit/Ca/Min/Fe/FA 1 TAB TABLET PO SCH (08:39)
[2021-03-10] MEDS: Metoprolol XL (24 HR) Succ 25 MG TAB.ER.24H PO SCH (08:39)
[2021-03-10] MEDS: Aspirin Enteric Coated 81 MG Tablet PO SCH (08:39)
[2021-03-10] MEDS: Lactobacillus 1 EACH CAP.SPRINK PO SCH ×2 (08:39→19:46)
[2021-03-10] MEDS: Artificial Tears SOLN 15 ML BOTTLE BOTH EYES SCH ×2 (08:40→19:45)
[2021-03-10] MEDS: *HR* LORazepam 1 MG TABLET PO PRN ×2 (10:35→18:17)
[2021-03-10] MEDS: *HR* OxyCODONE Immed Rel 15 MG TABLET PO PRN ×2 (10:35→18:17)
[2021-03-10] MEDS ORDERED: *HR* Dextrose 50 % in Water (Vial) 50 ML VIAL IVP PRN (12:16)
[2021-03-10] MEDS ORDERED: Dextrose Gel 15 GM/37.5 ML TUBE PO PRN ×2 (12:16)
[2021-03-10] MEDS ORDERED: D5% in Water 1,000 ML IVC PRN (12:16)
[2021-03-10] MEDS: Insulin LISPRO 300 UNITS/3 ML VIAL SUBQ SCH (18:18)
[2021-03-10] MEDS ORDERED: traZODone 50 MG TABLET PO SCH (21:00)
[2021-03-10] MEDS ORDERED: Insulin LISPRO 300 UNITS/3 ML VIAL SUBQ SCH (21:00)
[2021-03-11] MEDS: *HR* OxyCODONE Immed Rel 15 MG TABLET PO PRN ×3 (00:09→14:47)
[2021-03-11] MEDS: *HR* LORazepam 1 MG TABLET PO PRN ×2 (04:09→11:57)
[2021-03-11] MEDS: Saline Nasal Spray 44 ML BOTTLE NS SCH ×4 (04:34→14:52)
[2021-03-11] MEDS: Ipratropium/Albuterol Neb 3 ML IH SCH ×4 (04:48→15:55)
[2021-03-11] MEDS: MethylPREDNISolone 40 MG/ML VIAL IVP SCH ×3 (05:19→16:36)
[2021-03-11] MEDS: *HR* Enoxaparin 40 MG/0.4 ML SYRINGE SQ SCH (05:20)
[2021-03-11 06:34] LABS: Hematocrit 33.4 % (35.3-44.9); Hemoglobin 10.7 g/dL (11.5-15.4); Mean Corpuscular Hemoglobin 28.6 pg (28.0-33.3); Mean Corpuscular Volume 89.3 fL (83.0-100.0); Mean Platelet Volume 9.7 fL (9.4-12.4); Platelet Count 213 K/mcL (140-400); Red Blood Count 3.74 M/mcL (3.82-4.97); Red Cell Distribution Width 12.2 % (11.5-14.5)
[2021-03-11 06:35] LABS: White Blood Count 10.9 K/mcL (4.3-11.1)
[2021-03-11 07:02] LABS: BUN/Creatinine Ratio 37 (6-26); Blood Urea Nitrogen 18 mg/dL (8-23); Carbon Dioxide 36 mEq/L (23-29); Chloride 100 mEq/L (98-107); Glucose 175 mg/dL (70-105); Magnesium 1.9 mg/dL (1.6-2.6); Osmolality,Calculated 296 (280-300); Phosphorous 2.9 mg/dL (2.7-4.5); Potassium 4.2 mEq/L (3.5-5.1); Sodium 140 mEq/L (136-145); eGFR For African Americans > 60 (> 60); eGFR For Non-African Americans > 60 (> 60)
[2021-03-11] MEDS: Budesonide/Formoterol 160/4.5 1 PUFF INH IH SCH (07:46)
[2021-03-11 08:11] LABS: Estimated Average Glucose 126 mg/dl
[2021-03-11] MEDS: Aspirin Enteric Coated 81 MG Tablet PO SCH (08:38)
[2021-03-11] MEDS: Metoprolol XL (24 HR) Succ 25 MG TAB.ER.24H PO SCH (08:38)
[2021-03-11] MEDS: Lactobacillus 1 EACH CAP.SPRINK PO SCH (08:38)
[2021-03-11] MEDS: Multivit/Ca/Min/Fe/FA 1 TAB TABLET PO SCH (08:38)
[2021-03-11] MEDS: Insulin LISPRO 300 UNITS/3 ML VIAL SUBQ SCH ×3 (08:40→16:36)
[2021-03-11] MEDS: Artificial Tears SOLN 15 ML BOTTLE BOTH EYES SCH (08:41)
[2021-03-11] MEDS: Chlorhexidine Rinse 15 ML MOUTHWASH MM SCH (08:41)
[2021-03-11] MEDS ORDERED: Cholecalciferol (D-3) 1,000 UNIT (25MCG) TABLET PO SCH (09:00)
[2021-03-11 11:17] VITALS: BP 117/55; PULSE 97; TEMP 98.4; O2SAT 94
[2021-03-11] MEDS ORDERED: Azithromycin 250 MG TABLET PO SCH (12:30)
[2021-03-11] MEDS ORDERED: *HR* LORazepam 1 MG TABLET PO ONE (16:22)
== END 2021-03-11 17:51 | disposition home health service (06) | DRG 190 ==
LOC: SUATTDRO → EMEROOARM 11:45 → 2ANU 15:00 → SUATTDRO 15:00 → 2ANU 15:49
PROVIDERS: ADMIT Internal Medicine; ATTEND Internal Medicine

== ENCOUNTER 2021-07-03 12:05 | Inpatient (IN) ==
[2021-07-03] MEDS ORDERED: Ipratropium/Albuterol Neb 3 ML IH ONE (12:17)
[2021-07-03 12:22] LABS: ABG Base Excess 10 mEq/L (-2 to 3); ABG Chloride 94 mEq/L (98-107); ABG Glucose 200 mg/dL (60-95); ABG HCO3 39 mEq/L (21-27); ABG Ionized Calcium 1.18 mmol/L (1.15-1.35); ABG Oxygen Saturation 93 % (95-98); ABG PCO2 76 mmHg (35-45); ABG PH 7.32 pH Units (7.32-7.45); ABG PO2 75 mmHg (85-104); ABG TCO2 42 mEq/L (20-26); Blood Gas Modality NIV
[2021-07-03 12:37] LABS: Basophils % 0.1 %; Hemoglobin 12.6 g/dL (11.5-15.4); Immature Granulocytes % 0.8 % (0-4); Lymphocytes # 0.7 K/mcL (0.6-4.6); Mean Corpuscular Hemoglobin 28.4 pg (28.0-33.3); Mean Corpuscular Volume 94.8 fL (83.0-100.0); Mean Platelet Volume 9.9 fL (9.4-12.4); Monocytes # 0.2 K/mcL (0.0-1.3); Monocytes % 3.2 %; Neutrophils # 6.3 K/mcL (1.6-8.9); Platelet Count 199 K/mcL (140-400); Red Blood Count 4.43 M/mcL (3.82-4.97); Red Cell Distribution Width 12.8 % (11.5-14.5); Segmented Neutrophils % 86.9 %; White Blood Count 7.3 K/mcL (4.3-11.1)
[2021-07-03 12:48] LABS: Prothrombin Time 11.6 Seconds (9.4-12.1)
[2021-07-03 12:51] LABS: Activated Partial Thrombo Time 23.3 Seconds (26.0-36.0)
[2021-07-03 13:27] LABS: Bacteria,Urine Few per hpf (None-Few); Bilirubin,Urine Negative (Negative); Blood,Urine Moderate (Negative); Clarity,Urine Turbid (Clear); Color,Urine Yellow (Yellow); Glucose,Urine (UA) Normal (Normal); Ketones,Urine Negative (Negative); Leukocyte Esterase,Urine Moderate (Negative); Mucus,Urine Few per lpf (None-Few); Nitrite,Urine Negative (Negative); PH,Urine 5.5 pH Units (5.0-8.0); Protein,Urine 70 mg/dL (Neg-Trace); Renal Epithelial Cells,Urine Few per hpf (None-Few); Specific Gravity,Urine 1.025 (1.010-1.025); Squamous Epithelial Cell,Urine Few per hpf (None-Few); Transitional Epi Cells,Urine Few per hpf (None-Few); Urobilinogen,Urine Normal (Normal); WBC,Urine 30-50 per hpf (0-3)
[2021-07-03 13:42] LABS: Alanine Aminotransferase 38 Units/L (7-52); Albumin 3.8 g/dL (3.5-5.7); Albumin/Globulin Ratio 1.5 (1.1-2.2); Alkaline Phosphatase 52 Units/L (34-104); Aspartate Amino Transferase 54 Units/L (13-39); BUN/Creatinine Ratio 22 (6-26); Bilirubin,Direct 0.2 mg/dL (0.0-0.2); Bilirubin,Indirect 0.3 mg/dL (0.0-1.0); Bilirubin,Total 0.5 mg/dL (0.3-1.0); Blood Urea Nitrogen 17 mg/dL (8-23); Calcium 8.8 mg/dL (8.6-10.3); Carbon Dioxide 41 mEq/L (23-29); Chloride 96 mEq/L (98-107); Creatine Kinase 76 Units/L (30-223); Ethanol < 10 mg/dL (Less than 10); Globulin 2.6 g/dL (2.4-3.5); Glucose 192 mg/dL (70-105); Osmolality,Calculated 303 (280-300); Potassium 3.4 mEq/L (3.5-5.1); Sodium 143 mEq/L (136-145); Total Protein 6.4 g/dL (6.4-8.9); Troponin I 0.11 ng/mL (< 0.04); eGFR For African Americans > 60 (> 60); eGFR For Non-African Americans > 60 (> 60)
[2021-07-03 13:43] LABS: Amphetamine Screen,Urine Negative ng/mL (Cutoff=1000); Barbiturate Screen,Urine Negative ng/mL (Cutoff=200); Benzodiazepines Screen,Urine Negative ng/mL (Cutoff=200); Cannabinoid Screen,Urine Negative ng/mL (Cutoff = 50); Cocaine Screen,Urine Negative ng/mL (Cutoff= 300); Opiate Screen,Urine Positive ng/mL (Cutoff=300); Phencyclidine Screen,Urine Negative ng/mL (Cutoff=25)
[2021-07-03 14:59] LABS: Triiodothyronine (T3) Free 2.54 pg/mL (2.50-3.90)
[2021-07-03] MEDS ORDERED: Naloxone 0.4 MG/ML INJ IVP ONE (15:19)
[2021-07-03] MEDS ORDERED: Ondansetron 4 MG/2 ML VIAL IVP ONE (16:05)
[2021-07-03] MEDS ORDERED: Ampicillin/Sulbactam 3,000 MG in 0.9 % Sodium Chloride Mini Bag 100 ML IVPB ONE (16:40)
[2021-07-03] MEDS ORDERED: Haloperidol Lactate 5 MG/ML VIAL IVP ONE (16:55)
[2021-07-03 18:19] LABS: ABG Base Excess 12 mEq/L (-2 to 3); ABG HCO3 39 mEq/L (21-27); ABG Oxygen Saturation 94 % (95-98); ABG PCO2 60 mmHg (35-45); ABG PH 7.42 pH Units (7.32-7.45); ABG PO2 71 mmHg (85-104); ABG TCO2 41 mEq/L (20-26)
[2021-07-03] MEDS ORDERED: Naloxone 0.4 MG/ML INJ IVP PRN (19:24)
[2021-07-03] MEDS ORDERED: Acetaminophen 325 MG TABLET PO PRN (19:24)
[2021-07-03] MEDS ORDERED: Ondansetron 4 MG/2 ML VIAL IVP PRN (19:24)
[2021-07-03] MEDS ORDERED: D5% in Water 1,000 ML IVC PRN (19:40)
[2021-07-03] MEDS ORDERED: *HR* Dextrose 50 % in Water (Syg) 50 ML SYRINGE IVP PRN (19:40)
[2021-07-03] MEDS ORDERED: Dextrose Gel 15 GM/37.5 ML TUBE PO PRN ×2 (19:40)
[2021-07-03] MEDS ORDERED: *HR* Heparin 5,000 UNIT/ML VIAL IVP PRN ×2 (20:07)
[2021-07-03] MEDS ORDERED: *HR* Heparin 5,000 UNIT/ML VIAL IVP ONE (20:07)
[2021-07-03] MEDS ORDERED: Heparin 25,000UNIT/250ML 1/2NS 25,000 UNIT/250 ML IV.SOLN IVC SCH (20:15)
[2021-07-03] MEDS ORDERED: Isovue-370 500 ML BOTTLE IVP ONE (20:35)
[2021-07-03] MEDS: Insulin LISPRO 300 UNITS/3 ML VIAL SUBQ SCH ×2 (21:27→21:32)
[2021-07-03] MEDS ORDERED: Potassium Chloride Elixir 20 MEQ/15 ML UDC PO ONE (21:39)
[2021-07-03] MEDS ORDERED: Azithromycin 500 MG VIAL ONE (21:53)
[2021-07-03] MEDS ORDERED: Perflutren Lipid Microsphere 1.3 ML in 0.9 % Sodium Chloride 8.7 ML IVP PRN (21:54)
[2021-07-03] MEDS ORDERED: Aspirin Enteric Coated 325 MG Tablet PO ONE (21:56)
[2021-07-03] MEDS ORDERED: Remdesivir 200 MG in 0.9 % Sodium Chloride 100 ML IVPB ONE (21:58)
[2021-07-03] MEDS: Azithromycin 500 MG in 0.9 % Sodium Chloride 250 ML IVPB SCH (22:00)
[2021-07-03] MEDS ORDERED: Furosemide 20 MG TABLET PO PRN (22:59)
[2021-07-03] MEDS: Pantoprazole 40 MG VIAL IVP SCH (23:48)
[2021-07-04 00:44] LABS: Hematocrit 37.9 % (35.3-44.9); Hemoglobin 11.6 g/dL (11.5-15.4); Immature Granulocytes % 0.4 % (0-4); Lymphocytes # 0.4 K/mcL (0.6-4.6); Lymphocytes % 6.7 %; Mean Corpuscular HGB Conc 30.6 g/dL (31.6-35.5); Mean Corpuscular Volume 94.8 fL (83.0-100.0); Mean Platelet Volume 10.3 fL (9.4-12.4); Monocytes # 0.1 K/mcL (0.0-1.3); Monocytes % 1.9 %; Platelet Count 150 K/mcL (140-400); Red Cell Distribution Width 12.7 % (11.5-14.5); White Blood Count 5.3 K/mcL (4.3-11.1)
[2021-07-04 00:57] LABS: Albumin 3.1 g/dL (3.5-5.7); Albumin/Globulin Ratio 1.3 (1.1-2.2); Bilirubin,Direct 0.2 mg/dL (0.0-0.2); Bilirubin,Indirect 0.2 mg/dL (0.0-1.0); Bilirubin,Total 0.4 mg/dL (0.3-1.0); Globulin 2.3 g/dL (2.4-3.5); Neutrophils # 4.8 K/mcL (1.6-8.9); Total Protein 5.4 g/dL (6.4-8.9)
[2021-07-04 01:18] LABS: BUN/Creatinine Ratio 35 (6-26); Blood Urea Nitrogen 19 mg/dL (8-23); Calcium 7.9 mg/dL (8.6-10.3); Carbon Dioxide 35 mEq/L (23-29); Chloride 100 mEq/L (98-107); Ferritin > 1500 ng/mL (10-120); Glucose 148 mg/dL (70-105); Lactate Dehydrogenase 301 Units/L (140-271); Magnesium 1.8 mg/dL (1.6-2.6); Osmolality,Calculated 299 (280-300); Potassium 4.3 mEq/L (3.5-5.1); Sodium 142 mEq/L (136-145); eGFR For African Americans > 60 (> 60); eGFR For Non-African Americans > 60 (> 60)
[2021-07-04 02:06] LABS: Platelet Estimate Normal (Normal)
[2021-07-04] MEDS: cefTRIAXone 1,000 MG in 0.9 % Sodium Chloride Mini Bag 100 ML IVPB SCH (09:06)
[2021-07-04] MEDS: Cholecalciferol (D-3) 1,000 UNIT (25MCG) TABLET PO SCH (09:08)
[2021-07-04] MEDS: Azithromycin 500 MG in 0.9 % Sodium Chloride 250 ML IVPB SCH (09:08)
[2021-07-04] MEDS: Aspirin Enteric Coated 81 MG Tablet PO SCH (09:08)
[2021-07-04] MEDS: Pantoprazole 40 MG VIAL IVP SCH (09:08)
[2021-07-04] MEDS: Insulin LISPRO 300 UNITS/3 ML VIAL SUBQ SCH ×4 (09:09→20:11)
[2021-07-04] MEDS: BEVESPI AEROSPHERE PO SCH ×2 (10:39→19:43)
[2021-07-04] MEDS: *HR* OxyCODONE Immed Rel 5 MG TABLET PO PRN ×2 (10:50→18:07)
[2021-07-04] MEDS: *HR* LORazepam 1 MG TABLET PO PRN (19:32)
[2021-07-04] MEDS: Ipratropium 1 PUFF INHALER IH SCH ×2 (19:43→23:16)
[2021-07-04] MEDS: traZODone 50 MG TABLET PO SCH (20:10)
[2021-07-04] MEDS: Remdesivir 100 MG in 0.9 % Sodium Chloride 100 ML IVPB SCH (23:31)
[2021-07-05] MEDS: Ipratropium 1 PUFF INHALER IH SCH ×5 (03:38→20:04)
[2021-07-05] MEDS: *HR* OxyCODONE Immed Rel 5 MG TABLET PO PRN ×2 (04:59→12:44)
[2021-07-05] MEDS: BEVESPI AEROSPHERE PO SCH ×2 (07:49→22:58)
[2021-07-05] MEDS: Insulin LISPRO 300 UNITS/3 ML VIAL SUBQ SCH ×4 (09:25→22:26)
[2021-07-05] MEDS: Aspirin Enteric Coated 81 MG Tablet PO SCH (09:26)
[2021-07-05] MEDS: Cholecalciferol (D-3) 1,000 UNIT (25MCG) TABLET PO SCH (09:26)
[2021-07-05] MEDS: Azithromycin 500 MG in 0.9 % Sodium Chloride 250 ML IVPB SCH (09:26)
[2021-07-05] MEDS: Metoprolol XL (24 HR) Succ 25 MG TAB.ER.24H PO SCH (09:26)
[2021-07-05] MEDS: cefTRIAXone 1,000 MG in 0.9 % Sodium Chloride Mini Bag 100 ML IVPB SCH (09:29)
[2021-07-05] MEDS: Pantoprazole 40 MG VIAL IVP SCH (09:29)
[2021-07-05] MEDS: Azithromycin 250 MG TABLET PO SCH (14:00)
[2021-07-05] MEDS: Cefdinir 300 MG CAPSULE PO SCH ×2 (14:00→22:56)
[2021-07-05] MEDS: *HR* OxyCODONE Immed Rel 15 MG TABLET PO PRN ×2 (17:06→22:56)
[2021-07-05 18:18] LABS: Hematocrit 37.3 % (35.3-44.9); Hemoglobin 11.9 g/dL (11.5-15.4); Mean Corpuscular HGB Conc 31.9 g/dL (31.6-35.5); Mean Corpuscular Volume 90.8 fL (83.0-100.0); Mean Platelet Volume 10.4 fL (9.4-12.4); Platelet Count 186 K/mcL (140-400); Red Blood Count 4.11 M/mcL (3.82-4.97); Red Cell Distribution Width 12.4 % (11.5-14.5)
[2021-07-05 18:19] LABS: White Blood Count 8.2 K/mcL (4.3-11.1)
[2021-07-05 18:37] LABS: BUN/Creatinine Ratio 37 (6-26); Blood Urea Nitrogen 19 mg/dL (8-23); Calcium 8.3 mg/dL (8.6-10.3); Carbon Dioxide 39 mEq/L (23-29); Chloride 96 mEq/L (98-107); Glucose 188 mg/dL (70-105); Osmolality,Calculated 295 (280-300); Potassium 3.5 mEq/L (3.5-5.1); Sodium 139 mEq/L (136-145); eGFR For African Americans > 60 (> 60); eGFR For Non-African Americans > 60 (> 60)
[2021-07-05] MEDS: *HR* LORazepam 1 MG TABLET PO PRN (22:56)
[2021-07-05] MEDS: traZODone 50 MG TABLET PO SCH (22:57)
[2021-07-05] MEDS: Remdesivir 100 MG in 0.9 % Sodium Chloride 100 ML IVPB SCH (22:57)
[2021-07-06] MEDS: Ipratropium 1 PUFF INHALER IH SCH ×5 (00:10→15:48)
[2021-07-06 07:08] LABS: Hematocrit 34.2 % (35.3-44.9); Hemoglobin 11.1 g/dL (11.5-15.4); Mean Corpuscular HGB Conc 32.5 g/dL (31.6-35.5); Mean Corpuscular Hemoglobin 29.5 pg (28.0-33.3); Mean Platelet Volume 10.1 fL (9.4-12.4); Platelet Count 200 K/mcL (140-400); Red Blood Count 3.76 M/mcL (3.82-4.97); Red Cell Distribution Width 12.4 % (11.5-14.5); White Blood Count 5.9 K/mcL (4.3-11.1)
[2021-07-06 07:15] VITALS: BP 116/78; PULSE 92; TEMP 98.5
[2021-07-06 07:37] LABS: BUN/Creatinine Ratio 34 (6-26); Blood Urea Nitrogen 16 mg/dL (8-23); Calcium 8.2 mg/dL (8.6-10.3); Carbon Dioxide 41 mEq/L (23-29); Chloride 96 mEq/L (98-107); Glucose 153 mg/dL (70-105); Osmolality,Calculated 294 (280-300); Potassium 3.5 mEq/L (3.5-5.1); Sodium 140 mEq/L (136-145); eGFR For African Americans > 60 (> 60); eGFR For Non-African Americans > 60 (> 60)
[2021-07-06] MEDS: BEVESPI AEROSPHERE PO SCH (08:24)
[2021-07-06 08:28] VITALS: O2SAT 90
[2021-07-06] MEDS: Azithromycin 250 MG TABLET PO SCH (09:20)
[2021-07-06] MEDS: Cefdinir 300 MG CAPSULE PO SCH (09:21)
[2021-07-06] MEDS: Cholecalciferol (D-3) 1,000 UNIT (25MCG) TABLET PO SCH (09:21)
[2021-07-06] MEDS: Metoprolol XL (24 HR) Succ 25 MG TAB.ER.24H PO SCH (09:21)
[2021-07-06] MEDS: *HR* OxyCODONE Immed Rel 15 MG TABLET PO PRN ×2 (09:21→14:02)
[2021-07-06] MEDS: Aspirin Enteric Coated 81 MG Tablet PO SCH (09:21)
[2021-07-06] MEDS: Insulin LISPRO 300 UNITS/3 ML VIAL SUBQ SCH ×2 (09:22→18:18)
[2021-07-06] MEDS: Pantoprazole 40 MG VIAL IVP SCH (09:23)
[2021-07-06] MEDS ORDERED: dexAMETHasone 4 MG TABLET PO SCH (12:00)
[2021-07-06] MEDS: *HR* LORazepam 1 MG TABLET PO PRN (14:02)
== END 2021-07-06 19:05 | disposition home or self-care (01) | DRG 177 ==
LOC: 3NENU 12:05 → EMEROOARM 12:05 → OBSVTOIN 20:10 → SUATTDRO 20:10 → 3NENU 21:49 → 3ANU 07-04 19:23
PROVIDERS: ADMIT Family Medicine; ATTEND Family Medicine

== ENCOUNTER 2021-10-30 09:46 | Inpatient (IN) ==
[2021-10-30] MEDS ORDERED: Ondansetron 4 MG/2 ML VIAL IVP ONE (10:37)
[2021-10-30] MEDS ORDERED: 0.9 % Sodium Chloride 500 ML IVC ONE (10:37)
[2021-10-30 11:25] LABS: Basophils % 0.2 %; Eosinophils # 0.3 K/mcL (0.0-0.6); Eosinophils % 3.2 %; Hematocrit 42.4 % (35.3-44.9); Hemoglobin 12.9 g/dL (11.5-15.4); Immature Granulocytes % 0.4 % (0-4); Lymphocytes # 1.7 K/mcL (0.6-4.6); Lymphocytes % 19.3 %; Mean Corpuscular HGB Conc 30.4 g/dL (31.6-35.5); Mean Corpuscular Hemoglobin 28.3 pg (28.0-33.3); Mean Platelet Volume 9.7 fL (9.4-12.4); Monocytes # 0.8 K/mcL (0.0-1.3); Neutrophils # 6.1 K/mcL (1.6-8.9); Platelet Count 228 K/mcL (140-400); Red Blood Count 4.56 M/mcL (3.82-4.97); Red Cell Distribution Width 12.5 % (11.5-14.5); Segmented Neutrophils % 67.9 %
[2021-10-30] MEDS ORDERED: Isovue-370 500 ML BOTTLE IVP ONE (11:31)
[2021-10-30 11:34] LABS: Alanine Aminotransferase 6 Units/L (7-52); Albumin 3.9 g/dL (3.5-5.7); Albumin/Globulin Ratio 1.6 (1.1-2.2); Alkaline Phosphatase 46 Units/L (34-104); Aspartate Amino Transferase 8 Units/L (13-39); BUN/Creatinine Ratio 23 (6-26); Bilirubin,Direct 0.1 mg/dL (0.0-0.2); Bilirubin,Indirect 0.4 mg/dL (0.0-1.0); Bilirubin,Total 0.5 mg/dL (0.3-1.0); Blood Urea Nitrogen 14 mg/dL (8-23); Calcium 9.8 mg/dL (8.6-10.3); Carbon Dioxide 42 mEq/L (23-29); Chloride 95 mEq/L (98-107); Globulin 2.4 g/dL (2.4-3.5); Glucose 109 mg/dL (70-105); Lipase 3 Units/L (11-82); Osmolality,Calculated 291 (280-300); Potassium 4.3 mEq/L (3.5-5.1); Sodium 140 mEq/L (136-145); Total Protein 6.3 g/dL (6.4-8.9); Troponin I < 0.03 ng/mL (< 0.04); eGFR For African Americans > 60 (> 60); eGFR For Non-African Americans > 60 (> 60)
[2021-10-30] MEDS ORDERED: *HR* OxyCODONE Immed Rel 5 MG TABLET PO ONE (13:45)
[2021-10-30] MEDS ORDERED: Ipratropium/Albuterol Neb 3 ML ONE (13:47)
[2021-10-30] MEDS ORDERED: Naloxone 0.4 MG/ML INJ IVP PRN (15:01)
[2021-10-30] MEDS ORDERED: Acetaminophen 325 MG TABLET PO PRN (15:01)
[2021-10-30] MEDS ORDERED: Ondansetron 4 MG/2 ML VIAL IVP PRN (15:01)
[2021-10-30] MEDS ORDERED: Fluticasone Propionate Nasal 50 MCG/SPRAY BOTTLE NS PRN (15:08)
[2021-10-30] MEDS: *HR* LORazepam 1 MG TABLET PO PRN (16:00)
[2021-10-30] MEDS ORDERED: Furosemide 40 MG/4 ML VIAL IVP ONE (16:02)
[2021-10-30] MEDS ORDERED: Gadolinium Contrast Agent (WT Based) IV PRN (16:46)
[2021-10-30] MEDS: *HR* Heparin 5,000 UNIT/ML VIAL SQ SCH (17:01)
[2021-10-30] MEDS ORDERED: Ipratropium/Albuterol Neb 3 ML IH ONE (18:00)
[2021-10-30] MEDS: *HR* OxyCODONE Immed Rel 5 MG TABLET PO PRN (18:20)
[2021-10-30 19:45] LABS: Adenovirus Not Detected (Not Detect); Bordetella Pertussis Not Detected (Not Detect); Chlamydophila pneumoniae Not Detected (Not Detect); Coronavirus 229E Not Detected (Not Detect); Coronavirus HKU1 Not Detected (Not Detect); Coronavirus NL63 Not Detected (Not Detect); Coronavirus OC43 Not Detected (Not Detect); Human Metapneumovirus Not Detected (Not Detect); Human Rhinovirus/Enterovirus Not Detected (Not Detect); Influenza A Subtype 2009 H1 Not Detected (Not Detect); Influenza B Not Detected (Not Detect); Mycoplasma pneumoniae Not Detected (Not Detect); Parainfluenza Virus 1 Not Detected (Not Detect); Parainfluenza Virus 2 Not Detected (Not Detect); Parainfluenza Virus 3 Not Detected (Not Detect); Parainfluenza Virus 4 Not Detected (Not Detect); Respiratory Syncytial Virus Not Detected (Not Detect); SARS-CoV-2 Not Detected (Not Detect)
[2021-10-30] MEDS: traZODone 50 MG TABLET PO SCH (20:26)
[2021-10-30] MEDS: Ipratropium/Albuterol Neb 3 ML IH PRN (21:18)
[2021-10-31 03:32] LABS: Basophils % 0.1 %; Eosinophils # 0.2 K/mcL (0.0-0.6); Eosinophils % 3.3 %; Hematocrit 39.2 % (35.3-44.9); Immature Granulocytes % 0.4 % (0-4); Lymphocytes # 1.6 K/mcL (0.6-4.6); Lymphocytes % 22.3 %; Mean Corpuscular HGB Conc 30.6 g/dL (31.6-35.5); Mean Corpuscular Hemoglobin 28.1 pg (28.0-33.3); Mean Corpuscular Volume 91.8 fL (83.0-100.0); Mean Platelet Volume 10.1 fL (9.4-12.4); Monocytes # 0.6 K/mcL (0.0-1.3); Monocytes % 8.5 %; Neutrophils # 4.5 K/mcL (1.6-8.9); Platelet Count 201 K/mcL (140-400); Red Blood Count 4.27 M/mcL (3.82-4.97); Red Cell Distribution Width 12.6 % (11.5-14.5); Segmented Neutrophils % 65.4 %; White Blood Count 6.9 K/mcL (4.3-11.1)
[2021-10-31 03:40] LABS: Chol/HDL Ratio 4.1 (0-4.9)
[2021-10-31 03:46] LABS: BUN/Creatinine Ratio 20 (6-26); Blood Urea Nitrogen 14 mg/dL (8-23); Calcium 9.4 mg/dL (8.6-10.3); Carbon Dioxide 42 mEq/L (23-29); Glucose 93 mg/dL (70-105); eGFR For African Americans > 60 (> 60); eGFR For Non-African Americans > 60 (> 60)
[2021-10-31 04:23] LABS: Chloride 96 mEq/L (98-107); Osmolality,Calculated 294 (280-300); Potassium 3.9 mEq/L (3.5-5.1); Sodium 142 mEq/L (136-145)
[2021-10-31 04:28] LABS: Estimated Average Glucose 111 mg/dl; Hemoglobin A1C 5.5 %
[2021-10-31] MEDS: FORMOTEROL FUM PO SCH ×3 (05:04→20:27)
[2021-10-31] MEDS: GLYCOPYRROLATE PO SCH ×3 (05:04→20:27)
[2021-10-31] MEDS: *HR* Heparin 5,000 UNIT/ML VIAL SQ SCH ×2 (05:58→17:27)
[2021-10-31] MEDS: Aspirin Enteric Coated 81 MG Tablet PO SCH (08:22)
[2021-10-31] MEDS: Cholecalciferol (D-3) 1,000 UNIT (25MCG) TABLET PO SCH (08:22)
[2021-10-31] MEDS: Metoprolol XL (24 HR) Succ 25 MG TAB.ER.24H PO SCH (08:22)
[2021-10-31] MEDS: Ipratropium/Albuterol Neb 3 ML IH PRN ×2 (09:44→19:58)
[2021-10-31] MEDS ORDERED: *HR* OxyCODONE Immed Rel 5 MG TABLET PO ONE ×2 (09:51→15:28)
[2021-10-31] MEDS ORDERED: *HR* LORazepam 1 MG TABLET PO STA (11:02)
[2021-10-31 13:58] LABS: Red Blood Cell,CSF < 2000 RBC/mcL
[2021-10-31 13:59] LABS: Appearance,CSF Clear (Clear)
[2021-10-31 15:00] LABS: Glucose,CSF 74 mg/dL (40-70); Total Protein,CSF 41 mg/dL (15-45)
[2021-10-31] MEDS: Furosemide 40 MG TABLET PO SCH (16:04)
[2021-10-31] MEDS: traZODone 50 MG TABLET PO SCH (20:16)
[2021-11-01] MEDS: *HR* LORazepam 1 MG TABLET PO PRN (03:10)
[2021-11-01] MEDS: *HR* Heparin 5,000 UNIT/ML VIAL SQ SCH (05:08)
[2021-11-01 06:43] VITALS: BP 120/81; PULSE 100; TEMP 97.9
[2021-11-01 07:37] VITALS: O2SAT 95
[2021-11-01] MEDS: Furosemide 40 MG TABLET PO SCH (08:07)
[2021-11-01] MEDS: Metoprolol XL (24 HR) Succ 25 MG TAB.ER.24H PO SCH (08:07)
[2021-11-01] MEDS: Cholecalciferol (D-3) 1,000 UNIT (25MCG) TABLET PO SCH (08:08)
[2021-11-01] MEDS: GLYCOPYRROLATE PO SCH (08:08)
[2021-11-01] MEDS: Aspirin Enteric Coated 81 MG Tablet PO SCH (08:08)
[2021-11-01] MEDS: FORMOTEROL FUM PO SCH (08:08)
[2021-11-01] MEDS: *HR* OxyCODONE Immed Rel 5 MG TABLET PO PRN (08:09)
== END 2021-11-01 10:41 | disposition home or self-care (01) | DRG 292 ==
LOC: EMEROOARM 09:46 → 3BNU 09:46
PROVIDERS: ADMIT Internal Medicine; ATTEND Internal Medicine